=== PATIENT | male | born 1935 | race Caucasian/White ===

== ENCOUNTER 2018-08-24 10:12 | Day surgery (SDC) | payer OTHER, SELFPAY ==
[2018-08-19 12:53] VITALS: BMI 28.0
--- NOTE | 2018-08-24 | DI.RAD.S_ITS ---
PROCEDURE: XR CHEST 1V INDICATIONS: PORT A CATH PLACEMENT TECHNIQUE: One view of the chest was acquired. COMPARISON: [facility], CT, CT CHEST WITHOUT CONTRAST, 07/08/2018, 9:21. [facility], CR, CHEST 2 VIEW, 11/04/2017, 12:33. FINDINGS: Surgical changes and devices: There is a left Port-A-Cath, the tip of which is projected over the upper SVC. Lungs and pleura: Lung volumes are low. A spiculated mass is redemonstrated within the right upper lobe, slightly increased in size when compared with the prior chest film dated 11/04/17. There is likely a second right apical lesion more superiorly that was not visualized on the prior plain film, but is likely present on the comparison CT dated 07/08/18. No pneumothorax. Mediastinum: Mediastinal contours appear normal. Heart size is normal. Bones and chest wall: No suspicious bony lesions. Overlying soft tissues appear unremarkable. IMPRESSION: 1. New left Port-A-Cath. 2. Right apical pulmonary lesions. Dictated by: Devi Wright M.D. on 08/24/2018 at 12:52 Approved by: Devi Wright M.D. on 08/24/2018 at 12:56
[2018-08-24 10:47] VITALS: BP 142/79; PULSE 47; RESP 16; TEMP 36.2; O2SAT 97; BMI 28.0
[2018-08-24] MEDS: LACTATED RINGERS 1,000 ML 100 ML IV (11:03)
--- NOTE | 2018-08-24 11:26 | PM.HP.1 ---
History of Present Illness Date Patient Seen: 08/24/18 Time Patient Seen: 11:27 Chief complaint: port a cath placement [id number] Narrative: Segundo is a pleasant 83-year-old gentleman with recurrent lung cancer. He presents today for port placement to facilitate chemotherapy. He denies shortness of breath or chest pain today. He reports that the process of getting a port as well as the use of it has been discussed with him and he is willing to have the procedure. Patient History Medical History Adenocarcinoma of right lung (Acute ~12/2017) Anemia (Acute) Arthritis (Acute) BPH (benign prostatic hyperplasia) (Acute) Bilateral carotid bruits (Acute ~08/2017) Constipation (Acute) Easy bruisability (Acute) Eustachian tube dysfunction (Acute) GERD (gastroesophageal reflux disease) (Acute) HTN (hypertension) (Acute) Hard of hearing (Acute) Hypothyroidism (Acute) Macular degeneration of left eye (Acute) Silent myocardial infarction (Acute ~2010) Spinal stenosis (Acute) Syncope (Acute) Family & Social History Family History: Reviewed 08/24/18 by Shiela Dougherty MD Social History: household members spouse Tobacco & Substance use: Smoking Status Former smoker alcohol intake current Meds Home Medications Medication Instructions Recorded Confirmed Type finasteride 5 mg PO QDAY #0 02/11/17 History oxybutynin chloride [Ditropan XL] 5 mg PO QPM #0 02/11/17 History aspirin 0.25 tab PO QDAY #0 09/01/17 History tamsulosin [Flomax] 0.4 mg PO BID #0 09/01/17 History fluticasone [Flonase Allergy 50 mcg INTRANASAL PRN PRN #48 ml 09/16/17 Rx Relief] omeprazole 20 mg PO QDAY #90 cap 10/05/17 Rx levothyroxine [Synthroid] 75 mcg PO QDAY #90 tab 10/18/17 Rx lisinopril 5 mg PO QDAY #90 tab 11/09/17 Rx polysaccharide iron complex 150 mg PO BID #60 cap 12/08/17 Rx [Ferrex 150] docusate sodium [DOK] 100 mg PO QDAYP PRN #0 01/05/18 History azelastine 2 inh INH SEE INSTRUCTIONS #1 inh 01/10/18 Rx nabumetone 750 mg tablet 750 mg PO BID #180 tab 05/24/18 Rx atorvastatin 40 mg tablet 40 mg PO QDAY #90 tab 06/27/18 Rx folic acid 1 mg PO DAILY #30 tab 08/15/18 Rx ondansetron HCl [Zofran] 4 mg PO Q6-8H PRN #30 tab 08/22/18 Rx Allergies Allergy/AdvReac Type Severity Reaction Status Date / Time No Known Drug Allergies Allergy Unknown Verified 08/24/18 10:45 [NO KNOWN DRUG ALLERGIES] Review of Systems Review of Systems All systems reviewed & are unremarkable except as noted in HPI and below Exam Vital Signs (past 8 hours): - 08/24/18 10:47 Temperature 97.1 F L Pulse Rate 47 L Respiratory Rate 16 Blood Pressure 142/79 H Pulse Oximetry 97 Oxygen Delivery Method Room Air Narrative Exam Narrative: Pleasant gentleman in no obvious distress HEENT: Normocephalic and atraumatic, pupils equal round reactive to light accommodation with anicteric sclera Lungs: Clear bilaterally Heart: Regular rate and rhythm Abdomen: Soft, nontender, active bowel sounds Extremities: Warm and well perfused Assessment & Plan Plan: Assessment/Plan Narrative: Pleasant right-handed gentleman with recurrent lung cancer. We discussed the risks and benefits of port placement the patient expressed a desire to complete the procedure today.
[2018-08-24] MEDS: CEFAZOLIN 2 GM/100 ML FROZ.PIGGY IV (11:36)
--- NOTE | 2018-08-24 11:54 | SUR.OPER ---
Supine on padded OR bed, head on pillow, arms padded and tucked at side, legs uncrossed, safety belt at thigh, tape over blanket over lower legs .
[2018-08-24] MEDS: BUPIVACAINE 0.5% (PF) VIAL 30 ML INJ (12:03)
[2018-08-24] MEDS: LIDOCAINE 1% W/EPI INJ 20 ML INJ (12:05)
--- NOTE | 2018-08-24 12:10 | PM.OP.1 ---
Operative Date/Time/Diagnoses Date of procedure: 08/24/18 Time of procedure: 12:10 Pre-op diagnosis: Recurrent lung cancer Post-op diagnosis: same Procedure & Clinicians Procedure: Left subclavian PowerPort placement Same procedure as scheduled: Yes Indications: Chemotherapy facilitation Surgeon: Shiela Dougherty Click Yes if Unassisted: Yes Anesthesia Type: General (Dr. Tello) and Local Operative Notes Findings: Power port in good position in the superior vena cava Closure Type: primary Specimen(s): none sent Implants & Drains: Low-profile power port Estimated Blood Loss (mL): 5 Procedure in detail: After obtaining informed consent, the patient was brought to the operating room and placed in the supine position on the operating table. Following successful induction of general endotracheal anesthesia, appropriate padding of all bony prominences, and placement of appropriate monitors, the left chest was prepped and draped in a standard surgical fashion. A timeout was held per SCOAP protocol.A mixture of local anesthetics was infiltrated in the deltopectoral groove on the left side. The right subclavian vein was accessed via the Seldinger technique and a wire was gently placed into the vein. Fluoroscopy was used to verify position of the wire in the subclavian vein. We next created a pocket of approximately 2 cm inferior to the access site of the vein. This was checked for size and found to fit the port nicely. The included tunneling device was used to place the tubing and the pocket connecting it to the access site of the subclavian vein. The tubing was trimmed to an appropriate length and connected to the Port-A-Cath. The Port-A-Cath was sewn into place in the pocket using interrupted Prolene sutures. The pocket was closed in 2 layers. The dilator and introducer were then gently passed over the wire and into the subclavian vein. The wire and dilator were removed leaving only the introducer. The tubing was then placed in the introducer and the introducer removed per diesel mechanic's directions. The port was then flushed with saline solution and found to be functional and in good position. It was then hep-locked with 2000 units of heparin.The incision was closed in 2 layers with Vicryl and Monocryl sutures. Dermabond was applied to the skin. All sponge, needle, and instrument counts were correct at the conclusion of the case. Patient was allowed to awaken from anesthesia and taken to the post-anesthesia care unit in good condition. Complications: none Condition: stable Disposition: PACU Plan for aftercare: 1. Discharge to home 2. The port is ready for use
[2018-08-24 12:17] VITALS: BP 136/74; PULSE 115; RESP 19; TEMP 36.3; O2SAT 97
[2018-08-24 12:22] VITALS: BP 106/61; PULSE 101; RESP 17; O2SAT 97
[2018-08-24 12:27] VITALS: BP 103/62; PULSE 97; RESP 20; O2SAT 97
[2018-08-24 12:32] VITALS: BP 106/59; PULSE 96; RESP 20; O2SAT 97
[2018-08-24 12:58] VITALS: BP 127/78; PULSE 56; RESP 16; TEMP 36.6; O2SAT 98
== END 2018-08-24 13:23 ==
PROVIDERS: PCP Internal Medicine; Visit Provider Surgery
PROC: (CPT 36561; principal; 2018-08-24 12:45)
DX: C34.91 Malignant neoplasm of unspecified part of right bronchus or lung (principal); Z45.2 Encounter for adjustment and management of vascular access device; Z87.891 Personal history of nicotine dependence; I10 Essential (primary) hypertension; E03.9 Hypothyroidism, unspecified
CPT/HCPCS: 36561; 71045; 76000; C1788; J0690; J1644; J2405; J2704; J3010

== ENCOUNTER → 2018-09-21 08:24 | Outpatient (CLI) | payer OTHER, SELFPAY ==
--- NOTE | 2018-09-21 08:26 | DI.ECHO.S_ITS ---
[facility] +---------+ [facility] +---------+ : : [address] : : : : [phone] : : : : Phone: [phone]+ Echocardiogram Report + + :Name: NADYA SCHUSTER Study Date: 09/21/2018 Height: 69 in : :[facility] Weight: 182 lb : : Gender: Male BSA: 2.0 m2 : :: 1935 Age: 83 yrs BP: 110/58 mmHg: :Reason For Study: Pre Chemo (ICD Code V67.2), Dizziness : : Performed By: Meredith Busby : :Referring: NOHEMY HICKS : + + Interpretation Summary Left ventricular systolic function is normal without focal wall motion abnormalities with the ejection fraction visually estimated to be 65-70%. There is mild concentric left ventricular hypertrophy and diastolic parameters suggest a relaxation abnormality of the left ventricle, consistent with probable normal filling pressures. There has been no significant change since the previous study. The right ventricle is normal in size and function and appears unchanged compared to the previous study. The right ventricular systolic pressure is estimated to be at least 24 mmHg based on an estimated right atrial pressure of 3 mm Hg, and is unchanged compared to the previous study. The left atrium is mildly dilated and is grossly unchanged compared to the previous study. There is mild to moderate mitral annular calcification and the mitral valve leaflets are mildly calcified which appears progressive compared to the previous study but there is only is trace mitral regurgitation that is unchanged. There is mild aortic valve sclerosis and mild tricuspid regurgitation that are unchanged compared to the previous study. There is no other significant valvular heart disease. The ascending aorta and aortic arch are mildly enlarged but similar compared to the previous study. Procedure: A two-dimensional transthoracic echocardiogram with color flow and Doppler was performed. The study quality was technically adequate. Comparison is made with the echocardiogram of 07/11/2011. The patient was in normal sinus rhythm during the exam. The patient had occasional PVCs during the exam. Left Ventricle: The left ventricle is normal in size. There is mild concentric left ventricular hypertrophy. This is unchanged compared to the previous study. There is no ventricular septal defect visualized. Left ventricular systolic function is normal without focal wall motion abnormalities. The ejection fraction is estimated to be 65-70%. This is unchanged compared to the previous study. Diastolic parameters suggest a relaxation abnormality of the left ventricle, consistent with probable normal filling pressures. There has been no significant change since the previous study. Right Ventricle: The right ventricle is normal in size and function. This is unchanged compared to the previous study. Atria: The left atrium is mildly dilated. This is grossly unchanged compared to the previous study. Right atrial size is normal. The interatrial septum is intact with no evidence for an atrial septal defect. Mitral Valve: There is mild to moderate mitral annular calcification. The mitral valve leaflets are mildly calcified. This is progressive compared to the previous study. There is trace mitral regurgitation. This is unchanged compared to the previous study. Aortic Valve: The aortic valve is trileaflet. There is mild aortic valve sclerosis. The aortic valve is slightly calcified. Leaflet mobility is minimally reduced. There is no aortic valve stenosis. There is trace aortic regurgitation. This is unchanged compared to the previous study. Tricuspid Valve: The tricuspid valve leaflets are thin and pliable. There is mild tricuspid regurgitation. The right ventricular systolic pressure is estimated to be at least 24 mmHg based on an estimated right atrial pressure of 3 mm Hg. This is unchanged compared to the previous study. Pulmonic Valve: The pulmonic valve leaflets are thin and pliable; valve motion is normal. There is trace pulmonic regurgitation. This is unchanged compared to the previous study. There is no other significant valvular heart disease. Great Vessels: The aortic root is normal size. The ascending aorta is mildly enlarged. The aortic arch is mildly enlarged. This is similar compared to the previous study. The pulmonary artery is normal size. The IVC is of normal diameter and collapses greater than 50% with a sniff. This suggests a low right atrial pressure of 3 mm Hg. Pericardium/ Pleura There is no pericardial effusion. MMode/2D Measurements & Calculations LVIDd: 4.4 cm LVOT diam: 2.2 cm LVIDs: 2.6 cm Ao root diam: 3.4 cm FS: 41.5 % Aortic Jxn: 2.9 cm EPSS: 0.28 cm asc Aorta Diam: 3.6 cm IVSd: 1.2 cm Ao Arch Diam (Prox Trans): 3.2 cm LVPWd: 1.4 cm LV ashraf. diameter/BSA (cm/m^2): 2.2 LV sys. diameter/BSA (cm/m^2): 1.3 LA A2 area: 24.1 cm2 RA long axis: 5.2 cm LA A4 area: 21.9 cm2 RA area: 16.9 cm2 LA length (vol): 5.5 cm RA vol: 46.4 ml LA vol: 81.4 ml RA : 23.4 ml/m2 LA vol index: 41.0 ml/m2 IVC diam: 1.5 cm RVD1 (basal): 3.5 cm RVD2 (mid): 2.8 cm TAPSE: 2.2 cm Doppler Measurements & Calculations Ao V2 max: 179.7 cm/sec LVOT Max Remy: 126.2 cm/sec Ao V2 mean: 116.6 cm/sec LV V1 max P.4 mmHg Ao max P.9 mmHg LV V1 VTI: 27.5 cm Ao mean P.3 mmHg GARRY(I,D): 3.1 cm2 Ao V2 VTI: 34.9 cm GARRY(V,D): 2.8 cm2 sev ratio: 0.79 GARRY indexed to BSA (cm^2/m^2): 1.6 MV E max remy: 89.0 cm/sec TR max remy: 226.9 cm/sec MV A max remy: 106.6 cm/sec TR max P.6 mmHg MV E/A: 0.83 PA V2 max: 95.3 cm/sec Med Peak E' Remy: 5.6 cm/sec PA V2 mean: 64.3 cm/sec E/E' med: 16.0 PA mean P.9 mmHg Lat Peak E' Remy: 4.5 cm/sec PA Accel Time: 0.08 sec E/E' lat: 19.7 E/e' average: 17.8 MV dec time: 0.20 sec MV P1/2t: 58.2 msec MV P1/2t max remy: 89.1 cm/sec MVA(P1/2t): 3.8 cm2 Reading Physician:[place]
== END ==
PROVIDERS: PCP Internal Medicine; Visit Provider Internal Medicine Hematology & Oncology
DX: I08.2 Rheumatic disorders of both aortic and tricuspid valves (principal); C34.91 Malignant neoplasm of unspecified part of right bronchus or lung; R42 Dizziness and giddiness
CPT/HCPCS: 93306

== ENCOUNTER → 2018-11-10 10:26 | Outpatient (CLI) | payer OTHER, SELFPAY ==
--- NOTE | 2018-11-10 10:37 | DI.CT.S_ITS ---
PROCEDURE: CT CHEST ABD PEL W CON INDICATIONS: check responsiveness to treatment TECHNIQUE: After the administration of oral and intravenous contrast, 5 mm thick sections acquired from the lung apices to the symphysis. 5 mm coronal and sagittal reformats were performed, with additional 7 mm coronal MIP reformats through the lungs. For radiation dose reduction, the following was used: automated exposure control, adjustment of mA and/or kV according to patient size. COMPARISON: [facility], [place], PET NECK TO MID THIGH, 08/09/2018, 10:10. [facility], CT, CT CHEST WITHOUT CONTRAST, 07/08/2018, 9:21. [facility], CT, CT CHEST WITHOUT CONTRAST, 03/31/2018, 10:14. FINDINGS: Image quality: Excellent. CHEST: Lungs and pleura: There is an irregular density in the right upper lobe anteriorly, unchanged and compatible with postradiation changes. There is a small right effusion. There are multiple pleural nodules in the lower right hemithorax, demonstrating interval enlargement. For example, a 12 x 9 mm nodule previously measured 10 x 5 mm on 08/09/2018. A 15 x 8 mm nodule was previously measured 9 x 7 cm. An anterior pleural nodule measures 9 x 15 mm, previously 6 x 7 mm. Another anterior pleural nodule in the right cardiophrenic angle measures 1.7 x 3.0 cm, previously 1.3 x 2.1 cm. Right lower lobe infiltrate and consolidation has decreased. No pleural effusions or pneumothorax. Central and peripheral airways appear patent and normal in caliber. Mediastinum: Heart size is normal. No pericardial effusion. No mediastinal or hilar adenopathy by size criteria. Thoracic aorta and central pulmonary arteries are normal in size. Esophagus is normal in caliber. No hiatal hernia. Chest wall: No axillary or supraclavicular adenopathy by size criteria. Thyroid gland is normal. ABDOMEN: Solid organs: There are multiple low density nodules in the liver, most likely cysts. Liver is normal in size and enhancement. Gallbladder is normal. Biliary system is non dilated. Pancreas enhances normally. Spleen is normal in size and enhancement. No adrenal nodules. Kidneys demonstrate normal size and enhancement, without hydronephrosis. Peritoneum and bowel: Bowel loops demonstrate normal wall thickness and caliber. No free fluid or air. Nodes and vessels: No retroperitoneal or mesenteric adenopathy by size criteria. Aorta and inferior vena cava are normal in size. Severe aortic and iliac calcifications. Miscellaneous: No ventral hernias. PELVIS: Genitourinary: Bladder wall is mildly thickened. There is prostatic enlargement Miscellaneous: No inguinal hernias or adenopathy. Bones: No suspicious bony lesions. No vertebral body compression fractures. IMPRESSION: 1. 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 Small right effusion is unchanged. 2. Stable irregular density in the right upper lobe compatible with postradiation changes. 3. Decreased right lower lobe airspace disease. Dictated by: Nicolasa Perdomo M.D. on 11/10/2018 at 12:58 Approved by: Nicolasa Perdomo M.D. on 11/10/2018 at 18:03
== END ==
PROVIDERS: PCP Internal Medicine; Visit Provider Internal Medicine Hematology & Oncology
DX: C34.91 Malignant neoplasm of unspecified part of right bronchus or lung (principal)
CPT/HCPCS: 71260; 74177; Q9967

== ENCOUNTER 2018-11-12 15:52 | Emergency (ER) | payer OTHER, SELFPAY ==
[2018-11-12 16:08] VITALS: BMI 27.3
[2018-11-12 16:19] VITALS: BP 138/59; PULSE 96; RESP 18; TEMP 36.8; O2SAT 98
--- NOTE | 2018-11-12 16:22 | ED_ITS ---
HPI - Eye Problem General Chief complaint: Eye Problems Stated complaint: spray paint in right eye Time Seen by Provider: 11/12/18 16:21 Source: patient Mode of arrival: ambulatory Limitations: no limitations History of Present Illness HPI Narrative: Patient is an 83-year-old male here for evaluation after he was using a spray paint can with the top came off and he sprayed himself in his eyes. Patient has no foreign body sensation but does have irritation to both eyes with his right being greater than the left. He was flushed with irrigation by nursing staff prior to my evaluation. Related Data Home Medications Medication Instructions Recorded Confirmed finasteride 5 mg PO QDAY #0 02/11/17 11/07/18 oxybutynin chloride [Ditropan XL] 5 mg PO QPM #0 02/11/17 11/07/18 aspirin 0.25 tab PO QDAY #0 09/01/17 11/07/18 tamsulosin [Flomax] 0.4 mg PO BID #0 09/01/17 11/07/18 docusate sodium [DOK] 100 mg PO QDAYP PRN #0 01/05/18 11/07/18 magnesium hydroxide [Milk of 400 mg PO DAILY PRN 09/19/18 11/07/18 Magnesia] polyethylene glycol 3350 [Miralax] 17 g PO DAILY PRN 09/19/18 11/07/18 sennosides [senna] 8.6 mg PO BID PRN 09/19/18 11/07/18 levofloxacin [Levaquin] 500 mg PO DAILY 10/25/18 11/07/18 Previous Rx's Medication Instructions Recorded fluticasone [Flonase Allergy 50 mcg INTRANASAL PRN PRN #48 ml 09/16/17 Relief] lisinopril 5 mg PO QDAY #90 tab 11/09/17 polysaccharide iron complex 150 mg PO BID #60 cap 12/08/17 [Ferrex 150] azelastine 2 inh INH SEE INSTRUCTIONS #1 inh 01/10/18 folic acid 1 mg PO DAILY #30 tab 08/15/18 ondansetron HCl [Zofran] 4 mg PO Q6-8H PRN #30 tab 08/22/18 lidocaine-prilocaine 1 applictn TOP PRN PRN #30 gram 08/24/18 oxycodone 5 mg PO Q4-6H PRN #30 tab 08/24/18 triamcinolone acetonide 0.1 % 1 applictn TOP BID #453.6 gram 09/15/18 topical cream atorvastatin 40 mg tablet 40 mg PO QDAY #90 tab 09/21/18 omeprazole 20 mg PO QDAY #90 cap 09/28/18 hydrocortisone acetate 25 mg 25 mg UT QD-BID PRN #30 each 10/19/18 rectal suppository levothyroxine 112 mcg tablet 112 mcg PO DAILY #90 tab 11/04/18 Allergies Allergy/AdvReac Type Severity Reaction Status Date / Time No Known Drug Allergies Allergy Unknown Verified 09/15/18 15:13 [NO KNOWN DRUG ALLERGIES] Review of Systems Constitutional Denies fever(s) Eyes Comments: [place] paint in bilateral eyes Cardiovascular Denies dyspnea Respiratory Denies dyspnea Gastrointestinal Gastrointestinal: Denies nausea and Denies vomiting Integumentary/Breasts Denies rash PFSH Social History household members: spouse Smoking Status: Former smoker alcohol intake: current Social History household members: spouse Smoking Status: Former smoker alcohol intake: current Exam Initial Vital Signs Initial Vital Signs: Vital Signs Temperature 98.2 F 11/12/18 16:19 Pulse Rate 96 H 11/12/18 16:19 Respiratory Rate 18 11/12/18 16:19 Blood Pressure 138/59 L 11/12/18 16:19 Pulse Oximetry 98 11/12/18 16:19 Const General: cooperative, healthy appearing, well developed, well groomed and No acute distress HENMT Head: normal to inspection and normocephalic Eyes Pupils: PERRL EOM: EOM intact bilaterally Other: PH bilateral eyes 30 min after irrigation was 7 Skin Other: Patient with green spray paint on his hands and around bilateral eyes and on his face Neuro General: alert, awake and oriented x3 Extrem General: normal to inspection and capillary refill normal Psych Appearance: grossly normal and well kempt Course Vital Signs - 8 hr 11/12/18 16:19 Temperature 98.2 F Pulse Rate 96 H Respiratory Rate 18 Blood Pressure [Left Arm] 138/59 L Pulse Oximetry 98 MDM - Eye Problem MDM Narrative Medical decision making narrative: Patient without foreign body sensation and irritation of bilateral eyes after irrigation. PH is unremarkable. Will hold on further workup for now. Patient was given return precautions. He expressed understanding and agreement with plan. No indication for antibiotics. Discharge Plan Departure Patient Disposition: Home Clinical Impression: Accidental exposure to paint Discharge Date/Time: 11/12/18 17:30 Interventions: ED Discharge Assessment Last Done: 11/12/18 17:27 Instructions: DI for Foreign Body in the Eye Activity Restrictions/Additional Instructions: You can shower like normal. Use soap and water like normal. Do not use paint thinner to remove the pain that is on your face. Contact your primary doctor for a follow-up. Return to the emergency department for any new or worsening symptoms Prescriptions: No Action oxybutynin chloride [Ditropan XL] 5 MG tablet extended release 24hr 5 mg PO QPM Qty: 0 RF: 0 finasteride 5 MG tablet 5 mg PO QDAY Qty: 0 RF: 0 aspirin 325 MG tablet 0.25 tab PO QDAY Qty: 0 RF: 0 tamsulosin [Flomax] 0.4 MG capsule,extended release 24hr 0.4 mg PO BID Qty: 0 RF: 0 fluticasone [Flonase Allergy Relief] 9.9 ML spray,suspension 50 mcg Intranasal PRN PRNQty: 48 RF: 3 lisinopril 5 MG tablet 5 mg PO QDAY Qty: 90 RF: 3 polysaccharide iron complex [Ferrex 150] 150 MG capsule 150 mg PO BID Qty: 60 RF: 2 docusate sodium [DOK] 100 MG tablet 100 mg PO QDAYP PRN (Reason: Constipation) Qty: 0 RF: 0 azelastine 137 MCG/0.137 ML aerosol,spray 2 inh INH SEE INSTRUCTIONS Qty: 1 RF: PRN folic acid 1 mg Tablet 1 mg PO DAILY Qty: 30 RF: 6 atorvastatin 40 mg tablet 40 mg PO QDAY Qty: 90 RF: 0 omeprazole 20 mg capsule,delayed release(DR/EC) 20 mg PO QDAY Qty: 90 RF: 3 hydrocortisone acetate [Anusol-HC] 25 mg suppository 25 mg UT QD-BID PRN (Reason: hemorrhoids) Qty: 30 RF: 1 levothyroxine 112 mcg tablet 112 mcg PO DAILY Qty: 90 RF: 0 triamcinolone acetonide 0.1 % cream 1 applictn TOP BID Qty: 453.6 RF: 2 ondansetron HCl [Zofran] 4 mg Tablet 4 mg PO Q6-8H PRN (Reason: Nausea) Qty: 30 RF: 2 sennosides [senna] 8.6 mg Tablet 8.6 mg PO BID PRN (Reason: Constipation) RF: 0 polyethylene glycol 3350 [Miralax] 17 gram Powder In Packet 17 g PO DAILY PRN (Reason: Constipation) RF: 0 magnesium hydroxide [Milk of Magnesia] 400 mg/5 mL Suspension 400 mg PO DAILY PRN (Reason: Constipation) RF: 0 levofloxacin [Levaquin] 500 mg Tablet 500 mg PO DAILY RF: 0 lidocaine-prilocaine 2.5-2.5 % cream 1 applictn TOP PRN PRN (Reason: pain) Qty: 30 RF: 0 oxycodone 5 mg tablet 5 mg PO Q4-6H PRN (Reason: pain) Qty: 30 RF: 0
--- NOTE | 2018-11-12 17:07 | PC.NURSE ---
Pt states he is symptom free at this time. Sclera appearance is reddened, unchanged. Provider aware.
== END 2018-11-12 17:30 | disposition home or self-care (01) ==
PROVIDERS: Emergency Provider Emergency Medicine; PCP Internal Medicine
DX: Z77.29 Contact with and (suspected) exposure to other hazardous substances (principal)
CPT/HCPCS: 99283

== ENCOUNTER → 2019-06-09 09:32 | Outpatient (CLI) | payer OTHER, SELFPAY ==
--- NOTE | 2019-06-09 09:34 | DI.CT.S_ITS ---
PROCEDURE: CT CHEST ABD PEL W CON INDICATIONS: Lung cancer TECHNIQUE: After the administration of oral and intravenous contrast, 5 mm thick sections acquired from the lung apices to the symphysis. 5 mm coronal and sagittal reformats were performed, with additional 7 mm coronal MIP reformats through the lungs. For radiation dose reduction, the following was used: automated exposure control, adjustment of mA and/or kV according to patient size. COMPARISON: [facility], [place], PET NECK TO MID THIGH, 08/09/2018, 10:10. [facility], CT, CT CHEST ABD PEL W CON, 11/10/2018, 11:31. FINDINGS: Image quality: Excellent. CHEST: Lungs and pleura: No acute airspace opacities but there is extensive multifocal right-sided atelectasis associated with interval development of a moderately large right pleural effusion which appears free of loculation but does show mild lobulation and associated pleural thickening and slight enhancement. A pleural based mass previously present at the anterior right upper lung has increased in size, with maximal axial dimension previously measuring 2.9 cm and currently measuring up to 3.8 cm. A small ovoid 1.5 x 2.5 cm lesion abutting the dome of the right hemidiaphragm has enlarged, contains punctate internal calcifications, and has increased from approximately 1.5 x 2.5 cm to now 5.4 x 4.6 cm. No pleural effusions or pneumothorax. Central and peripheral airways appear patent and normal in caliber. Mediastinum: Heart size is normal. No pericardial effusion. No mediastinal or hilar adenopathy by size criteria. Thoracic aorta and central pulmonary arteries are normal in size. Esophagus is normal in caliber. No hiatal hernia. Chest wall: No axillary or supraclavicular adenopathy by size criteria. Thyroid gland appears normal where well seen.. ABDOMEN: Solid organs: Liver is normal in size and enhancement. Gallbladder appears normal, partially contracted. Biliary system is non dilated. Pancreas enhances normally. Spleen is normal in size and enhancement. No adrenal nodules. Kidneys demonstrate normal size and enhancement, without hydronephrosis. Peritoneum and bowel: Bowel loops demonstrate normal wall thickness and caliber. No free fluid or air. Nodes and vessels: No retroperitoneal or mesenteric adenopathy by size criteria. Aorta and inferior vena cava are normal in size. Miscellaneous: No ventral hernias. PELVIS: Genitourinary: Bladder wall thickness is normal. Miscellaneous: No inguinal hernias or adenopathy. Bones: No suspicious bony lesions. No vertebral body compression fractures. IMPRESSION: 1. Interval development of a large right pleural effusion, with multifocal secondary atelectasis involving the right lung. 2. Along the pleural surfaces of the right hemithorax 2 previously present soft tissue masses can be seen to have significantly enlarged in size, the first located at the anterior medial right mid chest level and the second located contiguous with the posterior margin of the dome of the right hemidiaphragm. 3. 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 These were not previously present. Dictated by: Anuel Boothe M.D. on 06/09/2019 at 14:10 Approved by: Anuel Boothe M.D. on 06/09/2019 at 14:28
== END ==
PROVIDERS: PCP Internal Medicine; Visit Provider Internal Medicine Hematology & Oncology
DX: C34.91 Malignant neoplasm of unspecified part of right bronchus or lung (principal); J90 Pleural effusion, not elsewhere classified; J98.11 Atelectasis
CPT/HCPCS: 71260; 74177; Q9967

== ENCOUNTER 2019-07-05 13:09 | Emergency (ER) | payer OTHER, SELFPAY ==
[2019-07-05 13:10] VITALS: BP 111/67; PULSE 97; RESP 20; TEMP 36.2; O2SAT 100
--- NOTE | 2019-07-05 13:20 | PC.NURSE ---
Addendum entered by Myrna Yeboah R.N. 07/05/19 13:21: left ankle to thigh. not right. Original Note: per nurse at [facility] pt is c/o right leg swelling from ankle to thigh. was told by oncologist to be seen immediately if he noticed any swelling. unable to reach oncologist at this time for clarification.
--- NOTE | 2019-07-05 13:52 | DI.US.S_ITS ---
PROCEDURE: US PERIPH VENOUS LOW EXTREM LT INDICATIONS: SWELLING,PAIN,HISTORY OF CANCER TECHNIQUE: Real-time imaging, as well as color and pulse Doppler interrogation, were performed of the lower extremity deep veins from the inguinal ligament to the popliteal fossa. COMPARISON: None. FINDINGS: The common femoral, femoral and popliteal veins are normally compressible, and free of intraluminal thrombus. Color and pulse Doppler demonstrate normal phasic intraluminal flow. There is normal augmentation response to distal compression maneuver. IMPRESSION: Negative for deep venous thrombosis of the left lower extremity. Dictated by: Yrn Thompson M.D. on 07/05/2019 at 14:37 Approved by: Yrn Thompson M.D. on 07/05/2019 at 14:38
[2019-07-05 14:08] LABS: Add Manual Diff / Slide Review NO; Basophils Absolute Auto 0 /uL (0-100); Basophils Percent Auto 0.1 % (0-2); Eosinophils Absolute Auto 100 /uL (0-450); Eosinophils Percent Auto 2.8 % (2-4); Hematocrit 24.6 % (41-53); Hemoglobin 8.2 g/dL (13.5-17.5); Lymphocytes Absolute Auto 400 /uL (1100-4500); Lymphocytes Percent Auto 7.3 % (25-40); Mean Corpuscular HGB Conc 33.4 % (30-36); Mean Corpuscular Hemoglobin 34.1 PG (26-34); Mean Corpuscular Volume 102.3 fL (80-100); Monocytes Absolute Auto 1000 /uL (0-900); Monocytes Percent Auto 20.5 % (3-14); Neutrophils Absolute Auto 3500 /uL (1500-7000); Neutrophils Percent Auto 69.3 % (50-75); Platelet Count 220 X10^3/uL (150-400); Red Blood Cell Count 2.41 X10^6/uL (4.5-5.9); Red Cell Distribution Width 16.6 % (11.6-14.8)
[2019-07-05 14:23] LABS: B Type Natriuretic Peptide < 100 (<100)
[2019-07-05 14:25] LABS: Alanine Aminotransferase 50 IU/L (21-72); Albumin 3.2 g/dL (3.5-5.0); Albumin Globulin Ratio 1.1 (1.0-2.8); Alkaline Phosphatase 123 U/L (38-126); Aspartate Aminotransferase 51 IU/L (17-59); BUN Creatinine Ratio 25.6 (6-22); Bilirubin Total 0.5 mg/dL (0.2-1.3); Blood Urea Nitrogen 23 mg/dL (9-20); Calcium 9.1 mg/dL (8.4-10.2); Carbon Dioxide 26 mmol/L (22-32); Chloride 101 mmol/L (98-107); Estimated Glomerular Filt Rate > 60.0 mL/min (>60); Globulin 2.9 g/dL (1.7-4.1); Glucose 108 mg/dL (80-110); HEMOLYSIS < 15 (0-50); Magnesium 1.8 mg/dL (1.6-2.3); Potassium 4.1 mmol/L (3.4-5.1); Sodium 136 mmol/L (137-145); Total Protein 6.1 g/dL (6.3-8.2)
[2019-07-05 14:30] VITALS: BP 128/59; RESP 19; O2SAT 96
[2019-07-05 15:00] VITALS: BP 128/69; PULSE 89; RESP 17; O2SAT 97
--- NOTE | 2019-07-05 16:17 | ED_ITS ---
HPI - Extremity Problem <Jessica SaenzZOILA chu-BC - Last Filed: 07/05/19 19:05> General Chief complaint: Extremity Problem,Nontraumatic Stated complaint: pulsating in left leg cant get it to stop Time Seen by Provider: 07/05/19 13:30 Source: patient Mode of arrival: Ambulatory Limitations: no limitations History of Present Illness HPI Narrative: The patient is an 84-year-old male with history of lung cancer presents with a chief complaint of left lower leg swelling and pain for the past few days. He states that his hospital medical assistant oncologist suggested that he get evaluated immediately if he noticed bulging around his left ankle. He denies any abnormal shortness of breath. Denies any fevers nausea vomiting or diarrhea. He states he feels like there is pressure on the inside of his left calf. He denies any previous history of blood clots. He does state that he had a thoracentesis last week. Related Data Home Medications Medication Instructions Recorded Confirmed finasteride 5 mg PO DAILY #0 02/11/17 07/07/19 tamsulosin [Flomax] 0.4 mg PO BID #0 09/01/17 07/07/19 docusate sodium [DOK] 100 mg PO QDAYP PRN #0 01/05/18 07/07/19 magnesium hydroxide [Milk of 400 mg PO DAILY PRN 09/19/18 07/07/19 Magnesia] polyethylene glycol 3350 [Miralax] 17 g PO DAILY PRN 09/19/18 07/07/19 sennosides [senna] 8.6 mg PO BID PRN 09/19/18 07/07/19 atorvastatin 40 mg PO DAILY 07/05/19 07/07/19 lisinopril 5 mg PO DAILY 07/05/19 07/07/19 omeprazole 20 mg PO DAILY 07/05/19 07/07/19 oxybutynin chloride 10 mg PO DAILY 07/05/19 07/07/19 fluticasone propionate [Flonase 50 mcg INTRANASAL PRN PRN 07/07/19 07/07/19 Allergy Relief] Previous Rx's Medication Instructions Recorded polysaccharide iron complex 150 mg PO BID #60 cap 12/08/17 [Ferrex 150] azelastine 2 inh INH SEE INSTRUCTIONS #1 inh 01/10/18 folic acid 1 mg PO DAILY #30 tab 08/15/18 ondansetron HCl [Zofran] 4 mg PO Q6-8H PRN #30 tab 08/22/18 lidocaine-prilocaine 1 applictn TOP PRN PRN #30 gram 08/24/18 triamcinolone acetonide 0.1 % 1 applictn TOP BID #453.6 gram 09/15/18 topical cream levothyroxine 112 mcg tablet 112 mcg PO DAILY #90 tab 04/11/19 hydrocortisone acetate 25 mg 25 mg OR QD-BID PRN #30 each 05/18/19 rectal suppository furosemide 20 mg tablet 20 mg PO DAILY 3 Days #30 tab 07/07/19 Allergies Allergy/AdvReac Type Severity Reaction Status Date / Time No Known Drug Allergies Allergy Unknown Verified 07/07/19 15:21 [NO KNOWN DRUG ALLERGIES] Review of Systems <JUSTINE Alfaro - Last Filed: 07/05/19 19:05> Review of Systems Narrative: GENERAL: Denies chills, fatigue, malaise, fever, sweats. HEENT: Denies sinus pain, ear pain, sore throat, difficulty swallowing, dizziness. RESPIRATORY: See HPI CARDIOVASCULAR: Denies chest pain, palpitations, orthopnea, edema, GASTROINTESTINAL: Denies nausea, vomiting, abdominal pain, diarrhea, constipation, melena. : Denies dysuria, frequency, incontinence, hematuria, urinary retention. MUSCULOSKELETAL: See HPI SKIN: Denies rash, skin lesions, or other NEUROLOGIC: Denies weakness, headache, numbness, change in speech, confusion, seizures, incoordination. PSYCHIATRIC: No concerning psychosocial issues. 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) Bilateral carotid bruits (Inactive ~08/2017) Constipation (Chronic) Degenerative joint disease (Chronic 07/17/11) Eustachian tube dysfunction (Resolved) Gastroesophageal reflux disease without esophagitis (Chronic 07/17/11) Hard of hearing (Chronic) HTN (hypertension) (Chronic) Macular degeneration of left eye (Inactive) Mixed hyperlipidemia (Chronic 12/02/12) Recurrent adenocarcinoma of right lung (Chronic) Silent myocardial infarction (Inactive ~2010) Spinal stenosis, site unspecified (Chronic 07/17/11) Syncope (Resolved) Social History household members: spouse Smoking Status: Former smoker alcohol intake: current Social History household members: spouse Smoking Status: Former smoker alcohol intake: current Exam <ZOILA Alfaro-BC - Last Filed: 07/05/19 19:05> Narrative Exam Narrative: GENERAL: Chronically ill-appearing elderly male in no acute distress HEAD: Atraumatic. Normocephalic. No temporal or scalp tenderness. EYES: Pupils equal round and reactive. Extraocular motions intact. No scleral icterus. No injection or drainage. ENT: Nose without bleeding, purulent drainage or septal hematoma. Throat without erythema, tonsillar hypertrophy or exudate. Uvula midline. Airway patent. NECK: Trachea midline. No JVD or lymphadenopathy. Supple, nontender, no meningea l signs. CARDIOVASCULAR: Regular rate and rhythm without murmurs, gallops, or rubs. RESPIRATORY: Decreased lung sounds bilaterally to auscultation. Breath sounds equal bilaterally. No wheezes, rales, or rhonchi. No cough. No increased respiratory effort. No accessory muscle use. No stridor. GASTROINTESTINAL: Abdomen soft, non-tender, nondistended. No hepato- splenomegaly, or palpable masses. No guarding. EXTREMITIES: +3 edema noted left lower leg, + 2 edema noted right lower leg. Positive pedal pulses bilaterally. Capillary refill less than 2 seconds all toes. BACK: Nontender without deformity or crepitance. No flank tenderness. NEURO: AOx3. SKIN: No rash or erythema ecchymosis laceration abrasion or rash noted bilateral lower extremities on visible area Initial Vital Signs Initial Vital Signs: Vital Signs Temperature 97.1 F L 07/05/19 13:10 Pulse Rate 97 H 07/05/19 13:10 Respiratory Rate 20 07/05/19 13:10 Blood Pressure 111/67 07/05/19 13:10 Pulse Oximetry 100 07/05/19 13:10 <Haydee Aj DO - Last Filed: 07/08/19 07:11> Initial Vital Signs Initial Vital Signs: Vital Signs Temperature 97.1 F L 07/05/19 13:10 Pulse Rate 97 H 07/05/19 13:10 Respiratory Rate 20 07/05/19 13:10 Blood Pressure 111/67 07/05/19 13:10 Pulse Oximetry 100 07/05/19 13:10 Course <JUSTINE Alfaro - Last Filed: 07/05/19 19:05> Orders Ordered: ED Orders 07/05/19 13:52 periph venous low extrem lt Stat 07/05/19 14:01 B Type Natriuretic Peptide Stat Complete Blood Count AUTO DIFF Stat Comprehensive Metabolic Panel Stat Magnesium Stat Vital Signs Vital signs: Vital Signs - 8 hr 07/05/19 13:10 07/05/19 14:30 07/05/19 15:00 Temperature 97.1 F L Pulse Rate 97 H 89 Respiratory Rate 20 19 17 Blood Pressure 111/67 128/69 Blood Pressure [Right Arm] 128/59 L Pulse Oximetry 100 96 97 <Haydee Aj DO - Last Filed: 07/08/19 07:11> Orders Ordered: ED Orders 07/05/19 13:52 periph venous low extrem lt Stat 07/05/19 14:01 B Type Natriuretic Peptide Stat Complete Blood Count AUTO DIFF Stat Comprehensive Metabolic Panel Stat Magnesium Stat Vital Signs Vital signs: Vital Signs - 8 hr 07/05/19 13:10 07/05/19 14:30 07/05/19 15:00 Temperature 97.1 F L Pulse Rate 97 H 89 Respiratory Rate 20 19 17 Blood Pressure 111/67 128/69 Blood Pressure [Right Arm] 128/59 L Pulse Oximetry 100 96 97 MDM - Extremity (Nontraumatic) <JUSTINE Alfaro - Last Filed: 07/05/19 19:05> Lab Data Result diagrams: 07/05/19 14:01 07/05/19 14:01 Labs: Lab Results 07/05/19 07/05/19 Range/Units 14:01 14:01 WBC 5.0 (4.5-11.0) X10^3/uL RBC 2.41 L (4.5-5.9) X10^6/uL Hgb 8.2 L (13.5-17.5) g/dL Hct 24.6 L (41-53) % MCV 102.3 H (80-100) fL MCH 34.1 H (26-34) PG MCHC 33.4 (30-36) % RDW 16.6 H (11.6-14.8) % Plt Count 220 (150-400) X10^3/uL Neut % (Auto) 69.3 (50-75) % Lymph % (Auto) 7.3 L (25-40) % [place] % (Auto) 20.5 H (3-14) % Eos % (Auto) 2.8 (2-4) % Baso % (Auto) 0.1 (0-2) % Neut # (Auto) 3500 (1678-4163) /uL Lymph # (Auto) 400 L (9545-3015) /uL [place] # (Auto) 1000 H (0-900) /uL Eos # (Auto) 100 (0-450) /uL Baso # (Auto) 0 (0-100) /uL Sodium 136 L (137-145) mmol/L Potassium 4.1 (3.4-5.1) mmol/L Chloride 101 (98-107) mmol/L Carbon Dioxide 26 (22-32) mmol/L BUN 23 H (9-20) mg/dL Creatinine 0.90 (0.66-1.25) mg/dL Estimated GFR > 60.0 (>60) mL/min BUN/Creatinine Ratio 25.6 H (6-22) Glucose 108 (80-110) mg/dL Calcium 9.1 (8.4-10.2) mg/dL Magnesium 1.8 (1.6-2.3) mg/dL Total Bilirubin 0.5 (0.2-1.3) mg/dL AST 51 (17-59) IU/L ALT 50 (21-72) IU/L Alkaline Phosphatase 123 (38-126) U/L B-Natriuretic Peptide < 100 (<100) Total Protein 6.1 L (6.3-8.2) g/dL Albumin 3.2 L (3.5-5.0) g/dL Globulin 2.9 (1.7-4.1) g/dL Albumin/Globulin Ratio 1.1 (1.0-2.8) Imaging Data Venous US: Radiologist's impression: [facility] [address] [place] [address] Ultrasound Report Signed Patient: Segundo Tompkins [facility]#: [id number] : 5Acct:[id number] Age/Sex: 84 / MDate of Service: 07/05/19 Loc: ED Accession Number: [id number] Procedure: US periph venous low extrem lt Ordering Provider: Jessica Tomas PROCEDURE: US PERIPH VENOUS LOW EXTREM LT INDICATIONS: SWELLING,PAIN,HISTORY OF CANCER TECHNIQUE: Real-time imaging, as well as color and pulse Doppler interrogation, were performed of the lower extremity deep veins from the inguinal ligament to the popliteal fossa. COMPARISON: None. FINDINGS: The common femoral, femoral and popliteal veins are normally co mpressible, and free of intraluminal thrombus. Color and pulse Doppler demonstrate normal phasic intraluminal flow. There is normal augmentation response to distal compression maneuver. IMPRESSION: Negative for deep venous thrombosis of the left lower extremity. Dictated by: Yrn Thompson M.D. on 07/05/2019 at 14:37 Approved by: Yrn Thompson M.D. on 07/05/2019 at 14:38 MDM Narrative Medical decision making narrative: The patient is an 84-year-old male with history of lung cancer who presents with a chief complaint of left lower leg pain and swelling. He has edema noted bilaterally lower extremities. He is neurovascularly intact. However given his recent thoracentesis, cancer diagnosis and increased swelling is left-sided obtained a ultrasound to rule out DVT. Likely this came back negative. I did do basic lab work, which illustrated concordance with the patient's previous labs. He has a negative BNP. I encouraged elevation. Also encouraged [id number] pain medications as needed and able. Encouraged heat and/or ice for comfort. Encouraged follow- up with PCP in his PCP as well as cancer doctor. Patient has no questions or concerns upon discharge. I discussed at length to come back to the ER for any acute concerns such as chest pain, shortness of breath etc. <Haydee Aj DO - Last Filed: 07/08/19 07:11> Lab Data Labs: Lab Results 07/05/19 07/05/19 Range/Units 14:01 14:01 WBC 5.0 (4.5-11.0) X10^3/uL RBC 2.41 L (4.5-5.9) X10^6/uL Hgb 8.2 L (13.5-17.5) g/dL Hct 24.6 L (41-53) % MCV 102.3 H (80-100) fL MCH 34.1 H (26-34) PG MCHC 33.4 (30-36) % RDW 16.6 H (11.6-14.8) % Plt Count 220 (150-400) X10^3/uL Neut % (Auto) 69.3 (50-75) % Lymph % (Auto) 7.3 L (25-40) % [place] % (Auto) 20.5 H (3-14) % Eos % (Auto) 2.8 (2-4) % Baso % (Auto) 0.1 (0-2) % Neut # (Auto) 3500 (7443-9800) /uL Lymph # (Auto) 400 L (1077-0373) /uL [place] # (Auto) 1000 H (0-900) /uL Eos # (Auto) 100 (0-450) /uL Baso # (Auto) 0 (0-100) /uL Sodium 136 L (137-145) mmol/L Potassium 4.1 (3.4-5.1) mmol/L Chloride 101 (98-107) mmol/L Carbon Dioxide 26 (22-32) mmol/L BUN 23 H (9-20) mg/dL Creatinine 0.90 (0.66-1.25) mg/dL Estimated GFR > 60.0 (>60) mL/min BUN/Creatinine Ratio 25.6 H (6-22) Glucose 108 (80-110) mg/dL Calcium 9.1 (8.4-10.2) mg/dL Magnesium 1.8 (1.6-2.3) mg/dL Total Bilirubin 0.5 (0.2-1.3) mg/dL AST 51 (17-59) IU/L ALT 50 (21-72) IU/L Alkaline Phosphatase 123 (38-126) U/L B-Natriuretic Peptide < 100 (<100) Total Protein 6.1 L (6.3-8.2) g/dL Albumin 3.2 L (3.5-5.0) g/dL Globulin 2.9 (1.7-4.1) g/dL Albumin/Globulin Ratio 1.1 (1.0-2.8) Discharge Plan Departure Patient Disposition: Home Clinical Impression: Left leg swelling Discharge Date/Time: 07/05/19 15:05 Instructions: How To Perform RICE (Rest, Ice, Compress, Elevate), DI for Leg Pain Activity Restrictions/Additional Instructions: Today you came to the emergency department for concern of swelling in your left leg. Your lab work came back normal for you. Your ultrasound came back indicating no blood clot. Please work on elevating your legs. Please use [id number] medications as needed and able for discomfort. Please follow up with your primary care physician as well as the cancer center. Prescriptions: No Action finasteride 5 MG tablet 5 mg PO DAILY Qty: 0 RF: 0 tamsulosin [Flomax] 0.4 MG capsule,extended release 24hr 0.4 mg PO BID Qty: 0 RF: 0 polysaccharide iron complex [Ferrex 150] 150 MG capsule 150 mg PO BID Qty: 60 RF: 2 docusate sodium [DOK] 100 MG tablet 100 mg PO QDAYP PRN (Reason: Constipation) Qty: 0 RF: 0 azelastine 137 MCG/0.137 ML aerosol,spray 2 inh INH SEE INSTRUCTIONS Qty: 1 RF: PRN folic acid 1 mg Tablet 1 mg PO DAILY Qty: 30 RF: 6 levothyroxine 112 mcg tablet 112 mcg PO DAILY Qty: 90 RF: 1 hydrocortisone acetate [Anusol-HC] 25 mg suppository 25 mg OR QD-BID PRN (Reason: hemorrhoids) Qty: 30 RF: 1 triamcinolone acetonide 0.1 % cream 1 applictn TOP BID Qty: 453.6 RF: 2 furosemide [Lasix] 20 mg tablet 20 mg PO DAILY 3 Days Qty: 30 RF: 0 ondansetron HCl [Zofran] 4 mg Tablet 4 mg PO Q6-8H PRN (Reason: Nausea) Qty: 30 RF: 2 sennosides [senna] 8.6 mg Tablet 8.6 mg PO BID PRN (Reason: Constipation) RF: 0 polyethylene glycol 3350 [Miralax] 17 gram Powder In Packet 17 g PO DAILY PRN (Reason: Constipation) RF: 0 magnesium hydroxide [Milk of Magnesia] 400 mg/5 mL Suspension 400 mg PO DAILY PRN (Reason: Constipation) RF: 0 lisinopril 5 mg tablet 5 mg PO DAILY RF: 0 oxybutynin chloride 10 mg Tablet Extended Release 24hr 10 mg PO DAILY RF: 0 atorvastatin 40 mg tablet 40 mg PO DAILY RF: 0 omeprazole 20 mg capsule,delayed release(DR/EC) 20 mg PO DAILY RF: 0 fluticasone propionate [Flonase Allergy Relief] 9.9 ML spray,suspension 50 mcg Intranasal PRN PRN (Reason: Allergy Symptoms) RF: 0 lidocaine-prilocaine 2.5-2.5 % cream 1 applictn TOP PRN PRN (Reason: pain) Qty: 30 RF: 0 Referrals: Ronald Rogers MD [Primary Care Provider] -
== END 2019-07-05 15:05 | disposition home or self-care (01) ==
PROVIDERS: Emergency Provider Nurse Practitioner Family; PCP Internal Medicine
DX: M79.89 Other specified soft tissue disorders (principal)
CPT/HCPCS: 36415; 80053; 83735; 83880; 85025; 93971; 99282; 99284

== ENCOUNTER 2019-07-07 10:06 | Emergency (ER) | payer OTHER, SELFPAY ==
[2019-07-07 10:27] VITALS: BP 146/63; PULSE 94; RESP 20; TEMP 36.4; O2SAT 99; BMI 23.7
--- NOTE | 2019-07-07 10:32 | DI.RAD.S_ITS ---
PROCEDURE: XR CHEST 2V INDICATIONS: shortness of breath TECHNIQUE: 2 views of the chest were acquired. COMPARISON: [facility], , XR CHEST 1V, 06/27/2019, 15:56. FINDINGS: Surgical changes and devices: Left-sided subclavian Mediport. Tip is in the brachiocephalic vein. No change compared to most recent prior study. Lungs and pleura: Left lower lobe consolidation with effusion layering laterally, similar size compared to prior. Right suprahilar avoid lung mass. No evidence of postprocedural pneumothorax. Left lung is clear. Mediastinum: Mediastinal contours are stable. Heart size is normal. Bones and chest wall: No suspicious bony abnormalities. Soft tissues appear unremarkable. IMPRESSION: 1. No evidence of pneumothorax post thoracentesis. 2. Persistent moderate sized right lower lung opacity and effusion. 3. Probable right upper lobe lung mass is stable. Dictated by: Rocio Moran M.D. on 07/07/2019 at 11:01 Approved by: Rocio Moran M.D. on 07/07/2019 at 11:03
[2019-07-07 11:23] LABS: Add Manual Diff / Slide Review NO; Basophils Absolute Auto 0 /uL (0-100); Basophils Percent Auto 0.3 % (0-2); Eosinophils Absolute Auto 200 /uL (0-450); Eosinophils Percent Auto 3.2 % (2-4); Hematocrit 24.6 % (41-53); Hemoglobin 8.2 g/dL (13.5-17.5); Lymphocytes Absolute Auto 200 /uL (1100-4500); Lymphocytes Percent Auto 4.1 % (25-40); Mean Corpuscular HGB Conc 33.6 % (30-36); Mean Corpuscular Hemoglobin 34.4 PG (26-34); Mean Corpuscular Volume 102.4 fL (80-100); Monocytes Absolute Auto 900 /uL (0-900); Monocytes Percent Auto 15.5 % (3-14); Neutrophils Absolute Auto 4300 /uL (1500-7000); Neutrophils Percent Auto 76.9 % (50-75); Platelet Count 276 X10^3/uL (150-400); Red Cell Distribution Width 16.9 % (11.6-14.8); White Blood Cell Count 5.6 X10^3/uL (4.5-11.0)
--- NOTE | 2019-07-07 11:23 | PC.NURSE ---
Patient had a fluid drained off his lung earlier this week states they didn't feel like it went good enough because they didn't get as much off as they intended. Patient states increase SOB, bilateral lower leg swelling and fatigue.
[2019-07-07 11:28] LABS: INR 1.2 (0.9-1.3); Prothrombin Time 13.9 SECONDS (10.1-12.7)
[2019-07-07 11:32] LABS: Alanine Aminotransferase 40 IU/L (21-72); Albumin 3.1 g/dL (3.5-5.0); Albumin Globulin Ratio 1.1 (1.0-2.8); Alkaline Phosphatase 110 U/L (38-126); Aspartate Aminotransferase 47 IU/L (17-59); BUN Creatinine Ratio 23.3 (6-22); Bilirubin Total 0.3 mg/dL (0.2-1.3); Blood Urea Nitrogen 21 mg/dL (9-20); Calcium 8.8 mg/dL (8.4-10.2); Carbon Dioxide 26 mmol/L (22-32); Chloride 102 mmol/L (98-107); Estimated Glomerular Filt Rate > 60.0 mL/min (>60); Globulin 2.8 g/dL (1.7-4.1); Glucose 98 mg/dL (80-110); HEMOLYSIS < 15 (0-50); Potassium 4.2 mmol/L (3.4-5.1); Sodium 138 mmol/L (137-145); Total Protein 5.9 g/dL (6.3-8.2)
[2019-07-07 11:55] LABS: B Type Natriuretic Peptide < 100 (<100)
[2019-07-07 12:15] VITALS: O2SAT 94
--- NOTE | 2019-07-07 12:16 | PC.NURSE ---
Patient desats from 100% down to 94% with standinga t bedside
[2019-07-07 12:31] VITALS: BP 126/62; PULSE 88; RESP 20; O2SAT 100
--- NOTE | 2019-07-07 12:44 | ED.SOB ---
HPI - SOB/Dyspnea <JAN Kumari - Last Filed: 07/07/19 21:35> General Chief Complaint: Shortness of Breath/Dyspnea Stated Complaint: legs are swollen Time Seen by Provider: 07/07/19 10:41 Source: patient Mode of arrival: Ambulatory Limitations: no limitations History of Present Illness HPI Narrative: This is 84-year-old male, nonsmoker, who presents with spouse with increasing short of breath and bilateral leg swelling since he was seen in the ED 2 days ago. Patient has right-sided lung cancer and had thoracentesis done on right side lung on 07/05/19 at [facility] interventional radiologist and had removed about 800 mL fluid at the time. Patient was seen in ED 2 days ago for left leg swelling and had ultrasound test done which were negative for DVT. Patient reports there is no increasing pain in his bilateral legs. Patient denies fever, chills, nausea or vomiting at this time. Patient reports short of breath worsen with ambulation and activities. Patient feels elevating his bilateral legs are ineffective to reduce swelling on his bilateral legs and came in to ED for evaluation and help. Related Data Home Medications Medication Instructions Recorded Confirmed finasteride 5 mg PO DAILY #0 02/11/17 07/13/19 tamsulosin [Flomax] 0.4 mg PO BID #0 09/01/17 07/13/19 docusate sodium [DOK] 100 mg PO QDAYP PRN #0 01/05/18 07/13/19 magnesium hydroxide [Milk of 400 mg PO DAILY PRN 09/19/18 07/13/19 Magnesia] polyethylene glycol 3350 [Miralax] 17 g PO DAILY PRN 09/19/18 07/13/19 sennosides [senna] 8.6 mg PO BID PRN 09/19/18 07/13/19 atorvastatin 40 mg PO DAILY 07/05/19 07/13/19 lisinopril 5 mg PO DAILY 07/05/19 07/13/19 omeprazole 20 mg PO DAILY 07/05/19 07/13/19 oxybutynin chloride 10 mg PO DAILY 07/05/19 07/13/19 fluticasone propionate [Flonase 50 mcg INTRANASAL PRN PRN 07/07/19 07/13/19 Allergy Relief] Previous Rx's Medication Instructions Recorded polysaccharide iron complex 150 mg PO BID #60 cap 12/08/17 [Ferrex 150] azelastine 2 inh INH SEE INSTRUCTIONS #1 inh 01/10/18 folic acid 1 mg PO DAILY #30 tab 08/15/18 ondansetron HCl [Zofran] 4 mg PO Q6-8H PRN #30 tab 08/22/18 lidocaine-prilocaine 1 applictn TOP PRN PRN #30 gram 08/24/18 triamcinolone acetonide 0.1 % 1 applictn TOP BID #453.6 gram 09/15/18 topical cream levothyroxine 112 mcg tablet 112 mcg PO DAILY #90 tab 04/11/19 hydrocortisone acetate 25 mg 25 mg VA QD-BID PRN #30 each 05/18/19 rectal suppository furosemide 20 mg tablet 20 mg PO DAILY 3 Days #30 tab 07/07/19 Allergies Allergy/AdvReac Type Severity Reaction Status Date / Time No Known Drug Allergies Allergy Unknown Verified 07/07/19 15:21 [NO KNOWN DRUG ALLERGIES] Review of Systems <JAN Kumari - Last Filed: 07/07/19 21:35> Review of Systems Narrative: General: Denies fever, chills, fatigue, malaise, sweats. HEENT: Denies sinus pain, ear pain, sore throat, difficulty swallowing, dizziness. Respiratory: Reports dyspnea, short of breath with activity. Denies cough, wheezing, hemoptysis, sputum. Cardiovascular: Reports edema in bilateral lower extremities. Denies chest pain, palpitations, orthopnea. Gastrointestinal: Denies nausea, vomiting, abdominal pain, diarrhea, constipation, melena. : Denies dysuria, frequency, incontinence, hematuria, urinary retention. Musculoskeletal: Denies weakness, joint pain or bony pain. Skin: Denies rash, skin lesions, or other. Neurologic: Denies weakness, headache, numbness, change in speech, confusion, seizures, incoordination. Psychiatric: No concerning psychosocial issues. 12-point review of systems is negative except for those stated above. 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) Bilateral carotid bruits (Inactive ~08/2017) Constipation (Chronic) Degenerative joint disease (Chronic 07/17/11) Eustachian tube dysfunction (Resolved) Gastroesophageal reflux disease without esophagitis (Chronic 07/17/11) Hard of hearing (Chronic) HTN (hypertension) (Chronic) Macular degeneration of left eye (Inactive) Mixed hyperlipidemia (Chronic 12/02/12) Recurrent adenocarcinoma of right lung (Chronic) Silent myocardial infarction (Inactive ~2010) Spinal stenosis, site unspecified (Chronic 07/17/11) Syncope (Resolved) Social History household members: spouse Smoking Status: Former smoker alcohol intake: current Social History household members: spouse Smoking Status: Former smoker alcohol intake: current Exam <JAN Kumari - Last Filed: 07/07/19 21:35> Narrative Exam Narrative: GEN: Alert, oriented x 3, well appearing and nourished, and in no acute distress. Head: Normal cephalic, atraumatic. No scalp or temporal tenderness, palpable mass or rash. EYES: Pupils are equal, round, and reactive to light and accommodation. Extraocular muscles are intact bilaterally. There is no subconjunctival hemorrhage, exudate and sclera non-icteric. ENT: Bilateral auditory canals and tympanic membranes clear. Hearing grossly intact. Nose without bleeding, purulent discharge or deviation. Facial sinuses nontender to palpate. Mucous membrane moist, no mucosal lesion. Throat without erythema, tonsillar hypertrophy or exudate. Uvula in midline, airway patent. Neck: Trachea in midline. No JVD, non-tender without lymphadenopathy. No masses or thyroid megaly. Supple, non-tender and no meningeal signs. CARDIAC: Normal regular rate and rhythm without murmurs, gallops, or rubs. No chest wall tenderness. No peripheral edema, cyanosis or pallor. Capillary refill is less than 2 seconds. RESPIRATORY: Lung sounds decrease in right upper and lower lobes with mild crackles in left upper lobes. No cough, wheezes, rales, or rhonchi. No stridor, respiratory distress. Increased work of breathing during conversation. ABD: Abdomen soft, nontender and non-distended. No guarding or rebound tenderness to palpate. Bowel sounds are normal in all 4 quadrants. There is no palpable masses or organomegaly. EXT: Bilateral lower extremity edema 2+. Mild read med to left foot and ankle. Full painless ROM of all extremities with no loss of sensation, strength, effusion. SKIN: Warm, dry, normal color for patient. No erythema, lesions or rash over visible areas. BACK: Nontender without deformity or crepitance. No flank tenderness. NEUROLOGICAL: Alert and oriented to place, time and person. Sensation and motor function intact bilaterally. No facial droops, dysphasia. PSYCHIATRIC: Good judgement and reason, without hallucinations, abnormal affect or abnormal behaviors during the examination. Patient is not suicidal. Initial Vital Signs Initial Vital Signs: Vital Signs Temperature 97.5 F L 07/07/19 10:27 Pulse Rate 94 H 07/07/19 10:27 Respiratory Rate 20 07/07/19 10:27 Blood Pressure 146/63 H 07/07/19 10:27 Pulse Oximetry 99 07/07/19 10:27 <Jac Oro DO - Last Filed: 07/14/19 23:58> Initial Vital Signs Initial Vital Signs: Vital Signs Temperature 97.5 F L 07/07/19 10:27 Pulse Rate 94 H 07/07/19 10:27 Respiratory Rate 20 07/07/19 10:27 Blood Pressure 146/63 H 07/07/19 10:27 Pulse Oximetry 99 07/07/19 10:27 Scores <JAN Kumari - Last Filed: 07/07/19 21:35> GCS Loren coma scale eye opening: Spontaneous [place] coma scale verbal response: Orientated [place] coma scale motor response: Obey commands [place] coma scale total score: 15 Course <JAN Kumari - Last Filed: 07/07/19 21:35> Orders Ordered: Discontinued Medications Furosemide (Lasix) 20 mg PO NOW ONE Stop: 07/07/19 14:04 Last Admin: 07/07/19 14:13 Dose: 20 mg Documented by: YARELIS Vital Signs Vital signs: Vital Signs - 8 hr 07/07/19 14:18 Pulse Rate 78 Respiratory Rate 16 Blood Pressure 122/68 Pulse Oximetry 98 <Jac Oro DO - Last Filed: 07/14/19 23:58> Orders Ordered: Discontinued Medications Furosemide (Lasix) 20 mg PO NOW ONE Stop: 07/07/19 14:04 Last Admin: 07/07/19 14:13 Dose: 20 mg Documented by: YARELIS Vital Signs Vital signs: Vital Signs - 8 hr 07/07/19 14:18 Pulse Rate 78 Respiratory Rate 16 Blood Pressure 122/68 Pulse Oximetry 98 MDM - SOB/Dyspnea <JAN Kumari - Last Filed: 07/07/19 21:35> Differential Diagnosis Differential diagnosis: Likely other (Lower extremity edema, lung effusion, history of right lobe cancer, cellulitis) Medical Records Attestation: I reviewed the patient's medical records. Lab Data Attestation: I reviewed the patient's lab results. Result diagrams: 07/07/19 11:12 07/07/19 11:12 Labs: Lab Results 07/07/19 07/07/19 07/07/19 Range/Units 11:12 11:12 11:12 WBC 5.6 (4.5-11.0) X10^3/uL RBC 2.40 L (4.5-5.9) X10^6/uL Hgb 8.2 L (13.5-17.5) g/dL Hct 24.6 L (41-53) % MCV 102.4 H (80-100) fL MCH 34.4 H (26-34) PG MCHC 33.6 (30-36) % RDW 16.9 H (11.6-14.8) % Plt Count 276 (150-400) X10^3/uL Neut % (Auto) 76.9 H (50-75) % Lymph % (Auto) 4.1 L (25-40) % [place] % (Auto) 15.5 H (3-14) % Eos % (Auto) 3.2 (2-4) % Baso % (Auto) 0.3 (0-2) % Neut # (Auto) 4300 (4366-9381) /uL Lymph # (Auto) 200 L (8079-8540) /uL [facility] # (Auto) 900 (0-900) /uL Eos # (Auto) 200 (0-450) /uL Baso # (Auto) 0 (0-100) /uL PT 13.9 H (10.1-12.7) SECONDS INR 1.2 (0.9-1.3) Sodium 138 (137-145) mmol/L Potassium 4.2 (3.4-5.1) mmol/L Chloride 102 (98-107) mmol/L Carbon Dioxide 26 (22-32) mmol/L BUN 21 H (9-20) mg/dL Creatinine 0.90 (0.66-1.25) mg/dL Estimated GFR > 60.0 (>60) mL/min BUN/Creatinine Ratio 23.3 H (6-22) Glucose 98 (80-110) mg/dL Calcium 8.8 (8.4-10.2) mg/dL Total Bilirubin 0.3 (0.2-1.3) mg/dL AST 47 (17-59) IU/L ALT 40 (21-72) IU/L Alkaline Phosphatase 110 (38-126) U/L B-Natriuretic Peptide (<100) Total Protein 5.9 L (6.3-8.2) g/dL Albumin 3.1 L (3.5-5.0) g/dL Globulin 2.8 (1.7-4.1) g/dL Albumin/Globulin Ratio 1.1 (1.0-2.8) 07/07/19 Range/Units 11:12 WBC (4.5-11.0) X10^3/uL RBC (4.5-5.9) X10^6/uL Hgb (13.5-17.5) g/dL Hct (41-53) % MCV (80-100) fL MCH (26-34) PG MCHC (30-36) % RDW (11.6-14.8) % Plt Count (150-400) X10^3/uL Neut % (Auto) (50-75) % Lymph % (Auto) (25-40) % [place] % (Auto) (3-14) % Eos % (Auto) (2-4) % Baso % (Auto) (0-2) % Neut # (Auto) (4504-6031) /uL Lymph # (Auto) (7336-2405) /uL [facility] # (Auto) (0-900) /uL Eos # (Auto) (0-450) /uL Baso # (Auto) (0-100) /uL PT (10.1-12.7) SECONDS INR (0.9-1.3) Sodium (137-145) mmol/L Potassium (3.4-5.1) mmol/L Chloride (98-107) mmol/L Carbon Dioxide (22-32) mmol/L BUN (9-20) mg/dL Creatinine (0.66-1.25) mg/dL Estimated GFR (>60) mL/min BUN/Creatinine Ratio (6-22) Glucose (80-110) mg/dL Calcium (8.4-10.2) mg/dL Total Bilirubin (0.2-1.3) mg/dL AST (17-59) IU/L ALT (21-72) IU/L Alkaline Phosphatase (38-126) U/L B-Natriuretic Peptide < 100 (<100) Total Protein (6.3-8.2) g/dL Albumin (3.5-5.0) g/dL Globulin (1.7-4.1) g/dL Albumin/Globulin Ratio (1.0-2.8) Imaging Data Chest x-ray: Radiologist's impression: [address] [address] XRay Report Signed Patient: Segundo Tompkins BANNER#: [id number] : 5Acct:[id number] Age/Sex: 84 / MDate of Service: 07/07/19 Loc: ED Accession Number: [id number] Procedure: XR chest 2V Ordering Provider: Jac Oro D.O. PROCEDURE: XR CHEST 2V INDICATIONS: shortness of breath TECHNIQUE: 2 views of the chest were acquired. COMPARISON: [facility], MOUSTAPHA, XR CHEST 1V, 06/27/2019, 15:56. FINDINGS: Surgical changes and devices: Left-sided subclavian Mediport. Tip is in the brachiocephalic vein. No change compared to most recent prior study. Lungs and pleura: Left lower lobe consolidation with effusion layering laterally, similar size compared to prior. Right suprahilar avoid lung mass. No evidence of postprocedural pneumothorax. Left lung is clear. Mediastinum: Mediastinal contours are stable. Heart size is normal. Bones and chest wall: No suspicious bony abnormalities. Soft tissues appear unremarkable. IMPRESSION: 1. No evidence of pneumothorax post thoracentesis. 2. Persistent moderate sized right lower lung opacity and effusion. 3. Probable right upper lobe lung mass is stable. Dictated by: Rocio Moran M.D. on 07/07/2019 at 11:01 Approved by: Rocio Moran M.D. on 07/07/2019 at 11:03 ECG Data Attestation: I personally reviewed and interpreted this ECG as follows: Prior ECG tracings: available for review Interpretation: Sinus rhythm rate at 93. Normal [place]. No ST elevation or depression. No significant changes except HR from 70's in the past. MDM Narrative Medical decision making narrative: This is a 84-year-old gentleman who came in to ED for bilateral leg swelling. Patient has a history of non-small cell lung cancer and had thoracentesis done on 06/27/19 at [facility] interventional radiology and had about 800 mL of fluid removed. Patient reports this experience was very traumatic and would not like to go through this experience again. Patient reports has been having some short of breath with exertion and long ambulation. Patient denies fever, chills, nausea or vomiting. Patient was also seen in the ED 2 days ago with left leg swelling and had Doppler ultrasound done to rule out DVT. At the time, there was no DVT was seen per ultrasound test. Patient reports swelling is about the same since last visit to ED. Noticed patient has mild increasing work of breathing during long conversations. At rest O2 sat in room air was 100%. Patient was ambulated around nursing crawley and will to set decreased to 93-94%. There was no leukocytosis. He had normal kidney function test today. BNP was normal. Patient repeatedly requesting to stay in the hospital to elevate his legs up to the ceiling to help decrease swelling possibly with the machine/instruments. X-ray showed recurring of moderate right-sided lower lung opacity and effusion. Dr. Noonan was consulted and outpatient thoracentesis was suggested. I shared this information with the patient, patient declined this therapy at this time. Patient reports he was not happy with 1st thoracentesis and is not looking for to have another 1 at this time. Initially, diuretics was not considered due to normal BMP and very mildly increased BUN. However, patient was discharged to home with 3 tabs of Lasix hoping patient is a lower leg edema will improve. Patient's blood pressure was normotensive while in ED. Patient repeatedly advised to elevate his legs during rest above his chest level using a few pillows bed. Patient also advised to use compression stockings which she has it at home during ambulation. [facility] was contacted to set up an follow-up appointment on Wednesday and was informed that clinic will contact the patient to set this up. Strict return precautions were discussed with the patient and spouse and verbalized understanding. Patient was informed again that thoracentesis will be needed in the near future and patient's short of breath will improve after this. No further questions were expressed at this time and the patient and spouse agree with the treatment plan. <Jac Oro, DO - Last Filed: 07/14/19 23:58> Lab Data Labs: Lab Results 07/07/19 07/07/19 07/07/19 Range/Units 11:12 11:12 11:12 WBC 5.6 (4.5-11.0) X10^3/uL RBC 2.40 L (4.5-5.9) X10^6/uL Hgb 8.2 L (13.5-17.5) g/dL Hct 24.6 L (41-53) % MCV 102.4 H (80-100) fL MCH 34.4 H (26-34) PG MCHC 33.6 (30-36) % RDW 16.9 H (11.6-14.8) % Plt Count 276 (150-400) X10^3/uL Neut % (Auto) 76.9 H (50-75) % Lymph % (Auto) 4.1 L (25-40) % [facility] % (Auto) 15.5 H (3-14) % Eos % (Auto) 3.2 (2-4) % Baso % (Auto) 0.3 (0-2) % Neut # (Auto) 4300 (2462-7403) /uL Lymph # (Auto) 200 L (5087-0250) /uL [facility] [place] # (Auto) 900 (0-900) /uL Eos # (Auto) 200 (0-450) /uL Baso # (Auto) 0 (0-100) /uL PT 13.9 H (10.1-12.7) SECONDS INR 1.2 (0.9-1.3) Sodium 138 (137-145) mmol/L Potassium 4.2 (3.4-5.1) mmol/L Chloride 102 (98-107) mmol/L Carbon Dioxide 26 (22-32) mmol/L BUN 21 H (9-20) mg/dL Creatinine 0.90 (0.66-1.25) mg/dL Estimated GFR > 60.0 (>60) mL/min BUN/Creatinine Ratio 23.3 H (6-22) Glucose 98 (80-110) mg/dL Calcium 8.8 (8.4-10.2) mg/dL Total Bilirubin 0.3 (0.2-1.3) mg/dL AST 47 (17-59) IU/L ALT 40 (21-72) IU/L Alkaline Phosphatase 110 (38-126) U/L B-Natriuretic Peptide (<100) Total Protein 5.9 L (6.3-8.2) g/dL Albumin 3.1 L (3.5-5.0) g/dL Globulin 2.8 (1.7-4.1) g/dL Albumin/Globulin Ratio 1.1 (1.0-2.8) 07/07/19 Range/Units 11:12 WBC (4.5-11.0) X10^3/uL RBC (4.5-5.9) X10^6/uL Hgb (13.5-17.5) g/dL Hct (41-53) % MCV (80-100) fL MCH (26-34) PG MCHC (30-36) % RDW (11.6-14.8) % Plt Count (150-400) X10^3/uL Neut % (Auto) (50-75) % Lymph % (Auto) (25-40) % [facility] % (Auto) (3-14) % Eos % (Auto) (2-4) % Baso % (Auto) (0-2) % Neut # (Auto) (8907-2420) /uL Lymph # (Auto) (1956-0254) /uL [facility] # (Auto) (0-900) /uL Eos # (Auto) (0-450) /uL Baso # (Auto) (0-100) /uL PT (10.1-12.7) SECONDS INR (0.9-1.3) Sodium (137-145) mmol/L Potassium (3.4-5.1) mmol/L Chloride (98-107) mmol/L Carbon Dioxide (22-32) mmol/L BUN (9-20) mg/dL Creatinine (0.66-1.25) mg/dL Estimated GFR (>60) mL/min BUN/Creatinine Ratio (6-22) Glucose (80-110) mg/dL Calcium (8.4-10.2) mg/dL Total Bilirubin (0.2-1.3) mg/dL AST (17-59) IU/L ALT (21-72) IU/L Alkaline Phosphatase (38-126) U/L B-Natriuretic Peptide < 100 (<100) Total Protein (6.3-8.2) g/dL Albumin (3.5-5.0) g/dL Globulin (1.7-4.1) g/dL Albumin/Globulin Ratio (1.0-2.8) Discharge Plan Departure Patient Disposition: Home Clinical Impression: Pleural effusion, Bilateral leg edema Discharge Date/Time: 07/07/19 14:20 Instructions: DI for Peripheral Edema -- Bilateral, DI for Pleural Effusion Activity Restrictions/Additional Instructions: You have been diagnosed with [pleural effusion and bilateral lower extremity edema. To x-ray test today there is persistent moderate size right lower lobe opacity and effusion. You may need another thoracentesis is in the near future if you have difficulty breathing and increasing short of breath with activity. Please elevate you're bilateral legs above your chest level on pillows during rest and use compression socks]. What to do: *Take your medications as directed. Rx for lasix for 3 days are provided for your leg edema. Please follow up with Dr. Rogres for an re-evaluation on your leg swelling and pleural effusion. You have declined thoracentesis today. You may need to schedule this if here breathing gets difficult. *Follow up with your primary care provider in 2-3 days, call for an appointment. The nurse at the clinic will contact you via phone call today to set up an appointment. Please keep your appointment with Dr. Singleton, oncologist as scheduled next week . Let them know you were seen in the ED and that we asked you to be seen in follow up. *Return to ED if you have any new, worsening, or concerning symptoms, such as [chest pain, breathing difficulty, fever, unable to tolerate fluids, dizziness, or any acute concerns]. Prescriptions: No Action finasteride 5 MG tablet 5 mg PO DAILY Qty: 0 RF: 0 tamsulosin [Flomax] 0.4 MG capsule,extended release 24hr 0.4 mg PO BID Qty: 0 RF: 0 polysaccharide iron complex [Ferrex 150] 150 MG capsule 150 mg PO BID Qty: 60 RF: 2 docusate sodium [DOK] 100 MG tablet 100 mg PO QDAYP PRN (Reason: Constipation) Qty: 0 RF: 0 azelastine 137 MCG/0.137 ML aerosol,spray 2 inh INH SEE INSTRUCTIONS Qty: 1 RF: PRN folic acid 1 mg Tablet 1 mg PO DAILY Qty: 30 RF: 6 levothyroxine 112 mcg tablet 112 mcg PO DAILY Qty: 90 RF: 1 hydrocortisone acetate [Anusol-HC] 25 mg suppository 25 mg VA QD-BID PRN (Reason: hemorrhoids) Qty: 30 RF: 1 triamcinolone acetonide 0.1 % cream 1 applictn TOP BID Qty: 453.6 RF: 2 furosemide [Lasix] 20 mg tablet 20 mg PO DAILY 3 Days Qty: 30 RF: 0 ondansetron HCl [Zofran] 4 mg Tablet 4 mg PO Q6-8H PRN (Reason: Nausea) Qty: 30 RF: 2 sennosides [senna] 8.6 mg Tablet 8.6 mg PO BID PRN (Reason: Constipation) RF: 0 polyethylene glycol 3350 [Miralax] 17 gram Powder In Packet 17 g PO DAILY PRN (Reason: Constipation) RF: 0 magnesium hydroxide [Milk of Magnesia] 400 mg/5 mL Suspension 400 mg PO DAILY PRN (Reason: Constipation) RF: 0 lisinopril 5 mg tablet 5 mg PO DAILY RF: 0 oxybutynin chloride 10 mg Tablet Extended Release 24hr 10 mg PO DAILY RF: 0 atorvastatin 40 mg tablet 40 mg PO DAILY RF: 0 omeprazole 20 mg capsule,delayed release(DR/EC) 20 mg PO DAILY RF: 0 fluticasone propionate [Flonase Allergy Relief] 9.9 ML spray,suspension 50 mcg Intranasal PRN PRN (Reason: Allergy Symptoms) RF: 0 lidocaine-prilocaine 2.5-2.5 % cream 1 applictn TOP PRN PRN (Reason: pain) Qty: 30 RF: 0 Referrals: Ronald Rogers MD [Primary Care Provider] - Mari Singleton MD [Physician] - <Jac Oro DO - Last Filed: 07/14/19 23:58> Sign Out Provider Sign Out Attestation: I was available for consultation during this patient's emergency department encounter
[2019-07-07 13:02] VITALS: RESP 20; O2SAT 94
--- NOTE | 2019-07-07 13:02 | PC.NURSE ---
Maintained 94% with ambulation. Denies increase in SOB but appears to have slight increase work of breathing with ambulation/.
[2019-07-07] MEDS: FUROSEMIDE 20 MG TABLET PO (14:13)
[2019-07-07 14:18] VITALS: BP 122/68; PULSE 78; RESP 16; O2SAT 98
== END 2019-07-07 14:20 | disposition home or self-care (01) ==
PROVIDERS: Emergency Medicine; Emergency Provider Nurse Practitioner Family; PCP Internal Medicine
DX: J90 Pleural effusion, not elsewhere classified (principal); R60.0 Localized edema; C34.91 Malignant neoplasm of unspecified part of right bronchus or lung
CPT/HCPCS: 36415; 71046; 80053; 83880; 85025; 85610; 93005; 93010; 99283; 99285

== ENCOUNTER → 2019-07-25 14:10 | Outpatient (CLI) | payer OTHER, SELFPAY ==
--- NOTE | 2019-07-25 14:12 | DI.MRI.S_ITS ---
PROCEDURE: MR HEAD/BRAIN WO/W CON INDICATIONS: lung cancer, mental status changes. TECHNIQUE: Noncontrast axial T1 spin echo, axial T2 fast spin echo, sagittal and axial FLAIR, coronal T2 fast spin echo, axial gradient echo, axial diffusion and ADC through the brain. After the administration of contrast, axial and coronal T1 spin echo with fat saturation through the brain. COMPARISON: [facility], CT, HEAD WITHOUT CONTRAST, 09/01/2017, 12:48. [facility], CT, SINUS SCREEN, 01/23/2011, 7:24. [facility], CT, HEAD WITHOUT CONTRAST, 07/10/2011, 7:29. [facility], MR, BRAIN W&WO CONTRAST, 10/12/2017, 10:43. FINDINGS: Image quality: Diagnostic, with note made of motion artifact. CSF spaces: Basal cisterns are patent. No extra-axial fluid collections. Ventricles are normal in size and shape. Brain: No midline shift. No intracranial bleeds or masses. No abnormal intracranial enhancement. There is cerebral volume loss for age. There is periventricular white matter chronic small vessel ischemic change. A nonenhancing T2 hyperintense focus can be seen within the white matter of the right frontal lobe, as on series 7 image 15, which is attributed to small vessel ischemic change. The brainstem appears normal. Diffusion-weighted images demonstrate no acute ischemic insults. No chronic ischemic insults. Normal intravascular flow voids are present. Skull and face: Calvarial marrow is normal in signal. Orbits appear normal. Note is made of bilateral lens replacements. Sinuses: Mild to moderate mucosal thickening is seen within the anterior ethmoid air cells. IMPRESSION: No masses or abnormal enhancement can be seen. Note is made of age-appropriate brain parenchymal volume loss and chronic small vessel ischemic changes. Dictated by: Sherif Robles M.D. on 07/25/2019 at 14:12 Approved by: Sherif Robles M.D. on 07/25/2019 at 14:17
== END ==
PROVIDERS: PCP Internal Medicine; Visit Provider Internal Medicine Hematology & Oncology
DX: C34.91 Malignant neoplasm of unspecified part of right bronchus or lung (principal); R41.82 Altered mental status, unspecified
CPT/HCPCS: 70553

== ENCOUNTER → 2019-07-27 08:20 | Oncology outpatient (ONC) | payer OTHER, SELFPAY ==
--- NOTE | 2018-08-16 10:37 | ONC.SCHED ---
carbo/pem/pembro not on [facility] prior auth list per website
--- NOTE | 2018-08-16 12:42 | P.PNONC_ITS ---
PN -Subjective Interval history: The patient came in here today for discussion of systemic therapy for the recurrent adenocarcinoma of the lung. He was diagnosed with right upper lobe and right lower lobe non-small cell lung cancer, both stage IB (T2a, N0, M0). He completed a course of stereotactic ablative radiation therapy in December 2017: the right upper lobe tumor was treated to 6000 cGy over 8 fractions of 750 cGy each, while the right lower lobe tumor was treated to 5000 cGy over [address] on 03/31/2018 showed volume reduction in the anterior right upper lobe tumor (1.4 x 2.3 cm down from 2.2 x 2.8 cm) and the right lower lobe tumor (0.6 x 2.2 cm down from 1.3 x 3.5 cm). There was considerable peritumoral atelectasis and consolidation surrounding the spiculated mass in the right upper lobe and right lower lobe most likely consistent with radiation changes. No new suspicious bone or neurologic symptoms worrisome for metastatic disease. Recent CT on 07/08/2018 showed further interval decrease in size of the radiated right upper lobe parenchymal mass and lateral right pleural-based mass lesions , consistent with post treatment response. But there was some associated increased adjacent parenchymal consolidation presumably sequelae from stereotactic lung radiation. Unfortunately, there has been interval increase in size and number of a number of pleural-based nodules and masses in the right hemithorax. These included 2 anterior mass lesions along the right middle lobe, measuring up to 2.4 x 1.0 cm and 2.5 x 0.9 cm. Along the posterior medial right lower lobe there is a pleural-based lesion measuring 1.4 x 0.4 cm. There was a pleural-based nodule in the right hemidiaphragm measuring 1.4 x 0.7 cm. There were multiple small nodules which were new, seen along the right major and minor fissures as well as medially along the right upper lobe. 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 No pleural effusion or suspiciously enlarged hilar or mediastinal lymphadenopathy. He then underwent PET scan on 08/09/2018. and the PET/CT showed post radiation changes in the right upper lobe. The previously seen lung mass in the right upper lobe was obscured mildly and increased FDG uptake in the area is nonspecific. Multiple hypermetabolic nodules in the right hemithorax was seen and compatible with pleural metastasis. Right lower lobe consolidation was noted. There were foci of more intensely increased FDG uptake within consolidated right lower lobe. Cannot rule out metastatic disease superimposed on concomitant pneumonia. Small right pleural effusion was also noted. Due to the evidence of disease recurrence and progression, patient was referred to medical oncology for discussion of systemic therapy. - Additional ROS All systems PM: reviewed and no additional remarkable complaints except as stated Home Medications and Allergies Home Medications Medication Instructions Recorded Confirmed Type finasteride 5 mg PO QDAY #0 02/11/17 History oxybutynin chloride [Ditropan XL] 5 mg PO QPM #0 02/11/17 History aspirin 0.25 tab PO QDAY #0 09/01/17 History tamsulosin [Flomax] 0.4 mg PO BID #0 09/01/17 History fluticasone [Flonase Allergy 50 mcg INTRANASAL PRN PRN #48 ml 09/16/17 Rx Relief] omeprazole 20 mg PO QDAY #90 cap 10/05/17 Rx levothyroxine [Synthroid] 75 mcg PO QDAY #90 tab 10/18/17 Rx lisinopril 5 mg PO QDAY #90 tab 11/09/17 Rx polysaccharide iron complex 150 mg PO BID #60 cap 12/08/17 Rx [Ferrex 150] docusate sodium [DOK] 100 mg PO QDAYP PRN #0 01/05/18 History azelastine 2 inh INH SEE INSTRUCTIONS #1 inh 01/10/18 Rx nabumetone 750 mg tablet 750 mg PO BID #180 tab 05/24/18 Rx atorvastatin 40 mg tablet 40 mg PO QDAY #90 tab 06/27/18 Rx folic acid 1 mg PO DAILY #30 tab 08/15/18 Rx Allergies Allergy/AdvReac Type Severity Reaction Status Date / Time No Known Drug Allergies Allergy Unknown Unverified 01/19/18 11:45 [NO KNOWN DRUG ALLERGIES] Exam Vital signs: Reviewed. - Constitutional negative no acute distress, positive average body habitus, negative cooperative - Routine HEENT Exam Head: Present: normocephalic, atraumatic Eye: Present: EOMI, PERRL, normal accommodation. Absent: conjunctival icterus ENT: Present: mucous membranes moist - Routine Neck Exam Present: supple, full ROM. Absent: JVD, lymphadenopathy, thyromegaly, tenderness, swelling - Routine Respiratory Exam Present: decreased breath sounds. Absent: accessory muscle use, wheezes - Routine Cardiovascular Exam Present: RRR, S1, S2. Absent: murmur, gallop, rubs - Routine Abdominal Exam Present: soft, normoactive bowel sounds. Absent: tenderness, distended, organomegaly, hernia - Routine Extremities Exam Absent: edema - Routine Neurological Exam Present: alert, oriented X3, CN II-XII intact, normal reflexes, moving all extremities, normal tone, vision grossly intact, normal speech. Absent: sensory deficit, motor deficit - Routine Psychiatric Exam Present: normal affect, normal thought process, cooperative, good insight, good judgment Results - Labs Reviewed. - Imaging CT scan - abdomen: report reviewed, image reviewed CT scan - chest: report reviewed, image reviewed CT scan - pelvis: report reviewed, image reviewed Assessment and Plan (1) Recurrent adenocarcinoma of right lung I reviewed the PET scan results with the patient. 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 And patient has already had extensive molecular workup. The workup showed that patient does not have ALK translocation, does not have ROS1 translocation, and does not have EGFR mutation. His lung cancer has low level of PD-L1 expression ( <1%). I talked with the patient that given the above results, he is not a good candidate for small molecular tyrosine kinase inhibitor treatment. Patient is now 83 years of age, but he is highly functional and younger than stated age. In my opinion patient will be able to tolerate concurrent carboplatin pemetrexed and pembrolizumab based on the Keynote 189 trial result. Plan 1. Port placement 2. Carbo/Pem/Pembro tentatively scheduled in 2 weeks 3. Chemoteaching with [facility] in one week 4. Vitamin B12 1000 mcg subQ in one week 5. Folic acid 1 mg daily 6. RTC C1D1, CBC, CMP, TSH.
--- NOTE | 2018-08-22 15:08 | P.CHEMO_ITS ---
Chemotherapy Counseling - History of present illness History of present illness: The patient is an 83-year-old male with recently diagnosed recurrent adenocarcinoma of the lung. This disease is metastatic. He presents today for palliative chemotherapy counseling. Treatment will be in the form of carboplatin,Pembro . - General New Chemotherapy Patient: Yes Treatment Plan Reviewed: yes - Chemotherapy Counseling Chemotherapy Counseling: Chemotherapy Education: Segundo Doyle Turner provided written information on all topics discussed. Written materials printed from www.[facility] and www.[facility].org. Segundo was given an overview of cancer and mechanism of action of cancer cells , that cancer is caused by cells that are dividing rapidly, and out of control. Traditional chemotherapy works by targeting the fast dividing cells and killing them. Chemotherapy affecting healthy cells dividing quickly causes many of the side effects (hair follicles, bone marrow, mucus membranes). Overview of blood cell functions of white cells to fight infection, red cells to carry oxygen, and platelets to stop bleeding was discussed, and that when bone marrow is affected by chemo, there is a decrease in production of these cells. Home care of the patient following chemotherapy was discussed. Body fluids will be contaminated for 48 hours following treatment, and any body fluids handled by caregivers should be handled wearing gloves, surfaces need to be cleaned with soap and water, any soiled linens or clothing need to be washed separately in hot water, toilet lid should be closed when flushing, person cleaning the toilet should wear gloves. How chemotherapy is administered by the RN?s in the clinic, that orders are double checked by pharmacy and checked again by two RN?s prior to administration. Nurses wear protective gear to prevent exposure to them of the chemotherapy agents which can also cause cancer. Cancer center information discussed and written hand out provided listing on- call oncologist available weekends and after hours triage R.N. hours and infusion room guide. New patient binder given to Segundo, which includes clinic names, phone numbers , clinic information, calendar, cancer glossary, and list of resources. Handout on advanced directives Common side effects of chemotherapy were discussed with self care tips for prevention of complications. Information also provided in writing. These included: Low blood counts (anemia, thrombocytopenia, neutropenia) Hair loss (alopecia) Nausea and vomiting Decreased appetite Loss of fertility Diarrhea Mouth sores Constipation Peripheral neuropathy Chemo brain/cognitive changes Fatigue Instructions on when to call your healthcare team or on-call physician immediately: Fever of 100.4 or higher, chills, any signs of infection Shortness of breath, wheezing, difficulty breathing, closing of throat, swelling of face, hives (signs of possible allergic reaction) Chest pain, fast heart beat or feelings of a different heart rhythm Swelling of an extremity with or without pain signs of stroke Instructions on when to call your healthcare team within the next 24 hours Nausea that interferes with ability to eat and unrelieved with prescribed medication Diarrhea (4-6 episodes in 24 hour period). Unusual bleeding or bruising Black or tarry stools, or blood in your stools Blood in the urine pain or burning with urination Extreme fatigue (unable to perform self-care activities) Mouth sores or sore areas in your mouth Bad headache Dizziness or lightheadedness Large weight gain over a short period of time General self-care tips while undergoing treatment discussed were as follows. Written materials were provided covering in detail and additional self care tips. Drink at least 2-3 quarts (8-10 glasses) of no-caffeinated beverages daily unless you are instructed otherwise and empty your bladder frequently Report any concerning symptoms to your healthcare team Avoid crowds and sick people, wash your hands frequently Use a soft bristled toothbrush, rinse three times a day with 1 tsp baking soda or 1 tsp salt mixed with warm water Avoid any mouthwashes or oral and skin products containing alcohol or fragrances Use electric razors to avoid cutting yourself Avoid contact sports or activities that could cause head injury or bleeding Avoid sun exposure, wear SPF 15 or higher, wear protective clothing Get plenty of rest, meter your activities Maintain good nutrition Avoid alcoholic beverages Attend your scheduled appointments and lab draws Treatment regimen reviewed and medications were discussed with attention to specific side effects and self care for the pt?s treatment regimen which includes [carboplatin, keytruda]. Segundo was provided with literature regarding [carboplatin and keytruda] and common side effects. Additionally, Segundo was provided with literature regarding the diagnosis of metastatic lung cancer]. Segundo instructed to read literature at home. Keep a list of questions which we are happy to go over at future visits. For any urgent questions please feel free to call any time. - Response to Teaching Response to Teaching: Verbalizes Understanding
[2018-08-22] MEDS: CYANOCOBALAMIN 1,000 MCG/ML VIAL 1000 MCG SUBCUT (16:20)
--- NOTE | 2018-08-29 08:24 | P.PNONC_ITS ---
PN -Subjective Interval history: Constipation has been the major problem. He is thinking about reducing the cough drop. He is also taking docusate. No abdominal pain, but lots of gas in the stomach. No SOB. No CP. Sometimes mucus cough. The appetite is still fine. Energy level a little tired last month. Oncology History: The patient came in here today for discussion of systemic therapy for the recurrent adenocarcinoma of the lung. He was diagnosed with right upper lobe and right lower lobe non-small cell lung cancer, both stage IB (T2a, N0, M0). He completed a course of stereotactic ablative radiation therapy in December 2017: the right upper lobe tumor was treated to 6000 cGy over 8 fractions of 750 cGy each, while the right lower lobe tumor was treated to 5000 cGy over [address]. [address] on 03/31/2018 showed volume reduction in the anterior right upper lobe tumor (1.4 x 2.3 cm down from 2.2 x 2.8 cm) and the right lower lobe tumor (0.6 x 2.2 cm down from 1.3 x 3.5 cm). There was considerable peritumoral atelectasis and consolidation surrounding the spiculated mass in the right upper lobe and right lower lobe most likely consistent with radiation changes. No new suspicious bone or neurologic symptoms worrisome for metastatic disease. Recent CT on 07/08/2018 showed further interval decrease in size of the radiated right upper lobe parenchymal mass and lateral right pleural-based mass lesions , consistent with post treatment response. But there was some associated increased adjacent parenchymal consolidation presumably sequelae from stereotactic lung radiation. Unfortunately, there has been interval increase in size and number of a number of pleural-based nodules and masses in the right hemithorax. These included 2 anterior mass lesions along the right middle lobe, measuring up to 2.4 x 1.0 cm and 2.5 x 0.9 cm. Along the posterior medial right lower lobe there is a pleural-based lesion measuring 1.4 x 0.4 cm. There was a pleural-based nodule in the right hemidiaphragm measuring 1.4 x 0.7 cm. There were multiple small nodules which were new, seen along the right major and minor fissures as well as medially along the right upper lobe. 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 No pleural effusion or suspiciously enlarged hilar or mediastinal lymphadenopathy. He then underwent PET scan on 08/09/2018. and the PET/CT showed post radiation changes in the right upper lobe. The previously seen lung mass in the right upper lobe was obscured mildly and increased FDG uptake in the area is nonspecific. Multiple hypermetabolic nodules in the right hemithorax was seen and compatible with pleural metastasis. Right lower lobe consolidation was noted. There were foci of more intensely increased FDG uptake within consolidated right lower lobe. Cannot rule out metastatic disease superimposed on concomitant pneumonia. Small right pleural effusion was also noted. Due to the evidence of disease recurrence and progression, patient was referred to medical oncology for discussion of systemic therapy. - Additional ROS All systems PM: reviewed and no additional remarkable complaints except as stated Home Medications and Allergies Home Medications Medication Instructions Recorded Confirmed Type finasteride 5 mg PO QDAY #0 02/11/17 History oxybutynin chloride [Ditropan XL] 5 mg PO QPM #0 02/11/17 History aspirin 0.25 tab PO QDAY #0 09/01/17 History tamsulosin [Flomax] 0.4 mg PO BID #0 09/01/17 History fluticasone [Flonase Allergy 50 mcg INTRANASAL PRN PRN #48 ml 09/16/17 Rx Relief] omeprazole 20 mg PO QDAY #90 cap 10/05/17 Rx levothyroxine [Synthroid] 75 mcg PO QDAY #90 tab 10/18/17 Rx lisinopril 5 mg PO QDAY #90 tab 11/09/17 Rx polysaccharide iron complex 150 mg PO BID #60 cap 12/08/17 Rx [Ferrex 150] docusate sodium [DOK] 100 mg PO QDAYP PRN #0 01/05/18 History azelastine 2 inh INH SEE INSTRUCTIONS #1 inh 01/10/18 Rx nabumetone 750 mg tablet 750 mg PO BID #180 tab 05/24/18 Rx atorvastatin 40 mg tablet 40 mg PO QDAY #90 tab 06/27/18 Rx folic acid 1 mg PO DAILY #30 tab 08/15/18 Rx ondansetron HCl [Zofran] 4 mg PO Q6-8H PRN #30 tab 08/22/18 Rx lidocaine-prilocaine 1 applictn TOP PRN PRN #30 gram 08/24/18 Rx oxycodone 5 mg PO Q4-6H PRN #30 tab 08/24/18 Rx Allergies Allergy/AdvReac Type Severity Reaction Status Date / Time No Known Drug Allergies Allergy Unknown Verified 08/24/18 10:45 [NO KNOWN DRUG ALLERGIES] Exam Vital signs: Last Vital Signs Temp 98.6 F 08/29/18 08:42 Pulse 82 08/29/18 08:42 Resp 18 08/29/18 08:42 BP 109/60 08/29/18 08:42 Pulse Ox 99 08/29/18 08:42 ECOG 1 Narrative: Constitutional: WDWN, NAD, average body habitus, well groomed, pleasant and cooperative, accompanied by his . HEENT: NCAT, EOMI, PERRLA, anicteric sclera, no hearing difficulty; Oral mucus membrane moist and without ulcers. Neck: Supple, symmetrical, and tracheal midline; No palpable thyromegaly and no palpable lymph nodes. 2/6 carotid artery bruits. Respiratory: No use of accessory muscles. Clear to auscultation, and no wheezes or rales or rubs. Cardiovascular: Regular rate and rhythm, S1 and S2 normal, no murmurs gallops or rubs. No JVD. No pitting edema of lower extremities. Abdomen: Soft, nontender, non-distended, bowel sounds normal, no palpable organomegaly, no hernia, no palpable masses. Lower extremities: No palpable pedal edema. Lymphatic: no palpable lymph nodes in the neck, axillae, or groins. Musculoskeletal: normal gait and station, no clubbing, no cyanosis, no pitting edema. Skin: no rashes, no ulcers, no petechiae Neurological: Awake and alert and oriented x3. CN II-XII grossly intact. No focal motor or sensory deficit. Psychiatric: Good judgment, good insight, normal affect, normal thought process , cooperative, no depression, no anxiety. Results - Labs Laboratory Last Values WBC 4.2 X10^3/uL (4.5-11.0) L 08/29/18 08:25 RBC 3.60 X10^6/uL (4.5-5.9) L 08/29/18 08:25 Hgb 11.6 g/dL (13.5-17.5) L 08/29/18 08:25 Hct 34.4 % (41-53) L 08/29/18 08:25 MCV 95.6 fL (80-100) 08/29/18 08:25 MCH 32.2 PG (26-34) 08/29/18 08:25 MCHC 33.7 % (30-36) 08/29/18 08:25 RDW 14.4 % (11.6-14.8) 08/29/18 08:25 Plt Count 172 X10^3/uL (150-400) 08/29/18 08:25 Neut % (Auto) 61.4 % (50-75) 08/29/18 08:25 Lymph % (Auto) 14.0 % (25-40) L 08/29/18 08:25 [place] % (Auto) 11.6 % (3-14) 08/29/18 08:25 Eos % (Auto) 12.1 % (2-4) H 08/29/18 08:25 Baso % (Auto) 0.9 % (0-2) 08/29/18 08:25 Neut # (Auto) 2600 /uL (8191-8073) L 08/29/18 08:25 Sodium 135 mmol/L (137-145) L 08/29/18 08:25 Potassium 4.3 mmol/L (3.4-5.1) 08/29/18 08:25 Chloride 99 mmol/L (98-107) 08/29/18 08:25 Carbon Dioxide 26 mmol/L (22-32) 08/29/18 08:25 Creatinine 0.90 mg/dL (0.66-1.25) 08/29/18 08:25 Estimated GFR > 60.0 mL/min (>60) 08/29/18 08:25 Glucose 94 mg/dL (80-110) 08/29/18 08:25 Calcium 8.7 mg/dL (8.4-10.2) 08/29/18 08:25 Total Bilirubin 0.5 mg/dL (0.2-1.3) 08/29/18 08:25 AST 28 IU/L (17-59) 08/29/18 08:25 ALT 25 IU/L (21-72) 08/29/18 08:25 Alkaline Phosphatase 84 U/L (38-126) 08/29/18 08:25 Total Protein 5.9 g/dL (6.3-8.2) L 08/29/18 08:25 Albumin 3.6 g/dL (3.5-5.0) 08/29/18 08:25 Globulin 2.3 g/dL (1.7-4.1) 08/29/18 08:25 Albumin/Globulin Ratio 1.6 (1.0-2.8) 08/29/18 08:25 Assessment and Plan (1) Recurrent adenocarcinoma of right lung Problem details: Right upper lobe and right lower lobe non-small cell lung cancer, both stage IB (T2a, N0, M0) s/p stereotactic ablative radiation therapy in December 2017: right upper lobe tumor was treated to 6000 cGy over 8 fractions of 750 cGy each, while the right lower lobe tumor was treated to 5000 cGy over 5 fractions. Metastatic recurrence on follow up CT (07/08/2018) and PET (08/09/2018): Multiple hypermetabolic nodules in the right hemithorax. Molecular workup: negative for ALK translocation, negative for ROS1 translocation, and negative for EGFR mutation. Low level of PD-L1 expression (<1%). Assessment: I reviewed the laboratory results with the patient. Once again I explained to the patient about the potential side effects and complications associated with the use of chemotherapy with carboplatin, pemetrexed, and pembrolizumab. I especially talked about fatigue, nausea and vomiting, bone marrow suppression. I emphasized that whenever he feels uncomfortable or there are any new events or fever chills, he needs to call us without any hesitation is. Patient and patient's both voiced understanding. Plan 1. Ok to proceed to C1# Carbo/Pem/Pembro 2. CBC, CMP weekly 3. Continue Vitamin B12 1000 mcg subQ, next due on C4D1. 4. Continue Folic acid 1 mg daily 5. RTC C2D1, CBC, CMP, TSH,and Rx. (2) Anemia Problem details: The patient has mild anemia. Which most likely related to chronic disease. No evidence of iron or vitamin B12 or folic acid deficiency. Assessment and Plan: Mild anemia. During the chemotherapy in May get worse. Will need monitoring closely. Blood transfusion threshold H/H 05/30.
[2018-08-29 08:37] LABS: Add Manual Diff / Slide Review NO; Basophils Percent Auto 0.9 % (0-2); Eosinophils Percent Auto 12.1 % (2-4); Hematocrit 34.4 % (41-53); Hemoglobin 11.6 g/dL (13.5-17.5); Mean Corpuscular HGB Conc 33.7 % (30-36); Mean Corpuscular Hemoglobin 32.2 PG (26-34); Mean Corpuscular Volume 95.6 fL (80-100); Monocytes Percent Auto 11.6 % (3-14); Neutrophils Absolute Auto 2600 /uL (3000-5900); Neutrophils Percent Auto 61.4 % (50-75); Platelet Count 172 X10^3/uL (150-400); Red Cell Distribution Width 14.4 % (11.6-14.8); White Blood Cell Count 4.2 X10^3/uL (4.5-11.0)
[2018-08-29 08:42] VITALS: BP 109/60; PULSE 82; RESP 18; TEMP 37; O2SAT 99
[2018-08-29 08:52] LABS: Alanine Aminotransferase 25 IU/L (21-72); Albumin 3.6 g/dL (3.5-5.0); Albumin Globulin Ratio 1.6 (1.0-2.8); Alkaline Phosphatase 84 U/L (38-126); Aspartate Aminotransferase 28 IU/L (17-59); Bilirubin Total 0.5 mg/dL (0.2-1.3); Calcium 8.7 mg/dL (8.4-10.2); Carbon Dioxide 26 mmol/L (22-32); Chloride 99 mmol/L (98-107); Estimated Glomerular Filt Rate > 60.0 mL/min (>60); Globulin 2.3 g/dL (1.7-4.1); Glucose 94 mg/dL (80-110); HEMOLYSIS < 15 (0-50); Potassium 4.3 mmol/L (3.4-5.1); Sodium 135 mmol/L (137-145); Total Protein 5.9 g/dL (6.3-8.2)
[2018-08-29 09:10] LABS: BUN Creatinine Ratio 21.1 (6-22); Blood Urea Nitrogen 19 mg/dL (9-20)
[2018-08-29] MEDS: DEXAMETHASONE 12 MG in SODIUM CHLORIDE 0.9% 50 ML 212 ML IV (09:47)
[2018-08-29] MEDS: LORazepam 0.5 MG TABLET PO (09:52)
[2018-08-29] MEDS: SODIUM CHLORIDE 0.9% 100 ML 21 ML IV (09:53)
[2018-08-29] MEDS: ONDANSETRON 16 MG in SODIUM CHLORIDE 0.9% 50 ML 232 ML IV (10:12)
[2018-08-29] MEDS: FOSAPREPITANT 150 MG in SODIUM CHLORIDE 0.9% 150 ML 300 ML IV (10:49)
[2018-08-29] MEDS: PEMBROLIZUMAB 200 MG in SODIUM CHLORIDE 0.9% (CHEMO) 100 ML 216 ML IV (12:05)
[2018-08-29] MEDS: SODIUM CHLORIDE 0.9% IV ×2 (12:57→13:18)
[2018-08-29] MEDS: PEMETREXED IV (12:57)
[2018-08-29] MEDS: CARBOPLATIN IV (13:18)
[2018-09-05 14:39] LABS: Add Manual Diff / Slide Review NO; Basophils Percent Auto 1.2 % (0-2); Eosinophils Percent Auto 5.9 % (2-4); Hematocrit 35.7 % (41-53); Hemoglobin 12.2 g/dL (13.5-17.5); Lymphocytes Percent Auto 14.3 % (25-40); Mean Corpuscular HGB Conc 34.3 % (30-36); Mean Corpuscular Hemoglobin 32.8 PG (26-34); Mean Corpuscular Volume 95.7 fL (80-100); Monocytes Percent Auto 7.4 % (3-14); Neutrophils Absolute Auto 2300 /uL (3000-5900); Neutrophils Percent Auto 71.2 % (50-75); Platelet Count 141 X10^3/uL (150-400); Red Blood Cell Count 3.74 X10^6/uL (4.5-5.9); Red Cell Distribution Width 14.4 % (11.6-14.8); White Blood Cell Count 3.3 X10^3/uL (4.5-11.0)
[2018-09-05 14:52] LABS: Alanine Aminotransferase 50 IU/L (21-72); Albumin 4.1 g/dL (3.5-5.0); Albumin Globulin Ratio 1.6 (1.0-2.8); Alkaline Phosphatase 94 U/L (38-126); Aspartate Aminotransferase 45 IU/L (17-59); BUN Creatinine Ratio 37.8 (6-22); Bilirubin Total 0.4 mg/dL (0.2-1.3); Blood Urea Nitrogen 34 mg/dL (9-20); Calcium 8.8 mg/dL (8.4-10.2); Carbon Dioxide 24 mmol/L (22-32); Chloride 100 mmol/L (98-107); Estimated Glomerular Filt Rate > 60.0 mL/min (>60); Globulin 2.5 g/dL (1.7-4.1); Glucose 98 mg/dL (80-110); HEMOLYSIS < 15 (0-50); Potassium 4.7 mmol/L (3.4-5.1); Sodium 136 mmol/L (137-145); Total Protein 6.6 g/dL (6.3-8.2)
--- NOTE | 2018-09-05 15:58 | PC.NURSE ---
Patient reported having four large liquid stools last night and one this am. He reports no dizziness. He reports drinking liquids and was encouraged to continue this, avoid milk products except yogurt as tolerated and BRAT diet was recommended. He was encouraged to call in and speak with triage nurse if continued frequent diarrhea and with any questions. Patient voiced understanding by repeating these instructions. He also requested to know if Sudafed could be taken for his allergies considering his other medications and chemotherapy. An interaction report was run and found to be compatible. Patient informed that he could go ahead and use his sudafed and should just have blood pressure monitored as it can decrease effects of lisinopril per report. Patient voiced understanding.
[2018-09-08 09:22] VITALS: BP 111/62; PULSE 93; RESP 18; TEMP 36.5; O2SAT 100
--- NOTE | 2018-09-08 10:07 | P.PNONC_ITS ---
PN -Subjective Interval history: Diagnosis: Recurrent non small cell lung cancer, stage IB (T2a, N0, M0) recently completed cycle 1 of Carbo/Pem/Pembro on 08/29/2018. The patient presents today for acute same day visit reporting nosebleed, rash, and diarrhea. The patient reports he was having some diarrhea a few days after receiving his 1st infusion. However, he has been struggling with constipation and took 2 doses of MiraLax. It was shortly thereafter he had 4 episodes of loose stool. Has since resolved and now he has not had a bowel movement in 2 or 3 days. He states he is taking a Dulcolax in the morning and in the evening. Yesterday he had a nose bleed. He states it was ?mild?. It resolved when he inserted some tissue into his nostril. He does a daily nasal rinse which he has been doing for 30 years. He has intermittent nose bleeds over the years, these are usually mild an self resolving. The patient reports he awoke yesterday with a ?rash? on his left lower extremity. He described it as itching. No other associated rash, none on his chest, back, arms, trunk. None on his other leg. He put 2 different topical lotions/ointment and this rash seems to be improving. It is not itching him today. Otherwise seems to be doing well. He has had a few days where he ?felt a little tired? also states on Thanksgiving he did not feel like eating. However , since then he has been eating quite well. He and his went out to dinner over the weekend where he ate a large Thanksgiving meal. Weight is stable. No nausea. No vomiting. No cough, fever, chills. Still getting out and walking most days as per his usual. Oncology History: The patient came in here today for discussion of systemic therapy for the recurrent adenocarcinoma of the lung. He was diagnosed with right upper lobe and right lower lobe non-small cell lung cancer, both stage IB (T2a, N0, M0). He completed a course of stereotactic ablative radiation therapy in December 2017: the right upper lobe tumor was treated to 6000 cGy over 8 fractions of 750 cGy each, while the right lower lobe tumor was treated to 5000 cGy over [address]. [address] on 03/31/2018 showed volume reduction in the anterior right upper lobe tumor (1.4 x 2.3 cm down from 2.2 x 2.8 cm) and the right lower lobe tumor (0.6 x 2.2 cm down from 1.3 x 3.5 cm). There was considerable peritumoral atelectasis and consolidation surrounding the spiculated mass in the right upper lobe and right lower lobe most likely consistent with radiation changes. No new suspicious bone or neurologic symptoms worrisome for metastatic disease. Recent CT on 07/08/2018 showed further interval decrease in size of the radiated right upper lobe parenchymal mass and lateral right pleural-based mass lesions , consistent with post treatment response. But there was some associated increased adjacent parenchymal consolidation presumably sequelae from stereotactic lung radiation. Unfortunately, there has been interval increase in size and number of a number of pleural-based nodules and masses in the right hemithorax. These included 2 anterior mass lesions along the right middle lobe, measuring up to 2.4 x 1.0 cm and 2.5 x 0.9 cm. Along the posterior medial right lower lobe there is a pleural-based lesion measuring 1.4 x 0.4 cm. There was a pleural-based nodule in the right hemidiaphragm measuring 1.4 x 0.7 cm. There were multiple small nodules which were new, seen along the right major and minor fissures as well as medially along the right upper lobe. 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 No pleural effusion or suspiciously enlarged hilar or mediastinal lymphadenopathy. He then underwent PET scan on 08/09/2018. and the PET/CT showed post radiation changes in the right upper lobe. The previously seen lung mass in the right upper lobe was obscured mildly and increased FDG uptake in the area is nonspecific. Multiple hypermetabolic nodules in the right hemithorax was seen and compatible with pleural metastasis. Right lower lobe consolidation was noted. There were foci of more intensely increased FDG uptake within consolidated right lower lobe. Cannot rule out metastatic disease superimposed on concomitant pneumonia. Small right pleural effusion was also noted. Due to the evidence of disease recurrence and progression, patient was referred to medical oncology for discussion of systemic therapy. - Patient Self-Reported Symptoms SR ears, nose, mouth, throat issues: Nose bleeds SR respiratory issues: Mucous SR Skin issues: Skin rash or itching, Skin color changes SR Gastrointestinal issues: Diarrhea, Constipation SR Genitourinary issues: Change in stream Home Medications and Allergies Home Medications Medication Instructions Recorded Confirmed Type finasteride 5 mg PO QDAY #0 02/11/17 History oxybutynin chloride [Ditropan XL] 5 mg PO QPM #0 02/11/17 History aspirin 0.25 tab PO QDAY #0 09/01/17 History tamsulosin [Flomax] 0.4 mg PO BID #0 09/01/17 History fluticasone [Flonase Allergy 50 mcg INTRANASAL PRN PRN #48 ml 09/16/17 Rx Relief] omeprazole 20 mg PO QDAY #90 cap 10/05/17 Rx lisinopril 5 mg PO QDAY #90 tab 11/09/17 Rx polysaccharide iron complex 150 mg PO BID #60 cap 12/08/17 Rx [Ferrex 150] docusate sodium [DOK] 100 mg PO QDAYP PRN #0 01/05/18 History azelastine 2 inh INH SEE INSTRUCTIONS #1 inh 01/10/18 Rx atorvastatin 40 mg tablet 40 mg PO QDAY #90 tab 06/27/18 Rx folic acid 1 mg PO DAILY #30 tab 08/15/18 Rx ondansetron HCl [Zofran] 4 mg PO Q6-8H PRN #30 tab 08/22/18 Rx lidocaine-prilocaine 1 applictn TOP PRN PRN #30 gram 08/24/18 Rx oxycodone 5 mg PO Q4-6H PRN #30 tab 08/24/18 Rx levothyroxine 75 mcg tablet 75 mcg PO QDAY #90 tab 09/07/18 Rx Allergies Allergy/AdvReac Type Severity Reaction Status Date / Time No Known Drug Allergies Allergy Unknown Verified 08/24/18 10:45 [NO KNOWN DRUG ALLERGIES] Exam - Constitutional positive no acute distress - Routine HEENT Exam Eye: Present: conjunctivae pink. Absent: conjunctival icterus, scleral injection ENT: Present: mucous membranes moist, oropharynx clear - Routine Neck Exam Present: supple. Absent: lymphadenopathy - Routine Respiratory Exam Present: Clear to auscultation bilaterally, decreased breath sounds. Absent: accessory muscle use, prolonged expiratory phase, rales, rhonchi, wheezes - Routine Cardiovascular Exam Present: RRR, S1, S2. Absent: murmur, gallop, rubs, JVD - Routine Abdominal Exam Present: soft, normoactive bowel sounds. Absent: tenderness, distended, guarding, organomegaly, mass - Routine Extremities Exam Absent: edema, calf tenderness - Routine Skin Exam Present: intact, normal turgor, rash. Absent: erythema, petechiae, lesions Comments: mild red flat area of excoriation lateral aspect of left lower extremity. - Routine Neurological Exam Present: alert, oriented X3 - Routine Psychiatric Exam Present: normal affect Results - Labs Laboratory Last Values WBC 3.3 X10^3/uL (4.5-11.0) L 09/05/18 14:32 RBC 3.74 X10^6/uL (4.5-5.9) L 09/05/18 14:32 Hgb 12.2 g/dL (13.5-17.5) L 09/05/18 14:32 Hct 35.7 % (41-53) L 09/05/18 14:32 MCV 95.7 fL (80-100) 09/05/18 14:32 MCH 32.8 PG (26-34) 09/05/18 14:32 MCHC 34.3 % (30-36) 09/05/18 14:32 RDW 14.4 % (11.6-14.8) 09/05/18 14:32 Plt Count 141 X10^3/uL (150-400) L 09/05/18 14:32 Neut % (Auto) 71.2 % (50-75) 09/05/18 14:32 Lymph % (Auto) 14.3 % (25-40) L 09/05/18 14:32 [place] % (Auto) 7.4 % (3-14) 09/05/18 14:32 Eos % (Auto) 5.9 % (2-4) H 09/05/18 14:32 Baso % (Auto) 1.2 % (0-2) 09/05/18 14:32 Neut # (Auto) 2300 /uL (8918-1736) L 09/05/18 14:32 Sodium 136 mmol/L (137-145) L 09/05/18 14:32 Potassium 4.7 mmol/L (3.4-5.1) 09/05/18 14:32 Chloride 100 mmol/L (98-107) 09/05/18 14:32 Carbon Dioxide 24 mmol/L (22-32) 09/05/18 14:32 BUN 34 mg/dL (9-20) H 09/05/18 14:32 Creatinine 0.90 mg/dL (0.66-1.25) 09/05/18 14:32 Estimated GFR > 60.0 mL/min (>60) 09/05/18 14:32 BUN/Creatinine Ratio 37.8 (6-22) H 09/05/18 14:32 Glucose 98 mg/dL (80-110) 09/05/18 14:32 Calcium 8.8 mg/dL (8.4-10.2) 09/05/18 14:32 Total Bilirubin 0.4 mg/dL (0.2-1.3) 09/05/18 14:32 AST 45 IU/L (17-59) 09/05/18 14:32 ALT 50 IU/L (21-72) 09/05/18 14:32 Alkaline Phosphatase 94 U/L (38-126) 09/05/18 14:32 Total Protein 6.6 g/dL (6.3-8.2) 09/05/18 14:32 Albumin 4.1 g/dL (3.5-5.0) 09/05/18 14:32 Globulin 2.5 g/dL (1.7-4.1) 09/05/18 14:32 Albumin/Globulin Ratio 1.6 (1.0-2.8) 09/05/18 14:32 TSH 20.20 uIU/mL (0.47-4.68) H 08/29/18 08:42 Assessment and Plan (1) Recurrent adenocarcinoma of right lung Problem details: Right upper lobe and right lower lobe non-small cell lung cancer, both stage IB (T2a, N0, M0) s/p stereotactic ablative radiation therapy in December 2017: right upper lobe tumor was treated to 6000 cGy over 8 fractions of 750 cGy each, while the right lower lobe tumor was treated to 5000 cGy over 5 fractions. Metastatic recurrence on follow up CT (07/08/2018) and PET (08/09/2018): Multiple hypermetabolic nodules in the right hemithorax. Molecular workup: negative for ALK translocation, negative for ROS1 translocation, and negative for EGFR mutation. Low level of PD-L1 expression (<1%). Assessment: Recently completed cycle 1 of carbo/Pem/Pembro seems to be tolerating thus far without severe adverse effects. His complaints today including diarrhea, nose bleed, rash I cannot say are directly related to his chemotherapy. He has been struggling with constipation, he took 2 doses of MiraLax subsequently had diarrhea. This has now resolved and it has now been 2 or 3 days since his last bowel movement. He reports he is taking a daily do collect in the morning and in the evening. I have instructed the patient to add a senna S tab AM and PM. Hold for loose stools, goal is a normal BM everyday or every other day. Plan 1. Keep appt next week for cycle 3 Carbp/Pem/Pembro CBC, CMP, TSH 2. CBC, CMP weekly 3. Continue Vitamin B12 1000 mcg subQ, next due on C4D1. 4. Continue Folic acid 1 mg daily (2) Anemia Problem details: The patient has mild anemia. Which most likely related to chronic disease. No evidence of iron or vitamin B12 or folic acid deficiency. Assessment and Plan: Mild anemia. During the chemotherapy in May get worse. Will need monitoring closely. Blood transfusion threshold H/H 05/30. CBC stable 09/05/2018 (3) Epistaxis not due to trauma Current visit: Yes Status: Acute Mild and self-limiting. Very mild thrombocytopenia at 141,000. We will continue to monitor. 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 He struggles with constipation generally has a BM every 4-6 days. States he is taking do collect a.m. and p.m.. I have instructed him to add senna S a.m. and p.m., hold for loose stools. Goal is to have a normal bowel movement every day or every other day. (5) Atopic dermatitis, mild Current visit: Yes Status: Acute Lateral aspect LLE, likely not drug related. Mild. resolving. Cont topical Cetaphil we will monitor for recurrence after next chemo however I doubt it is related.
[2018-09-12 16:21] LABS: Add Manual Diff / Slide Review NO; Basophils Percent Auto 0.2 % (0-2); Eosinophils Percent Auto 3.5 % (2-4); Hemoglobin 10.7 g/dL (13.5-17.5); Lymphocytes Percent Auto 15.4 % (25-40); Mean Corpuscular HGB Conc 34.5 % (30-36); Mean Corpuscular Hemoglobin 32.9 PG (26-34); Mean Corpuscular Volume 95.1 fL (80-100); Monocytes Percent Auto 15.1 % (3-14); Neutrophils Absolute Auto 2200 /uL (3000-5900); Neutrophils Percent Auto 65.8 % (50-75); Platelet Count 83 X10^3/uL (150-400); Red Blood Cell Count 3.25 X10^6/uL (4.5-5.9); White Blood Cell Count 3.3 X10^3/uL (4.5-11.0)
[2018-09-12 16:35] LABS: Alanine Aminotransferase 51 IU/L (21-72); Albumin Globulin Ratio 1.8 (1.0-2.8); Alkaline Phosphatase 84 U/L (38-126); Aspartate Aminotransferase 41 IU/L (17-59); BUN Creatinine Ratio 28.9 (6-22); Bilirubin Total 0.4 mg/dL (0.2-1.3); Blood Urea Nitrogen 26 mg/dL (9-20); Calcium 8.8 mg/dL (8.4-10.2); Carbon Dioxide 26 mmol/L (22-32); Chloride 94 mmol/L (98-107); Estimated Glomerular Filt Rate > 60.0 mL/min (>60); Globulin 2.2 g/dL (1.7-4.1); Glucose 99 mg/dL (80-110); HEMOLYSIS < 15 (0-50); Sodium 131 mmol/L (137-145); Total Protein 6.2 g/dL (6.3-8.2)
--- NOTE | 2018-09-19 09:03 | P.PNONC_ITS ---
PN -Subjective Interval history: 83 year old with recurrent right lung NSCLC here for cycle 2 carbo/pem/pembro. He received his first cycle of the treatment on 08/29/2018. Patient reported that he is having some mild shortness of breath which he attributed to his nose problems. Patient has stuffy nose and had to use the normal saline spray. Once the nose was cleared, he seemed to have a better breathing. Patient is not using oxygen. Patient denies any fever or chills. Patient does report some sore throat and problems with swallowing. Patient reported watery diarrhea for 2 occasions but there after he has been constipated. No other new events. Oncology History: Segundo Lei is a 83 year old male. He was diagnosed with right upper lobe and right lower lobe non-small cell lung cancer, both stage IB (T2a, N0, M0 ). He completed a course of stereotactic ablative radiation therapy in December 2017: the right upper lobe tumor was treated to 6000 cGy over 8 fractions of 750 cGy each, while the right lower lobe tumor was treated to 5000 cGy over [address]. [address] on 03/31/2018 showed volume reduction in the anterior right upper lobe tumor (1.4 x 2.3 cm down from 2.2 x 2.8 cm) and the right lower lobe tumor (0.6 x 2.2 cm down from 1.3 x 3.5 cm). There was considerable peritumoral atelectasis and consolidation surrounding the spiculated mass in the right upper lobe and right lower lobe most likely consistent with radiation changes. No new suspicious bone or neurologic symptoms worrisome for metastatic disease. CT on 07/08/2018 showed further interval decrease in size of the radiated right upper lobe parenchymal mass and lateral right pleural-based mass lesions, consistent with post treatment response. But there was some associated increased adjacent parenchymal consolidation presumably sequelae from stereotactic lung radiation. Unfortunately, there has been interval increase in size and number of a number of pleural-based nodules and masses in the right hemithorax. These included 2 anterior mass lesions along the right middle lobe, measuring up to 2.4 x 1.0 cm and 2.5 x 0.9 cm. Along the posterior medial right lower lobe there is a pleural-based lesion measuring 1.4 x 0.4 cm. There was a pleural-based nodule in the right hemidiaphragm measuring 1.4 x 0.7 cm. There were multiple small nodules which were new, seen along the right major and minor fissures as well as medially along the right upper lobe. 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 No pleural effusion or suspiciously enlarged hilar or mediastinal lymphadenopathy. He then underwent PET scan on 08/09/2018. and the PET/CT showed post radiation changes in the right upper lobe. The previously seen lung mass in the right upper lobe was obscured mildly and increased FDG uptake in the area is nonspecific. Multiple hypermetabolic nodules in the right hemithorax was seen and compatible with pleural metastasis. Right lower lobe consolidation was noted. There were foci of more intensely increased FDG uptake within consolidated right lower lobe. Cannot rule out metastatic disease superimposed on concomitant pneumonia. Small right pleural effusion was also noted. Due to the evidence of disease recurrence and progression, patient was referred to medical oncology for discussion of systemic therapy. He was started on Carbo/Pem/Pembro on 08/29/2018. - Patient Self-Reported Symptoms SR ears, nose, mouth, throat issues: Nose bleeds SR respiratory issues: Mucous SR Skin issues: Skin rash or itching, Skin color changes SR Gastrointestinal issues: Diarrhea, Constipation SR Genitourinary issues: Change in stream - Additional ROS All systems PM: reviewed and no additional remarkable complaints except as stated Home Medications and Allergies Home Medications Medication Instructions Recorded Confirmed Type finasteride 5 mg PO QDAY #0 02/11/17 09/15/18 History oxybutynin chloride [Ditropan XL] 5 mg PO QPM #0 02/11/17 09/15/18 History aspirin 0.25 tab PO QDAY #0 09/01/17 09/15/18 History tamsulosin [Flomax] 0.4 mg PO BID #0 09/01/17 09/15/18 History fluticasone [Flonase Allergy 50 mcg INTRANASAL PRN PRN #48 ml 09/16/17 09/15/18 Rx Relief] omeprazole 20 mg PO QDAY #90 cap 10/05/17 09/15/18 Rx lisinopril 5 mg PO QDAY #90 tab 11/09/17 09/15/18 Rx polysaccharide iron complex 150 mg PO BID #60 cap 12/08/17 09/15/18 Rx [Ferrex 150] docusate sodium [DOK] 100 mg PO QDAYP PRN #0 01/05/18 09/15/18 History azelastine 2 inh INH SEE INSTRUCTIONS #1 inh 01/10/18 09/15/18 Rx atorvastatin 40 mg tablet 40 mg PO QDAY #90 tab 06/27/18 09/15/18 Rx folic acid 1 mg PO DAILY #30 tab 08/15/18 09/15/18 Rx ondansetron HCl [Zofran] 4 mg PO Q6-8H PRN #30 tab 08/22/18 09/15/18 Rx lidocaine-prilocaine 1 applictn TOP PRN PRN #30 gram 08/24/18 09/15/18 Rx oxycodone 5 mg PO Q4-6H PRN #30 tab 08/24/18 09/15/18 Rx levothyroxine 75 mcg tablet 75 mcg PO QDAY #90 tab 09/07/18 09/15/18 Rx hydrocortisone acetate [address] QD-BID PRN #12 each 09/15/18 Rx rectal suppository triamcinolone acetonide 0.1 % 1 applictn TOP BID #453.6 gram 09/15/18 Rx topical cream magnesium hydroxide [Milk of 400 mg PO DAILY PRN 09/19/18 09/19/18 History Magnesia] polyethylene glycol 3350 [Miralax] 17 g PO DAILY PRN 09/19/18 09/19/18 History sennosides [senna] 8.6 mg PO BID PRN 09/19/18 09/19/18 History Allergies Allergy/AdvReac Type Severity Reaction Status Date / Time No Known Drug Allergies Allergy Unknown Verified 09/15/18 15:13 [NO KNOWN DRUG ALLERGIES] Exam Vital signs: Last Vital Signs Temp 98.0 F 09/19/18 09:37 Pulse 92 H 09/19/18 09:37 Resp 18 09/19/18 09:37 BP 128/66 09/19/18 09:37 Pulse Ox 100 09/19/18 09:37 ECOG 1 Narrative: Constitutional: WDWN, NAD, average body habitus, well groomed, pleasant and cooperative, accompanied by his . Pt is very anxious. HEENT: NCAT, EOMI, PERRLA, anicteric sclera, no hearing difficulty; Oral mucus membrane moist and without ulcers. Neck: Supple, symmetrical, and tracheal midline; No palpable thyromegaly and no palpable lymph nodes. 2/6 carotid artery bruits. Respiratory: No use of accessory muscles. Clear to auscultation, and no wheezes or rales or rubs. Cardiovascular: Regular rate and rhythm, S1 and S2 normal, no murmurs gallops or rubs. No JVD. No pitting edema of lower extremities. Abdomen: Soft, nontender, non-distended, bowel sounds normal, no palpable organomegaly, no hernia, no palpable masses. Lower extremities: No palpable pedal edema. Lymphatic: no palpable lymph nodes in the neck, axillae, or groins. Musculoskeletal: normal gait and station, no clubbing, no cyanosis, no pitting edema. Skin: no rashes, no ulcers, no petechiae Neurological: Awake and alert and oriented x3. CN II-XII grossly intact. No focal motor or sensory deficit. Psychiatric: Good judgment, good insight, normal affect, normal thought process , cooperative, no depression, no anxiety. Results - Labs Laboratory Last Values WBC 2.3 X10^3/uL (4.5-11.0) L 09/19/18 08:56 RBC 3.25 X10^6/uL (4.5-5.9) L 09/19/18 08:56 Hgb 10.6 g/dL (13.5-17.5) L 09/19/18 08:56 Hct 31.2 % (41-53) L 09/19/18 08:56 MCV 96.0 fL (80-100) 09/19/18 08:56 MCH 32.6 PG (26-34) 09/19/18 08:56 MCHC 34.0 % (30-36) 09/19/18 08:56 RDW 14.1 % (11.6-14.8) 09/19/18 08:56 Plt Count 142 X10^3/uL (150-400) L 09/19/18 08:56 Neut % (Auto) 58.7 % (50-75) 09/19/18 08:56 Lymph % (Auto) 15.3 % (25-40) L 09/19/18 08:56 [place] % (Auto) 18.9 % (3-14) H 09/19/18 08:56 Eos % (Auto) 6.4 % (2-4) H 09/19/18 08:56 Baso % (Auto) 0.7 % (0-2) 09/19/18 08:56 Neut # (Auto) 1300 /uL (8330-4700) L 09/19/18 08:56 Sodium 133 mmol/L (137-145) L 09/19/18 08:56 Potassium 4.4 mmol/L (3.4-5.1) 09/19/18 08:56 Chloride 96 mmol/L (98-107) L 09/19/18 08:56 Carbon Dioxide 26 mmol/L (22-32) 09/19/18 08:56 BUN 15 mg/dL (9-20) 09/19/18 08:56 Creatinine 0.80 mg/dL (0.66-1.25) 09/19/18 08:56 Estimated GFR > 60.0 mL/min (>60) 09/19/18 08:56 BUN/Creatinine Ratio 18.8 (6-22) 09/19/18 08:56 Glucose 99 mg/dL (80-110) 09/19/18 08:56 Calcium 9.1 mg/dL (8.4-10.2) 09/19/18 08:56 Total Bilirubin 0.2 mg/dL (0.2-1.3) 09/19/18 08:56 AST 28 IU/L (17-59) 09/19/18 08:56 ALT 28 IU/L (21-72) 09/19/18 08:56 Alkaline Phosphatase 89 U/L (38-126) 09/19/18 08:56 Total Protein 6.0 g/dL (6.3-8.2) L 09/19/18 08:56 Albumin 3.8 g/dL (3.5-5.0) 09/19/18 08:56 Globulin 2.2 g/dL (1.7-4.1) 09/19/18 08:56 Albumin/Globulin Ratio 1.7 (1.0-2.8) 09/19/18 08:56 TSH 20.20 uIU/mL (0.47-4.68) H 08/29/18 08:42 Assessment and Plan (1) Recurrent adenocarcinoma of right lung Problem details: Right upper lobe and right lower lobe non-small cell lung cancer, both stage IB (T2a, N0, M0) s/p stereotactic ablative radiation therapy in December 2017: right upper lobe tumor was treated to 6000 cGy over 8 fractions of 750 cGy each, while the right lower lobe tumor was treated to 5000 cGy over 5 fractions. Metastatic recurrence on follow up CT (07/08/2018) and PET (2017): Multiple hypermetabolic nodules in the right hemithorax. Molecular workup : negative for ALK translocation, negative for ROS1 translocation, and negative for EGFR mutation. Low level of PD-L1 expression (<1%). Assessment: He recently completed cycle 1 of carbo/Pem/Pembro. Overall he seems to have tolerated fairly well. Patient does report mild shortness of breath and with 2 episodes of watery diarrhea. The laboratory tests from today showed normal kidney function, normal liver function but it showed mild leukopenia with ANC 1.3. 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 I talked with the patient that I prefer that we proceed with studies including EKG and echocardiogram. And will delay the chemotherapy to next week. We will repeat the CBC before we restart. Plan 1. Delay cycle 3 Carbp/Pem/Pembro by one week 2. EKG 3. Echocardiogram 4. Cntinue Vitamin B12 1000 mcg subQ, next due on C4D1. 5. Continue Folic acid 1 mg daily (2) Anemia Problem details: The patient has mild anemia. Which most likely related to chronic disease. No evidence of iron or vitamin B12 or folic acid deficiency. Assessment and Plan: Mild anemia. Stable. Will need monitoring closely. Blood transfusion threshold H/H 24. (3) Epistaxis not due to trauma Assessment and plan: Mild and self-limiting. Very mild thrombocytopenia at 141, 000. We will continue to monitor.
[2018-09-19 09:17] LABS: Add Manual Diff / Slide Review NO; Basophils Percent Auto 0.7 % (0-2); Eosinophils Percent Auto 6.4 % (2-4); Hematocrit 31.2 % (41-53); Hemoglobin 10.6 g/dL (13.5-17.5); Lymphocytes Percent Auto 15.3 % (25-40); Mean Corpuscular Hemoglobin 32.6 PG (26-34); Monocytes Percent Auto 18.9 % (3-14); Neutrophils Absolute Auto 1300 /uL (3000-5900); Neutrophils Percent Auto 58.7 % (50-75); Platelet Count 142 X10^3/uL (150-400); Red Blood Cell Count 3.25 X10^6/uL (4.5-5.9); Red Cell Distribution Width 14.1 % (11.6-14.8); White Blood Cell Count 2.3 X10^3/uL (4.5-11.0)
[2018-09-19 09:28] LABS: Alanine Aminotransferase 28 IU/L (21-72); Albumin 3.8 g/dL (3.5-5.0); Albumin Globulin Ratio 1.7 (1.0-2.8); Alkaline Phosphatase 89 U/L (38-126); Aspartate Aminotransferase 28 IU/L (17-59); BUN Creatinine Ratio 18.8 (6-22); Bilirubin Total 0.2 mg/dL (0.2-1.3); Blood Urea Nitrogen 15 mg/dL (9-20); Calcium 9.1 mg/dL (8.4-10.2); Carbon Dioxide 26 mmol/L (22-32); Chloride 96 mmol/L (98-107); Estimated Glomerular Filt Rate > 60.0 mL/min (>60); Globulin 2.2 g/dL (1.7-4.1); Glucose 99 mg/dL (80-110); HEMOLYSIS < 15 (0-50); Potassium 4.4 mmol/L (3.4-5.1); Sodium 133 mmol/L (137-145)
[2018-09-19 09:37] VITALS: BP 128/66; PULSE 92; RESP 18; TEMP 36.7; O2SAT 100
[2018-09-26 09:35] LABS: Add Manual Diff / Slide Review NO; Basophils Percent Auto 1.1 % (0-2); Eosinophils Percent Auto 5.1 % (2-4); Hemoglobin 10.9 g/dL (13.5-17.5); Lymphocytes Percent Auto 12.2 % (25-40); Mean Corpuscular HGB Conc 34.1 % (30-36); Mean Corpuscular Hemoglobin 33.3 PG (26-34); Mean Corpuscular Volume 97.6 fL (80-100); Monocytes Percent Auto 16.7 % (3-14); Neutrophils Absolute Auto 2100 /uL (1500-7000); Neutrophils Percent Auto 64.9 % (50-75); Platelet Count 202 X10^3/uL (150-400); Red Blood Cell Count 3.28 X10^6/uL (4.5-5.9); Red Cell Distribution Width 16.8 % (11.6-14.8); White Blood Cell Count 3.2 X10^3/uL (4.5-11.0)
--- NOTE | 2018-09-26 09:45 | ONC.PN ---
PN -Subjective Interval history: 83 year old with recurrent right lung NSCLC here to resume cycle 2 carbo/pem/pembro. He received his first cycle of the treatment on 08/29/2018. Patient reported that he is having some mild shortness of breath which he attributed to his nose problems. Therefore we held the cycle 2 during his previous visit. I ordered echo study which showed normal ejection fraction. He presents here today to discuss to resume the treatment. Since his previous visit, patient reported no new complaints. Patient especially denies any shortness of breath, denies abdominal pain, denies diarrhea. Oncology History: Segundo Lei is a 83 year old male. He was diagnosed with right upper lobe and right lower lobe non-small cell lung cancer, both stage IB (T2a, N0, M0). He completed a course of stereotactic ablative radiation therapy in December 2017: the right upper lobe tumor was treated to 6000 cGy over 8 fractions of 750 cGy each, while the right lower lobe tumor was treated to 5000 cGy over [address]. [address] on 03/31/2018 showed volume reduction in the anterior right upper lobe tumor (1.4 x 2.3 cm down from 2.2 x 2.8 cm) and the right lower lobe tumor (0.6 x 2.2 cm down from 1.3 x 3.5 cm). There was considerable peritumoral atelectasis and consolidation surrounding the spiculated mass in the right upper lobe and right lower lobe most likely consistent with radiation changes. No new suspicious bone or neurologic symptoms worrisome for metastatic disease. CT on 07/08/2018 showed further interval decrease in size of the radiated right upper lobe parenchymal mass and lateral right pleural-based mass lesions, consistent with post treatment response. But there was some associated increased adjacent parenchymal consolidation presumably sequelae from stereotactic lung radiation. Unfortunately, there has been interval increase in size and number of a number of pleural-based nodules and masses in the right hemithorax. These included 2 anterior mass lesions along the right middle lobe, measuring up to 2.4 x 1.0 cm and 2.5 x 0.9 cm. Along the posterior medial right lower lobe there is a pleural-based lesion measuring 1.4 x 0.4 cm. There was a pleural-based nodule in the right hemidiaphragm measuring 1.4 x 0.7 cm. There were multiple small nodules which were new, seen along the right major and minor fissures as well as medially along the right upper lobe. 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 No pleural effusion or suspiciously enlarged hilar or mediastinal lymphadenopathy. He then underwent PET scan on 08/09/2018. and the PET/CT showed post radiation changes in the right upper lobe. The previously seen lung mass in the right upper lobe was obscured mildly and increased FDG uptake in the area is nonspecific. Multiple hypermetabolic nodules in the right hemithorax was seen and compatible with pleural metastasis. Right lower lobe consolidation was noted. There were foci of more intensely increased FDG uptake within consolidated right lower lobe. Cannot rule out metastatic disease superimposed on concomitant pneumonia. Small right pleural effusion was also noted. Due to the evidence of disease recurrence and progression, patient was referred to medical oncology for discussion of systemic therapy. He was started on Carbo/Pem/Pembro on 08/29/2018. - Additional ROS All systems PM: reviewed and no additional remarkable complaints except as stated Home Medications and Allergies Home Medications Medication Instructions Recorded Confirmed Type finasteride 5 mg PO QDAY #0 02/11/17 09/15/18 History oxybutynin chloride [Ditropan XL] 5 mg PO QPM #0 02/11/17 09/15/18 History aspirin 0.25 tab PO QDAY #0 09/01/17 09/15/18 History tamsulosin [Flomax] 0.4 mg PO BID #0 09/01/17 09/15/18 History fluticasone [Flonase Allergy 50 mcg INTRANASAL PRN PRN #48 ml 09/16/17 09/15/18 Rx Relief] omeprazole 20 mg PO QDAY #90 cap 10/05/17 09/15/18 Rx lisinopril 5 mg PO QDAY #90 tab 11/09/17 09/15/18 Rx polysaccharide iron complex 150 mg PO BID #60 cap 12/08/17 09/15/18 Rx [Ferrex 150] docusate sodium [DOK] 100 mg PO QDAYP PRN #0 01/05/18 09/15/18 History azelastine 2 inh INH SEE INSTRUCTIONS #1 inh 01/10/18 09/15/18 Rx folic acid 1 mg PO DAILY #30 tab 08/15/18 09/15/18 Rx ondansetron HCl [Zofran] 4 mg PO Q6-8H PRN #30 tab 08/22/18 09/15/18 Rx lidocaine-prilocaine 1 applictn TOP PRN PRN #30 gram 08/24/18 09/15/18 Rx oxycodone 5 mg PO Q4-6H PRN #30 tab 08/24/18 09/15/18 Rx levothyroxine 75 mcg tablet 75 mcg PO QDAY #90 tab 09/07/18 09/15/18 Rx triamcinolone acetonide 0.1 % 1 applictn TOP BID #453.6 gram 09/15/18 Rx topical cream hydrocortisone acetate 25 mg 25 mg IL QD-BID PRN #12 each 09/19/18 Rx rectal suppository magnesium hydroxide [Milk of 400 mg PO DAILY PRN 09/19/18 09/19/18 History Magnesia] polyethylene glycol 3350 [Miralax] 17 g PO DAILY PRN 09/19/18 09/19/18 History sennosides [senna] 8.6 mg PO BID PRN 09/19/18 09/19/18 History atorvastatin 40 mg tablet 40 mg PO QDAY #90 tab 09/21/18 Rx Allergies Allergy/AdvReac Type Severity Reaction Status Date / Time No Known Drug Allergies Allergy Unknown Verified 09/15/18 15:13 [NO KNOWN DRUG ALLERGIES] Exam Vital signs: Last Vital Signs Temp 98.0 F 09/19/18 09:37 Pulse 92 H 09/19/18 09:37 Resp 18 09/19/18 09:37 BP 128/66 09/19/18 09:37 Pulse Ox 100 09/19/18 09:37 ECOG 1 Narrative: Constitutional: WDWN, NAD, average body habitus, well groomed, pleasant and cooperative, accompanied by his . Very anxious. HEENT: NCAT, EOMI, PERRLA, anicteric sclera, no hearing difficulty; Oral mucus membrane moist and without ulcers. Neck: Supple, symmetrical, and tracheal midline; No palpable thyromegaly and no palpable lymph nodes. 2/6 carotid artery bruits. Respiratory: No use of accessory muscles. Clear to auscultation, and no wheezes or rales or rubs. Cardiovascular: Regular rate and rhythm, S1 and S2 normal, no murmurs gallops or rubs. No JVD. No pitting edema of lower extremities. Abdomen: Soft, nontender, non-distended, bowel sounds normal, no palpable organomegaly, no hernia, no palpable masses. Lower extremities: No palpable pedal edema. Lymphatic: no palpable lymph nodes in the neck, axillae, or groins. Musculoskeletal: normal gait and station, no clubbing, no cyanosis, no pitting edema. Skin: no rashes, no ulcers, no petechiae Neurological: Awake and alert and oriented x3. CN II-XII grossly intact. No focal motor or sensory deficit. Psychiatric: Good judgment, good insight, normal affect, normal thought process, cooperative, no depression, no anxiety. Results - Labs Laboratory Last Values WBC 3.2 X10^3/uL (4.5-11.0) L 09/26/18 09:22 RBC 3.28 X10^6/uL (4.5-5.9) L 09/26/18 09:22 Hgb 10.9 g/dL (13.5-17.5) L 09/26/18 09:22 Hct 32.0 % (41-53) L 09/26/18 09:22 MCV 97.6 fL (80-100) 09/26/18 09:22 MCH 33.3 PG (26-34) 09/26/18 09:22 MCHC 34.1 % (30-36) 09/26/18 09:22 RDW 16.8 % (11.6-14.8) H 09/26/18 09:22 Plt Count 202 X10^3/uL (150-400) 09/26/18 09:22 Neut % (Auto) 64.9 % (50-75) 09/26/18 09:22 Lymph % (Auto) 12.2 % (25-40) L 09/26/18 09:22 [place] % (Auto) 16.7 % (3-14) H 09/26/18 09:22 Eos % (Auto) 5.1 % (2-4) H 09/26/18 09:22 Baso % (Auto) 1.1 % (0-2) 09/26/18 09:22 Neut # (Auto) 2100 /uL (6996-0652) 12/17/18 09:22 Sodium 140 mmol/L (137-145) 09/26/18 09:22 Potassium 4.6 mmol/L (3.4-5.1) 09/26/18 09:22 Chloride 102 mmol/L (98-107) 09/26/18 09:22 Carbon Dioxide 26 mmol/L (22-32) 09/26/18 09:22 BUN 21 mg/dL (9-20) H 09/26/18 09:22 Creatinine 0.90 mg/dL (0.66-1.25) 09/26/18 09:22 Estimated GFR > 60.0 mL/min (>60) 09/26/18 09:22 BUN/Creatinine Ratio 23.3 (6-22) H 09/26/18 09:22 Glucose 83 mg/dL (80-110) 09/26/18 09:22 Calcium 9.1 mg/dL (8.4-10.2) 09/26/18 09:22 Total Bilirubin 0.3 mg/dL (0.2-1.3) 09/26/18 09:22 AST 24 IU/L (17-59) 09/26/18 09:22 ALT 29 IU/L (21-72) 09/26/18 09:22 Alkaline Phosphatase 85 U/L (38-126) 09/26/18 09:22 Total Protein 6.2 g/dL (6.3-8.2) L 09/26/18 09:22 Albumin 3.9 g/dL (3.5-5.0) 09/26/18 09:22 Globulin 2.3 g/dL (1.7-4.1) 09/26/18 09:22 Albumin/Globulin Ratio 1.7 (1.0-2.8) 09/26/18 09:22 TSH 14.40 uIU/mL (0.47-4.68) H 09/19/18 08:56 Assessment and Plan (1) Recurrent adenocarcinoma of right lung Problem details: Right upper lobe and right lower lobe non-small cell lung cancer, both stage IB (T2a, N0, M0) s/p stereotactic ablative radiation therapy in December 2017: right upper lobe tumor was treated to 6000 cGy over 8 fractions of 750 cGy each, while the right lower lobe tumor was treated to 5000 cGy over 5 fractions. Metastatic recurrence on follow up CT (07/08/2018) and PET (08/09/2018): Multiple hypermetabolic nodules in the right hemithorax. Molecular workup: negative for ALK translocation, negative for ROS1 translocation, and negative for EGFR mutation. Low level of PD-L1 expression (<1%). Assessment: I reviewed the laboratory tests from today as well as the echo study. The echo showed normal cardiac function. Clinically patient has been doing well and no new complaints. I talked with the patient that I will continue and resume the second cycle of the carbo/pem/temporal treatment. I will continue weekly monitoring. Plan 1. Ok to proceed to cycle 2 Carbp/Pem/Pembro by one week 2. Continue Vitamin B12 1000 mcg subQ, next due on C4D1. 3. Continue Folic acid 1 mg daily 4. Weekly CBC, CMP 5. RTC in 3 weeks, CBC, CMP, C3# (2) Anemia Problem details: The patient has mild anemia. Which most likely related to chronic disease. No evidence of iron or vitamin B12 or folic acid deficiency. Assessment and Plan: Mild anemia. Stable. Will need monitoring closely. Blood transfusion threshold H/H 06/03. (3) Epistaxis not due to trauma Assessment and plan: Mild and self-limiting. Very mild. Normal platelets. We will continue to monitor. (4) Hypothyroidism Assessment and plan: His TSH level is improving. Will continue levothyroxine 75 mcg once a day.
[2018-09-26 09:47] LABS: Alanine Aminotransferase 29 IU/L (21-72); Albumin 3.9 g/dL (3.5-5.0); Albumin Globulin Ratio 1.7 (1.0-2.8); Alkaline Phosphatase 85 U/L (38-126); Aspartate Aminotransferase 24 IU/L (17-59); BUN Creatinine Ratio 23.3 (6-22); Bilirubin Total 0.3 mg/dL (0.2-1.3); Blood Urea Nitrogen 21 mg/dL (9-20); Calcium 9.1 mg/dL (8.4-10.2); Carbon Dioxide 26 mmol/L (22-32); Chloride 102 mmol/L (98-107); Estimated Glomerular Filt Rate > 60.0 mL/min (>60); Globulin 2.3 g/dL (1.7-4.1); Glucose 83 mg/dL (80-110); HEMOLYSIS < 15 (0-50); Potassium 4.6 mmol/L (3.4-5.1); Sodium 140 mmol/L (137-145); Total Protein 6.2 g/dL (6.3-8.2)
--- NOTE | 2018-09-26 09:52 | P.PNONC_ITS ---
PN -Subjective Interval history: 83 year old with recurrent right lung NSCLC here to resume cycle 2 carbo/pem/ pembro. He received his first cycle of the treatment on 08/29/2018. Patient reported that he is having some mild shortness of breath which he attributed to his nose problems. Therefore we held the cycle 2 during his previous visit. I ordered echo study which showed normal ejection fraction. He presents here today to discuss to resume the treatment. Since his previous visit, patient reported no new complaints. Patient especially denies any shortness of breath, denies abdominal pain, denies diarrhea. Oncology History: Segundo Lei is a 83 year old male. He was diagnosed with right upper lobe and right lower lobe non-small cell lung cancer, both stage IB (T2a, N0, M0 ). He completed a course of stereotactic ablative radiation therapy in December 2017: the right upper lobe tumor was treated to 6000 cGy over 8 fractions of 750 cGy each, while the right lower lobe tumor was treated to 5000 cGy over [address]. [address] on 03/31/2018 showed volume reduction in the anterior right upper lobe tumor (1.4 x 2.3 cm down from 2.2 x 2.8 cm) and the right lower lobe tumor (0.6 x 2.2 cm down from 1.3 x 3.5 cm). There was considerable peritumoral atelectasis and consolidation surrounding the spiculated mass in the right upper lobe and right lower lobe most likely consistent with radiation changes. No new suspicious bone or neurologic symptoms worrisome for metastatic disease. CT on 07/08/2018 showed further interval decrease in size of the radiated right upper lobe parenchymal mass and lateral right pleural-based mass lesions, consistent with post treatment response. But there was some associated increased adjacent parenchymal consolidation presumably sequelae from stereotactic lung radiation. Unfortunately, there has been interval increase in size and number of a number of pleural-based nodules and masses in the right hemithorax. These included 2 anterior mass lesions along the right middle lobe, measuring up to 2.4 x 1.0 cm and 2.5 x 0.9 cm. Along the posterior medial right lower lobe there is a pleural-based lesion measuring 1.4 x 0.4 cm. There was a pleural-based nodule in the right hemidiaphragm measuring 1.4 x 0.7 cm. There were multiple small nodules which were new, seen along the right major and minor fissures as well as medially along the right upper lobe. 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 No pleural effusion or suspiciously enlarged hilar or mediastinal lymphadenopathy. He then underwent PET scan on 08/09/2018. and the PET/CT showed post radiation changes in the right upper lobe. The previously seen lung mass in the right upper lobe was obscured mildly and increased FDG uptake in the area is nonspecific. Multiple hypermetabolic nodules in the right hemithorax was seen and compatible with pleural metastasis. Right lower lobe consolidation was noted. There were foci of more intensely increased FDG uptake within consolidated right lower lobe. Cannot rule out metastatic disease superimposed on concomitant pneumonia. Small right pleural effusion was also noted. Due to the evidence of disease recurrence and progression, patient was referred to medical oncology for discussion of systemic therapy. He was started on Carbo/Pem/Pembro on 08/29/2018. - Additional ROS All systems PM: reviewed and no additional remarkable complaints except as stated Home Medications and Allergies Home Medications Medication Instructions Recorded Confirmed Type finasteride 5 mg PO QDAY #0 02/11/17 09/15/18 History oxybutynin chloride [Ditropan XL] 5 mg PO QPM #0 02/11/17 09/15/18 History aspirin 0.25 tab PO QDAY #0 09/01/17 09/15/18 History tamsulosin [Flomax] 0.4 mg PO BID #0 09/01/17 09/15/18 History fluticasone [Flonase Allergy 50 mcg INTRANASAL PRN PRN #48 ml 09/16/17 09/15/18 Rx Relief] omeprazole 20 mg PO QDAY #90 cap 10/05/17 09/15/18 Rx lisinopril 5 mg PO QDAY #90 tab 11/09/17 09/15/18 Rx polysaccharide iron complex 150 mg PO BID #60 cap 12/08/17 09/15/18 Rx [Ferrex 150] docusate sodium [DOK] 100 mg PO QDAYP PRN #0 01/05/18 09/15/18 History azelastine 2 inh INH SEE INSTRUCTIONS #1 inh 01/10/18 09/15/18 Rx folic acid 1 mg PO DAILY #30 tab 08/15/18 09/15/18 Rx ondansetron HCl [Zofran] 4 mg PO Q6-8H PRN #30 tab 08/22/18 09/15/18 Rx lidocaine-prilocaine 1 applictn TOP PRN PRN #30 gram 08/24/18 09/15/18 Rx oxycodone 5 mg PO Q4-6H PRN #30 tab 08/24/18 09/15/18 Rx levothyroxine 75 mcg tablet 75 mcg PO QDAY #90 tab 09/07/18 09/15/18 Rx triamcinolone acetonide 0.1 % 1 applictn TOP BID #453.6 gram 09/15/18 Rx topical cream hydrocortisone acetate 25 mg 25 mg AL QD-BID PRN #12 each 09/19/18 Rx rectal suppository magnesium hydroxide [Milk of 400 mg PO DAILY PRN 09/19/18 09/19/18 History Magnesia] polyethylene glycol 3350 [Miralax] 17 g PO DAILY PRN 09/19/18 09/19/18 History sennosides [senna] 8.6 mg PO BID PRN 09/19/18 09/19/18 History atorvastatin 40 mg tablet 40 mg PO QDAY #90 tab 09/21/18 Rx Allergies Allergy/AdvReac Type Severity Reaction Status Date / Time No Known Drug Allergies Allergy Unknown Verified 09/15/18 15:13 [NO KNOWN DRUG ALLERGIES] Exam Vital signs: Last Vital Signs Temp 98.0 F 09/19/18 09:37 Pulse 92 H 09/19/18 09:37 Resp 18 09/19/18 09:37 BP 128/66 09/19/18 09:37 Pulse Ox 100 09/19/18 09:37 ECOG 1 Narrative: Constitutional: WDWN, NAD, average body habitus, well groomed, pleasant and cooperative, accompanied by his . Very anxious. HEENT: NCAT, EOMI, PERRLA, anicteric sclera, no hearing difficulty; Oral mucus membrane moist and without ulcers. Neck: Supple, symmetrical, and tracheal midline; No palpable thyromegaly and no palpable lymph nodes. 2/6 carotid artery bruits. Respiratory: No use of accessory muscles. Clear to auscultation, and no wheezes or rales or rubs. Cardiovascular: Regular rate and rhythm, S1 and S2 normal, no murmurs gallops or rubs. No JVD. No pitting edema of lower extremities. Abdomen: Soft, nontender, non-distended, bowel sounds normal, no palpable organomegaly, no hernia, no palpable masses. Lower extremities: No palpable pedal edema. Lymphatic: no palpable lymph nodes in the neck, axillae, or groins. Musculoskeletal: normal gait and station, no clubbing, no cyanosis, no pitting edema. Skin: no rashes, no ulcers, no petechiae Neurological: Awake and alert and oriented x3. CN II-XII grossly intact. No focal motor or sensory deficit. Psychiatric: Good judgment, good insight, normal affect, normal thought process , cooperative, no depression, no anxiety. Results - Labs Laboratory Last Values WBC 3.2 X10^3/uL (4.5-11.0) L 09/26/18 09:22 RBC 3.28 X10^6/uL (4.5-5.9) L 09/26/18 09:22 Hgb 10.9 g/dL (13.5-17.5) L 09/26/18 09:22 Hct 32.0 % (41-53) L 09/26/18 09:22 MCV 97.6 fL (80-100) 09/26/18 09:22 MCH 33.3 PG (26-34) 09/26/18 09:22 MCHC 34.1 % (30-36) 09/26/18 09:22 RDW 16.8 % (11.6-14.8) H 09/26/18 09:22 Plt Count 202 X10^3/uL (150-400) 09/26/18 09:22 Neut % (Auto) 64.9 % (50-75) 09/26/18 09:22 Lymph % (Auto) 12.2 % (25-40) L 09/26/18 09:22 [place] % (Auto) 16.7 % (3-14) H 09/26/18 09:22 Eos % (Auto) 5.1 % (2-4) H 09/26/18 09:22 Baso % (Auto) 1.1 % (0-2) 09/26/18 09:22 Neut # (Auto) 2100 /uL (6216-1491) 12/17/18 09:22 Sodium 140 mmol/L (137-145) 09/26/18 09:22 Potassium 4.6 mmol/L (3.4-5.1) 09/26/18 09:22 Chloride 102 mmol/L (98-107) 09/26/18 09:22 Carbon Dioxide 26 mmol/L (22-32) 09/26/18 09:22 BUN 21 mg/dL (9-20) H 09/26/18 09:22 Creatinine 0.90 mg/dL (0.66-1.25) 09/26/18 09:22 Estimated GFR > 60.0 mL/min (>60) 09/26/18 09:22 BUN/Creatinine Ratio 23.3 (6-22) H 09/26/18 09:22 Glucose 83 mg/dL (80-110) 09/26/18 09:22 Calcium 9.1 mg/dL (8.4-10.2) 09/26/18 09:22 Total Bilirubin 0.3 mg/dL (0.2-1.3) 09/26/18 09:22 AST 24 IU/L (17-59) 09/26/18 09:22 ALT 29 IU/L (21-72) 09/26/18 09:22 Alkaline Phosphatase 85 U/L (38-126) 09/26/18 09:22 Total Protein 6.2 g/dL (6.3-8.2) L 09/26/18 09:22 Albumin 3.9 g/dL (3.5-5.0) 09/26/18 09:22 Globulin 2.3 g/dL (1.7-4.1) 09/26/18 09:22 Albumin/Globulin Ratio 1.7 (1.0-2.8) 09/26/18 09:22 TSH 14.40 uIU/mL (0.47-4.68) H 09/19/18 08:56 Assessment and Plan (1) Recurrent adenocarcinoma of right lung Problem details: Right upper lobe and right lower lobe non-small cell lung cancer, both stage IB (T2a, N0, M0) s/p stereotactic ablative radiation therapy in December 2017: right upper lobe tumor was treated to 6000 cGy over 8 fractions of 750 cGy each, while the right lower lobe tumor was treated to 5000 cGy over 5 fractions. Metastatic recurrence on follow up CT (07/08/2018) and PET (2017): Multiple hypermetabolic nodules in the right hemithorax. Molecular workup : negative for ALK translocation, negative for ROS1 translocation, and negative for EGFR mutation. Low level of PD-L1 expression (<1%). Assessment: I reviewed the laboratory tests from today as well as the echo study. The echo showed normal cardiac function. Clinically patient has been doing well and no new complaints. I talked with the patient that I will continue and resume the second cycle of the carbo/pem/temporal treatment. I will continue weekly monitoring. Plan 1. Ok to proceed to cycle 2 Carbp/Pem/Pembro by one week 2. Continue Vitamin B12 1000 mcg subQ, next due on C4D1. 3. Continue Folic acid 1 mg daily 4. Weekly CBC, CMP 5. RTC in 3 weeks, CBC, CMP, C3# (2) Anemia Problem details: The patient has mild anemia. Which most likely related to chronic disease. No evidence of iron or vitamin B12 or folic acid deficiency. Assessment and Plan: Mild anemia. Stable. Will need monitoring closely. Blood transfusion threshold H/H 06/03. (3) Epistaxis not due to trauma Assessment and plan: Mild and self-limiting. Very mild. Normal platelets. We will continue to monitor. (4) Hypothyroidism Assessment and plan: His TSH level is improving. Will continue levothyroxine 75 mcg once a day.
[2018-09-26 10:09] VITALS: BP 125/70; PULSE 95; RESP 18; TEMP 37; O2SAT 99
[2018-09-26] MEDS: SODIUM CHLORIDE 0.9% 100 ML 21 ML IV (10:19)
[2018-09-26] MEDS: DEXAMETHASONE 12 MG in SODIUM CHLORIDE 0.9% 50 ML 212 ML IV (10:23)
[2018-09-26] MEDS: LORazepam 0.5 MG TABLET PO (10:29)
[2018-09-26] MEDS: FOSAPREPITANT 150 MG in SODIUM CHLORIDE 0.9% 150 ML 300 ML IV (10:43)
[2018-09-26] MEDS: ONDANSETRON 16 MG in SODIUM CHLORIDE 0.9% 50 ML 232 ML IV (11:23)
[2018-09-26] MEDS: PEMBROLIZUMAB 200 MG in SODIUM CHLORIDE 0.9% (CHEMO) 100 ML 216 ML IV (11:49)
[2018-09-26] MEDS: PEMETREXED IV (12:50)
[2018-09-26] MEDS: SODIUM CHLORIDE 0.9% IV ×2 (12:50→13:08)
[2018-09-26] MEDS: CARBOPLATIN IV (13:08)
--- NOTE | 2018-09-26 14:17 | PC.NURSE ---
Segundo tolerated Cycle2 of Stacey Wheeler, and Og. present. Discharged without any incident. Has return MD bernabe.
[2018-10-03 11:32] LABS: Add Manual Diff / Slide Review NO; Basophils Percent Auto 1.1 % (0-2); Eosinophils Percent Auto 5.5 % (2-4); Hematocrit 29.8 % (41-53); Hemoglobin 10.6 g/dL (13.5-17.5); Lymphocytes Percent Auto 15.7 % (25-40); Mean Corpuscular HGB Conc 35.5 % (30-36); Mean Corpuscular Hemoglobin 34.3 PG (26-34); Mean Corpuscular Volume 96.5 fL (80-100); Monocytes Percent Auto 8.3 % (3-14); Neutrophils Absolute Auto 1500 /uL (1500-7000); Neutrophils Percent Auto 69.4 % (50-75); Platelet Count 145 X10^3/uL (150-400); Red Blood Cell Count 3.09 X10^6/uL (4.5-5.9); White Blood Cell Count 2.1 X10^3/uL (4.5-11.0)
[2018-10-03 11:43] LABS: Alanine Aminotransferase 27 IU/L (21-72); Albumin 4.1 g/dL (3.5-5.0); Albumin Globulin Ratio 1.8 (1.0-2.8); Alkaline Phosphatase 93 U/L (38-126); Aspartate Aminotransferase 35 IU/L (17-59); BUN Creatinine Ratio 27.8 (6-22); Bilirubin Total 0.4 mg/dL (0.2-1.3); Blood Urea Nitrogen 25 mg/dL (9-20); Calcium 9.3 mg/dL (8.4-10.2); Carbon Dioxide 26 mmol/L (22-32); Chloride 100 mmol/L (98-107); Estimated Glomerular Filt Rate > 60.0 mL/min (>60); Globulin 2.3 g/dL (1.7-4.1); Glucose 85 mg/dL (80-110); HEMOLYSIS < 15 (0-50); Potassium 4.8 mmol/L (3.4-5.1); Sodium 139 mmol/L (137-145); Total Protein 6.4 g/dL (6.3-8.2)
--- NOTE | 2018-10-03 12:47 | PC.NURSE ---
PATIENT REPORTED DIAHRREA OF 2-3 TIMES PER DAY ON 09/28 AND 10/01 WITH FRESH BLOOD FROM HEMORROIDS. NO MUCOUS OR CRAMPING. HE HAD NOT HAD ANY MORE BM AFTER THE DIAHRREA ON 09/28 HE TOOK MIRALAX AGAIN ON 09/30. SINCE 10/01 NO MORE BOWEL MOVEMENT. PATIENT STATES HE IS EATING A BRAT DIET AND DRINKING PLENTY OF FLUIDS. HE WAS ENCOURAGED TO GRADUALLY INCREASE FROM THE BRAT DIET BUT LEAVE OUT FRESH MILK AND FATTY FOOD, DRINK PLENTY OF FLUIDS. HE HAS IMMODIUM AND WILL REPORT REPEAT INCIDENTS. PATIENT WAS GIVEN THE [facility] EATING TIPS.
[2018-10-10 11:04] LABS: Add Manual Diff / Slide Review NO; Basophils Percent Auto 0.2 % (0-2); Eosinophils Percent Auto 3.3 % (2-4); Hematocrit 26.5 % (41-53); Hemoglobin 9.1 g/dL (13.5-17.5); Lymphocytes Percent Auto 16.7 % (25-40); Mean Corpuscular HGB Conc 34.2 % (30-36); Mean Corpuscular Hemoglobin 33.4 PG (26-34); Mean Corpuscular Volume 97.7 fL (80-100); Monocytes Percent Auto 19.4 % (3-14); Neutrophils Absolute Auto 1400 /uL (1500-7000); Neutrophils Percent Auto 60.4 % (50-75); Platelet Count 64 X10^3/uL (150-400); Red Blood Cell Count 2.71 X10^6/uL (4.5-5.9); White Blood Cell Count 2.3 X10^3/uL (4.5-11.0)
[2018-10-10 11:15] LABS: Alanine Aminotransferase 27 IU/L (21-72); Albumin 3.8 g/dL (3.5-5.0); Albumin Globulin Ratio 1.7 (1.0-2.8); Alkaline Phosphatase 86 U/L (38-126); Aspartate Aminotransferase 27 IU/L (17-59); BUN Creatinine Ratio 25.6 (6-22); Bilirubin Total 0.4 mg/dL (0.2-1.3); Blood Urea Nitrogen 23 mg/dL (9-20); Calcium 9.2 mg/dL (8.4-10.2); Carbon Dioxide 24 mmol/L (22-32); Chloride 102 mmol/L (98-107); Estimated Glomerular Filt Rate > 60.0 mL/min (>60); Globulin 2.3 g/dL (1.7-4.1); Glucose 88 mg/dL (80-110); HEMOLYSIS < 15 (0-50); Potassium 4.7 mmol/L (3.4-5.1); Sodium 136 mmol/L (137-145); Total Protein 6.1 g/dL (6.3-8.2)
[2018-10-17 10:21] VITALS: BP 101/57; PULSE 97; RESP 19; TEMP 36.6; O2SAT 100
[2018-10-17 10:22] LABS: Add Manual Diff / Slide Review NO; Basophils Percent Auto 0.3 % (0-2); Eosinophils Percent Auto 3.5 % (2-4); Hematocrit 26.7 % (41-53); Hemoglobin 9.1 g/dL (13.5-17.5); Lymphocytes Percent Auto 19.5 % (25-40); Mean Corpuscular HGB Conc 34.2 % (30-36); Mean Corpuscular Hemoglobin 33.8 PG (26-34); Mean Corpuscular Volume 98.8 fL (80-100); Monocytes Percent Auto 17.5 % (3-14); Neutrophils Absolute Auto 1500 /uL (1500-7000); Neutrophils Percent Auto 59.2 % (50-75); Platelet Count 97 X10^3/uL (150-400); Red Cell Distribution Width 16.5 % (11.6-14.8); White Blood Cell Count 2.6 X10^3/uL (4.5-11.0)
[2018-10-17 10:28] LABS: Alanine Aminotransferase 28 IU/L (21-72); Albumin 3.9 g/dL (3.5-5.0); Albumin Globulin Ratio 1.7 (1.0-2.8); Alkaline Phosphatase 88 U/L (38-126); Aspartate Aminotransferase 25 IU/L (17-59); BUN Creatinine Ratio 34.4 (6-22); Bilirubin Total 0.4 mg/dL (0.2-1.3); Blood Urea Nitrogen 31 mg/dL (9-20); Calcium 9.4 mg/dL (8.4-10.2); Carbon Dioxide 25 mmol/L (22-32); Chloride 102 mmol/L (98-107); Estimated Glomerular Filt Rate > 60.0 mL/min (>60); Globulin 2.3 g/dL (1.7-4.1); Glucose 91 mg/dL (80-110); HEMOLYSIS < 15 (0-50); Potassium 4.3 mmol/L (3.4-5.1); Sodium 137 mmol/L (137-145); Total Protein 6.2 g/dL (6.3-8.2)
--- NOTE | 2018-10-17 10:52 | ONC.APRN.PN ---
PN -Subjective Interval history: 83 year old with recurrent right lung NSCLC here for cycle 3 carbo/pem/pembro. He received his first cycle of the treatment on 08/29/2018. Patient reported that he was having some mild shortness of breath which he attributed to his nose problems. Therefore we held the cycle 2 Dr Singleton ordered an ordered echo study which demonstrated normal ejection fraction with no valvular issues. He resumed treatment without further issues. Patient presents today for consideration of cycle 3. During the interval he reported significant diarrhea with associated weight loss. Patient was quite constipated his previous visits he would go 4 or 5 days without a bowel movement. Patient was counseled to take a daily [id number] stool softener and or laxative with a goal of a bowel movement every day. He was also counseled if he developed loose stools at any point in time he is to whole stool medications. Unfortunately patient developed diarrhea he continued taking his bowel meds. It was only a few days ago he realized these medications were likely contributing thus he stopped taking them. For the last 2 days patient reports normal bowel movements. He had a 5 lb weight loss. He denies any nausea, abdominal pain. No blood in stool although he does state ?I have hemorrhoids?. No worsening shortness of breath. No cough. No fever or chills. No new pain. No headache. No new lumps or bumps. Overall despite the diarrhea he feels he is doing quite well. His agrees. Oncology History: Segundo Lei is a 83 year old male. He was diagnosed with right upper lobe and right lower lobe non-small cell lung cancer, both stage IB (T2a, N0, M0). He completed a course of stereotactic ablative radiation therapy in December 2017: the right upper lobe tumor was treated to 6000 cGy over 8 fractions of 750 cGy each, while the right lower lobe tumor was treated to 5000 cGy over [address]. [address] on 03/31/2018 showed volume reduction in the anterior right upper lobe tumor (1.4 x 2.3 cm down from 2.2 x 2.8 cm) and the right lower lobe tumor (0.6 x 2.2 cm down from 1.3 x 3.5 cm). There was considerable peritumoral atelectasis and consolidation surrounding the spiculated mass in the right upper lobe and right lower lobe most likely consistent with radiation changes. No new suspicious bone or neurologic symptoms worrisome for metastatic disease. CT on 07/08/2018 showed further interval decrease in size of the radiated right upper lobe parenchymal mass and lateral right pleural-based mass lesions, consistent with post treatment response. But there was some associated increased adjacent parenchymal consolidation presumably sequelae from stereotactic lung radiation. Unfortunately, there has been interval increase in size and number of a number of pleural-based nodules and masses in the right hemithorax. These included 2 anterior mass lesions along the right middle lobe, measuring up to 2.4 x 1.0 cm and 2.5 x 0.9 cm. Along the posterior medial right lower lobe there is a pleural-based lesion measuring 1.4 x 0.4 cm. There was a pleural-based nodule in the right hemidiaphragm measuring 1.4 x 0.7 cm. There were multiple small nodules which were new, seen along the right major and minor fissures as well as medially along the right upper lobe. 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 No pleural effusion or suspiciously enlarged hilar or mediastinal lymphadenopathy. He then underwent PET scan on 08/09/2018. and the PET/CT showed post radiation changes in the right upper lobe. The previously seen lung mass in the right upper lobe was obscured mildly and increased FDG uptake in the area is nonspecific. Multiple hypermetabolic nodules in the right hemithorax was seen and compatible with pleural metastasis. Right lower lobe consolidation was noted. There were foci of more intensely increased FDG uptake within consolidated right lower lobe. Cannot rule out metastatic disease superimposed on concomitant pneumonia. Small right pleural effusion was also noted. Due to the evidence of disease recurrence and progression, patient was referred to medical oncology for discussion of systemic therapy. He was started on Carbo/Pem/Pembro on 08/29/2018. - Patient Self-Reported Symptoms SR ears, nose, mouth, throat issues: Congestion, Difficulty swallowing, Changes in taste SR respiratory issues: Mucous SR Cardiovascular issues: Shortness of breath with activity or lying flat SR Skin issues: Skin rash or itching, Skin color changes SR Gastrointestinal issues: Diarrhea, Blood in stool SR Genitourinary issues: Frequent urination SR Hematologic issues: Bleeding/bruising Home Medications and Allergies Home Medications Medication Instructions Recorded Confirmed Type finasteride 5 mg PO QDAY #0 02/11/17 10/17/18 History oxybutynin chloride [Ditropan XL] 5 mg PO QPM #0 02/11/17 10/17/18 History aspirin 0.25 tab PO QDAY #0 09/01/17 10/17/18 History tamsulosin [Flomax] 0.4 mg PO BID #0 09/01/17 10/17/18 History fluticasone [Flonase Allergy 50 mcg INTRANASAL PRN PRN #48 ml 09/16/17 10/17/18 Rx Relief] lisinopril 5 mg PO QDAY #90 tab 11/09/17 10/17/18 Rx polysaccharide iron complex 150 mg PO BID #60 cap 12/08/17 10/17/18 Rx [Ferrex 150] docusate sodium [DOK] 100 mg PO QDAYP PRN #0 01/05/18 10/17/18 History azelastine 2 inh INH SEE INSTRUCTIONS #1 inh 01/10/18 10/17/18 Rx folic acid 1 mg PO DAILY #30 tab 08/15/18 10/17/18 Rx ondansetron HCl [Zofran] 4 mg PO Q6-8H PRN #30 tab 08/22/18 10/17/18 Rx lidocaine-prilocaine 1 applictn TOP PRN PRN #30 gram 08/24/18 10/17/18 Rx oxycodone 5 mg PO Q4-6H PRN #30 tab 08/24/18 10/17/18 Rx levothyroxine 75 mcg tablet 75 mcg PO QDAY #90 tab 09/07/18 10/17/18 Rx triamcinolone acetonide 0.1 % 1 applictn TOP BID #453.6 gram 09/15/18 10/17/18 Rx topical cream magnesium hydroxide [Milk of 400 mg PO DAILY PRN 09/19/18 10/17/18 History Magnesia] polyethylene glycol 3350 [Miralax] 17 g PO DAILY PRN 09/19/18 10/17/18 History sennosides [senna] 8.6 mg PO BID PRN 09/19/18 10/17/18 History atorvastatin 40 mg tablet 40 mg PO QDAY #90 tab 09/21/18 10/17/18 Rx hydrocortisone acetate 25 mg 25 mg MO QD-BID PRN #30 each 09/28/18 10/17/18 Rx rectal suppository omeprazole 20 mg PO QDAY #90 cap 09/28/18 10/17/18 Rx Allergies Allergy/AdvReac Type Severity Reaction Status Date / Time No Known Drug Allergies Allergy Unknown Verified 09/15/18 15:13 [NO KNOWN DRUG ALLERGIES] Exam - Constitutional positive no acute distress - Routine HEENT Exam Eye: Present: conjunctivae pink. Absent: conjunctival icterus, scleral injection ENT: Present: mucous membranes moist, oropharynx clear - Routine Neck Exam Present: supple. Absent: lymphadenopathy - Routine Respiratory Exam Present: Clear to auscultation bilaterally, decreased breath sounds. Absent: rales, respiratory distress, rhonchi, wheezes - Routine Cardiovascular Exam Present: RRR, S1, S2. Absent: murmur, gallop, rubs, JVD - Routine Abdominal Exam Present: soft, normoactive bowel sounds. Absent: tenderness, distended, organomegaly - Routine Extremities Exam Absent: edema, calf tenderness - Routine Skin Exam Present: intact, normal turgor. Absent: petechiae, rash - Routine Neurological Exam Present: alert, oriented X3 - Routine Psychiatric Exam Present: normal affect Results - Labs Laboratory Last Values WBC 2.6 X10^3/uL (4.5-11.0) L 10/17/18 09:59 RBC 2.70 X10^6/uL (4.5-5.9) L 10/17/18 09:59 Hgb 9.1 g/dL (13.5-17.5) L 10/17/18 09:59 Hct 26.7 % (41-53) L 10/17/18 09:59 MCV 98.8 fL (80-100) 10/17/18 09:59 MCH 33.8 PG (26-34) 10/17/18 09:59 MCHC 34.2 % (30-36) 10/17/18 09:59 RDW 16.5 % (11.6-14.8) H 10/17/18 09:59 Plt Count 97 X10^3/uL (150-400) L 10/17/18 09:59 Neut % (Auto) 59.2 % (50-75) 10/17/18 09:59 Lymph % (Auto) 19.5 % (25-40) L 10/17/18 09:59 [place] % (Auto) 17.5 % (3-14) H 10/17/18 09:59 Eos % (Auto) 3.5 % (2-4) 10/17/18 09:59 Baso % (Auto) 0.3 % (0-2) 10/17/18 09:59 Neut # (Auto) 1500 /uL (6193-5084) 10/17/18 09:59 Sodium 137 mmol/L (137-145) 10/17/18 09:59 Potassium 4.3 mmol/L (3.4-5.1) 10/17/18 09:59 Chloride 102 mmol/L (98-107) 10/17/18 09:59 Carbon Dioxide 25 mmol/L (22-32) 10/17/18 09:59 BUN 31 mg/dL (9-20) H 10/17/18 09:59 Creatinine 0.90 mg/dL (0.66-1.25) 10/17/18 09:59 Estimated GFR > 60.0 mL/min (>60) 10/17/18 09:59 BUN/Creatinine Ratio 34.4 (6-22) H 10/17/18 09:59 Glucose 91 mg/dL (80-110) 10/17/18 09:59 Calcium 9.4 mg/dL (8.4-10.2) 10/17/18 09:59 Total Bilirubin 0.4 mg/dL (0.2-1.3) 10/17/18 09:59 AST 25 IU/L (17-59) 10/17/18 09:59 ALT 28 IU/L (21-72) 10/17/18 09:59 Alkaline Phosphatase 88 U/L (38-126) 10/17/18 09:59 Total Protein 6.2 g/dL (6.3-8.2) L 10/17/18 09:59 Albumin 3.9 g/dL (3.5-5.0) 10/17/18 09:59 Globulin 2.3 g/dL (1.7-4.1) 10/17/18 09:59 Albumin/Globulin Ratio 1.7 (1.0-2.8) 10/17/18 09:59 TSH 14.40 uIU/mL (0.47-4.68) H 09/19/18 08:56 Assessment and Plan (1) Recurrent adenocarcinoma of right lung Problem details: Right upper lobe and right lower lobe non-small cell lung cancer, both stage IB (T2a, N0, M0) s/p stereotactic ablative radiation therapy in December 2017: right upper lobe tumor was treated to 6000 cGy over 8 fractions of 750 cGy each, while the right lower lobe tumor was treated to 5000 cGy over 5 fractions. Metastatic recurrence on follow up CT (07/08/2018) and PET (08/09/2018): Multiple hypermetabolic nodules in the right hemithorax. Molecular workup: negative for ALK translocation, negative for ROS1 translocation, and negative for EGFR mutation. Low level of PD-L1 expression (<1%). Assessment: I reviewed the laboratory tests from today as well as the echo study dated 09/21/2018. The echo showed normal cardiac function. Pt reported diarrhea with associated weight loss however I agree with the pt this was due to softnes and laxative which he continued to take even with diarrhea. Pt has since stopped bowel meds and the past 2 days reporting normal BMs. I once again counseled the patient the goal is for him to have a normal bowel movement every day or every other day. If he goes more than 48 hr without a bowel movement he is to take a stool softener/laxative. If at any point in time he develops diarrhea and or loose stools he should discontinue bowel meds right away. The patient and his verbalized understanding. Green light today for chemotherapy. He does have mild neutropenia with a white count of 2.6 ANC 1500. Hemoglobin stable at 9.1 hematocrit 26.7. Platelets have improved up to 97,000. CMP is largely unremarkable. TSH is pending at time of dictation, September 19, 2018 TSH was elevated at 14.4. Current dose of levothyroxine is 75 mcg. Plan 1. Ok to proceed to cycle 3 Carbo/Pem/Pembro 2. Cont weekly cbc cmp 3. RTC 3 weeks for C4 carbo/pem/pembro 4. Continue Vitamin B12 1000 mcg subQ, next due on C4D1. 5. Continue Folic acid 1 mg daily # (2) Epistaxis not due to trauma Assessment and plan: Mild and self-limiting. None in the past 2 weeks (3) Hypothyroidism Assessment and plan: His TSH level is pending at time of dictation today, I will follow results in the meantime continue levothyroxine 75 mcg once a day. (4) Pancytopenia due to chemotherapy Current visit: Yes Status: Acute Asymptomatic. White count is 2.6 ANC is 1500 hemoglobin 9.1 hematocrit 26.7 platelets [id number]. We will continue to monitor with weekly CBC.
[2018-10-17] MEDS: DEXAMETHASONE 12 MG in SODIUM CHLORIDE 0.9% 50 ML 212 ML IV (11:28)
[2018-10-17] MEDS: LORazepam 0.5 MG TABLET PO (11:34)
[2018-10-17] MEDS: SODIUM CHLORIDE 0.9% 100 ML 21 ML IV (11:35)
[2018-10-17] MEDS: FOSAPREPITANT 150 MG in SODIUM CHLORIDE 0.9% 150 ML 300 ML IV (11:46)
[2018-10-17] MEDS: ONDANSETRON 16 MG in SODIUM CHLORIDE 0.9% 50 ML 232 ML IV (12:17)
[2018-10-17] MEDS: PEMBROLIZUMAB 200 MG in SODIUM CHLORIDE 0.9% (CHEMO) 100 ML 216 ML IV (13:12)
[2018-10-17] MEDS: SODIUM CHLORIDE 0.9% IV ×2 (14:01→14:27)
[2018-10-17] MEDS: PEMETREXED IV (14:01)
[2018-10-17] MEDS: CARBOPLATIN IV (14:27)
[2018-10-24 14:37] LABS: Hematocrit 24.8 % (41-53); Hemoglobin 8.5 g/dL (13.5-17.5); Mean Corpuscular HGB Conc 34.2 % (30-36); Mean Corpuscular Hemoglobin 33.8 PG (26-34); Platelet Count 122 X10^3/uL (150-400); Red Cell Distribution Width 18.1 % (11.6-14.8); White Blood Cell Count 1.8 X10^3/uL (4.5-11.0)
[2018-10-24 14:46] LABS: Add Manual Diff / Slide Review YES
[2018-10-24 14:53] LABS: Alanine Aminotransferase 33 IU/L (21-72); Albumin 3.9 g/dL (3.5-5.0); Albumin Globulin Ratio 1.7 (1.0-2.8); Alkaline Phosphatase 89 U/L (38-126); Aspartate Aminotransferase 32 IU/L (17-59); BUN Creatinine Ratio 36.7 (6-22); Bilirubin Total 0.3 mg/dL (0.2-1.3); Blood Urea Nitrogen 33 mg/dL (9-20); Calcium 8.9 mg/dL (8.4-10.2); Carbon Dioxide 25 mmol/L (22-32); Chloride 101 mmol/L (98-107); Estimated Glomerular Filt Rate > 60.0 mL/min (>60); Globulin 2.3 g/dL (1.7-4.1); Glucose 110 mg/dL (80-110); HEMOLYSIS < 15 (0-50); Potassium 4.6 mmol/L (3.4-5.1); Sodium 138 mmol/L (137-145); Total Protein 6.2 g/dL (6.3-8.2)
[2018-10-24 15:37] LABS: Anisocytosis 2+; Macrocytosis 2+; Poikilocytosis 2+; Tear Drop Cells 1+
[2018-10-31 16:05] LABS: Alanine Aminotransferase 35 IU/L (21-72); Albumin 3.9 g/dL (3.5-5.0); Albumin Globulin Ratio 1.8 (1.0-2.8); Alkaline Phosphatase 76 U/L (38-126); Aspartate Aminotransferase 30 IU/L (17-59); BUN Creatinine Ratio 38.9 (6-22); Bilirubin Total 0.2 mg/dL (0.2-1.3); Blood Urea Nitrogen 35 mg/dL (9-20); Calcium 8.8 mg/dL (8.4-10.2); Carbon Dioxide 24 mmol/L (22-32); Chloride 103 mmol/L (98-107); Estimated Glomerular Filt Rate > 60.0 mL/min (>60); Globulin 2.2 g/dL (1.7-4.1); Glucose 113 mg/dL (80-110); HEMOLYSIS < 15 (0-50); Potassium 4.8 mmol/L (3.4-5.1); Sodium 136 mmol/L (137-145); Total Protein 6.1 g/dL (6.3-8.2)
[2018-10-31 16:06] LABS: Basophils Absolute Auto 0 /uL (0-100); Basophils Percent Auto 0.2 % (0-2); Eosinophils Absolute Auto 0 /uL (0-450); Eosinophils Percent Auto 1.4 % (2-4); Hematocrit 22.3 % (41-53); Hemoglobin 7.6 g/dL (13.5-17.5); Lymphocytes Absolute Auto 500 /uL (1100-4500); Lymphocytes Percent Auto 20.4 % (25-40); Mean Corpuscular HGB Conc 34.2 % (30-36); Mean Corpuscular Hemoglobin 34.2 PG (26-34); Mean Corpuscular Volume 99.9 fL (80-100); Monocytes Absolute Auto 400 /uL (0-900); Neutrophils Absolute Auto 1700 /uL (1500-7000); Platelet Count 47 X10^3/uL (150-400); Red Blood Cell Count 2.24 X10^6/uL (4.5-5.9); Red Cell Distribution Width 19.2 % (11.6-14.8); White Blood Cell Count 2.7 X10^3/uL (4.5-11.0)
[2018-10-31 16:07] LABS: Add Manual Diff / Slide Review SLIDE REVIEW
--- NOTE | 2018-10-31 16:20 | PC.NURSE ---
CBC trending up from 10/24, CMP stable, provider visit on 11/07
[2018-10-31 16:51] LABS: Poikilocytosis 2+
[2018-10-31 16:52] LABS: Anisocytosis 2+; Macrocytosis 1+; Schistocytes 1+
--- NOTE | 2018-11-03 13:20 | PC.NURSE ---
Pt is requesting an Rx to help control his mucus. States it especially bad at night and restricts his breathing.
[2018-11-04 11:57] LABS: Add Manual Diff / Slide Review NO; Basophils Absolute Auto 0 /uL (0-100); Basophils Percent Auto 0.1 % (0-2); Eosinophils Absolute Auto 0 /uL (0-450); Eosinophils Percent Auto 0.7 % (2-4); Hematocrit 21.6 % (41-53); Hemoglobin 7.6 g/dL (13.5-17.5); Lymphocytes Absolute Auto 400 /uL (1100-4500); Lymphocytes Percent Auto 8.3 % (25-40); Mean Corpuscular HGB Conc 35.1 % (30-36); Mean Corpuscular Hemoglobin 35.1 PG (26-34); Mean Corpuscular Volume 100.1 fL (80-100); Monocytes Absolute Auto 400 /uL (0-900); Monocytes Percent Auto 9.7 % (3-14); Neutrophils Absolute Auto 3700 /uL (1500-7000); Neutrophils Percent Auto 81.2 % (50-75); Platelet Count 49 X10^3/uL (150-400); Red Blood Cell Count 2.16 X10^6/uL (4.5-5.9); Red Cell Distribution Width 19.9 % (11.6-14.8); White Blood Cell Count 4.5 X10^3/uL (4.5-11.0)
[2018-11-04] MEDS: SODIUM CHLORIDE 0.9% 1,000 ML 1000 ML IV (12:07)
[2018-11-04 12:09] LABS: Alanine Aminotransferase 34 IU/L (21-72); Albumin Globulin Ratio 1.6 (1.0-2.8); Alkaline Phosphatase 93 U/L (38-126); Aspartate Aminotransferase 31 IU/L (17-59); Bilirubin Total 0.6 mg/dL (0.2-1.3); Blood Urea Nitrogen 43 mg/dL (9-20); Calcium 9.2 mg/dL (8.4-10.2); Carbon Dioxide 24 mmol/L (22-32); Chloride 101 mmol/L (98-107); Estimated Glomerular Filt Rate > 60.0 mL/min (>60); Globulin 2.5 g/dL (1.7-4.1); Glucose 100 mg/dL (80-110); HEMOLYSIS < 15 (0-50); Potassium 4.8 mmol/L (3.4-5.1); Sodium 136 mmol/L (137-145); Total Protein 6.5 g/dL (6.3-8.2)
[2018-11-07] VITALS (10 sets, daily range): BP systolic 119–148; BP diastolic 51–84; PULSE 62–81; RESP 16–20; TEMP 36.4–36.6; O2SAT 98
[2018-11-07 10:13] LABS: Hemoglobin 7.1 g/dL (13.5-17.5); Mean Corpuscular HGB Conc 34.5 % (30-36); Mean Corpuscular Volume 101.4 fL (80-100); Platelet Count 77 X10^3/uL (150-400); Red Blood Cell Count 2.04 X10^6/uL (4.5-5.9); Red Cell Distribution Width 19.9 % (11.6-14.8)
--- NOTE | 2018-11-07 10:14 | P.PNONC_ITS ---
PN -Subjective Interval history: 83 year old with recurrent right lung NSCLC here for cycle 4 carbo/pem/pembro. He presents here today with his . For the past 2 weeks, patient reported significant dizziness especially when he gets up too quick. Patient insisted that these happened after he started on the chemo immunotherapy. Patient denies any headache. He said that he is not able to tell if the vision has changed or not because he has cataracts. Patient said that his breathing seems to be okay and he denies any coughing. Last Wednesday (11/04/2018) patient was found to have an significantly elevated TSH level of 34.9. Dr. Rogers increased the levothyroxine dosage to 112 mcg daily. Patient denies any significant diarrhea and no abdominal pain and no blood in the stool. Patient is complaining lots of gas in the stomach and is using Gas-X which seems to be helping. Patient denies any fever or chills. Patient denies any sore throat. Oncology History: Segundo Lei is a 83 year old male. He was diagnosed with right upper lobe and right lower lobe non-small cell lung cancer, both stage IB (T2a, N0, M0 ). He completed a course of stereotactic ablative radiation therapy in December 2017: the right upper lobe tumor was treated to 6000 cGy over 8 fractions of 750 cGy each, while the right lower lobe tumor was treated to 5000 cGy over [address]. [address] on 03/31/2018 showed volume reduction in the anterior right upper lobe tumor (1.4 x 2.3 cm down from 2.2 x 2.8 cm) and the right lower lobe tumor (0.6 x 2.2 cm down from 1.3 x 3.5 cm). There was considerable peritumoral atelectasis and consolidation surrounding the spiculated mass in the right upper lobe and right lower lobe most likely consistent with radiation changes. No new suspicious bone or neurologic symptoms worrisome for metastatic disease. CT on 07/08/2018 showed further interval decrease in size of the radiated right upper lobe parenchymal mass and lateral right pleural-based mass lesions, consistent with post treatment response. But there was some associated increased adjacent parenchymal consolidation presumably sequelae from stereotactic lung radiation. Unfortunately, there has been interval increase in size and number of a number of pleural-based nodules and masses in the right hemithorax. These included 2 anterior mass lesions along the right middle lobe, measuring up to 2.4 x 1.0 cm and 2.5 x 0.9 cm. Along the posterior medial right lower lobe there is a pleural-based lesion measuring 1.4 x 0.4 cm. There was a pleural-based nodule in the right hemidiaphragm measuring 1.4 x 0.7 cm. There were multiple small nodules which were new, seen along the right major and minor fissures as well as medially along the right upper lobe. 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 No pleural effusion or suspiciously enlarged hilar or mediastinal lymphadenopathy. He then underwent PET scan on 08/09/2018. and the PET/CT showed post radiation changes in the right upper lobe. The previously seen lung mass in the right upper lobe was obscured mildly and increased FDG uptake in the area is nonspecific. Multiple hypermetabolic nodules in the right hemithorax was seen and compatible with pleural metastasis. Right lower lobe consolidation was noted. There were foci of more intensely increased FDG uptake within consolidated right lower lobe. Cannot rule out metastatic disease superimposed on concomitant pneumonia. Small right pleural effusion was also noted. Due to the evidence of disease recurrence and progression, patient was referred to medical oncology for discussion of systemic therapy. He was started on Carbo/Pem/Pembro on 08/29/2018. - Patient Self-Reported Symptoms SR ears, nose, mouth, throat issues: Congestion, Difficulty swallowing, Changes in taste SR respiratory issues: Mucous SR Cardiovascular issues: Shortness of breath with activity or lying flat SR Skin issues: Skin rash or itching, Skin color changes SR Gastrointestinal issues: Diarrhea, Blood in stool SR Genitourinary issues: Frequent urination SR Hematologic issues: Bleeding/bruising - Additional ROS All systems PM: reviewed and no additional remarkable complaints except as stated Home Medications and Allergies Home Medications Medication Instructions Recorded Confirmed Type finasteride 5 mg PO QDAY #0 02/11/17 11/07/18 History oxybutynin chloride [Ditropan XL] 5 mg PO QPM #0 02/11/17 11/07/18 History aspirin 0.25 tab PO QDAY #0 09/01/17 11/07/18 History tamsulosin [Flomax] 0.4 mg PO BID #0 09/01/17 11/07/18 History fluticasone [Flonase Allergy 50 mcg INTRANASAL PRN PRN #48 ml 09/16/17 11/07/18 Rx Relief] lisinopril 5 mg PO QDAY #90 tab 11/09/17 10/17/18 Rx polysaccharide iron complex 150 mg PO BID #60 cap 12/08/17 11/07/18 Rx [Ferrex 150] docusate sodium [DOK] 100 mg PO QDAYP PRN #0 01/05/18 11/07/18 History azelastine 2 inh INH SEE INSTRUCTIONS #1 inh 01/10/18 11/07/18 Rx folic acid 1 mg PO DAILY #30 tab 08/15/18 11/07/18 Rx ondansetron HCl [Zofran] 4 mg PO Q6-8H PRN #30 tab 08/22/18 11/07/18 Rx lidocaine-prilocaine 1 applictn TOP PRN PRN #30 gram 08/24/18 11/07/18 Rx oxycodone 5 mg PO Q4-6H PRN #30 tab 08/24/18 11/07/18 Rx triamcinolone acetonide 0.1 % 1 applictn TOP BID #453.6 gram 09/15/18 11/07/18 Rx topical cream magnesium hydroxide [Milk of 400 mg PO DAILY PRN 09/19/18 11/07/18 History Magnesia] polyethylene glycol 3350 [Miralax] 17 g PO DAILY PRN 09/19/18 11/07/18 History sennosides [senna] 8.6 mg PO BID PRN 09/19/18 11/07/18 History atorvastatin 40 mg tablet 40 mg PO QDAY #90 tab 09/21/18 11/07/18 Rx omeprazole 20 mg PO QDAY #90 cap 09/28/18 11/07/18 Rx hydrocortisone acetate 25 mg 25 mg FL QD-BID PRN #30 each 10/19/18 11/07/18 Rx rectal suppository levofloxacin [Levaquin] 500 mg PO DAILY 10/25/18 11/07/18 History levothyroxine 112 mcg tablet 112 mcg PO DAILY #90 tab 11/04/18 11/07/18 Rx Allergies Allergy/AdvReac Type Severity Reaction Status Date / Time No Known Drug Allergies Allergy Unknown Verified 09/15/18 15:13 [NO KNOWN DRUG ALLERGIES] Exam Vital signs: Last Vital Signs Temp 97.6 F 11/07/18 10:11 Pulse 81 11/07/18 10:11 Resp 20 11/07/18 10:11 BP 119/58 L 11/07/18 10:11 Pulse Ox 98 11/07/18 10:11 ECOG 1 Narrative: Constitutional: WDWN, NAD, average body habitus, well groomed, pleasant and cooperative, accompanied by his . Very anxious. HEENT: NCAT, EOMI, PERRLA, anicteric sclera, no hearing difficulty; I noticed maculopapular rashes on the forehead. Neck: Supple, symmetrical, and tracheal midline; No palpable thyromegaly and no palpable lymph nodes. 2/6 carotid artery bruits. Respiratory: No use of accessory muscles. Clear to auscultation, and no wheezes or rales or rubs. Cardiovascular: Regular rate and rhythm, S1 and S2 normal, no murmurs gallops or rubs. No JVD. Abdomen: Soft, nontender, non-distended, bowel sounds normal, no palpable organomegaly, no hernia, no palpable masses. Lower extremities: No pitting edema of lower extremities. Lymphatic: no palpable lymph nodes in the neck, axillae, or groins. Musculoskeletal: normal gait and station, no clubbing, no cyanosis, no pitting edema. Skin: no rashes, no ulcers, no petechiae Neurological: Awake and alert and oriented x3. CN II-XII grossly intact. No focal motor or sensory deficit. Psychiatric: Good judgment, good insight, normal affect, normal thought process , cooperative, no depression, no anxiety. Results - Labs Laboratory Last Values WBC 4.5 X10^3/uL (4.5-11.0) 11/04/18 11:50 RBC 2.16 X10^6/uL (4.5-5.9) L 11/04/18 11:50 Hgb 7.6 g/dL (13.5-17.5) L 11/04/18 11:50 Hct 21.6 % (41-53) L 11/04/18 11:50 MCV 100.1 fL (80-100) H 11/04/18 11:50 MCH 35.1 PG (26-34) H 11/04/18 11:50 MCHC 35.1 % (30-36) 11/04/18 11:50 RDW 19.9 % (11.6-14.8) H 11/04/18 11:50 Plt Count 49 X10^3/uL (150-400) L 11/04/18 11:50 Neut % (Auto) 81.2 % (50-75) H 11/04/18 11:50 Lymph % (Auto) 8.3 % (25-40) L 11/04/18 11:50 [place] % (Auto) 9.7 % (3-14) 11/04/18 11:50 Eos % (Auto) 0.7 % (2-4) L 11/04/18 11:50 Baso % (Auto) 0.1 % (0-2) 11/04/18 11:50 Neut # (Auto) 3700 /uL (1935-1221) 11/04/18 11:50 Lymph # (Auto) 400 /uL (7409-7313) L 11/04/18 11:50 [place] # (Auto) 400 /uL (0-900) 11/04/18 11:50 Eos # (Auto) 0 /uL (0-450) 11/04/18 11:50 Baso # (Auto) 0 /uL (0-100) 11/04/18 11:50 Seg Neutrophils % 48.0 % (38-70) 10/24/18 14:24 Band Neutrophils % 4.0 % (3-7) 10/24/18 14:24 Lymphocytes % (Manual) 20.0 % (25-45) L 10/24/18 14:24 Monocytes % (Manual) 6.0 % (2-11) 10/24/18 14:24 Eosinophils % (Manual) 2.0 % (2-4) 10/24/18 14:24 RBC Morphology Not Reportable 10/31/18 Unknown Poikilocytosis 2+ H 10/31/18 Unknown Anisocytosis 2+ H 10/31/18 Unknown Macrocytosis 1+ H 10/31/18 Unknown Tear Drop Cells 1+ H 10/24/18 14:24 Schistocytes 1+ H 10/31/18 Unknown Sodium 136 mmol/L (137-145) L 11/04/18 11:50 Potassium 4.8 mmol/L (3.4-5.1) 11/04/18 11:50 Chloride 101 mmol/L (98-107) 11/04/18 11:50 Carbon Dioxide 24 mmol/L (22-32) 11/04/18 11:50 BUN 43 mg/dL (9-20) H 11/04/18 11:50 Creatinine 1.00 mg/dL (0.66-1.25) 11/04/18 11:50 Estimated GFR > 60.0 mL/min (>60) 11/04/18 11:50 BUN/Creatinine Ratio 43.0 (6-22) H 11/04/18 11:50 Glucose 100 mg/dL (80-110) 11/04/18 11:50 Calcium 9.2 mg/dL (8.4-10.2) 11/04/18 11:50 Total Bilirubin 0.6 mg/dL (0.2-1.3) 11/04/18 11:50 AST 31 IU/L (17-59) 11/04/18 11:50 ALT 34 IU/L (21-72) 11/04/18 11:50 Alkaline Phosphatase 93 U/L (38-126) 11/04/18 11:50 Total Protein 6.5 g/dL (6.3-8.2) 11/04/18 11:50 Albumin 4.0 g/dL (3.5-5.0) 11/04/18 11:50 Globulin 2.5 g/dL (1.7-4.1) 11/04/18 11:50 Albumin/Globulin Ratio 1.6 (1.0-2.8) 11/04/18 11:50 TSH 34.90 uIU/mL (0.47-4.68) H D 11/04/18 11:50 Assessment and Plan (1) Recurrent adenocarcinoma of right lung Problem details: Right upper lobe and right lower lobe non-small cell lung cancer, both stage IB (T2a, N0, M0) s/p stereotactic ablative radiation therapy in December 2017: right upper lobe tumor was treated to 6000 cGy over 8 fractions of 750 cGy each, while the right lower lobe tumor was treated to 5000 cGy over 5 fractions. Metastatic recurrence on follow up CT (07/08/2018) and PET (2017): Multiple hypermetabolic nodules in the right hemithorax. Molecular workup : negative for ALK translocation, negative for ROS1 translocation, and negative for EGFR mutation. Low level of PD-L1 expression (<1%). Assessment: I reviewed the lab tests with the patient. Patient's total white cell count is 1.9. And the hemoglobin level 7.1 platelets 77. We will hold the fourth cycle of the carbo/pem/Pembro. And will have the patient come back in 2 weeks and repeat the lab tests to decide about the chemotherapy. Plan 1. Hold Cycle 4 Carbo/Pem/Pembro 2. Ok to proceed to Vitamin B12 1000 mcg subQ today. 3. Continue Folic acid [address] CAP w/contrast 5. RTC 2 weeks, CBC, CMP, TSH and ? C4# carbo/pem/pembro (2) Hypothyroidism Assessment and plan: Worsening hypothyroidism. We will continue current levothyroxine 112 mcg daily. The worsening hypothyroidism is related to the immunotherapy. I will monitor the thyroid function monthly. (3) Pancytopenia due to chemotherapy Assessment and Plan: I reviewed today's lab results. Patient has pancytopenia. Hemoglobin level today 7.1. WBC 1.9, PLT 77K. I will proceed with pRBC transfusion 2 units. (4) Epistaxis not due to trauma Assessment and plan: Mild and self-limiting. None in the past 2 weeks
[2018-11-07 10:15] LABS: Alanine Aminotransferase 28 IU/L (21-72); Albumin 3.8 g/dL (3.5-5.0); Albumin Globulin Ratio 1.7 (1.0-2.8); Alkaline Phosphatase 74 U/L (38-126); Aspartate Aminotransferase 26 IU/L (17-59); BUN Creatinine Ratio 43.3 (6-22); Bilirubin Total 0.3 mg/dL (0.2-1.3); Blood Urea Nitrogen 39 mg/dL (9-20); Calcium 9.2 mg/dL (8.4-10.2); Carbon Dioxide 23 mmol/L (22-32); Chloride 104 mmol/L (98-107); Estimated Glomerular Filt Rate > 60.0 mL/min (>60); Globulin 2.3 g/dL (1.7-4.1); Glucose 104 mg/dL (80-110); HEMOLYSIS < 15 (0-50); Potassium 4.2 mmol/L (3.4-5.1); Sodium 137 mmol/L (137-145); Total Protein 6.1 g/dL (6.3-8.2)
[2018-11-07 10:16] LABS: Add Manual Diff / Slide Review YES
[2018-11-07 10:18] LABS: Hematocrit 20.7 % (41-53); White Blood Cell Count 1.9 X10^3/uL (4.5-11.0)
[2018-11-07 11:06] LABS: Neutrophils Absolute Manual 1102 /uL (3000-5900); Total Cells Counted 50
[2018-11-07 11:07] LABS: Anisocytosis 2+
[2018-11-07 11:09] LABS: Ovalocytes 1+; Tear Drop Cells 1+
[2018-11-07 11:10] LABS: Burr Cells 1+
[2018-11-07] MEDS: CYANOCOBALAMIN 1,000 MCG/ML VIAL 1000 MCG IM (12:06)
--- NOTE | 2018-11-07 16:47 | TAR.TRANSNT ---
transfusion started late. While I was in the process of trying to release the clamp on the blood port, it was noted that the tubing was not completely engaged into the bag resulting in spilling approx 30cc of blood. I was able to quickly push the tubing further back into the bag without further incident. Bag was checked for any further damage as well as any clotting to the product. None was noted and transfusion started w/o any further issue
--- NOTE | 2018-11-07 17:10 | PC.NURSE ---
pt transferred to in stable condition for remainder of transfusion.
--- NOTE | 2018-11-07 18:07 | PC.NURSE ---
Addendum entered by Mignon Clarke R.N. 11/07/18 18:31: Patient states has a F/U appointment with . Discussed importance of F/U. Educated regarding s/sx of delayed transfusion reaction. Original Note: Addendum entered by Mignon Clarke R.N. 11/07/18 18:28: Blood transfusion ended. VSS. Please see TAR. Patient awake, alert, pleasant. No s/sx of transfusion reaction. Voided. Ambulating in room, steady gait. No dizziness, SOB or weakness. Power port access discontinued per policy. Discharged home with via private vehicle. Original Note: Linsey shift note: Patient admitted to for transfusion of PRBC in progress. Ambulated with RN from infusion center. Patient awake, alert, and ambulatory. Very calm and pleasant. at bedside providing supportive care. VS upon arrival 138/64, 97.5, 100% RA, HR 71.
[2018-11-21 11:51] LABS: Add Manual Diff / Slide Review NO; Basophils Absolute Auto 100 /uL (0-100); Basophils Percent Auto 1.3 % (0-2); Eosinophils Absolute Auto 100 /uL (0-450); Eosinophils Percent Auto 2.3 % (2-4); Hemoglobin 9.9 g/dL (13.5-17.5); Lymphocytes Absolute Auto 400 /uL (1100-4500); Lymphocytes Percent Auto 7.3 % (25-40); Mean Corpuscular HGB Conc 35.5 % (30-36); Mean Corpuscular Volume 98.5 fL (80-100); Monocytes Absolute Auto 700 /uL (0-900); Monocytes Percent Auto 13.6 % (3-14); Neutrophils Absolute Auto 4100 /uL (1500-7000); Neutrophils Percent Auto 75.5 % (50-75); Platelet Count 218 X10^3/uL (150-400); Red Blood Cell Count 2.84 X10^6/uL (4.5-5.9); Red Cell Distribution Width 22.9 % (11.6-14.8); White Blood Cell Count 5.4 X10^3/uL (4.5-11.0)
[2018-11-21 12:03] LABS: Alanine Aminotransferase 34 IU/L (21-72); Albumin 3.9 g/dL (3.5-5.0); Albumin Globulin Ratio 1.6 (1.0-2.8); Alkaline Phosphatase 90 U/L (38-126); Aspartate Aminotransferase 27 IU/L (17-59); Bilirubin Total 0.3 mg/dL (0.2-1.3); Blood Urea Nitrogen 32 mg/dL (9-20); Calcium 9.1 mg/dL (8.4-10.2); Carbon Dioxide 27 mmol/L (22-32); Chloride 102 mmol/L (98-107); Estimated Glomerular Filt Rate > 60.0 mL/min (>60); Globulin 2.4 g/dL (1.7-4.1); Glucose 93 mg/dL (80-110); HEMOLYSIS < 15 (0-50); Potassium 4.6 mmol/L (3.4-5.1); Sodium 138 mmol/L (137-145); Total Protein 6.3 g/dL (6.3-8.2)
--- NOTE | 2018-11-21 12:14 | ONC.PN ---
PN -Subjective Interval history: 83 year old with recurrent right lung NSCLC here for cycle 4 carbo/pem/pembro. He presents here today with his . During his previous visit, his HGB was 7.1. Therefore, cycle 4 was delayed to today. Meanwhile, he underwent blood transfusion. Today, he reports much better energy level. He denies any worsening shortness of breath or cough or chest pain. He denies any diarrhea or constipation. On 11/10/2018, he underwent CT CAP with contrast. The scan showed mild worsening of pleural metastases with enlargement of multiple pleural nodules and with small unchanged right effusion, stable irregular density in the right upper lobe compatible with postradiation changes and decreased right lower lobe airspace disease. Oncology History: Segundo Lei was diagnosed with right upper lobe and right lower lobe non-small cell lung cancer, both stage IB (T2a, N0, M0). He completed a course of stereotactic ablative radiation therapy in December 2017: the right upper lobe tumor was treated to 6000 cGy over 8 fractions of 750 cGy each, while the right lower lobe tumor was treated to 5000 cGy over [address]. [address] on 03/31/2018 showed volume reduction in the anterior right upper lobe tumor (1.4 x 2.3 cm down from 2.2 x 2.8 cm) and the right lower lobe tumor (0.6 x 2.2 cm down from 1.3 x 3.5 cm). There was considerable peritumoral atelectasis and consolidation surrounding the spiculated mass in the right upper lobe and right lower lobe most likely consistent with radiation changes. No new suspicious bone or neurologic symptoms worrisome for metastatic disease. CT on 07/08/2018 showed further interval decrease in size of the radiated right upper lobe parenchymal mass and lateral right pleural-based mass lesions, consistent with post treatment response. But there was some associated increased adjacent parenchymal consolidation presumably sequelae from stereotactic lung radiation. Unfortunately, there has been interval increase in size and number of a number of pleural-based nodules and masses in the right hemithorax. These included 2 anterior mass lesions along the right middle lobe, measuring up to 2.4 x 1.0 cm and 2.5 x 0.9 cm. Along the posterior medial right lower lobe there is a pleural-based lesion measuring 1.4 x 0.4 cm. There was a pleural-based nodule in the right hemidiaphragm measuring 1.4 x 0.7 cm. There were multiple small nodules which were new, seen along the right major and minor fissures as well as medially along the right upper lobe. 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 No pleural effusion or suspiciously enlarged hilar or mediastinal lymphadenopathy. He then underwent PET scan on 08/09/2018. and the PET/CT showed post radiation changes in the right upper lobe. The previously seen lung mass in the right upper lobe was obscured mildly and increased FDG uptake in the area is nonspecific. Multiple hypermetabolic nodules in the right hemithorax was seen and compatible with pleural metastasis. Right lower lobe consolidation was noted. There were foci of more intensely increased FDG uptake within consolidated right lower lobe. Cannot rule out metastatic disease superimposed on concomitant pneumonia. Small right pleural effusion was also noted. Due to the evidence of disease recurrence and progression, patient was referred to medical oncology for discussion of systemic therapy. He was started on Carbo/Pem/Pembro on 08/29/2018. - Patient Self-Reported Symptoms SR ears, nose, mouth, throat issues: Congestion, Difficulty swallowing, Changes in taste SR respiratory issues: Mucous SR Cardiovascular issues: Shortness of breath with activity or lying flat SR Skin issues: Skin rash or itching, Skin color changes SR Gastrointestinal issues: Diarrhea, Blood in stool SR Genitourinary issues: Frequent urination SR Hematologic issues: Bleeding/bruising - Additional ROS All systems PM: reviewed and no additional remarkable complaints except as stated Home Medications and Allergies Home Medications Medication Instructions Recorded Confirmed Type finasteride 5 mg PO QDAY #0 02/11/17 11/07/18 History oxybutynin chloride [Ditropan XL] 5 mg PO QPM #0 02/11/17 11/07/18 History aspirin 0.25 tab PO QDAY #0 09/01/17 11/07/18 History tamsulosin [Flomax] 0.4 mg PO BID #0 09/01/17 11/07/18 History fluticasone [Flonase Allergy 50 mcg INTRANASAL PRN PRN #48 ml 09/16/17 11/07/18 Rx Relief] polysaccharide iron complex 150 mg PO BID #60 cap 12/08/17 11/07/18 Rx [Ferrex 150] docusate sodium [DOK] 100 mg PO QDAYP PRN #0 01/05/18 11/07/18 History azelastine 2 inh INH SEE INSTRUCTIONS #1 inh 01/10/18 11/07/18 Rx folic acid 1 mg PO DAILY #30 tab 08/15/18 11/07/18 Rx ondansetron HCl [Zofran] 4 mg PO Q6-8H PRN #30 tab 08/22/18 11/07/18 Rx lidocaine-prilocaine 1 applictn TOP PRN PRN #30 gram 08/24/18 11/07/18 Rx oxycodone 5 mg PO Q4-6H PRN #30 tab 08/24/18 11/07/18 Rx triamcinolone acetonide 0.1 % 1 applictn TOP BID #453.6 gram 09/15/18 11/07/18 Rx topical cream magnesium hydroxide [Milk of 400 mg PO DAILY PRN 09/19/18 11/07/18 History Magnesia] polyethylene glycol 3350 [Miralax] 17 g PO DAILY PRN 09/19/18 11/07/18 History sennosides [senna] 8.6 mg PO BID PRN 09/19/18 11/07/18 History atorvastatin 40 mg tablet 40 mg PO QDAY #90 tab 09/21/18 11/07/18 Rx omeprazole 20 mg PO QDAY #90 cap 09/28/18 11/07/18 Rx hydrocortisone acetate 25 mg 25 mg OR QD-BID PRN #30 each 10/19/18 11/07/18 Rx rectal suppository levofloxacin [Levaquin] 500 mg PO DAILY 10/25/18 11/07/18 History levothyroxine 112 mcg tablet 112 mcg PO DAILY #90 tab 11/04/18 11/07/18 Rx lisinopril 5 mg tablet 5 mg PO QDAY #90 tab 11/17/18 Rx Allergies Allergy/AdvReac Type Severity Reaction Status Date / Time No Known Drug Allergies Allergy Unknown Verified 09/15/18 15:13 [NO KNOWN DRUG ALLERGIES] Exam Vital signs: Last Vital Signs Temp 98.5 F 11/21/18 12:31 Pulse 73 11/21/18 12:31 Resp 18 11/21/18 12:31 BP 143/70 H 11/21/18 12:31 Pulse Ox 99 11/21/18 12:31 ECOG 1 Narrative: Constitutional: WDWN, NAD, average body habitus, well groomed, pleasant and cooperative, accompanied by his . Very anxious. HEENT: NCAT, EOMI, PERRLA, anicteric sclera, no hearing difficulty; I noticed maculopapular rashes on the forehead. Neck: Supple, symmetrical, and tracheal midline; No palpable thyromegaly and no palpable lymph nodes. 2/6 carotid artery bruits. Respiratory: No use of accessory muscles. Clear to auscultation, and no wheezes or rales or rubs. Cardiovascular: Regular rate and rhythm, S1 and S2 normal, no murmurs gallops or rubs. No JVD. Abdomen: Soft, nontender, non-distended, bowel sounds normal, no palpable organomegaly, no hernia, no palpable masses. Lower extremities: No pitting edema of lower extremities. Lymphatic: no palpable lymph nodes in the neck, axillae, or groins. Musculoskeletal: normal gait and station, no clubbing, no cyanosis, no pitting edema. Skin: no rashes, no ulcers, no petechiae Neurological: Awake and alert and oriented x3. CN II-XII grossly intact. No focal motor or sensory deficit. Psychiatric: Good judgment, good insight, normal affect, normal thought process, cooperative, no depression, no anxiety. Results - Labs Laboratory Last Values WBC 5.4 X10^3/uL (4.5-11.0) 11/21/18 11:45 RBC 2.84 X10^6/uL (4.5-5.9) L 11/21/18 11:45 Hgb 9.9 g/dL (13.5-17.5) L 11/21/18 11:45 Hct 28.0 % (41-53) L 11/21/18 11:45 MCV 98.5 fL (80-100) 11/21/18 11:45 MCH 35.0 PG (26-34) H 11/21/18 11:45 MCHC 35.5 % (30-36) 11/21/18 11:45 RDW 22.9 % (11.6-14.8) H 11/21/18 11:45 Plt Count 218 X10^3/uL (150-400) 11/21/18 11:45 Neut % (Auto) 75.5 % (50-75) H 11/21/18 11:45 Lymph % (Auto) 7.3 % (25-40) L 11/21/18 11:45 [place] % (Auto) 13.6 % (3-14) 11/21/18 11:45 Eos % (Auto) 2.3 % (2-4) 11/21/18 11:45 Baso % (Auto) 1.3 % (0-2) 11/21/18 11:45 Neut # (Auto) 4100 /uL (5973-1761) 11/21/18 11:45 Lymph # (Auto) 400 /uL (9954-6042) L 11/21/18 11:45 [place] # (Auto) 700 /uL (0-900) 11/21/18 11:45 Eos # (Auto) 100 /uL (0-450) 11/21/18 11:45 Baso # (Auto) 100 /uL (0-100) 11/21/18 11:45 Total Counted 50 11/07/18 09:51 Seg Neutrophils % 52.0 % (38-70) 11/07/18 09:51 Band Neutrophils % 6.0 % (3-7) 11/07/18 09:51 Lymphocytes % (Manual) 12.0 % (25-45) L 11/07/18 09:51 Monocytes % (Manual) 22.0 % (2-11) H 11/07/18 09:51 Eosinophils % (Manual) 4.0 % (2-4) 11/07/18 09:51 Metamyelocytes % 2.0 % (-0) H 11/07/18 09:51 Myelocytes % 2.0 % (-0) H 11/07/18 09:51 Neutrophils # (Manual) 1102 /uL (4913-5117) L 11/07/18 09:51 RBC Morphology See below 11/21/18 11:45 Poikilocytosis 2+ H 11/21/18 11:45 Anisocytosis 2+ H 11/21/18 11:45 Microcytosis 1+ H 11/21/18 11:45 Macrocytosis 1+ H 11/21/18 11:45 Tear Drop Cells 1+ H 11/07/18 09:51 Ovalocytes 1+ H 11/07/18 09:51 [place] Cells 1+ H 11/07/18 09:51 Schistocytes 1+ H 10/31/18 Unknown Sodium 138 mmol/L (137-145) 11/21/18 11:45 Potassium 4.6 mmol/L (3.4-5.1) 11/21/18 11:45 Chloride 102 mmol/L (98-107) 11/21/18 11:45 Carbon Dioxide 27 mmol/L (22-32) 11/21/18 11:45 BUN 32 mg/dL (9-20) H 11/21/18 11:45 Creatinine 0.80 mg/dL (0.66-1.25) 11/21/18 11:45 Estimated GFR > 60.0 mL/min (>60) 11/21/18 11:45 BUN/Creatinine Ratio 40.0 (6-22) H 11/21/18 11:45 Glucose 93 mg/dL (80-110) 11/21/18 11:45 Calcium 9.1 mg/dL (8.4-10.2) 11/21/18 11:45 Total Bilirubin 0.3 mg/dL (0.2-1.3) 11/21/18 11:45 AST 27 IU/L (17-59) 11/21/18 11:45 ALT 34 IU/L (21-72) 11/21/18 11:45 Alkaline Phosphatase 90 U/L (38-126) 11/21/18 11:45 Total Protein 6.3 g/dL (6.3-8.2) 11/21/18 11:45 Albumin 3.9 g/dL (3.5-5.0) 11/21/18 11:45 Globulin 2.4 g/dL (1.7-4.1) 11/21/18 11:45 Albumin/Globulin Ratio 1.6 (1.0-2.8) 11/21/18 11:45 TSH 1.90 uIU/mL (0.47-4.68) D 11/21/18 11:45 Blood Type O Positive 11/07/18 09:55 Antibody Screen Negative 11/07/18 09:55 Crossmatch See Detail 11/07/18 09:55 Assessment and Plan (1) Recurrent adenocarcinoma of right lung Problem details: Right upper lobe and right lower lobe non-small cell lung cancer, both stage IB (T2a, N0, M0) s/p stereotactic ablative radiation therapy in December 2017: right upper lobe tumor was treated to 6000 cGy over 8 fractions of 750 cGy each, while the right lower lobe tumor was treated to 5000 cGy over 5 fractions. Metastatic recurrence on follow up CT (07/08/2018) and PET (08/09/2018): Multiple hypermetabolic nodules in the right hemithorax. Molecular workup: negative for ALK translocation, negative for ROS1 translocation, and negative for EGFR mutation. Low level of PD-L1 expression (<1%). Assessment: I reviewed the lab tests as well as the CT scan results with the patient. I also showed him and his the CT images on the computer screen. The scan from 11/10/2018 showed mild increases of the pleural masses, but overall, it is relatively stable in my opinion. I emphasized with them that the goal of the immunochemotherapy is to delay the progression and prolong his survival. It would be very unlikely to see resolution of the lung cancer. Clinically, he has been doing well. I will continue the current plan. Plan 1. OK to proceed to Cycle 4 Carbo/Pem/Pembro 2. Continue Folic acid 1 mg daily 3. CBC, BMP weekly 4. RTC 3 weeks, CBC, CMP and C1# pem/pembro (2) Hypothyroidism Assessment and plan: His TSH has decreased to 1.9 from 19.9. We will continue current levothyroxine 112 mcg daily without changes. I will monitor the thyroid function monthly. (3) Pancytopenia due to chemotherapy Assessment and Plan: I reviewed today's lab results. The neutropenia has resolves. His WBC today was 5.4. His HGB today was 9.9 after recently blood transfusion. Hi sPLT was 218. The changes of his CBC are related to the chemotherapy. Will continue monitoring weekly. (4) Epistaxis not due to trauma Assessment and plan: Mild and self-limiting. Now it seems to have resolved.
[2018-11-21 12:31] VITALS: BP 143/70; PULSE 73; RESP 18; TEMP 36.9; O2SAT 99
[2018-11-21 12:41] LABS: Anisocytosis 2+; Macrocytosis 1+; Microcytosis 1+; Poikilocytosis 2+
[2018-11-21] MEDS: DEXAMETHASONE 12 MG in SODIUM CHLORIDE 0.9% 50 ML 212 ML IV (14:11)
[2018-11-21] MEDS: SODIUM CHLORIDE 0.9% 100 ML 21 ML IV (14:12)
[2018-11-21] MEDS: LORazepam 0.5 MG TABLET PO (14:14)
[2018-11-21] MEDS: ONDANSETRON 16 MG in SODIUM CHLORIDE 0.9% 50 ML 232 ML IV (14:22)
[2018-11-21] MEDS: FOSAPREPITANT 150 MG in SODIUM CHLORIDE 0.9% 150 ML 300 ML IV (14:49)
[2018-11-21] MEDS: PEMBROLIZUMAB 200 MG in SODIUM CHLORIDE 0.9% (CHEMO) 100 ML 216 ML IV (15:32)
[2018-11-21] MEDS: SODIUM CHLORIDE 0.9% IV ×2 (16:10→16:29)
[2018-11-21] MEDS: PEMETREXED IV (16:10)
[2018-11-21] MEDS: CARBOPLATIN IV (16:29)
[2018-11-28 13:34] LABS: Add Manual Diff / Slide Review NO; Basophils Absolute Auto 0 /uL (0-100); Basophils Percent Auto 0.8 % (0-2); Eosinophils Absolute Auto 100 /uL (0-450); Eosinophils Percent Auto 2.9 % (2-4); Hematocrit 29.8 % (41-53); Hemoglobin 10.2 g/dL (13.5-17.5); Lymphocytes Absolute Auto 200 /uL (1100-4500); Lymphocytes Percent Auto 5.4 % (25-40); Mean Corpuscular Hemoglobin 34.9 PG (26-34); Mean Corpuscular Volume 102.6 fL (80-100); Monocytes Absolute Auto 300 /uL (0-900); Monocytes Percent Auto 6.9 % (3-14); Neutrophils Absolute Auto 3600 /uL (1500-7000); Platelet Count 155 X10^3/uL (150-400); Red Blood Cell Count 2.91 X10^6/uL (4.5-5.9); Red Cell Distribution Width 22.5 % (11.6-14.8); White Blood Cell Count 4.3 X10^3/uL (4.5-11.0)
[2018-11-28 13:40] LABS: Alanine Aminotransferase 35 IU/L (21-72); Albumin Globulin Ratio 1.7 (1.0-2.8); Alkaline Phosphatase 90 U/L (38-126); Aspartate Aminotransferase 32 IU/L (17-59); BUN Creatinine Ratio 55.7 (6-22); Bilirubin Total 0.5 mg/dL (0.2-1.3); Blood Urea Nitrogen 39 mg/dL (9-20); Calcium 9.1 mg/dL (8.4-10.2); Carbon Dioxide 26 mmol/L (22-32); Chloride 99 mmol/L (98-107); Estimated Glomerular Filt Rate > 60.0 mL/min (>60); Globulin 2.4 g/dL (1.7-4.1); Glucose 117 mg/dL (80-110); HEMOLYSIS < 15 (0-50); Potassium 4.6 mmol/L (3.4-5.1); Sodium 135 mmol/L (137-145); Total Protein 6.4 g/dL (6.3-8.2)
[2018-11-28 14:25] LABS: Anisocytosis 2+; Poikilocytosis 1+
[2018-12-05 17:16] LABS: Add Manual Diff / Slide Review NO; Basophils Absolute Auto 0 /uL (0-100); Basophils Percent Auto 0.2 % (0-2); Eosinophils Absolute Auto 200 /uL (0-450); Eosinophils Percent Auto 4.7 % (2-4); Hemoglobin 9.2 g/dL (13.5-17.5); Lymphocytes Absolute Auto 400 /uL (1100-4500); Lymphocytes Percent Auto 10.2 % (25-40); Mean Corpuscular HGB Conc 34.2 % (30-36); Mean Corpuscular Hemoglobin 35.1 PG (26-34); Mean Corpuscular Volume 102.8 fL (80-100); Monocytes Absolute Auto 700 /uL (0-900); Monocytes Percent Auto 15.3 % (3-14); Neutrophils Absolute Auto 3000 /uL (1500-7000); Neutrophils Percent Auto 69.6 % (50-75); Platelet Count 106 X10^3/uL (150-400); Red Blood Cell Count 2.63 X10^6/uL (4.5-5.9); Red Cell Distribution Width 22.3 % (11.6-14.8); White Blood Cell Count 4.3 X10^3/uL (4.5-11.0)
[2018-12-05 17:40] LABS: Alanine Aminotransferase 27 IU/L (21-72); Albumin 3.9 g/dL (3.5-5.0); Albumin Globulin Ratio 1.6 (1.0-2.8); Alkaline Phosphatase 84 U/L (38-126); Aspartate Aminotransferase 26 IU/L (17-59); Bilirubin Total 0.3 mg/dL (0.2-1.3); Blood Urea Nitrogen 32 mg/dL (9-20); Calcium 9.1 mg/dL (8.4-10.2); Carbon Dioxide 26 mmol/L (22-32); Chloride 102 mmol/L (98-107); Estimated Glomerular Filt Rate > 60.0 mL/min (>60); Globulin 2.5 g/dL (1.7-4.1); Glucose 112 mg/dL (80-110); HEMOLYSIS < 15 (0-50); Potassium 4.4 mmol/L (3.4-5.1); Sodium 137 mmol/L (137-145); Total Protein 6.4 g/dL (6.3-8.2)
[2018-12-05 17:59] LABS: Anisocytosis 2+; Poikilocytosis 1+
--- NOTE | 2018-12-12 08:04 | P.PNONC_ITS ---
PN -Subjective Interval history: 83 year old with recurrent right lung NSCLC here for initiating maintenance pem/pembro. He presents here today with his . Facial papular rashes and itching and is using moisturizing cream that works well. It is not getting worse. One time, it affected left lower leg, and one time on the back. After use of cream, it has improved quite a benito. No shortness of breath and no cough. No diarrhea and no constipation. Oncology History: Segundo Lei was diagnosed with right upper lobe and right lower lobe non-small cell lung cancer, both stage IB (T2a, N0, M0). He completed a course of stereotactic ablative radiation therapy in December 2017: the right upper lobe tumor was treated to 6000 cGy over 8 fractions of 750 cGy each, while the right lower lobe tumor was treated to 5000 cGy over [address]. [address] on 03/31/2018 showed volume reduction in the anterior right upper lobe tumor (1.4 x 2.3 cm down from 2.2 x 2.8 cm) and the right lower lobe tumor (0.6 x 2.2 cm down from 1.3 x 3.5 cm). There was considerable peritumoral atelectasis and consolidation surrounding the spiculated mass in the right upper lobe and right lower lobe most likely consistent with radiation changes. No new suspicious bone or neurologic symptoms worrisome for metastatic disease. CT on 07/08/2018 showed further interval decrease in size of the radiated right upper lobe parenchymal mass and lateral right pleural-based mass lesions, consistent with post treatment response. But there was some associated increased adjacent parenchymal consolidation presumably sequelae from stereotactic lung radiation. Unfortunately, there has been interval increase in size and number of a number of pleural-based nodules and masses in the right hemithorax. These included 2 anterior mass lesions along the right middle lobe, measuring up to 2.4 x 1.0 cm and 2.5 x 0.9 cm. Along the posterior medial right lower lobe there is a pleural-based lesion measuring 1.4 x 0.4 cm. There was a pleural-based nodule in the right hemidiaphragm measuring 1.4 x 0.7 cm. There were multiple small nodules which were new, seen along the right major and minor fissures as well as medially along the right upper lobe. 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 No pleural effusion or suspiciously enlarged hilar or mediastinal lymphadenopathy. He then underwent PET scan on 08/09/2018. and the PET/CT showed post radiation changes in the right upper lobe. The previously seen lung mass in the right upper lobe was obscured mildly and increased FDG uptake in the area is nonspecific. Multiple hypermetabolic nodules in the right hemithorax was seen and compatible with pleural metastasis. Right lower lobe consolidation was noted. There were foci of more intensely increased FDG uptake within consolidated right lower lobe. Cannot rule out metastatic disease superimposed on concomitant pneumonia. Small right pleural effusion was also noted. Due to the evidence of disease recurrence and progression, patient was referred to medical oncology for discussion of systemic therapy. He was started on Carbo/Pem/Pembro on 08/29/2018. After three cycles on 11/10/2018, he underwent CT CAP with contrast. The scan showed mild worsening of pleural metastases with enlargement of multiple pleural nodules and with small unchanged right effusion, stable irregular density in the right upper lobe compatible with postradiation changes and decreased right lower lobe airspace disease. - Patient Self-Reported Symptoms SR ears, nose, mouth, throat issues: Congestion, Difficulty swallowing, Changes in taste SR respiratory issues: Mucous SR Cardiovascular issues: Shortness of breath with activity or lying flat SR Skin issues: Skin rash or itching, Skin color changes SR Gastrointestinal issues: Diarrhea, Blood in stool SR Genitourinary issues: Frequent urination SR Hematologic issues: Bleeding/bruising - Additional ROS All systems PM: reviewed and no additional remarkable complaints except as stated Home Medications and Allergies Home Medications Medication Instructions Recorded Confirmed Type finasteride 5 mg PO QDAY #0 02/11/17 11/07/18 History oxybutynin chloride [Ditropan XL] 5 mg PO QPM #0 02/11/17 11/07/18 History tamsulosin [Flomax] 0.4 mg PO BID #0 09/01/17 11/07/18 History fluticasone [Flonase Allergy 50 mcg INTRANASAL PRN PRN #48 ml 09/16/17 11/07/18 Rx Relief] polysaccharide iron complex 150 mg PO BID #60 cap 12/08/17 11/07/18 Rx [Ferrex 150] docusate sodium [DOK] 100 mg PO QDAYP PRN #0 01/05/18 11/07/18 History azelastine 2 inh INH SEE INSTRUCTIONS #1 inh 01/10/18 11/07/18 Rx folic acid 1 mg PO DAILY #30 tab 08/15/18 11/07/18 Rx ondansetron HCl [Zofran] 4 mg PO Q6-8H PRN #30 tab 08/22/18 11/07/18 Rx lidocaine-prilocaine 1 applictn TOP PRN PRN #30 gram 08/24/18 11/07/18 Rx oxycodone 5 mg PO Q4-6H PRN #30 tab 08/24/18 11/07/18 Rx triamcinolone acetonide 0.1 % 1 applictn TOP BID #453.6 gram 09/15/18 11/07/18 Rx topical cream magnesium hydroxide [Milk of 400 mg PO DAILY PRN 09/19/18 11/07/18 History Magnesia] polyethylene glycol 3350 [Miralax] 17 g PO DAILY PRN 09/19/18 11/07/18 History sennosides [senna] 8.6 mg PO BID PRN 09/19/18 11/07/18 History atorvastatin 40 mg tablet 40 mg PO QDAY #90 tab 09/21/18 11/07/18 Rx omeprazole 20 mg PO QDAY #90 cap 09/28/18 11/07/18 Rx hydrocortisone acetate 25 mg 25 mg [place] QD-BID PRN #30 each 10/19/18 11/07/18 Rx rectal suppository levofloxacin [Levaquin] 500 mg PO DAILY 10/25/18 11/07/18 History levothyroxine 112 mcg tablet 112 mcg PO DAILY #90 tab 11/04/18 11/07/18 Rx lisinopril 5 mg tablet 5 mg PO QDAY #90 tab 11/17/18 Rx Allergies Allergy/AdvReac Type Severity Reaction Status Date / Time No Known Drug Allergies Allergy Unknown Verified 09/15/18 15:13 [NO KNOWN DRUG ALLERGIES] Exam Vital signs: Last Vital Signs Temp 97.0 F L 12/12/18 09:20 Pulse 72 12/12/18 09:20 Resp 18 12/12/18 09:20 BP 105/58 L 12/12/18 09:20 Pulse Ox 100 12/12/18 09:20 ECOG 1 Narrative: Constitutional: WDWN, NAD, average body habitus, well groomed, pleasant and cooperative, accompanied by his . Very anxious. HEENT: NCAT, EOMI, PERRLA, anicteric sclera; Maculopapular rashes on the forehead, cheeks and nose noted. Neck: Supple, symmetrical, and tracheal midline; No palpable thyromegaly and no palpable lymph nodes. 2/6 carotid artery bruits. Respiratory: No use of accessory muscles. Clear to auscultation, and no wheezes or rales or rubs. Cardiovascular: Regular rate and rhythm, S1 and S2 normal, no murmurs gallops or rubs. No JVD. Abdomen: Soft, nontender, non-distended, bowel sounds normal, no palpable organomegaly, no hernia, no palpable masses. Lower extremities: No pitting edema of lower extremities. Lymphatic: no palpable lymph nodes in the neck, axillae Skin: no rashes, no ulcers, no petechiae Neurological: Awake and alert and oriented x3. CN II-XII grossly intact. No focal motor or sensory deficit. Psychiatric: Good judgment, good insight, normal affect, normal thought process, cooperative, no depression, no anxiety. Results - Labs Laboratory Last Values WBC 3.3 X10^3/uL (4.5-11.0) L 12/12/18 08:23 RBC 2.64 X10^6/uL (4.5-5.9) L 12/12/18 08:23 Hgb 9.4 g/dL (13.5-17.5) L 12/12/18 08:23 Hct 27.7 % (41-53) L 12/12/18 08:23 MCV 105.0 fL (80-100) H 12/12/18 08:23 MCH 35.5 PG (26-34) H 12/12/18 08:23 MCHC 33.8 % (30-36) 12/12/18 08:23 RDW 23.3 % (11.6-14.8) H 12/12/18 08:23 Plt Count 116 X10^3/uL (150-400) L 12/12/18 08:23 Neut % (Auto) 66.1 % (50-75) 12/12/18 08:23 Lymph % (Auto) 9.2 % (25-40) L 12/12/18 08:23 [place] % (Auto) 17.4 % (3-14) H 12/12/18 08:23 Eos % (Auto) 6.7 % (2-4) H 12/12/18 08:23 Baso % (Auto) 0.6 % (0-2) 12/12/18 08:23 Neut # (Auto) 2200 /uL (5920-9870) 12/12/18 08:23 Lymph # (Auto) 300 /uL (3766-4472) L 12/12/18 08:23 [place] # (Auto) 600 /uL (0-900) 12/12/18 08:23 Eos # (Auto) 200 /uL (0-450) 12/12/18 08:23 Baso # (Auto) 0 /uL (0-100) 12/12/18 08:23 Total Counted 50 11/07/18 09:51 Seg Neutrophils % 52.0 % (38-70) 11/07/18 09:51 Band Neutrophils % 6.0 % (3-7) 11/07/18 09:51 Lymphocytes % (Manual) 12.0 % (25-45) L 11/07/18 09:51 Monocytes % (Manual) 22.0 % (2-11) H 11/07/18 09:51 Eosinophils % (Manual) 4.0 % (2-4) 11/07/18 09:51 Metamyelocytes % 2.0 % (-0) H 11/07/18 09:51 Myelocytes % 2.0 % (-0) H 11/07/18 09:51 Neutrophils # (Manual) 1102 /uL (9670-7741) L 11/07/18 09:51 RBC Morphology See below 12/05/18 16:20 Poikilocytosis 1+ H 12/05/18 16:20 Anisocytosis 2+ H 12/05/18 16:20 Microcytosis 1+ H 11/21/18 11:45 Macrocytosis 1+ H 11/21/18 11:45 Tear Drop Cells 1+ H 11/07/18 09:51 Ovalocytes 1+ H 11/07/18 09:51 [place] Cells 1+ H 11/07/18 09:51 Schistocytes 1+ H 10/31/18 Unknown Sodium 137 mmol/L (137-145) 12/05/18 16:20 Potassium 4.4 mmol/L (3.4-5.1) 12/05/18 16:20 Chloride 102 mmol/L (98-107) 12/05/18 16:20 Carbon Dioxide 26 mmol/L (22-32) 12/05/18 16:20 BUN 32 mg/dL (9-20) H 12/05/18 16:20 Creatinine 0.80 mg/dL (0.66-1.25) 12/05/18 16:20 Estimated GFR > 60.0 mL/min (>60) 12/05/18 16:20 BUN/Creatinine Ratio 40.0 (6-22) H 12/05/18 16:20 Glucose 112 mg/dL (80-110) H 12/05/18 16:20 Calcium 9.1 mg/dL (8.4-10.2) 12/05/18 16:20 Total Bilirubin 0.3 mg/dL (0.2-1.3) 12/05/18 16:20 AST 26 IU/L (17-59) 12/05/18 16:20 ALT 27 IU/L (21-72) 12/05/18 16:20 Alkaline Phosphatase 84 U/L (38-126) 12/05/18 16:20 Total Protein 6.4 g/dL (6.3-8.2) 12/05/18 16:20 Albumin 3.9 g/dL (3.5-5.0) 12/05/18 16:20 Globulin 2.5 g/dL (1.7-4.1) 12/05/18 16:20 Albumin/Globulin Ratio 1.6 (1.0-2.8) 12/05/18 16:20 TSH 1.90 uIU/mL (0.47-4.68) D 11/21/18 11:45 Blood Type O Positive 11/07/18 09:55 Antibody Screen Negative 11/07/18 09:55 Crossmatch See Detail 11/07/18 09:55 Assessment and Plan (1) Recurrent adenocarcinoma of right lung Problem details: Right upper lobe and right lower lobe non-small cell lung cancer, both stage IB (T2a, N0, M0) s/p stereotactic ablative radiation therapy in December 2017: right upper lobe tumor was treated to 6000 cGy over 8 fractions of 750 cGy each, while the right lower lobe tumor was treated to 5000 cGy over 5 fractions. Metastatic recurrence on follow up CT (07/08/2018) and PET (08/09/2018): Multiple hypermetabolic nodules in the right hemithorax. Molecular workup: negative for ALK translocation, negative for ROS1 translocation, and negative for EGFR mutation. Low level of PD-L1 expression (<1%). Assessment: Overall patient has tolerated the chemo immunotherapy well. I will continue the current treatment with maintenance pemetrexed and pembrolizumab. Explained to the patient that the goal of treatment is to delay the progression of the underlying lung cancer. I will continue as long as he is able to tolerate and as long as his cancer is responding to the treatment. Plan 1. OK to proceed to Cycle 1 maintenance Pem/Pembro 2. Continue Folic acid 1 mg daily 3. Weekly CBC, CMP 4. RTC 3 weeks, CBC, CMP, TSH and C2# pem/pembro (2) Hypothyroidism Assessment and plan: We will continue current levothyroxine 112 mcg daily without changes. I will monitor the thyroid function monthly. (3) Pancytopenia due to chemotherapy Assessment and Plan: I reviewed today's lab results. The neutropenia has resolves. His WBC today was 3.3. His HGB today was 9.4. His PLT was 116. The changes of his CBC are related to the chemotherapy. Will continue monitoring. (4) Epistaxis not due to trauma Assessment and plan: Mild and self-limiting. Now it seems to have resolved.
[2018-12-12 09:20] VITALS: BP 105/58; PULSE 72; RESP 18; TEMP 36.1; O2SAT 100
[2018-12-12 09:25] LABS: Add Manual Diff / Slide Review NO; Basophils Absolute Auto 0 /uL (0-100); Basophils Percent Auto 0.6 % (0-2); Eosinophils Absolute Auto 200 /uL (0-450); Eosinophils Percent Auto 6.7 % (2-4); Hematocrit 27.7 % (41-53); Hemoglobin 9.4 g/dL (13.5-17.5); Lymphocytes Absolute Auto 300 /uL (1100-4500); Lymphocytes Percent Auto 9.2 % (25-40); Mean Corpuscular HGB Conc 33.8 % (30-36); Mean Corpuscular Hemoglobin 35.5 PG (26-34); Monocytes Absolute Auto 600 /uL (0-900); Monocytes Percent Auto 17.4 % (3-14); Neutrophils Absolute Auto 2200 /uL (1500-7000); Neutrophils Percent Auto 66.1 % (50-75); Platelet Count 116 X10^3/uL (150-400); Red Blood Cell Count 2.64 X10^6/uL (4.5-5.9); Red Cell Distribution Width 23.3 % (11.6-14.8); White Blood Cell Count 3.3 X10^3/uL (4.5-11.0)
[2018-12-12 09:37] LABS: Alanine Aminotransferase 30 IU/L (21-72); Albumin Globulin Ratio 1.7 (1.0-2.8); Alkaline Phosphatase 79 U/L (38-126); Aspartate Aminotransferase 27 IU/L (17-59); BUN Creatinine Ratio 37.5 (6-22); Bilirubin Total 0.3 mg/dL (0.2-1.3); Blood Urea Nitrogen 30 mg/dL (9-20); Carbon Dioxide 25 mmol/L (22-32); Chloride 101 mmol/L (98-107); Estimated Glomerular Filt Rate > 60.0 mL/min (>60); Globulin 2.3 g/dL (1.7-4.1); Glucose 83 mg/dL (80-110); HEMOLYSIS < 15 (0-50); Potassium 4.6 mmol/L (3.4-5.1); Sodium 135 mmol/L (137-145); Total Protein 6.3 g/dL (6.3-8.2)
[2018-12-12 10:18] LABS: Anisocytosis 2+; Poikilocytosis 1+; Polychromasia 1+
[2018-12-12] MEDS: DEXAMETHASONE 10 MG/ML VIAL 8 MG IV (10:26)
[2018-12-12] MEDS: ONDANSETRON 8 MG in SODIUM CHLORIDE 0.9% 50 ML 216 ML IV (10:45)
[2018-12-12] MEDS: SODIUM CHLORIDE 0.9% 100 ML 21 ML IV (10:45)
[2018-12-12] MEDS: PEMBROLIZUMAB 200 MG in SODIUM CHLORIDE 0.9% (CHEMO) 100 ML 216 ML IV (11:23)
[2018-12-12] MEDS: SODIUM CHLORIDE 0.9% IV (12:24)
[2018-12-12] MEDS: PEMETREXED IV (12:24)
[2018-12-19 15:50] LABS: Add Manual Diff / Slide Review NO; Basophils Absolute Auto 0 /uL (0-100); Basophils Percent Auto 0.7 % (0-2); Eosinophils Absolute Auto 200 /uL (0-450); Eosinophils Percent Auto 5.8 % (2-4); Hematocrit 27.4 % (41-53); Hemoglobin 9.5 g/dL (13.5-17.5); Lymphocytes Absolute Auto 400 /uL (1100-4500); Mean Corpuscular HGB Conc 34.6 % (30-36); Mean Corpuscular Hemoglobin 36.3 PG (26-34); Mean Corpuscular Volume 104.9 fL (80-100); Monocytes Absolute Auto 300 /uL (0-900); Monocytes Percent Auto 10.5 % (3-14); Neutrophils Absolute Auto 1900 /uL (1500-7000); Platelet Count 111 X10^3/uL (150-400); Red Blood Cell Count 2.62 X10^6/uL (4.5-5.9); Red Cell Distribution Width 22.5 % (11.6-14.8); White Blood Cell Count 2.8 X10^3/uL (4.5-11.0)
[2018-12-19 16:00] LABS: Alanine Aminotransferase 33 IU/L (21-72); Albumin 4.1 g/dL (3.5-5.0); Albumin Globulin Ratio 1.6 (1.0-2.8); Alkaline Phosphatase 88 U/L (38-126); Aspartate Aminotransferase 32 IU/L (17-59); Bilirubin Total 0.4 mg/dL (0.2-1.3); Blood Urea Nitrogen 40 mg/dL (9-20); Calcium 9.1 mg/dL (8.4-10.2); Carbon Dioxide 26 mmol/L (22-32); Chloride 101 mmol/L (98-107); Estimated Glomerular Filt Rate > 60.0 mL/min (>60); Globulin 2.5 g/dL (1.7-4.1); Glucose 96 mg/dL (80-110); HEMOLYSIS < 15 (0-50); Potassium 4.6 mmol/L (3.4-5.1); Sodium 137 mmol/L (137-145); Total Protein 6.6 g/dL (6.3-8.2)
[2018-12-19 16:25] LABS: Anisocytosis 3+; Macrocytosis 2+; Microcytosis 1+
[2018-12-19 16:26] LABS: Hypochromasia 1+; Poikilocytosis 1+; Polychromasia 1+; Schistocytes 2+
[2018-12-19 16:27] LABS: Platelet Estimate Decreased on smear
[2018-12-26 15:31] LABS: Add Manual Diff / Slide Review NO; Basophils Absolute Auto 0 /uL (0-100); Basophils Percent Auto 0.6 % (0-2); Eosinophils Absolute Auto 300 /uL (0-450); Eosinophils Percent Auto 9.9 % (2-4); Hematocrit 25.2 % (41-53); Hemoglobin 8.5 g/dL (13.5-17.5); Lymphocytes Absolute Auto 300 /uL (1100-4500); Lymphocytes Percent Auto 13.4 % (25-40); Mean Corpuscular HGB Conc 33.9 % (30-36); Mean Corpuscular Hemoglobin 35.9 PG (26-34); Mean Corpuscular Volume 105.8 fL (80-100); Monocytes Absolute Auto 500 /uL (0-900); Monocytes Percent Auto 19.9 % (3-14); Neutrophils Absolute Auto 1400 /uL (1500-7000); Neutrophils Percent Auto 56.2 % (50-75); Platelet Count 97 X10^3/uL (150-400); Red Blood Cell Count 2.38 X10^6/uL (4.5-5.9); Red Cell Distribution Width 21.7 % (11.6-14.8); White Blood Cell Count 2.6 X10^3/uL (4.5-11.0)
[2018-12-26 15:34] LABS: Alanine Aminotransferase 42 IU/L (21-72); Albumin 3.6 g/dL (3.5-5.0); Albumin Globulin Ratio 1.5 (1.0-2.8); Alkaline Phosphatase 93 U/L (38-126); Aspartate Aminotransferase 43 IU/L (17-59); BUN Creatinine Ratio 26.3 (6-22); Bilirubin Total 0.2 mg/dL (0.2-1.3); Blood Urea Nitrogen 21 mg/dL (9-20); Calcium 8.2 mg/dL (8.4-10.2); Carbon Dioxide 25 mmol/L (22-32); Chloride 101 mmol/L (98-107); Estimated Glomerular Filt Rate > 60.0 mL/min (>60); Globulin 2.4 g/dL (1.7-4.1); Glucose 118 mg/dL (80-110); HEMOLYSIS < 15 (0-50); Potassium 4.6 mmol/L (3.4-5.1); Sodium 135 mmol/L (137-145)
[2018-12-26 15:47] LABS: Anisocytosis 1+; Macrocytosis 1+; Platelet Estimate Decreased on smear; Polychromasia 1+
--- NOTE | 2019-01-02 09:08 | ONC.PN ---
PN -Subjective Interval history: 83 year old with recurrent right lung NSCLC here for C2# maintenance pem/pembro. He is also taking thyroid pill 112 mcg daily. He feels that his hands and feet are always cold. No problems breathing. No coughing. Sometimes, he had to spit phlegm in the throat. No chest pain. Good appetite. No bone pain. No headache. He is able to walk around. But he is complaining of weakness of feet with questionable tingling and numbing. It takes a real effort to go upstairs. No skin rashes. He said that he has not had problem with diarrhea or constipation. Oncology History: Segundo Lei was diagnosed with right upper lobe and right lower lobe non-small cell lung cancer, both stage IB (T2a, N0, M0). He completed a course of stereotactic ablative radiation therapy in December 2017: the right upper lobe tumor was treated to 6000 cGy over 8 fractions of 750 cGy each, while the right lower lobe tumor was treated to 5000 cGy over [address] on 03/31/2018 showed volume reduction in the anterior right upper lobe tumor (1.4 x 2.3 cm down from 2.2 x 2.8 cm) and the right lower lobe tumor (0.6 x 2.2 cm down from 1.3 x 3.5 cm). There was considerable peritumoral atelectasis and consolidation surrounding the spiculated mass in the right upper lobe and right lower lobe most likely consistent with radiation changes. No new suspicious bone or neurologic symptoms worrisome for metastatic disease. CT on 07/08/2018 showed further interval decrease in size of the radiated right upper lobe parenchymal mass and lateral right pleural-based mass lesions, consistent with post treatment response. But there was some associated increased adjacent parenchymal consolidation presumably sequelae from stereotactic lung radiation. Unfortunately, there has been interval increase in size and number of a number of pleural-based nodules and masses in the right hemithorax. These included 2 anterior mass lesions along the right middle lobe, measuring up to 2.4 x 1.0 cm and 2.5 x 0.9 cm. Along the posterior medial right lower lobe there is a pleural-based lesion measuring 1.4 x 0.4 cm. There was a pleural-based nodule in the right hemidiaphragm measuring 1.4 x 0.7 cm. There were multiple small nodules which were new, seen along the right major and minor fissures as well as medially along the right upper lobe. 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 No pleural effusion or suspiciously enlarged hilar or mediastinal lymphadenopathy. He then underwent PET scan on 08/09/2018. and the PET/CT showed post radiation changes in the right upper lobe. The previously seen lung mass in the right upper lobe was obscured mildly and increased FDG uptake in the area is nonspecific. Multiple hypermetabolic nodules in the right hemithorax was seen and compatible with pleural metastasis. Right lower lobe consolidation was noted. There were foci of more intensely increased FDG uptake within consolidated right lower lobe. Cannot rule out metastatic disease superimposed on concomitant pneumonia. Small right pleural effusion was also noted. Due to the evidence of disease recurrence and progression, patient was referred to medical oncology for discussion of systemic therapy. He was started on Carbo/Pem/Pembro on 08/29/2018. After three cycles on 11/10/2018, he underwent CT CAP with contrast. The scan showed mild worsening of pleural metastases with enlargement of multiple pleural nodules and with small unchanged right effusion, stable irregular density in the right upper lobe compatible with postradiation changes and decreased right lower lobe airspace disease. - Patient Self-Reported Symptoms SR ears, nose, mouth, throat issues: Congestion, Difficulty swallowing, Changes in taste SR respiratory issues: Mucous SR Cardiovascular issues: Shortness of breath with activity or lying flat SR Skin issues: Skin rash or itching, Skin color changes SR Gastrointestinal issues: Diarrhea, Blood in stool SR Genitourinary issues: Frequent urination SR Hematologic issues: Bleeding/bruising - Additional ROS All systems PM: reviewed and no additional remarkable complaints except as stated Home Medications and Allergies Home Medications Medication Instructions Recorded Confirmed Type finasteride 5 mg PO QDAY #0 02/11/17 11/07/18 History oxybutynin chloride [Ditropan XL] 5 mg PO QPM #0 02/11/17 11/07/18 History tamsulosin [Flomax] 0.4 mg PO BID #0 09/01/17 11/07/18 History fluticasone propionate [Flonase 50 mcg INTRANASAL PRN PRN #48 ml 09/16/17 11/07/18 Rx Allergy Relief] polysaccharide iron complex 150 mg PO BID #60 cap 12/08/17 11/07/18 Rx [Ferrex 150] docusate sodium [DOK] 100 mg PO QDAYP PRN #0 01/05/18 11/07/18 History azelastine 2 inh INH SEE INSTRUCTIONS #1 inh 01/10/18 11/07/18 Rx folic acid 1 mg PO DAILY #30 tab 08/15/18 11/07/18 Rx ondansetron HCl [Zofran] 4 mg PO Q6-8H PRN #30 tab 08/22/18 11/07/18 Rx lidocaine-prilocaine 1 applictn TOP PRN PRN #30 gram 08/24/18 11/07/18 Rx oxycodone 5 mg PO Q4-6H PRN #30 tab 08/24/18 11/07/18 Rx triamcinolone acetonide 0.1 % 1 applictn TOP BID #453.6 gram 09/15/18 11/07/18 Rx topical cream magnesium hydroxide [Milk of 400 mg PO DAILY PRN 09/19/18 11/07/18 History Magnesia] polyethylene glycol 3350 [Miralax] 17 g PO DAILY PRN 09/19/18 11/07/18 History sennosides [senna] 8.6 mg PO BID PRN 09/19/18 11/07/18 History omeprazole 20 mg PO QDAY #90 cap 09/28/18 11/07/18 Rx hydrocortisone acetate 25 mg 25 mg [place] QD-BID PRN #30 each 10/19/18 11/07/18 Rx rectal suppository levothyroxine 112 mcg tablet 112 mcg PO DAILY #90 tab 11/04/18 11/07/18 Rx lisinopril 5 mg tablet 5 mg PO QDAY #90 tab 11/17/18 Rx atorvastatin 40 mg tablet 40 mg PO QDAY #90 tab 12/26/18 Rx Allergies Allergy/AdvReac Type Severity Reaction Status Date / Time No Known Drug Allergies Allergy Unknown Verified 09/15/18 15:13 [NO KNOWN DRUG ALLERGIES] Exam Vital signs: Last Vital Signs Temp 97.1 F L 01/02/19 09:13 Pulse 69 01/02/19 09:13 Resp 18 01/02/19 09:13 BP 130/63 01/02/19 09:13 Pulse Ox 100 01/02/19 09:13 ECOG 1 Narrative: Constitutional: WDWN, NAD, average body habitus, well groomed, pleasant and cooperative, accompanied by his . Very anxious. HEENT: NCAT, EOMI, PERRLA, anicteric sclera; Maculopapular rashes on the forehead, cheeks and nose have resolved. Neck: Supple, symmetrical, and tracheal midline; No palpable thyromegaly and no palpable lymph nodes. 2/6 carotid artery bruits. Respiratory: No use of accessory muscles. Clear to auscultation, and no wheezes or rales or rubs. Cardiovascular: Regular rate and rhythm, S1 and S2 normal, no murmurs gallops or rubs. No JVD. Abdomen: Soft, nontender, non-distended, bowel sounds normal, no palpable organomegaly, no hernia, no palpable masses. Lower extremities: No pitting edema of lower extremities. Lymphatic: no palpable lymph nodes in the neck, axillae Skin: no rashes, no ulcers, no petechiae Neurological: Awake and alert and oriented x3. CN II-XII grossly intact. No focal motor or sensory deficit. Psychiatric: Good judgment, good insight, normal affect, normal thought process, cooperative, no depression Results - Labs Laboratory Last Values WBC 4.3 X10^3/uL (4.5-11.0) L 01/02/19 09:00 RBC 2.52 X10^6/uL (4.5-5.9) L 01/02/19 09:00 Hgb 9.0 g/dL (13.5-17.5) L 01/02/19 09:00 Hct 26.8 % (41-53) L 01/02/19 09:00 MCV 106.1 fL (80-100) H 01/02/19 09:00 MCH 35.6 PG (26-34) H 01/02/19 09:00 MCHC 33.6 % (30-36) 01/02/19 09:00 RDW 20.8 % (11.6-14.8) H 01/02/19 09:00 Plt Count 217 X10^3/uL (150-400) 01/02/19 09:00 Neut % (Auto) 68.9 % (50-75) 01/02/19 09:00 Lymph % (Auto) 8.8 % (25-40) L 01/02/19 09:00 [place] % (Auto) 13.8 % (3-14) 01/02/19 09:00 Eos % (Auto) 7.9 % (2-4) H 01/02/19 09:00 Baso % (Auto) 0.6 % (0-2) 01/02/19 09:00 Neut # (Auto) 2900 /uL (8535-5230) 01/02/19 09:00 Lymph # (Auto) 400 /uL (5220-0192) L 01/02/19 09:00 [place] # (Auto) 600 /uL (0-900) 01/02/19 09:00 Eos # (Auto) 300 /uL (0-450) 01/02/19 09:00 Baso # (Auto) 0 /uL (0-100) 01/02/19 09:00 Total Counted 50 11/07/18 09:51 Seg Neutrophils % 52.0 % (38-70) 11/07/18 09:51 Band Neutrophils % 6.0 % (3-7) 11/07/18 09:51 Lymphocytes % (Manual) 12.0 % (25-45) L 11/07/18 09:51 Monocytes % (Manual) 22.0 % (2-11) H 11/07/18 09:51 Eosinophils % (Manual) 4.0 % (2-4) 11/07/18 09:51 Metamyelocytes % 2.0 % (-0) H 11/07/18 09:51 Myelocytes % 2.0 % (-0) H 11/07/18 09:51 Neutrophils # (Manual) 1102 /uL (6971-6744) L 11/07/18 09:51 Platelet Estimate Decreased on smear 12/26/18 15:00 RBC Morphology See below 01/02/19 09:00 Polychromasia 1+ H 12/26/18 15:00 Hypochromasia 1+ H 12/19/18 08:39 Poikilocytosis 1+ H 12/19/18 08:39 Anisocytosis 1+ H 01/02/19 09:00 Microcytosis 1+ H 12/19/18 08:39 Macrocytosis 1+ H 01/02/19 09:00 Tear Drop Cells 1+ H 11/07/18 09:51 Ovalocytes 1+ H 11/07/18 09:51 [place] Cells 1+ H 11/07/18 09:51 Schistocytes 2+ H 12/19/18 08:39 Sodium 136 mmol/L (137-145) L 01/02/19 09:00 Potassium 4.7 mmol/L (3.4-5.1) 01/02/19 09:00 Chloride 103 mmol/L (98-107) 01/02/19 09:00 Carbon Dioxide 25 mmol/L (22-32) 01/02/19 09:00 BUN 26 mg/dL (9-20) H 01/02/19 09:00 Creatinine 0.80 mg/dL (0.66-1.25) 01/02/19 09:00 Estimated GFR > 60.0 mL/min (>60) 01/02/19 09:00 BUN/Creatinine Ratio 32.5 (6-22) H 01/02/19 09:00 Glucose 102 mg/dL (80-110) 01/02/19 09:00 Calcium 8.8 mg/dL (8.4-10.2) 01/02/19 09:00 Total Bilirubin 0.3 mg/dL (0.2-1.3) 01/02/19 09:00 AST 30 IU/L (17-59) 01/02/19 09:00 ALT 30 IU/L (21-72) 01/02/19 09:00 Alkaline Phosphatase 100 U/L (38-126) 01/02/19 09:00 Total Protein 5.7 g/dL (6.3-8.2) L 01/02/19 09:00 Albumin 3.5 g/dL (3.5-5.0) 01/02/19 09:00 Globulin 2.2 g/dL (1.7-4.1) 01/02/19 09:00 Albumin/Globulin Ratio 1.6 (1.0-2.8) 01/02/19 09:00 TSH 1.09 uIU/mL (0.47-4.68) 01/02/19 09:00 Blood Type O Positive 11/07/18 09:55 Antibody Screen Negative 11/07/18 09:55 Crossmatch See Detail 11/07/18 09:55 Assessment and Plan (1) Recurrent adenocarcinoma of right lung Problem details: Right upper lobe and right lower lobe non-small cell lung cancer, both stage IB (T2a, N0, M0) s/p stereotactic ablative radiation therapy in December 2017: right upper lobe tumor was treated to 6000 cGy over 8 fractions of 750 cGy each, while the right lower lobe tumor was treated to 5000 cGy over 5 fractions. Metastatic recurrence on follow up CT (07/08/2018) and PET (08/09/2018): Multiple hypermetabolic nodules in the right hemithorax. Molecular workup: negative for ALK translocation, negative for ROS1 translocation, and negative for EGFR mutation. Low level of PD-L1 expression (<1%). Assessment: Overall patient has tolerated the chemo immunotherapy well. I will continue the current treatment with maintenance pemetrexed and pembrolizumab. Explained to the patient that the goal of treatment is to delay the progression of the underlying lung cancer. I will continue as long as he is able to tolerate and as long as his cancer is responding to the treatment. Plan 1. OK to proceed to Cycle 2 maintenance Pem/Pembro 2. Continue Folic acid 1 mg daily 3. Continue Vitamin B12 every 3 cycles. 3. RTC 3 weeks, CBC, CMP, TSH and C3# pem/pembro and Vitamin B12. (2) Hypothyroidism Assessment and plan: We will continue current levothyroxine 112 mcg daily without changes. I will monitor the thyroid function monthly. (3) Pancytopenia due to chemotherapy Assessment and Plan: I reviewed today's lab results. The neutropenia has resolves. His WBC today was 4.3. His HGB today was 9.0. His PLT was 217. The changes of his CBC are related to the chemotherapy. Will continue monitoring.
[2019-01-02 09:11] LABS: Add Manual Diff / Slide Review NO; Basophils Absolute Auto 0 /uL (0-100); Basophils Percent Auto 0.6 % (0-2); Eosinophils Absolute Auto 300 /uL (0-450); Eosinophils Percent Auto 7.9 % (2-4); Hematocrit 26.8 % (41-53); Lymphocytes Absolute Auto 400 /uL (1100-4500); Lymphocytes Percent Auto 8.8 % (25-40); Mean Corpuscular HGB Conc 33.6 % (30-36); Mean Corpuscular Hemoglobin 35.6 PG (26-34); Mean Corpuscular Volume 106.1 fL (80-100); Monocytes Absolute Auto 600 /uL (0-900); Monocytes Percent Auto 13.8 % (3-14); Neutrophils Absolute Auto 2900 /uL (1500-7000); Neutrophils Percent Auto 68.9 % (50-75); Platelet Count 217 X10^3/uL (150-400); Red Blood Cell Count 2.52 X10^6/uL (4.5-5.9); Red Cell Distribution Width 20.8 % (11.6-14.8); White Blood Cell Count 4.3 X10^3/uL (4.5-11.0)
[2019-01-02 09:13] VITALS: BP 130/63; PULSE 69; RESP 18; TEMP 36.2; O2SAT 100
[2019-01-02 09:26] LABS: Alanine Aminotransferase 30 IU/L (21-72); Albumin 3.5 g/dL (3.5-5.0); Albumin Globulin Ratio 1.6 (1.0-2.8); Alkaline Phosphatase 100 U/L (38-126); Aspartate Aminotransferase 30 IU/L (17-59); BUN Creatinine Ratio 32.5 (6-22); Bilirubin Total 0.3 mg/dL (0.2-1.3); Blood Urea Nitrogen 26 mg/dL (9-20); Calcium 8.8 mg/dL (8.4-10.2); Carbon Dioxide 25 mmol/L (22-32); Chloride 103 mmol/L (98-107); Estimated Glomerular Filt Rate > 60.0 mL/min (>60); Globulin 2.2 g/dL (1.7-4.1); Glucose 102 mg/dL (80-110); HEMOLYSIS < 15 (0-50); Potassium 4.7 mmol/L (3.4-5.1); Sodium 136 mmol/L (137-145); Total Protein 5.7 g/dL (6.3-8.2)
[2019-01-02 09:35] LABS: Anisocytosis 1+; Macrocytosis 1+
[2019-01-02] MEDS: DEXAMETHASONE 10 MG/ML VIAL 8 MG IV (10:02)
[2019-01-02] MEDS: SODIUM CHLORIDE 0.9% 100 ML 21 ML IV (10:03)
[2019-01-02 10:08] LABS: Thyroid Stimulating Hormone 1.09 uIU/mL (0.47-4.68)
[2019-01-02] MEDS: ONDANSETRON 8 MG in SODIUM CHLORIDE 0.9% 50 ML 216 ML IV (10:19)
[2019-01-02] MEDS: PEMBROLIZUMAB 200 MG in SODIUM CHLORIDE 0.9% (CHEMO) 100 ML 216 ML IV (10:59)
[2019-01-02] MEDS: PEMETREXED IV (12:08)
[2019-01-02] MEDS: SODIUM CHLORIDE 0.9% IV (12:08)
--- NOTE | 2019-01-04 11:52 | PC.NURSE ---
Pt called to ask if he was able to take Ibuprofen or Nabumetone for arthritic pain. Will ask provider. Pt does have 5mg Oxycodone available at home.
[2019-01-23 09:13] LABS: Add Manual Diff / Slide Review NO; Basophils Absolute Auto 0 /uL (0-100); Basophils Percent Auto 0.3 % (0-2); Eosinophils Absolute Auto 400 /uL (0-450); Eosinophils Percent Auto 3.7 % (2-4); Hematocrit 29.3 % (41-53); Hemoglobin 9.9 g/dL (13.5-17.5); Lymphocytes Absolute Auto 200 /uL (1100-4500); Lymphocytes Percent Auto 2.1 % (25-40); Mean Corpuscular HGB Conc 33.7 % (30-36); Mean Corpuscular Hemoglobin 36.3 PG (26-34); Mean Corpuscular Volume 107.8 fL (80-100); Monocytes Absolute Auto 1100 /uL (0-900); Monocytes Percent Auto 9.2 % (3-14); Neutrophils Absolute Auto 10100 /uL (1500-7000); Neutrophils Percent Auto 84.7 % (50-75); Platelet Count 243 X10^3/uL (150-400); Red Blood Cell Count 2.72 X10^6/uL (4.5-5.9); Red Cell Distribution Width 18.3 % (11.6-14.8); White Blood Cell Count 11.9 X10^3/uL (4.5-11.0)
[2019-01-23 09:19] VITALS: BP 134/63; PULSE 107; RESP 18; TEMP 36.7; O2SAT 100
[2019-01-23 09:23] LABS: Alanine Aminotransferase 29 IU/L (21-72); Albumin Globulin Ratio 1.7 (1.0-2.8); Alkaline Phosphatase 113 U/L (38-126); Aspartate Aminotransferase 33 IU/L (17-59); BUN Creatinine Ratio 28.8 (6-22); Bilirubin Total 0.4 mg/dL (0.2-1.3); Blood Urea Nitrogen 23 mg/dL (9-20); Calcium 9.5 mg/dL (8.4-10.2); Carbon Dioxide 27 mmol/L (22-32); Chloride 103 mmol/L (98-107); Estimated Glomerular Filt Rate > 60.0 mL/min (>60); Globulin 2.4 g/dL (1.7-4.1); Glucose 143 mg/dL (80-110); HEMOLYSIS < 15 (0-50); Potassium 4.3 mmol/L (3.4-5.1); Sodium 139 mmol/L (137-145); Total Protein 6.4 g/dL (6.3-8.2)
--- NOTE | 2019-01-23 09:37 | P.PNONC_ITS ---
PN -Subjective Interval history: 83 year old with recurrent right lung NSCLC here for C3# maintenance pem/pembro. He is also taking thyroid pill 112 mcg daily. Rashes on the forehead, and they are itching. He is using alcohol. Breathing seems to be fine. When he stands a while, he feel a little dizzy. No fall accidents. No chest pain. No cough. No constipation. No diarrhea. His hands and feet are still feeling cold. Oncology History: Segundo Lei was diagnosed with right upper lobe and right lower lobe non-small cell lung cancer, both stage IB (T2a, N0, M0). He completed a course of stereotactic ablative radiation therapy in December 2017: the right upper lobe tumor was treated to 6000 cGy over 8 fractions of 750 cGy each, while the right lower lobe tumor was treated to 5000 cGy over [address]. [address] on 03/31/2018 showed volume reduction in the anterior right upper lobe tumor (1.4 x 2.3 cm down from 2.2 x 2.8 cm) and the right lower lobe tumor (0.6 x 2.2 cm down from 1.3 x 3.5 cm). There was considerable peritumoral atelectasis and consolidation surrounding the spiculated mass in the right upper lobe and right lower lobe most likely consistent with radiation changes. No new suspicious bone or neurologic symptoms worrisome for metastatic disease. CT on 07/08/2018 showed further interval decrease in size of the radiated right upper lobe parenchymal mass and lateral right pleural-based mass lesions, consistent with post treatment response. But there was some associated increased adjacent parenchymal consolidation presumably sequelae from stereotactic lung radiation. Unfortunately, there has been interval increase in size and number of a number of pleural-based nodules and masses in the right hemithorax. These included 2 anterior mass lesions along the right middle lobe, measuring up to 2.4 x 1.0 cm and 2.5 x 0.9 cm. Along the posterior medial right lower lobe there is a pleural-based lesion measuring 1.4 x 0.4 cm. There was a pleural-based nodule in the right hemidiaphragm measuring 1.4 x 0.7 cm. There were multiple small nodules which were new, seen along the right major and minor fissures as well as medially along the right upper lobe. 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 No pleural effusion or suspiciously enlarged hilar or mediastinal lymphadenopathy. He then underwent PET scan on 08/09/2018. and the PET/CT showed post radiation changes in the right upper lobe. The previously seen lung mass in the right upp er lobe was obscured mildly and increased FDG uptake in the area is nonspecific. Multiple hypermetabolic nodules in the right hemithorax was seen and compatible with pleural metastasis. Right lower lobe consolidation was noted. There were foci of more intensely increased FDG uptake within consolidated right lower lobe. Cannot rule out metastatic disease superimposed on concomitant pneumonia. Small right pleural effusion was also noted. Due to the evidence of disease recurrence and progression, patient was referred to medical oncology for discussion of systemic therapy. He was started on Carbo/Pem/Pembro on 08/29/2018. After three cycles on 11/10/2018, he underwent CT CAP with contrast. The scan showed mild worsening of pleural metastases with enlargement of multiple pleural nodules and with small unchanged right effusion, stable irregular density in the right upper lobe compatible with postradiation changes and decreased right lower lobe airspace disease. - Patient Self-Reported Symptoms SR ears, nose, mouth, throat issues: Congestion, Difficulty swallowing, Changes in taste SR respiratory issues: Mucous SR Cardiovascular issues: Extreme swelling SR Skin issues: Skin lesions or moles SR Gastrointestinal issues: Diarrhea, Blood in stool SR Genitourinary issues: Frequent urination SR Musculoskeletal issues: Joint pain or swelling, Muscle weakness SR Neuro issues: Difficulty balancing SR Hematologic issues: Bleeding/bruising - Additional ROS All systems PM: reviewed and no additional remarkable complaints except as stated Home Medications and Allergies Home Medications Medication Instructions Recorded Confirmed Type finasteride 5 mg PO QDAY #0 02/11/17 01/23/19 History oxybutynin chloride [Ditropan XL] 5 mg PO QPM #0 02/11/17 01/23/19 History tamsulosin [Flomax] 0.4 mg PO BID #0 09/01/17 01/23/19 History fluticasone propionate [Flonase 50 mcg INTRANASAL PRN PRN #48 ml 09/16/17 01/23/19 Rx Allergy Relief] polysaccharide iron complex 150 mg PO BID #60 cap 12/08/17 01/23/19 Rx [Ferrex 150] docusate sodium [DOK] 100 mg PO QDAYP PRN #0 01/05/18 01/23/19 History azelastine 2 inh INH SEE INSTRUCTIONS #1 inh 01/10/18 01/23/19 Rx folic acid 1 mg PO DAILY #30 tab 08/15/18 01/23/19 Rx ondansetron HCl [Zofran] 4 mg PO Q6-8H PRN #30 tab 08/22/18 01/23/19 Rx lidocaine-prilocaine 1 applictn TOP PRN PRN #30 gram 08/24/18 01/23/19 Rx oxycodone 5 mg PO Q4-6H PRN #30 tab 08/24/18 01/23/19 Rx triamcinolone acetonide 0.1 % 1 applictn TOP BID #453.6 gram 09/15/18 01/23/19 Rx topical cream magnesium hydroxide [Milk of 400 mg PO DAILY PRN 09/19/18 01/23/19 History Magnesia] polyethylene glycol 3350 [Miralax] 17 g PO DAILY PRN 09/19/18 01/23/19 History sennosides [senna] 8.6 mg PO BID PRN 09/19/18 01/23/19 History omeprazole 20 mg PO QDAY #90 cap 09/28/18 01/23/19 Rx lisinopril 5 mg tablet 5 mg PO QDAY #90 tab 11/17/18 01/23/19 Rx atorvastatin 40 mg tablet 40 mg PO QDAY #90 tab 12/26/18 01/23/19 Rx hydrocortisone acetate [address] QD-BID PRN #30 each 01/03/19 01/23/19 Rx rectal suppository levothyroxine 112 mcg tablet 112 mcg PO DAILY #90 tab 01/11/19 01/23/19 Rx Allergies Allergy/AdvReac Type Severity Reaction Status Date / Time No Known Drug Allergies Allergy Unknown Verified 09/15/18 15:13 [NO KNOWN DRUG ALLERGIES] Exam Vital signs: Vital Signs Temp Pulse Resp BP Pulse Ox 01/23/19 09:19 98.0 F 107 H 18 134/63 100 Intake and Output 01/22/19 01/23/19 01/23/19 23:59 07:59 15:59 Other: Weight 77.6 kg Patient Weight 01/23/19 23:59 Weight 77.6 kg ECOG 1 Narrative: Constitutional: WDWN, NAD, average body habitus, well groomed, pleasant and cooperative, accompanied by his . Very anxious. HEENT: NCAT, EOMI, PERRLA, anicteric sclera; Maculopapular rashes on the forehead, cheeks and nose have resolved. Neck: Supple, symmetrical, and tracheal midline; No palpable thyromegaly and no palpable lymph nodes. 2/6 carotid artery bruits. Respiratory: No use of accessory muscles. Clear to auscultation, and no wheeze Cardiovascular: Regular rate and rhythm, S1 and S2 normal, no murmurs gallops or rubs. No JVD. Abdomen: Soft, nontender, non-distended, bowel sounds normal, no palpable organomegaly, no hernia, no palpable masses. Lower extremities: No pitting edema of lower extremities. Lymphatic: no palpable lymph nodes in the neck, axillae Skin: no rashes, no ulcers, no petechiae Neurological: Awake and alert and oriented x3. CN II-XII grossly intact. No focal motor or sensory deficit. Psychiatric: Good judgment, good insight, normal affect, normal thought process, cooperative, no depression. Results - Labs Laboratory Last Values WBC 11.9 X10^3/uL (4.5-11.0) H 01/23/19 09:00 RBC 2.72 X10^6/uL (4.5-5.9) L 01/23/19 09:00 Hgb 9.9 g/dL (13.5-17.5) L 01/23/19 09:00 Hct 29.3 % (41-53) L 01/23/19 09:00 MCV 107.8 fL (80-100) H 01/23/19 09:00 MCH 36.3 PG (26-34) H 01/23/19 09:00 MCHC 33.7 % (30-36) 01/23/19 09:00 RDW 18.3 % (11.6-14.8) H 01/23/19 09:00 Plt Count 243 X10^3/uL (150-400) 01/23/19 09:00 Neut % (Auto) 84.7 % (50-75) H 01/23/19 09:00 Lymph % (Auto) 2.1 % (25-40) L 01/23/19 09:00 [place] % (Auto) 9.2 % (3-14) 01/23/19 09:00 Eos % (Auto) 3.7 % (2-4) 01/23/19 09:00 Baso % (Auto) 0.3 % (0-2) 01/23/19 09:00 Neut # (Auto) 86163 /uL (0002-5926) H 01/23/19 09:00 Lymph # (Auto) 200 /uL (5471-7502) L 01/23/19 09:00 [place] # (Auto) 1100 /uL (0-900) H 01/23/19 09:00 Eos # (Auto) 400 /uL (0-450) 01/23/19 09:00 Baso # (Auto) 0 /uL (0-100) 01/23/19 09:00 Total Counted 50 11/07/18 09:51 Seg Neutrophils % 52.0 % (38-70) 11/07/18 09:51 Band Neutrophils % 6.0 % (3-7) 11/07/18 09:51 Lymphocytes % (Manual) 12.0 % (25-45) L 11/07/18 09:51 Monocytes % (Manual) 22.0 % (2-11) H 11/07/18 09:51 Eosinophils % (Manual) 4.0 % (2-4) 11/07/18 09:51 Metamyelocytes % 2.0 % (-0) H 11/07/18 09:51 Myelocytes % 2.0 % (-0) H 11/07/18 09:51 Neutrophils # (Manual) 1102 /uL (2292-2926) L 11/07/18 09:51 Platelet Estimate Decreased on smear 12/26/18 15:00 RBC Morphology See below 01/02/19 09:00 Polychromasia 1+ H 12/26/18 15:00 Hypochromasia 1+ H 12/19/18 08:39 Poikilocytosis 1+ H 12/19/18 08:39 Anisocytosis 1+ H 01/02/19 09:00 Microcytosis 1+ H 12/19/18 08:39 Macrocytosis 1+ H 01/02/19 09:00 Tear Drop Cells 1+ H 11/07/18 09:51 Ovalocytes 1+ H 11/07/18 09:51 [place] Cells 1+ H 11/07/18 09:51 Schistocytes 2+ H 12/19/18 08:39 Sodium 139 mmol/L (137-145) 01/23/19 08:17 Potassium 4.3 mmol/L (3.4-5.1) 01/23/19 08:17 Chloride 103 mmol/L (98-107) 01/23/19 08:17 Carbon Dioxide 27 mmol/L (22-32) 01/23/19 08:17 BUN 23 mg/dL (9-20) H 01/23/19 08:17 Creatinine 0.80 mg/dL (0.66-1.25) 01/23/19 08:17 Estimated GFR > 60.0 mL/min (>60) 01/23/19 08:17 BUN/Creatinine Ratio 28.8 (6-22) H 01/23/19 08:17 Glucose 143 mg/dL (80-110) H 01/23/19 08:17 Calcium 9.5 mg/dL (8.4-10.2) 01/23/19 08:17 Total Bilirubin 0.4 mg/dL (0.2-1.3) 01/23/19 08:17 AST 33 IU/L (17-59) 01/23/19 08:17 ALT 29 IU/L (21-72) 01/23/19 08:17 Alkaline Phosphatase 113 U/L (38-126) 01/23/19 08:17 Total Protein 6.4 g/dL (6.3-8.2) 01/23/19 08:17 Albumin 4.0 g/dL (3.5-5.0) 01/23/19 08:17 Globulin 2.4 g/dL (1.7-4.1) 01/23/19 08:17 Albumin/Globulin Ratio 1.7 (1.0-2.8) 01/23/19 08:17 TSH 1.09 uIU/mL (0.47-4.68) 01/02/19 09:00 Blood Type O Positive 11/07/18 09:55 Antibody Screen Negative 11/07/18 09:55 Crossmatch See Detail 11/07/18 09:55 Assessment and Plan (1) Recurrent adenocarcinoma of right lung Problem details: Right upper lobe and right lower lobe non-small cell lung cancer, both stage IB (T2a, N0, M0) s/p stereotactic ablative radiation therapy in December 2017: right upper lobe tumor was treated to 6000 cGy over 8 fractions of 750 cGy each, while the right lower lobe tumor was treated to 5000 cGy over 5 fractions. Metastatic recurrence on follow up CT (07/08/2018) and PET (08/09/2018): Multiple hypermetabolic nodules in the right hemithorax. Molecular workup: negative for ALK translocation, negative for ROS1 translocation, and negative for EGFR mutation. Low level of PD-L1 expression (<1%). Assessment: Overall patient has tolerated the chemo immunotherapy well. I will continue the current treatment with maintenance pemetrexed and pembrolizumab. Patient's previous CT scan of the chest abdomen pelvis was performed in October of 2018 which showed relatively stable disease. I will repeat a PET scan for further evaluation. Plan 1. OK to proceed to Cycle 3 maintenance Pem/Pembro 2. Continue Folic acid 1 mg daily 3. Continue Vitamin B12 every 3 cycles. Patient wtill need one injection today 4. PET/CT (pt requested to be done at [place]) 5. RTC 3 weeks, CBC, CMP, TSH and C4# pem/pembro (2) Hypothyroidism Assessment and plan: We will continue current levothyroxine 112 mcg daily without changes. I will monitor the thyroid function monthly. (3) Pancytopenia due to chemotherapy Assessment and Plan: I reviewed today's lab results. The neutropenia has resolves. His WBC today was 11.9. His HGB today was 9.9. His PLT was 243. The changes of his CBC are related to the chemotherapy. Will continue monitoring.
[2019-01-23 10:04] LABS: Thyroid Stimulating Hormone 0.81 uIU/mL (0.47-4.68)
[2019-01-23] MEDS: DEXAMETHASONE 10 MG/ML VIAL 8 MG IV (10:34)
[2019-01-23] MEDS: ONDANSETRON 8 MG in SODIUM CHLORIDE 0.9% 50 ML 216 ML IV (10:34)
[2019-01-23] MEDS: CYANOCOBALAMIN 1,000 MCG/ML VIAL 1000 MCG IM (10:34)
[2019-01-23] MEDS: PEMBROLIZUMAB 200 MG in SODIUM CHLORIDE 0.9% (CHEMO) 100 ML 216 ML IV (11:15)
[2019-01-23] MEDS: SODIUM CHLORIDE 0.9% 100 ML 21 ML IV (11:16)
[2019-01-23] MEDS: SODIUM CHLORIDE 0.9% IV (12:29)
[2019-01-23] MEDS: PEMETREXED IV (12:29)
--- NOTE | 2019-02-13 08:53 | ONC.PN ---
PN -Subjective Interval history: 83 year old with recurrent right lung NSCLC here for C3# maintenance pem/pembro. He is also taking thyroid pill 112 mcg daily. Patient underwent PET scan on January the 03/30/2019. The scan showed mild decrease in size of multiple pleural based nodules and mass lesions in the right hemithorax as well as slight decrease in FDG uptake consistent with partial response to therapy. New confluent airspace opacities within the left upper lobe suggestive of pneumonia. The direction no includes inflammatory processes suggest drug reaction or radiation pneumonitis although this is located in the left lung. The appearance is atypical for metastatic disease. Confluent consolidation and scarring re-demonstrated in the right upper lobe and laterally in the right lower lobe consistent with radiation pneumonitis and slight increase in a small right pleural effusion. He came in here today accompanied by his for cycle 4 maintenance pemetrexed and pembrolizumab. Clinically patient has been actually doing a lot better. He is planning on a trip to [place] and [place]. The main concern is that he has some leg weakness and pain. Patient admitted that he has a long history of sciatica. Patient described like that he had to sit down after standing too long. He was afraid of fall. As far as the shortness of breath is concerned, patient said that recently his breathing has been okay even when walking. He denies any coughing. He denies any fever or chills. He denies any chest pain. Oncology History: Segundo Lei was diagnosed with right upper lobe and right lower lobe non-small cell lung cancer, both stage IB (T2a, N0, M0). He completed a course of stereotactic ablative radiation therapy in December 2017: the right upper lobe tumor was treated to 6000 cGy over 8 fractions of 750 cGy each, while the right lower lobe tumor was treated to 5000 cGy over [address]. [address] on 03/31/2018 showed volume reduction in the anterior right upper lobe tumor (1.4 x 2.3 cm down from 2.2 x 2.8 cm) and the right lower lobe tumor (0.6 x 2.2 cm down from 1.3 x 3.5 cm). There was considerable peritumoral atelectasis and consolidation surrounding the spiculated mass in the right upper lobe and right lower lobe most likely consistent with radiation changes. No new suspicious bone or neurologic symptoms worrisome for metastatic disease. CT on 07/08/2018 showed further interval decrease in size of the radiated right upper lobe parenchymal mass and lateral right pleural-based mass lesions, consistent with post treatment response. But there was some associated increased adjacent parenchymal consolidation presumably sequelae from stereotactic lung radiation. Unfortunately, there has been interval increase in size and number of a number of pleural-based nodules and masses in the right hemithorax. These included 2 anterior mass lesions along the right middle lobe, measuring up to 2.4 x 1.0 cm and 2.5 x 0.9 cm. Along the posterior medial right lower lobe there is a pleural-based lesion measuring 1.4 x 0.4 cm. There was a pleural-based nodule in the right hemidiaphragm measuring 1.4 x 0.7 cm. There were multiple small nodules which were new, seen along the right major and minor fissures as well as medially along the right upper lobe. 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 No pleural effusion or suspiciously enlarged hilar or mediastinal lymphadenopathy. He then underwent PET scan on 08/09/2018. and the PET/CT showed post radiation changes in the right upper lobe. The previously seen lung mass in the right upper lobe was obscured mildly and increased FDG uptake in the area is nonspecific. Multiple hypermetabolic nodules in the right hemithorax was seen and compatible with pleural metastasis. Right lower lobe consolidation was noted. There were foci of more intensely increased FDG uptake within consolidated right lower lobe. Cannot rule out metastatic disease superimposed on concomitant pneumonia. Small right pleural effusion was also noted. Due to the evidence of disease recurrence and progression, patient was referred to medical oncology for discussion of systemic therapy. He was started on Carbo/Pem/Pembro on 08/29/2018. After three cycles on 11/10/2018, he underwent CT CAP with contrast. The scan showed mild worsening of pleural metastases with enlargement of multiple pleural nodules and with small unchanged right effusion, stable irregular density in the right upper lobe compatible with postradiation changes and decreased right lower lobe airspace disease. - Patient Self-Reported Symptoms SR ears, nose, mouth, throat issues: Congestion, Difficulty swallowing, Changes in taste SR respiratory issues: Mucous SR Cardiovascular issues: Extreme swelling SR Skin issues: Skin lesions or moles SR Gastrointestinal issues: Diarrhea, Blood in stool SR Genitourinary issues: Frequent urination SR Musculoskeletal issues: Joint pain or swelling, Muscle weakness SR Neuro issues: Difficulty balancing SR Hematologic issues: Bleeding/bruising - Additional ROS All systems PM: reviewed and no additional remarkable complaints except as stated Home Medications and Allergies Home Medications Medication Instructions Recorded Confirmed Type finasteride 5 mg PO QDAY #0 02/11/17 01/23/19 History oxybutynin chloride [Ditropan XL] 5 mg PO QPM #0 02/11/17 01/23/19 History tamsulosin [Flomax] 0.4 mg PO BID #0 09/01/17 01/23/19 History fluticasone propionate [Flonase 50 mcg INTRANASAL PRN PRN #48 ml 09/16/17 01/23/19 Rx Allergy Relief] polysaccharide iron complex 150 mg PO BID #60 cap 12/08/17 01/23/19 Rx [Ferrex 150] docusate sodium [DOK] 100 mg PO QDAYP PRN #0 01/05/18 01/23/19 History azelastine 2 inh INH SEE INSTRUCTIONS #1 inh 01/10/18 01/23/19 Rx folic acid 1 mg PO DAILY #30 tab 08/15/18 01/23/19 Rx ondansetron HCl [Zofran] 4 mg PO Q6-8H PRN #30 tab 08/22/18 01/23/19 Rx lidocaine-prilocaine 1 applictn TOP PRN PRN #30 gram 08/24/18 01/23/19 Rx oxycodone 5 mg PO Q4-6H PRN #30 tab 08/24/18 01/23/19 Rx triamcinolone acetonide 0.1 % 1 applictn TOP BID #453.6 gram 09/15/18 01/23/19 Rx topical cream magnesium hydroxide [Milk of 400 mg PO DAILY PRN 09/19/18 01/23/19 History Magnesia] polyethylene glycol 3350 [Miralax] 17 g PO DAILY PRN 09/19/18 01/23/19 History sennosides [senna] 8.6 mg PO BID PRN 09/19/18 01/23/19 History omeprazole 20 mg PO QDAY #90 cap 09/28/18 01/23/19 Rx lisinopril 5 mg tablet 5 mg PO QDAY #90 tab 11/17/18 01/23/19 Rx atorvastatin 40 mg tablet 40 mg PO QDAY #90 tab 12/26/18 01/23/19 Rx hydrocortisone acetate 25 mg 25 mg MI QD-BID PRN #30 each 01/03/19 01/23/19 Rx rectal suppository levothyroxine 112 mcg tablet 112 mcg PO DAILY #90 tab 01/11/19 01/23/19 Rx Allergies Allergy/AdvReac Type Severity Reaction Status Date / Time No Known Drug Allergies Allergy Unknown Verified 09/15/18 15:13 [NO KNOWN DRUG ALLERGIES] Exam Vital signs: Last Vital Signs Temp 98.0 F 01/23/19 09:19 Pulse 107 H 01/23/19 09:19 Resp 18 01/23/19 09:19 BP 134/63 01/23/19 09:19 Pulse Ox 100 01/23/19 09:19 ECOG 1 Narrative: Constitutional: WDWN, NAD, average body habitus, well groomed, pleasant and cooperative, accompanied by his . Very anxious. HEENT: NCAT, EOMI, PERRLA, anicteric sclera; Neck: Supple, symmetrical, and tracheal midline; No palpable thyromegaly and no palpable lymph nodes. 2/6 carotid artery bruits. Respiratory: No use of accessory muscles. Clear to auscultation, and no wheeze Cardiovascular: Regular rate and rhythm, S1 and S2 normal, no murmurs gallops or rubs. No JVD. Abdomen: Soft, nontender, non-distended, bowel sounds normal, no palpable organomegaly, no hernia, no palpable masses. Lower extremities: No pitting edema of lower extremities. Lymphatic: no palpable lymph nodes in the neck, axillae Skin: no rashes, no ulcers, no petechiae Neurological: Awake and alert and oriented x3. CN II-XII grossly intact. No focal motor or sensory deficit. Psychiatric: Good judgment, good insight, normal affect, normal thought process, cooperative, no depression. Results - Labs Laboratory Last Values WBC 4.3 X10^3/uL (4.5-11.0) L 02/13/19 09:20 RBC 2.56 X10^6/uL (4.5-5.9) L 02/13/19 09:20 Hgb 9.2 g/dL (13.5-17.5) L 02/13/19 09:20 Hct 27.6 % (41-53) L 02/13/19 09:20 MCV 107.8 fL (80-100) H 02/13/19 09:20 MCH 36.0 PG (26-34) H 02/13/19 09:20 MCHC 33.4 % (30-36) 02/13/19 09:20 RDW 16.1 % (11.6-14.8) H 02/13/19 09:20 Plt Count 215 X10^3/uL (150-400) 02/13/19 09:20 Neut % (Auto) 63.1 % (50-75) 02/13/19 09:20 Lymph % (Auto) 7.9 % (25-40) L 02/13/19 09:20 [facility] % (Auto) 14.5 % (3-14) H 02/13/19 09:20 Eos % (Auto) 13.1 % (2-4) H 02/13/19 09:20 Baso % (Auto) 1.4 % (0-2) 02/13/19 09:20 Neut # (Auto) 2700 /uL (0357-2381) 02/13/19 09:20 Lymph # (Auto) 300 /uL (5233-0586) L 02/13/19 09:20 [facility] # (Auto) 600 /uL (0-900) 02/13/19 09:20 Eos # (Auto) 600 /uL (0-450) H 02/13/19 09:20 Baso # (Auto) 100 /uL (0-100) 02/13/19 09:20 Total Counted 50 11/07/18 09:51 Seg Neutrophils % 52.0 % (38-70) 11/07/18 09:51 Band Neutrophils % 6.0 % (3-7) 11/07/18 09:51 Lymphocytes % (Manual) 12.0 % (25-45) L 11/07/18 09:51 Monocytes % (Manual) 22.0 % (2-11) H 11/07/18 09:51 Eosinophils % (Manual) 4.0 % (2-4) 11/07/18 09:51 Metamyelocytes % 2.0 % (-0) H 11/07/18 09:51 Myelocytes % 2.0 % (-0) H 11/07/18 09:51 Neutrophils # (Manual) 1102 /uL (1214-8791) L 11/07/18 09:51 Platelet Estimate Decreased on smear 12/26/18 15:00 RBC Morphology See below 01/02/19 09:00 Polychromasia 1+ H 12/26/18 15:00 Hypochromasia 1+ H 12/19/18 08:39 Poikilocytosis 1+ H 12/19/18 08:39 Anisocytosis 1+ H 01/02/19 09:00 Microcytosis 1+ H 12/19/18 08:39 Macrocytosis 1+ H 01/02/19 09:00 Tear Drop Cells 1+ H 11/07/18 09:51 Ovalocytes 1+ H 11/07/18 09:51 [place] Cells 1+ H 11/07/18 09:51 Schistocytes 2+ H 12/19/18 08:39 Sodium 137 mmol/L (137-145) 02/13/19 09:20 Potassium 4.7 mmol/L (3.4-5.1) 02/13/19 09:20 Chloride 103 mmol/L (98-107) 02/13/19 09:20 Carbon Dioxide 26 mmol/L (22-32) 02/13/19 09:20 BUN 21 mg/dL (9-20) H 02/13/19 09:20 Creatinine 0.80 mg/dL (0.66-1.25) 02/13/19 09:20 Estimated GFR > 60.0 mL/min (>60) 02/13/19 09:20 BUN/Creatinine Ratio 26.3 (6-22) H 02/13/19 09:20 Glucose 91 mg/dL (80-110) 02/13/19 09:20 Calcium 8.8 mg/dL (8.4-10.2) 02/13/19 09:20 Total Bilirubin 0.2 mg/dL (0.2-1.3) 02/13/19 09:20 AST 29 IU/L (17-59) 02/13/19 09:20 ALT 19 IU/L (21-72) L 02/13/19 09:20 Alkaline Phosphatase 93 U/L (38-126) 02/13/19 09:20 Total Protein 5.9 g/dL (6.3-8.2) L 02/13/19 09:20 Albumin 3.5 g/dL (3.5-5.0) 02/13/19 09:20 Globulin 2.4 g/dL (1.7-4.1) 02/13/19 09:20 Albumin/Globulin Ratio 1.5 (1.0-2.8) 02/13/19 09:20 TSH 0.81 uIU/mL (0.47-4.68) 01/23/19 09:00 Blood Type O Positive 11/07/18 09:55 Antibody Screen Negative 11/07/18 09:55 Crossmatch See Detail 11/07/18 09:55 Assessment and Plan (1) Recurrent adenocarcinoma of right lung Overview: Right upper lobe and right lower lobe non-small cell lung cancer, both stage IB (T2a, N0, M0) s/p stereotactic ablative radiation therapy in December 2017: right upper lobe tumor was treated to 6000 cGy over 8 fractions of 750 cGy each, while the right lower lobe tumor was treated to 5000 cGy over 5 fractions. Metastatic recurrence on follow up CT (07/08/2018) and PET (08/09/2018): Multiple hypermetabolic nodules in the right hemithorax. Molecular workup: negative for ALK translocation, negative for ROS1 translocation, and negative for EGFR mutation. Low level of PD-L1 expression (<1%). Assessment: Today, I first reviewed the PET scan results with the patient. The PET scan clearly showed that the previous right lung lesions have decreased in size slightly indicating treatment effect. However it reviewed questionable left upper lung possible pneumonia. Clinically patient does not have any symptoms to suggest pneumonia especially he denies any shortness of breath, denies any cough, and denies any fever or chills. I talked with them that with immunotherapy 1 of the significant concerns is pneumonitis. Usually patient would have significant shortness of breath and cough symptoms. But from clinical point of view, I do not think this is a typical pneumonia. It may be related to previous radiation therapy. Obviously we will monitor very closely. Plan 1. OK to proceed to Cycle 4 maintenance Pem/Pembro 2. Continue Folic acid 1 mg daily 3. Continue Vitamin B12 every 3 cycles. 4. RTC 3 weeks, CBC, CMP, TSH and C5# pem/pembro (2) Hypothyroidism Assessment and plan: We will continue current levothyroxine 112 mcg daily without changes. I will monitor the thyroid function monthly. (3) Pancytopenia due to chemotherapy Assessment and Plan: I reviewed today's lab results. The neutropenia has resolves. His WBC today was 4.3. His HGB today was 9.2. His PLT was 215. Will continue monitoring. (4) Leg weakness Patient today is complaining lower extremity weakness associated with distal leg pain bilaterally. Patient admitted that he has history of sciatica. I encouraged the patient to seek medical care with his primary care provider for further evaluation.
[2019-02-13 09:38] LABS: Add Manual Diff / Slide Review NO; Basophils Absolute Auto 100 /uL (0-100); Basophils Percent Auto 1.4 % (0-2); Eosinophils Absolute Auto 600 /uL (0-450); Eosinophils Percent Auto 13.1 % (2-4); Hematocrit 27.6 % (41-53); Hemoglobin 9.2 g/dL (13.5-17.5); Lymphocytes Absolute Auto 300 /uL (1100-4500); Lymphocytes Percent Auto 7.9 % (25-40); Mean Corpuscular HGB Conc 33.4 % (30-36); Mean Corpuscular Volume 107.8 fL (80-100); Monocytes Absolute Auto 600 /uL (0-900); Monocytes Percent Auto 14.5 % (3-14); Neutrophils Absolute Auto 2700 /uL (1500-7000); Neutrophils Percent Auto 63.1 % (50-75); Platelet Count 215 X10^3/uL (150-400); Red Blood Cell Count 2.56 X10^6/uL (4.5-5.9); Red Cell Distribution Width 16.1 % (11.6-14.8); White Blood Cell Count 4.3 X10^3/uL (4.5-11.0)
[2019-02-13 09:41] LABS: Alanine Aminotransferase 19 IU/L (21-72); Albumin 3.5 g/dL (3.5-5.0); Albumin Globulin Ratio 1.5 (1.0-2.8); Alkaline Phosphatase 93 U/L (38-126); Aspartate Aminotransferase 29 IU/L (17-59); BUN Creatinine Ratio 26.3 (6-22); Bilirubin Total 0.2 mg/dL (0.2-1.3); Blood Urea Nitrogen 21 mg/dL (9-20); Calcium 8.8 mg/dL (8.4-10.2); Carbon Dioxide 26 mmol/L (22-32); Chloride 103 mmol/L (98-107); Estimated Glomerular Filt Rate > 60.0 mL/min (>60); Globulin 2.4 g/dL (1.7-4.1); Glucose 91 mg/dL (80-110); HEMOLYSIS < 15 (0-50); Potassium 4.7 mmol/L (3.4-5.1); Sodium 137 mmol/L (137-145); Total Protein 5.9 g/dL (6.3-8.2)
[2019-02-13 10:12] LABS: Thyroid Stimulating Hormone 1.75 uIU/mL (0.47-4.68)
[2019-02-13] MEDS: DEXAMETHASONE 10 MG/ML VIAL 8 MG IV (10:44)
[2019-02-13] MEDS: SODIUM CHLORIDE 0.9% 100 ML 21 ML IV (10:44)
[2019-02-13] MEDS: ONDANSETRON 8 MG in SODIUM CHLORIDE 0.9% 50 ML 216 ML IV (10:59)
[2019-02-13] MEDS: PEMBROLIZUMAB 200 MG in SODIUM CHLORIDE 0.9% (CHEMO) 100 ML 216 ML IV (11:52)
[2019-02-13] MEDS: SODIUM CHLORIDE 0.9% IV (13:14)
[2019-02-13] MEDS: PEMETREXED IV (13:14)
[2019-03-09 09:59] LABS: Add Manual Diff / Slide Review NO; Basophils Absolute Auto 100 /uL (0-100); Basophils Percent Auto 2.1 % (0-2); Eosinophils Absolute Auto 700 /uL (0-450); Eosinophils Percent Auto 13.2 % (2-4); Hematocrit 29.2 % (41-53); Lymphocytes Absolute Auto 300 /uL (1100-4500); Lymphocytes Percent Auto 6.8 % (25-40); Mean Corpuscular HGB Conc 34.1 % (30-36); Mean Corpuscular Volume 105.7 fL (80-100); Monocytes Absolute Auto 700 /uL (0-900); Monocytes Percent Auto 13.3 % (3-14); Neutrophils Absolute Auto 3300 /uL (1500-7000); Neutrophils Percent Auto 64.6 % (50-75); Platelet Count 237 X10^3/uL (150-400); Red Blood Cell Count 2.76 X10^6/uL (4.5-5.9); Red Cell Distribution Width 15.2 % (11.6-14.8); White Blood Cell Count 5.1 X10^3/uL (4.5-11.0)
--- NOTE | 2019-03-09 10:06 | P.PNONC_ITS ---
PN -Subjective Interval history: 83 year old with recurrent right lung NSCLC here for C5# maintenance pem/pembro. He is also taking thyroid pill 112 mcg daily. He came in here today accompanied by his . He is reporting that he has to constantly clear throat. He is worried about that his lung cancer has metastasized outside the lung to his throat. His taste has changed due to chemotherapy. He has been eating [place] yogurt three times a day with meal. His shortness of breath has been stable. Sometimes, he felt pinched on the right side of the chest when he rolled over to that side. No new pain in the bone. He always has excess gas in the stomach because he swallows air. No diarrhea. Oncology History: Segundo Lei was diagnosed with right upper lobe and right lower lobe non-small cell lung cancer, both stage IB (T2a, N0, M0). He completed a course of stereotactic ablative radiation therapy in December 2017: the right upper lobe tumor was treated to 6000 cGy over 8 fractions of 750 cGy each, while the right lower lobe tumor was treated to 5000 cGy over [address]. [address] on 03/31/2018 showed volume reduction in the anterior right upper lobe tumor (1.4 x 2.3 cm down from 2.2 x 2.8 cm) and the right lower lobe tumor (0.6 x 2.2 cm down from 1.3 x 3.5 cm). There was considerable peritumoral atelectasis and consolidation surrounding the spiculated mass in the right upper lobe and right lower lobe most likely consistent with radiation changes. No new suspicious bone or neurologic symptoms worrisome for metastatic disease. CT on 07/08/2018 showed further interval decrease in size of the radiated right upper lobe parenchymal mass and lateral right pleural-based mass lesions, consi stent with post treatment response. But there was some associated increased adjacent parenchymal consolidation presumably sequelae from stereotactic lung radiation. Unfortunately, there has been interval increase in size and number of a number of pleural-based nodules and masses in the right hemithorax. These included 2 anterior mass lesions along the right middle lobe, measuring up to 2.4 x 1.0 cm and 2.5 x 0.9 cm. Along the posterior medial right lower lobe there is a pleural-based lesion measuring 1.4 x 0.4 cm. There was a pleural-based nodule in the right hemidiaphragm measuring 1.4 x 0.7 cm. There were multiple small nodules which were new, seen along the right major and minor fissures as well as medially along the right upper lobe. 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 No pleural effusion or suspiciously enlarged hilar or mediastinal lymphadenopathy. He then underwent PET scan on 08/09/2018. and the PET/CT showed post radiation changes in the right upper lobe. The previously seen lung mass in the right upper lobe was obscured mildly and increased FDG uptake in the area is nonspecific. Multiple hypermetabolic nodules in the right hemithorax was seen and compatible with pleural metastasis. Right lower lobe consolidation was noted. There were foci of more intensely increased FDG uptake within consolidated right lower lobe. Cannot rule out metastatic disease superimposed on concomitant pneumonia. Small right pleural effusion was also noted. Due to the evidence of disease recurrence and progression, patient was referred to [facility] oncology for discussion of systemic therapy. He was started on Carbo/Pem/Pembro on 08/29/2018. After three cycles on 11/10/2018, he underwent CT CAP with contrast. The scan showed mild worsening of pleural metastases with enlargement of multiple pleural nodules and with small unchanged right effusion, stable irregular density in the right upper lobe compatible with postradiation changes and decreased right lower lobe airspace disease. - Patient Self-Reported Symptoms SR ears, nose, mouth, throat issues: Congestion, Difficulty swallowing, Changes in taste SR respiratory issues: Mucous SR Cardiovascular issues: Extreme swelling SR Skin issues: Skin lesions or moles SR Gastrointestinal issues: Diarrhea, Blood in stool SR Genitourinary issues: Frequent urination SR Musculoskeletal issues: Joint pain or swelling, Muscle weakness SR Neuro issues: Difficulty balancing SR Hematologic issues: Bleeding/bruising - Additional ROS All systems PM: reviewed and no additional remarkable complaints except as stated Home Medications and Allergies Home Medications Medication Instructions Recorded Confirmed Type finasteride 5 mg PO QDAY #0 02/11/17 01/23/19 History oxybutynin chloride [Ditropan XL] 5 mg PO QPM #0 02/11/17 01/23/19 History tamsulosin [Flomax] 0.4 mg PO BID #0 09/01/17 01/23/19 History fluticasone propionate [Flonase 50 mcg INTRANASAL PRN PRN #48 ml 09/16/17 01/23/19 Rx Allergy Relief] polysaccharide iron complex 150 mg PO BID #60 cap 12/08/17 01/23/19 Rx [Ferrex 150] docusate sodium [DOK] 100 mg PO QDAYP PRN #0 01/05/18 01/23/19 History azelastine 2 inh INH SEE INSTRUCTIONS #1 inh 01/10/18 01/23/19 Rx folic acid 1 mg PO DAILY #30 tab 08/15/18 01/23/19 Rx ondansetron HCl [Zofran] 4 mg PO Q6-8H PRN #30 tab 08/22/18 01/23/19 Rx lidocaine-prilocaine 1 applictn TOP PRN PRN #30 gram 08/24/18 01/23/19 Rx oxycodone 5 mg PO Q4-6H PRN #30 tab 08/24/18 01/23/19 Rx triamcinolone acetonide 0.1 % 1 applictn TOP BID #453.6 gram 09/15/18 01/23/19 Rx topical cream magnesium hydroxide [Milk of 400 mg PO DAILY PRN 09/19/18 01/23/19 History Magnesia] polyethylene glycol 3350 [Miralax] 17 g PO DAILY PRN 09/19/18 01/23/19 History sennosides [senna] 8.6 mg PO BID PRN 09/19/18 01/23/19 History omeprazole 20 mg PO QDAY #90 cap 09/28/18 01/23/19 Rx lisinopril 5 mg tablet 5 mg PO QDAY #90 tab 11/17/18 01/23/19 Rx atorvastatin 40 mg tablet 40 mg PO QDAY #90 tab 12/26/18 01/23/19 Rx hydrocortisone acetate 25 mg 25 mg [place] QD-BID PRN #30 each 01/03/19 01/23/19 Rx rectal suppository levothyroxine 112 mcg tablet 112 mcg PO DAILY #90 tab 01/11/19 01/23/19 Rx Allergies Allergy/AdvReac Type Severity Reaction Status Date / Time No Known Drug Allergies Allergy Unknown Verified 09/15/18 15:13 [NO KNOWN DRUG ALLERGIES] Exam Vital signs: Last Vital Signs Temp 97.7 F 03/09/19 10:10 Pulse 58 L 03/09/19 10:10 Resp 18 03/09/19 10:10 BP 126/61 03/09/19 10:10 Pulse Ox 100 03/09/19 10:10 ECOG 1 Narrative: Constitutional: WDWN, NAD, average body habitus, well groomed, pleasant and cooperative, accompanied by his . Very anxious. HEENT: NCAT, EOMI, PERRLA, anicteric sclera; Neck: Supple, symmetrical, and tracheal midline; No palpable thyromegaly and no palpable lymph nodes. 2/6 carotid artery bruits. Respiratory: No use of accessory muscles. Clear to auscultation, and no wheeze Cardiovascular: Regular rate and rhythm, S1 and S2 normal, no murmurs gallops or rubs. No JVD. Abdomen: Soft, nontender, non-distended, bowel sounds normal, no palpable organomegaly, no hernia, no palpable masses. Lower extremities: No pitting edema of lower extremities. Lymphatic: no palpable lymph nodes in the neck, axillae Skin: no rashes, no ulcers, no petechiae Neurological: Awake and alert and oriented x3. CN II-XII grossly intact. No focal motor or sensory deficit. Psychiatric: Good judgment, good insight, normal affect, normal thought process, cooperative, no depression. Results - Labs Laboratory Last Values WBC 5.1 X10^3/uL (4.5-11.0) 03/09/19 09:50 RBC 2.76 X10^6/uL (4.5-5.9) L 03/09/19 09:50 Hgb 10.0 g/dL (13.5-17.5) L 03/09/19 09:50 Hct 29.2 % (41-53) L 03/09/19 09:50 MCV 105.7 fL (80-100) H 03/09/19 09:50 MCH 36.0 PG (26-34) H 03/09/19 09:50 MCHC 34.1 % (30-36) 03/09/19 09:50 RDW 15.2 % (11.6-14.8) H 03/09/19 09:50 Plt Count 237 X10^3/uL (150-400) 03/09/19 09:50 Neut % (Auto) 64.6 % (50-75) 03/09/19 09:50 Lymph % (Auto) 6.8 % (25-40) L 03/09/19 09:50 [place] % (Auto) 13.3 % (3-14) 03/09/19 09:50 Eos % (Auto) 13.2 % (2-4) H 03/09/19 09:50 Baso % (Auto) 2.1 % (0-2) H 03/09/19 09:50 Neut # (Auto) 3300 /uL (9570-0920) 03/09/19 09:50 Lymph # (Auto) 300 /uL (3358-2914) L 03/09/19 09:50 [place] # (Auto) 700 /uL (0-900) 03/09/19 09:50 Eos # (Auto) 700 /uL (0-450) H 03/09/19 09:50 Baso # (Auto) 100 /uL (0-100) 03/09/19 09:50 Total Counted 50 11/07/18 09:51 Seg Neutrophils % 52.0 % (38-70) 11/07/18 09:51 Band Neutrophils % 6.0 % (3-7) 11/07/18 09:51 Lymphocytes % (Manual) 12.0 % (25-45) L 11/07/18 09:51 Monocytes % (Manual) 22.0 % (2-11) H 11/07/18 09:51 Eosinophils % (Manual) 4.0 % (2-4) 11/07/18 09:51 Metamyelocytes % 2.0 % (-0) H 11/07/18 09:51 Myelocytes % 2.0 % (-0) H 11/07/18 09:51 Neutrophils # (Manual) 1102 /uL (0561-3791) L 11/07/18 09:51 Platelet Estimate Decreased on smear 12/26/18 15:00 RBC Morphology See below 01/02/19 09:00 Polychromasia 1+ H 12/26/18 15:00 Hypochromasia 1+ H 12/19/18 08:39 Poikilocytosis 1+ H 12/19/18 08:39 Anisocytosis 1+ H 01/02/19 09:00 Microcytosis 1+ H 12/19/18 08:39 Macrocytosis 1+ H 01/02/19 09:00 Tear Drop Cells 1+ H 11/07/18 09:51 Ovalocytes 1+ H 11/07/18 09:51 [place] Cells 1+ H 11/07/18 09:51 Schistocytes 2+ H 12/19/18 08:39 Sodium 137 mmol/L (137-145) 03/09/19 09:50 Potassium 4.7 mmol/L (3.4-5.1) 03/09/19 09:50 Chloride 105 mmol/L (98-107) 03/09/19 09:50 Carbon Dioxide 25 mmol/L (22-32) 03/09/19 09:50 BUN 36 mg/dL (9-20) H 03/09/19 09:50 Creatinine 0.90 mg/dL (0.66-1.25) 03/09/19 09:50 Estimated GFR > 60.0 mL/min (>60) 03/09/19 09:50 BUN/Creatinine Ratio 40.0 (6-22) H 03/09/19 09:50 Glucose 86 mg/dL (80-110) 03/09/19 09:50 Calcium 9.0 mg/dL (8.4-10.2) 03/09/19 09:50 Total Bilirubin 0.3 mg/dL (0.2-1.3) 03/09/19 09:50 AST 26 IU/L (17-59) 03/09/19 09:50 ALT 21 IU/L (21-72) 03/09/19 09:50 Alkaline Phosphatase 95 U/L (38-126) 03/09/19 09:50 Total Protein 6.0 g/dL (6.3-8.2) L 03/09/19 09:50 Albumin 3.6 g/dL (3.5-5.0) 03/09/19 09:50 Globulin 2.4 g/dL (1.7-4.1) 03/09/19 09:50 Albumin/Globulin Ratio 1.5 (1.0-2.8) 03/09/19 09:50 TSH 1.75 uIU/mL (0.47-4.68) 02/13/19 09:20 Blood Type O Positive 11/07/18 09:55 Antibody Screen Negative 11/07/18 09:55 Crossmatch See Detail 11/07/18 09:55 Assessment and Plan (1) Recurrent adenocarcinoma of right lung Overview: Right upper lobe and right lower lobe non-small cell lung cancer, both stage IB (T2a, N0, M0) s/p stereotactic ablative radiation therapy in December 2017: right upper lobe tumor was treated to 6000 cGy over 8 fractions of 750 cGy each, while the right lower lobe tumor was treated to 5000 cGy over 5 fractions. Metastatic recurrence on follow up CT (07/08/2018) and PET (08/09/2018): Multiple hypermetabolic nodules in the right hemithorax. Molecular workup: negative for ALK translocation, negative for ROS1 translocation, and negative for EGFR mutation. Low level of PD-L1 expression (<1%). Assessment: I talked with the patient that clinically, he has been doing well stable and no new signs or symptoms. He denies any diarrhea or worsening shortness of breath. Once again emphasized the potential immune related side effects with treatment with Keytruda. I emphasized the possibility of colitis, hepatitis, cardiomyopathy ascites, pneumonitis, and thyroid problems. Patient voiced understanding. Plan 1. OK to proceed to Cycle 5 maintenance Pem/Pembro 2. Continue Folic acid 1 mg daily 3. Continue Vitamin B12 every 3 cycles. Next dose on 03/30/2019 4. RTC on 03/30/2019 for C6# pem/pembro, CBC, CMP, TSH 5. RTC on 04/20/2019 for C7# pem/pembro, CBC, CMP, TSH, and MD visit. (2) Hypothyroidism Assessment and plan: We will continue current levothyroxine 112 mcg daily without changes. I will monitor the thyroid function monthly. (3) Pancytopenia due to chemotherapy Assessment and Plan: I reviewed today's lab results. The neutropenia has resolves. His WBC today was 5.1. His HGB today was 10.0, His PLT was 237. Will continue monitoring.
[2019-03-09 10:10] VITALS: BP 126/61; PULSE 58; RESP 18; TEMP 36.5; O2SAT 100
[2019-03-09 10:20] LABS: Alanine Aminotransferase 21 IU/L (21-72); Albumin 3.6 g/dL (3.5-5.0); Albumin Globulin Ratio 1.5 (1.0-2.8); Alkaline Phosphatase 95 U/L (38-126); Aspartate Aminotransferase 26 IU/L (17-59); Bilirubin Total 0.3 mg/dL (0.2-1.3); Blood Urea Nitrogen 36 mg/dL (9-20); Carbon Dioxide 25 mmol/L (22-32); Chloride 105 mmol/L (98-107); Estimated Glomerular Filt Rate > 60.0 mL/min (>60); Globulin 2.4 g/dL (1.7-4.1); Glucose 86 mg/dL (80-110); HEMOLYSIS < 15 (0-50); Potassium 4.7 mmol/L (3.4-5.1); Sodium 137 mmol/L (137-145)
[2019-03-09] MEDS: DEXAMETHASONE 10 MG/ML VIAL 8 MG IV (11:07)
[2019-03-09] MEDS: SODIUM CHLORIDE 0.9% 100 ML 21 ML IV (11:07)
[2019-03-09] MEDS: ONDANSETRON 8 MG in SODIUM CHLORIDE 0.9% 50 ML 216 ML IV (11:21)
[2019-03-09 11:33] LABS: Thyroid Stimulating Hormone 2.93 uIU/mL (0.47-4.68)
[2019-03-09] MEDS: PEMBROLIZUMAB 200 MG in SODIUM CHLORIDE 0.9% (CHEMO) 100 ML 216 ML IV (12:03)
[2019-03-09] MEDS: SODIUM CHLORIDE 0.9% IV (13:43)
[2019-03-09] MEDS: PEMETREXED IV (13:43)
[2019-03-30 11:01] LABS: Add Manual Diff / Slide Review NO; Basophils Absolute Auto 0 /uL (0-100); Basophils Percent Auto 0.8 % (0-2); Eosinophils Absolute Auto 400 /uL (0-450); Eosinophils Percent Auto 7.1 % (2-4); Hematocrit 29.8 % (41-53); Hemoglobin 9.9 g/dL (13.5-17.5); Lymphocytes Absolute Auto 300 /uL (1100-4500); Mean Corpuscular HGB Conc 33.2 % (30-36); Mean Corpuscular Hemoglobin 35.1 PG (26-34); Mean Corpuscular Volume 105.7 fL (80-100); Monocytes Absolute Auto 500 /uL (0-900); Monocytes Percent Auto 9.4 % (3-14); Neutrophils Absolute Auto 4000 /uL (1500-7000); Neutrophils Percent Auto 76.7 % (50-75); Platelet Count 272 X10^3/uL (150-400); Red Blood Cell Count 2.82 X10^6/uL (4.5-5.9); Red Cell Distribution Width 15.1 % (11.6-14.8); White Blood Cell Count 5.2 X10^3/uL (4.5-11.0)
[2019-03-30 11:08] LABS: Alanine Aminotransferase 18 IU/L (21-72); Albumin 3.5 g/dL (3.5-5.0); Albumin Globulin Ratio 1.3 (1.0-2.8); Alkaline Phosphatase 102 U/L (38-126); Aspartate Aminotransferase 34 IU/L (17-59); BUN Creatinine Ratio 38.8 (6-22); Bilirubin Total 0.2 mg/dL (0.2-1.3); Blood Urea Nitrogen 31 mg/dL (9-20); Carbon Dioxide 26 mmol/L (22-32); Chloride 107 mmol/L (98-107); Estimated Glomerular Filt Rate > 60.0 mL/min (>60); Globulin 2.7 g/dL (1.7-4.1); Glucose 104 mg/dL (80-110); HEMOLYSIS < 15 (0-50); Potassium 4.6 mmol/L (3.4-5.1); Sodium 140 mmol/L (137-145); Total Protein 6.2 g/dL (6.3-8.2)
[2019-03-30 11:20] VITALS: BP 123/51; PULSE 57; RESP 15; TEMP 36.7; O2SAT 100
[2019-03-30] MEDS: SODIUM CHLORIDE 0.9% 100 ML 21 ML IV (11:28)
[2019-03-30] MEDS: DEXAMETHASONE 10 MG/ML VIAL 8 MG IV (11:50)
[2019-03-30] MEDS: ONDANSETRON 8 MG in SODIUM CHLORIDE 0.9% 50 ML 216 ML IV (12:07)
[2019-03-30] MEDS: CYANOCOBALAMIN 1,000 MCG/ML VIAL 1000 MCG SUBCUT (12:08)
[2019-03-30 12:15] LABS: Thyroid Stimulating Hormone 1.22 uIU/mL (0.47-4.68)
[2019-03-30] MEDS: PEMBROLIZUMAB 200 MG in SODIUM CHLORIDE 0.9% (CHEMO) 100 ML 216 ML IV (12:34)
[2019-03-30] MEDS: PEMETREXED IV (13:37)
[2019-03-30] MEDS: SODIUM CHLORIDE 0.9% IV (13:37)
[2019-04-20 10:07] LABS: Add Manual Diff / Slide Review NO; Basophils Absolute Auto 0 /uL (0-100); Basophils Percent Auto 0.7 % (0-2); Eosinophils Absolute Auto 500 /uL (0-450); Eosinophils Percent Auto 8.9 % (2-4); Hematocrit 29.2 % (41-53); Hemoglobin 9.8 g/dL (13.5-17.5); Lymphocytes Absolute Auto 400 /uL (1100-4500); Lymphocytes Percent Auto 7.6 % (25-40); Mean Corpuscular HGB Conc 33.6 % (30-36); Mean Corpuscular Hemoglobin 34.6 PG (26-34); Mean Corpuscular Volume 102.9 fL (80-100); Monocytes Absolute Auto 700 /uL (0-900); Monocytes Percent Auto 13.8 % (3-14); Neutrophils Absolute Auto 3500 /uL (1500-7000); Platelet Count 295 X10^3/uL (150-400); Red Blood Cell Count 2.84 X10^6/uL (4.5-5.9); Red Cell Distribution Width 15.6 % (11.6-14.8); White Blood Cell Count 5.1 X10^3/uL (4.5-11.0)
[2019-04-20 10:27] LABS: Alanine Aminotransferase 14 IU/L (21-72); Albumin 3.6 g/dL (3.5-5.0); Albumin Globulin Ratio 1.3 (1.0-2.8); Alkaline Phosphatase 102 U/L (38-126); Aspartate Aminotransferase 29 IU/L (17-59); BUN Creatinine Ratio 45.6 (6-22); Bilirubin Total 0.3 mg/dL (0.2-1.3); Blood Urea Nitrogen 41 mg/dL (9-20); Carbon Dioxide 26 mmol/L (22-32); Chloride 102 mmol/L (98-107); Estimated Glomerular Filt Rate > 60.0 mL/min (>60); Globulin 2.7 g/dL (1.7-4.1); Glucose 87 mg/dL (80-110); HEMOLYSIS < 15 (0-50); Potassium 4.7 mmol/L (3.4-5.1); Sodium 136 mmol/L (137-145); Total Protein 6.3 g/dL (6.3-8.2)
[2019-04-20 10:38] VITALS: BP 128/60; PULSE 58; RESP 18; TEMP 36.2; O2SAT 99
[2019-04-20 11:09] LABS: Thyroid Stimulating Hormone 3.66 uIU/mL (0.47-4.68)
--- NOTE | 2019-04-20 11:23 | P.PNONC_ITS ---
PN -Subjective Interval history: 83 year old with recurrent right lung NSCLC here for C6# maintenance pem/pembro. He is also taking thyroid pill 112 mcg daily. Patient has been doing very well. He denies any new signs or symptoms. Patient denies worsening shortness of breath. Patient denies diarrhea or constipation. He denies any swelling. Oncology History: Segundo Lei was diagnosed with right upper lobe and right lower lobe non-small cell lung cancer, both stage IB (T2a, N0, M0). He completed a course of stereotactic ablative radiation therapy in December 2017: the right upper lobe tumor was treated to 6000 cGy over 8 fractions of 750 cGy each, while the right lower lobe tumor was treated to 5000 cGy over [address]. [address] on 03/31/2018 showed volume reduction in the anterior right upper lobe tumor (1.4 x 2.3 cm down from 2.2 x 2.8 cm) and the right lower lobe tumor (0.6 x 2.2 cm down from 1.3 x 3.5 cm). There was considerable peritumoral atelectasis and consolidation surrounding the spiculated mass in the right upper lobe and right lower lobe most likely consistent with radiation changes. No new suspicious bone or neurologic symptoms worrisome for metastatic disease. CT on 07/08/2018 showed further interval decrease in size of the radiated right upper lobe parenchymal mass and lateral right pleural-based mass lesions, consistent with post treatment response. But there was some associated increased adjacent parenchymal consolidation presumably sequelae from stereotactic lung radiation. Unfortunately, there has been interval increase in size and number of a number of pleural-based nodules and masses in the right hemithorax. These included 2 anterior mass lesions along the right middle lobe, measuring up to 2.4 x 1.0 cm and 2.5 x 0.9 cm. Along the posterior medial right lower lobe there is a pleural-based lesion measuring 1.4 x 0.4 cm. There was a pleural-based no dule in the right hemidiaphragm measuring 1.4 x 0.7 cm. There were multiple small nodules which were new, seen along the right major and minor fissures as well as medially along the right upper lobe. 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 No pleural effusion or suspiciously enlarged hilar or mediastinal lymphadenopathy. He then underwent PET scan on 08/09/2018. and the PET/CT showed post radiation changes in the right upper lobe. The previously seen lung mass in the right upper lobe was obscured mildly and increased FDG uptake in the area is nonspeci fic. Multiple hypermetabolic nodules in the right hemithorax was seen and compatible with pleural metastasis. Right lower lobe consolidation was noted. There were foci of more intensely increased FDG uptake within consolidated right lower lobe. Cannot rule out metastatic disease superimposed on concomitant pneumonia. Small right pleural effusion was also noted. Due to the evidence of disease recurrence and progression, patient was referred to medical oncology for discussion of systemic therapy. He was started on Carbo/Pem/Pembro on 08/29/2018. After three cycles on 11/10/2018, he underwent CT CAP with contrast. The scan showed mild worsening of pleural metastases with enlargement of multiple pleural nodules and with small unchanged right effusion, stable irregular density in the right upper lobe compatible with postradiation changes and decreased right lower lobe airspace disease. - Patient Self-Reported Symptoms SR ears, nose, mouth, throat issues: Congestion, Difficulty swallowing, Changes in taste SR respiratory issues: Mucous SR Cardiovascular issues: Extreme swelling SR Skin issues: Skin lesions or moles SR Gastrointestinal issues: Diarrhea, Blood in stool SR Genitourinary issues: Frequent urination SR Musculoskeletal issues: Joint pain or swelling, Muscle weakness SR Neuro issues: Difficulty balancing SR Hematologic issues: Bleeding/bruising - Additional ROS All systems PM: reviewed and no additional remarkable complaints except as stated Home Medications and Allergies Home Medications Medication Instructions Recorded Confirmed Type finasteride 5 mg PO QDAY #0 02/11/17 01/23/19 History oxybutynin chloride [Ditropan XL] 5 mg PO QPM #0 02/11/17 01/23/19 History tamsulosin [Flomax] 0.4 mg PO BID #0 09/01/17 01/23/19 History fluticasone propionate [Flonase 50 mcg INTRANASAL PRN PRN #48 ml 09/16/17 01/23/19 Rx Allergy Relief] polysaccharide iron complex 150 mg PO BID #60 cap 12/08/17 01/23/19 Rx [Ferrex 150] docusate sodium [DOK] 100 mg PO QDAYP PRN #0 01/05/18 01/23/19 History azelastine 2 inh INH SEE INSTRUCTIONS #1 inh 01/10/18 01/23/19 Rx folic acid 1 mg PO DAILY #30 tab 08/15/18 01/23/19 Rx ondansetron HCl [Zofran] 4 mg PO Q6-8H PRN #30 tab 08/22/18 01/23/19 Rx lidocaine-prilocaine 1 applictn TOP PRN PRN #30 gram 08/24/18 01/23/19 Rx oxycodone 5 mg PO Q4-6H PRN #30 tab 08/24/18 01/23/19 Rx triamcinolone acetonide 0.1 % 1 applictn TOP BID #453.6 gram 09/15/18 01/23/19 Rx topical cream magnesium hydroxide [Milk of 400 mg PO DAILY PRN 09/19/18 01/23/19 History Magnesia] polyethylene glycol 3350 [Miralax] 17 g PO DAILY PRN 09/19/18 01/23/19 History sennosides [senna] 8.6 mg PO BID PRN 09/19/18 01/23/19 History omeprazole 20 mg PO QDAY #90 cap 09/28/18 01/23/19 Rx lisinopril 5 mg tablet 5 mg PO QDAY #90 tab 11/17/18 01/23/19 Rx atorvastatin 40 mg tablet 40 mg PO QDAY #90 tab 12/26/18 01/23/19 Rx hydrocortisone acetate 25 mg 25 mg [place] QD-BID PRN #30 each 01/03/19 01/23/19 Rx rectal suppository levothyroxine 112 mcg tablet 112 mcg PO DAILY #90 tab 04/11/19 Rx Allergies Allergy/AdvReac Type Severity Reaction Status Date / Time No Known Drug Allergies Allergy Unknown Verified 09/15/18 15:13 [NO KNOWN DRUG ALLERGIES] Exam Vital signs: Last Vital Signs Temp 97.2 F L 04/20/19 10:38 Pulse 58 L 04/20/19 10:38 Resp 18 04/20/19 10:38 BP 128/60 04/20/19 10:38 Pulse Ox 99 04/20/19 10:38 ECOG 1 Narrative: Constitutional: WDWN, NAD, average body habitus, well groomed, pleasant and cooperative, accompanied by his . Very anxious. HEENT: NCAT, EOMI, PERRLA, anicteric sclera; Neck: Supple, symmetrical, and tracheal midline; No palpable thyromegaly and no palpable lymph nodes. 2/6 carotid artery bruits. Respiratory: No use of accessory muscles. Clear to auscultation, and no wheeze Cardiovascular: Regular rate and rhythm, S1 and S2 normal, no murmurs gallops or rubs. No JVD. Abdomen: Soft, nontender, non-distended, bowel sounds normal, no palpable organomegaly, no hernia, no palpable masses. Lower extremities: No pitting edema of lower extremities. Lymphatic: no palpable lymph nodes in the neck, axillae Skin: no rashes, no ulcers, no petechiae Neurological: Awake and alert and oriented x3. CN II-XII grossly intact. No focal motor or sensory deficit. Psychiatric: Good judgment, good insight, normal affect, normal thought process, cooperative, no depression. Results - Labs Laboratory Last Values WBC 5.1 X10^3/uL (4.5-11.0) 04/20/19 10:00 RBC 2.84 X10^6/uL (4.5-5.9) L 04/20/19 10:00 Hgb 9.8 g/dL (13.5-17.5) L 04/20/19 10:00 Hct 29.2 % (41-53) L 04/20/19 10:00 MCV 102.9 fL (80-100) H 04/20/19 10:00 MCH 34.6 PG (26-34) H 04/20/19 10:00 MCHC 33.6 % (30-36) 04/20/19 10:00 RDW 15.6 % (11.6-14.8) H 04/20/19 10:00 Plt Count 295 X10^3/uL (150-400) 04/20/19 10:00 Neut % (Auto) 69.0 % (50-75) 04/20/19 10:00 Lymph % (Auto) 7.6 % (25-40) L 04/20/19 10:00 [place] % (Auto) 13.8 % (3-14) 04/20/19 10:00 Eos % (Auto) 8.9 % (2-4) H 04/20/19 10:00 Baso % (Auto) 0.7 % (0-2) 04/20/19 10:00 Neut # (Auto) 3500 /uL (5536-5631) 04/20/19 10:00 Lymph # (Auto) 400 /uL (4411-7839) L 04/20/19 10:00 [place] # (Auto) 700 /uL (0-900) 04/20/19 10:00 Eos # (Auto) 500 /uL (0-450) H 04/20/19 10:00 Baso # (Auto) 0 /uL (0-100) 04/20/19 10:00 Total Counted 50 11/07/18 09:51 Seg Neutrophils % 52.0 % (38-70) 11/07/18 09:51 Band Neutrophils % 6.0 % (3-7) 11/07/18 09:51 Lymphocytes % (Manual) 12.0 % (25-45) L 11/07/18 09:51 Monocytes % (Manual) 22.0 % (2-11) H 11/07/18 09:51 Eosinophils % (Manual) 4.0 % (2-4) 11/07/18 09:51 Metamyelocytes % 2.0 % (-0) H 11/07/18 09:51 Myelocytes % 2.0 % (-0) H 11/07/18 09:51 Neutrophils # (Manual) 1102 /uL (4994-0500) L 11/07/18 09:51 Platelet Estimate Decreased on smear 12/26/18 15:00 RBC Morphology See below 01/02/19 09:00 Polychromasia 1+ H 12/26/18 15:00 Hypochromasia 1+ H 12/19/18 08:39 Poikilocytosis 1+ H 12/19/18 08:39 Anisocytosis 1+ H 01/02/19 09:00 Microcytosis 1+ H 12/19/18 08:39 Macrocytosis 1+ H 01/02/19 09:00 Tear Drop Cells 1+ H 11/07/18 09:51 Ovalocytes 1+ H 11/07/18 09:51 [place] Cells 1+ H 11/07/18 09:51 Schistocytes 2+ H 12/19/18 08:39 Sodium 136 mmol/L (137-145) L 04/20/19 10:00 Potassium 4.7 mmol/L (3.4-5.1) 07/11/19 10:00 Chloride 102 mmol/L (98-107) 04/20/19 10:00 Carbon Dioxide 26 mmol/L (22-32) 04/20/19 10:00 BUN 41 mg/dL (9-20) H 04/20/19 10:00 Creatinine 0.90 mg/dL (0.66-1.25) 04/20/19 10:00 Estimated GFR > 60.0 mL/min (>60) 04/20/19 10:00 BUN/Creatinine Ratio 45.6 (6-22) H 04/20/19 10:00 Glucose 87 mg/dL (80-110) 04/20/19 10:00 Calcium 9.0 mg/dL (8.4-10.2) 04/20/19 10:00 Total Bilirubin 0.3 mg/dL (0.2-1.3) 04/20/19 10:00 AST 29 IU/L (17-59) 04/20/19 10:00 ALT 14 IU/L (21-72) L 04/20/19 10:00 Alkaline Phosphatase 102 U/L (38-126) 04/20/19 10:00 Total Protein 6.3 g/dL (6.3-8.2) 04/20/19 10:00 Albumin 3.6 g/dL (3.5-5.0) 04/20/19 10:00 Globulin 2.7 g/dL (1.7-4.1) 04/20/19 10:00 Albumin/Globulin Ratio 1.3 (1.0-2.8) 04/20/19 10:00 TSH 3.66 uIU/mL (0.47-4.68) 04/20/19 10:00 Blood Type O Positive 11/07/18 09:55 Antibody Screen Negative 11/07/18 09:55 Crossmatch See Detail 11/07/18 09:55 Assessment and Plan (1) Recurrent adenocarcinoma of right lung 84 year old male with right upper lobe and right lower lobe non-small cell lung cancer, both stage IB (T2a, N0, M0) s/p stereotactic ablative radiation therapy in December 2017: right upper lobe tumor was treated to 6000 cGy over 8 fractions of 750 cGy each, while the right lower lobe tumor was treated to 5000 cGy over 5 fractions. Metastatic recurrence on follow up CT (07/08/2018) and PET (08/09/2018): Multiple hypermetabolic nodules in the right hemithorax. Molecular workup: negative for ALK translocation, negative for ROS1 translocation, and negative for EGFR mutation. Low level of PD-L1 expression (<1%). Assessment: Today, I talked with him and his again about potential immune related side effects with treatment with Keytruda. I emphasized the possibility of colitis, hepatitis, cardiomyopathy ascites, pneumonitis, and thyroid problems. Patient voiced understanding. Plan 1. OK to proceed to Cycle 6 maintenance Pem/Pembro 2. Continue Folic acid 1 mg daily 3. Continue Vitamin B12 every 3 cycles. 4. RTC on 03/30/2019 for C7# pem/pembro, CBC, CMP, TSH 5. RTC on 04/20/2019 for C8# pem/pembro, CBC, CMP, TSH, and MD visit. (2) Hypothyroidism Assessment and plan: We will continue current levothyroxine 112 mcg daily without changes. I will monitor the thyroid function monthly. (3) Pancytopenia due to chemotherapy Assessment and Plan: I reviewed today's lab results. The neutropenia has resolves. His WBC today was 5.1. His HGB today was 9.8/29.2. His PLT was 295. Will continue monitoring.
[2019-04-20] MEDS: DEXAMETHASONE 10 MG/ML VIAL 8 MG IV (12:35)
[2019-04-20] MEDS: CYANOCOBALAMIN 1,000 MCG/ML VIAL 1000 MCG IM (12:39)
[2019-04-20] MEDS: ONDANSETRON 8 MG in SODIUM CHLORIDE 0.9% 50 ML 216 ML IV (12:40)
[2019-04-20] MEDS: SODIUM CHLORIDE 0.9% 100 ML 21 ML IV (12:43)
[2019-04-20] MEDS: PEMBROLIZUMAB 200 MG in SODIUM CHLORIDE 0.9% (CHEMO) 100 ML 216 ML IV (13:31)
[2019-04-20] MEDS: PEMETREXED IV (14:13)
[2019-04-20] MEDS: SODIUM CHLORIDE 0.9% IV (14:13)
--- NOTE | 2019-05-08 16:12 | PC.NURSE ---
Patient called this am complaining of his nose often being completely stuffed, that this causes him SOB with which he sometimes feels dizzy which is then helped by resting. He has been using saline nasal spray, Flonase and Azelastine with minimal help. He is not having fever or chills, no swelling in extremities, no pain except when lying on right side which then relieves by sitting up to burp. He thinks the gas is caused by having to breath through his mouth so much. He also states that he has been spitting up increasing amount of dark brown phlegm but that this phlegm has been like this for several months. This nurse reported these symptoms to Dr. Singleton who advised that patient should see primary care provider and/or try some OTC allergy medications. Patient was not able to be seen there so came into our clinic at 3 pm. THis nurse found vitals to be stable( BP 127/60, P 86, R 26 post walking, O2 sats 98% and temp 98.3), lungs clear bilaterally when patient breathing through nose. He had mild dizziness on standing which disappeared quickly. He and his report him to be drinking plenty of fluids. This nurse advised him to be seen by primary care provider or walk in clinic or try a small amount of OTC benadryl. After patient departure this nurse called office of Dr. Rogers and made appt for patient and left request for PCP nurse to call patient and to move appt earlier if possible. THis nurse also called patient's and informed her that patient is scheduled to see his PCP Wednesday am and that the nurse will be calling them.
[2019-05-11 09:46] LABS: Add Manual Diff / Slide Review NO; Basophils Absolute Auto 100 /uL (0-100); Basophils Percent Auto 1.3 % (0-2); Eosinophils Absolute Auto 300 /uL (0-450); Eosinophils Percent Auto 6.8 % (2-4); Hematocrit 32.3 % (41-53); Hemoglobin 10.6 g/dL (13.5-17.5); Lymphocytes Absolute Auto 300 /uL (1100-4500); Lymphocytes Percent Auto 7.1 % (25-40); Mean Corpuscular Hemoglobin 33.7 PG (26-34); Mean Corpuscular Volume 102.3 fL (80-100); Monocytes Absolute Auto 400 /uL (0-900); Neutrophils Absolute Auto 3500 /uL (1500-7000); Neutrophils Percent Auto 75.8 % (50-75); Platelet Count 359 X10^3/uL (150-400); Red Blood Cell Count 3.15 X10^6/uL (4.5-5.9); Red Cell Distribution Width 15.3 % (11.6-14.8); White Blood Cell Count 4.7 X10^3/uL (4.5-11.0)
[2019-05-11 09:52] VITALS: BP 118/53; PULSE 79; RESP 16; TEMP 36.3; O2SAT 98
[2019-05-11 09:52] LABS: Alanine Aminotransferase 19 IU/L (21-72); Albumin 3.7 g/dL (3.5-5.0); Albumin Globulin Ratio 1.3 (1.0-2.8); Alkaline Phosphatase 102 U/L (38-126); Aspartate Aminotransferase 30 IU/L (17-59); BUN Creatinine Ratio 47.8 (6-22); Bilirubin Total 0.3 mg/dL (0.2-1.3); Blood Urea Nitrogen 43 mg/dL (9-20); Calcium 9.4 mg/dL (8.4-10.2); Carbon Dioxide 25 mmol/L (22-32); Chloride 104 mmol/L (98-107); Estimated Glomerular Filt Rate > 60.0 mL/min (>60); Globulin 2.9 g/dL (1.7-4.1); Glucose 110 mg/dL (80-110); HEMOLYSIS < 15 (0-50); Potassium 4.4 mmol/L (3.4-5.1); Sodium 138 mmol/L (137-145); Total Protein 6.6 g/dL (6.3-8.2)
[2019-05-11] MEDS: SODIUM CHLORIDE 0.9% 100 ML 21 ML IV (10:02)
[2019-05-11] MEDS: DEXAMETHASONE 10 MG/ML VIAL 8 MG IV (10:02)
[2019-05-11] MEDS: ONDANSETRON 8 MG in SODIUM CHLORIDE 0.9% 50 ML 216 ML IV (10:25)
[2019-05-11] MEDS: PEMBROLIZUMAB 200 MG in SODIUM CHLORIDE 0.9% (CHEMO) 100 ML 216 ML IV (10:53)
[2019-05-11] MEDS: SODIUM CHLORIDE 0.9% IV (11:50)
[2019-05-11] MEDS: PEMETREXED IV (11:50)
[2019-06-01 10:22] VITALS: BP 123/71; PULSE 83; RESP 16; TEMP 36.5; O2SAT 100
[2019-06-01 10:29] LABS: Add Manual Diff / Slide Review NO; Basophils Absolute Auto 100 /uL (0-100); Basophils Percent Auto 1.2 % (0-2); Eosinophils Absolute Auto 400 /uL (0-450); Eosinophils Percent Auto 7.5 % (2-4); Hematocrit 29.7 % (41-53); Lymphocytes Absolute Auto 400 /uL (1100-4500); Lymphocytes Percent Auto 8.5 % (25-40); Mean Corpuscular HGB Conc 33.7 % (30-36); Mean Corpuscular Volume 100.8 fL (80-100); Monocytes Absolute Auto 700 /uL (0-900); Monocytes Percent Auto 13.4 % (3-14); Neutrophils Absolute Auto 3500 /uL (1500-7000); Neutrophils Percent Auto 69.4 % (50-75); Platelet Count 354 X10^3/uL (150-400); Red Blood Cell Count 2.95 X10^6/uL (4.5-5.9); Red Cell Distribution Width 16.1 % (11.6-14.8); White Blood Cell Count 5.1 X10^3/uL (4.5-11.0)
--- NOTE | 2019-06-01 10:33 | P.PNONC_ITS ---
PN -Subjective Interval history: 84 year old with recurrent right lung NSCLC here for C9# maintenance pem/pembro. He is also taking thyroid pill 112 mcg daily. Oncology History: Segundo Lei was diagnosed with right upper lobe and right lower lobe non-small cell lung cancer, both stage IB (T2a, N0, M0). He completed a course of stereotactic ablative radiation therapy in December 2017: the right upper lobe tumor was treated to 6000 cGy over 8 fractions of 750 cGy each, while the right lower lobe tumor was treated to 5000 cGy over [address] on 03/31/2018 showed volume reduction in the anterior right upper lobe tumor (1.4 x 2.3 cm down from 2.2 x 2.8 cm) and the right lower lobe tumor (0.6 x 2.2 cm down from 1.3 x 3.5 cm). There was considerable peritumoral atelectasis and consolidation surrounding the spiculated mass in the right upper lobe and right lower lobe most likely consistent with radiation changes. No new suspicious bone or neurologic symptoms worrisome for metastatic disease. CT on 07/08/2018 showed further interval decrease in size of the radiated right upper lobe parenchymal mass and lateral right pleural-based mass lesions, consistent with post treatment response. But there was some associated increased adjacent parenchymal consolidation presumably sequelae from stereotactic lung radiation. Unfortunately, there has been interval increase in size and number of a number of pleural-based nodules and masses in the right hemithorax. These included 2 anterior mass lesions along the right middle lobe, measuring up to 2.4 x 1.0 cm and 2.5 x 0.9 cm. Along the posterior medial right lower lobe there is a pleural-based lesion measuring 1.4 x 0.4 cm. There was a pleural-based nodule in the right hemidiaphragm measuring 1.4 x 0.7 cm. There were multiple small nodules which were new, seen along the right major and minor fissures as well as medially along the right upper lobe. 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 No pleural effusion or suspiciously enlarged hilar or mediastinal lymphadenopathy. He then underwent PET scan on 08/09/2018. and the PET/CT showed post radiation changes in the right upper lobe. The previously seen lung mass in the right upper lobe was obscured mildly and increased FDG uptake in the area is nonspecific. Multiple hypermetabolic nodules in the right hemithorax was seen and compatible with pleural metastasis. Right lower lobe consolidation was noted. There were foci of more intensely increased FDG uptake within consolidated right lower lobe. Cannot rule out metastatic disease superimposed on concomitant pneumonia. Small right pleural effusion was also noted. Due to the evidence of disease recurrence and progression, patient was referred to medical oncology for discussion of systemic therapy. He was started on Carbo/Pem/Pembro on 08/29/2018. After three cycles on 11/10/2018, he underwent CT CAP with contrast. The scan showed mild worsening of pleural metastases with enlargement of multiple pleural nodules and with small unchanged right effusion, stable irregular density in the right upper lobe com patible with postradiation changes and decreased right lower lobe airspace disease. Interim Events He said that overall he is feeling weaker, and wanting to rest more. No PANDA. No new bone pain. No CP. No abd pain. Wt down by 3 lbs. - Patient Self-Reported Symptoms SR ears, nose, mouth, throat issues: Congestion, Difficulty swallowing, Changes in taste SR respiratory issues: Mucous SR Cardiovascular issues: Extreme swelling SR Skin issues: Skin lesions or moles SR Gastrointestinal issues: Diarrhea, Blood in stool SR Genitourinary issues: Frequent urination SR Musculoskeletal issues: Joint pain or swelling, Muscle weakness SR Neuro issues: Difficulty balancing SR Hematologic issues: Bleeding/bruising - Additional ROS All systems PM: reviewed and no additional remarkable complaints except as stated Home Medications and Allergies Home Medications Medication Instructions Recorded Confirmed Type finasteride 5 mg PO QDAY #0 02/11/17 06/01/19 History oxybutynin chloride [Ditropan XL] 5 mg PO QPM #0 02/11/17 06/01/19 History tamsulosin [Flomax] 0.4 mg PO BID #0 09/01/17 06/01/19 History fluticasone propionate [Flonase 50 mcg INTRANASAL PRN PRN #48 ml 09/16/17 06/01/19 Rx Allergy Relief] polysaccharide iron complex 150 mg PO BID #60 cap 12/08/17 06/01/19 Rx [Ferrex 150] docusate sodium [DOK] 100 mg PO QDAYP PRN #0 01/05/18 06/01/19 History azelastine 2 inh INH SEE INSTRUCTIONS #1 inh 01/10/18 06/01/19 Rx folic acid 1 mg PO DAILY #30 tab 08/15/18 06/01/19 Rx ondansetron HCl [Zofran] 4 mg PO Q6-8H PRN #30 tab 08/22/18 06/01/19 Rx lidocaine-prilocaine 1 applictn TOP PRN PRN #30 gram 08/24/18 06/01/19 Rx triamcinolone acetonide 0.1 % 1 applictn TOP BID #453.6 gram 09/15/18 06/01/19 Rx topical cream magnesium hydroxide [Milk of 400 mg PO DAILY PRN 09/19/18 06/01/19 History Magnesia] polyethylene glycol 3350 [Miralax] 17 g PO DAILY PRN 09/19/18 06/01/19 History sennosides [senna] 8.6 mg PO BID PRN 09/19/18 06/01/19 History omeprazole 20 mg PO QDAY #90 cap 09/28/18 06/01/19 Rx lisinopril 5 mg tablet 5 mg PO QDAY #90 tab 11/17/18 06/01/19 Rx atorvastatin 40 mg tablet 40 mg PO QDAY #90 tab 12/26/18 06/01/19 Rx levothyroxine 112 mcg tablet 112 mcg PO DAILY #90 tab 04/11/19 06/01/19 Rx hydrocortisone acetate 25 mg 25 mg TX QD-BID PRN #30 each 05/18/19 06/01/19 Rx rectal suppository Allergies Allergy/AdvReac Type Severity Reaction Status Date / Time No Known Drug Allergies Allergy Unknown Verified 05/12/19 14:11 [NO KNOWN DRUG ALLERGIES] Exam Vital signs: Vital Signs Temp Pulse Resp BP Pulse Ox 06/01/19 10:22 97.7 F 83 16 123/71 100 Intake and Output 05/31/19 06/01/19 06/01/19 23:59 07:59 15:59 Other: Weight 75.7 kg Patient Weight 06/01/19 23:59 Weight 75.7 kg Narrative: Constitutional: WDWN, NAD, average body habitus, cooperative, accompanied by his . Very anxious. HEENT: NCAT, EOMI, PERRLA, anicteric sclera; Neck: Supple, symmetrical, and tracheal midline; No palpable thyromegaly and no palpable lymph nodes. 2/6 carotid artery bruits. Respiratory: No use of accessory muscles. Clear to auscultation, and no wheeze Cardiovascular: Regular rate and rhythm, S1 and S2 normal, no murmurs gallops or rubs. No JVD. Abdomen: Soft, nontender, non-distended, bowel sounds normal, no palpable organomegaly, no hernia, no palpable masses. Lower extremities: No pitting edema of lower extremities. Lymphatic: no palpable lymph nodes in the neck, axillae Skin: no rashes, no ulcers, no petechiae Neurological: Awake and alert and oriented x3. CN II-XII grossly intact. No focal motor or sensory deficit. Psychiatric: Normal affect, cooperative, no depression. Results - Labs Laboratory Last Values WBC 4.7 X10^3/uL (4.5-11.0) 05/11/19 09:30 RBC 3.15 X10^6/uL (4.5-5.9) L 05/11/19 09:30 Hgb 10.6 g/dL (13.5-17.5) L 05/11/19 09:30 Hct 32.3 % (41-53) L 05/11/19 09:30 MCV 102.3 fL (80-100) H 05/11/19 09:30 MCH 33.7 PG (26-34) 05/11/19 09:30 MCHC 33.0 % (30-36) 05/11/19 09:30 RDW 15.3 % (11.6-14.8) H 05/11/19 09:30 Plt Count 359 X10^3/uL (150-400) 05/11/19 09:30 Neut % (Auto) 75.8 % (50-75) H 05/11/19 09:30 Lymph % (Auto) 7.1 % (25-40) L 05/11/19 09:30 [place] % (Auto) 9.0 % (3-14) 05/11/19 09:30 Eos % (Auto) 6.8 % (2-4) H 05/11/19 09:30 Baso % (Auto) 1.3 % (0-2) 05/11/19 09:30 Neut # (Auto) 3500 /uL (1668-6801) 05/11/19 09:30 Lymph # (Auto) 300 /uL (9990-3889) L 05/11/19 09:30 [place] # (Auto) 400 /uL (0-900) 05/11/19 09:30 Eos # (Auto) 300 /uL (0-450) 05/11/19 09:30 Baso # (Auto) 100 /uL (0-100) 05/11/19 09:30 Total Counted 50 11/07/18 09:51 Seg Neutrophils % 52.0 % (38-70) 11/07/18 09:51 Band Neutrophils % 6.0 % (3-7) 11/07/18 09:51 Lymphocytes % (Manual) 12.0 % (25-45) L 11/07/18 09:51 Monocytes % (Manual) 22.0 % (2-11) H 11/07/18 09:51 Eosinophils % (Manual) 4.0 % (2-4) 11/07/18 09:51 Metamyelocytes % 2.0 % (-0) H 11/07/18 09:51 Myelocytes % 2.0 % (-0) H 11/07/18 09:51 Neutrophils # (Manual) 1102 /uL (9894-3070) L 11/07/18 09:51 Platelet Estimate Decreased on smear 12/26/18 15:00 RBC Morphology See below 01/02/19 09:00 Polychromasia 1+ H 12/26/18 15:00 Hypochromasia 1+ H 12/19/18 08:39 Poikilocytosis 1+ H 12/19/18 08:39 Anisocytosis 1+ H 01/02/19 09:00 Microcytosis 1+ H 12/19/18 08:39 Macrocytosis 1+ H 01/02/19 09:00 Tear Drop Cells 1+ H 11/07/18 09:51 Ovalocytes 1+ H 11/07/18 09:51 [place] Cells 1+ H 11/07/18 09:51 Schistocytes 2+ H 12/19/18 08:39 Sodium 138 mmol/L (137-145) 05/11/19 09:30 Potassium 4.4 mmol/L (3.4-5.1) 05/11/19 09:30 Chloride 104 mmol/L (98-107) 05/11/19 09:30 Carbon Dioxide 25 mmol/L (22-32) 05/11/19 09:30 BUN 43 mg/dL (9-20) H 05/11/19 09:30 Creatinine 0.90 mg/dL (0.66-1.25) 05/11/19 09:30 Estimated GFR > 60.0 mL/min (>60) 05/11/19 09:30 BUN/Creatinine Ratio 47.8 (6-22) H 05/11/19 09:30 Glucose 110 mg/dL (80-110) 05/11/19 09:30 Calcium 9.4 mg/dL (8.4-10.2) 05/11/19 09:30 Total Bilirubin 0.3 mg/dL (0.2-1.3) 05/11/19 09:30 AST 30 IU/L (17-59) 05/11/19 09:30 ALT 19 IU/L (21-72) L 05/11/19 09:30 Alkaline Phosphatase 102 U/L (38-126) 05/11/19 09:30 Total Protein 6.6 g/dL (6.3-8.2) 05/11/19 09:30 Albumin 3.7 g/dL (3.5-5.0) 05/11/19 09:30 Globulin 2.9 g/dL (1.7-4.1) 05/11/19 09:30 Albumin/Globulin Ratio 1.3 (1.0-2.8) 05/11/19 09:30 TSH 4.70 uIU/mL (0.47-4.68) H 05/11/19 09:30 Blood Type O Positive 11/07/18 09:55 Antibody Screen Negative 11/07/18 09:55 Crossmatch See Detail 11/07/18 09:55 Assessment and Plan (1) Recurrent adenocarcinoma of right lung Overview: 84 year old male with right upper lobe and right lower lobe non-small cell lung cancer, both stage IB (T2a, N0, M0) s/p stereotactic ablative radiation therapy in December 2017: right upper lobe tumor was treated to 6000 cGy over 8 fractions of 750 cGy each, while the right lower lobe tumor was treated to 5000 cGy over 5 fractions. Metastatic recurrence on follow up CT (07/08/2018) and PET (08/09/2018): Multiple hypermetabolic nodules in the right hemithorax. Molecular workup: negative for ALK translocation, negative for ROS1 translocation, and negative for EGFR mutation. Low level of PD-L1 expression (<1%). Assessment: Patient clinically has been doing well. I will continue current treatment. Patient's previous scan is almost 6 months ago. I will repeat a scan to re-evaluate. Plan 1. OK to proceed to Cycle 9 maintenance Pem/Pembro 2. Continue Folic acid 1 mg daily 3. Continue Vitamin B12 every [address] CAP w/contrast 5. RTC in 3 weeks for C10# pem/pembro, CBC, CMP, TSH, and MD visit, and review of scan results. (2) Hypothyroidism Assessment and plan: We will continue current levothyroxine 112 mcg daily without changes. I will monitor the thyroid function monthly. (3) Pancytopenia due to chemotherapy Assessment and Plan: I reviewed today's lab results. The neutropenia has resolves. His WBC today was 5.1. His HGB today was 10.0/29.7. His PLT was 354. Will continue monitoring.
[2019-06-01 10:41] LABS: Alanine Aminotransferase 23 IU/L (21-72); Albumin 3.5 g/dL (3.5-5.0); Albumin Globulin Ratio 1.3 (1.0-2.8); Alkaline Phosphatase 110 U/L (38-126); Aspartate Aminotransferase 27 IU/L (17-59); BUN Creatinine Ratio 43.3 (6-22); Bilirubin Total 0.4 mg/dL (0.2-1.3); Blood Urea Nitrogen 39 mg/dL (9-20); Calcium 9.4 mg/dL (8.4-10.2); Carbon Dioxide 25 mmol/L (22-32); Chloride 103 mmol/L (98-107); Estimated Glomerular Filt Rate > 60.0 mL/min (>60); Globulin 2.8 g/dL (1.7-4.1); Glucose 100 mg/dL (80-110); HEMOLYSIS < 15 (0-50); Potassium 4.5 mmol/L (3.4-5.1); Sodium 138 mmol/L (137-145); Total Protein 6.3 g/dL (6.3-8.2)
[2019-06-01] MEDS: ONDANSETRON 8 MG in SODIUM CHLORIDE 0.9% 50 ML 216 ML IV (11:20)
[2019-06-01] MEDS: SODIUM CHLORIDE 0.9% 100 ML 21 ML IV (11:21)
[2019-06-01] MEDS: DEXAMETHASONE 10 MG/ML VIAL 8 MG IV (11:21)
[2019-06-01 11:38] LABS: Thyroid Stimulating Hormone 7.99 uIU/mL (0.47-4.68)
[2019-06-01] MEDS: PEMBROLIZUMAB 200 MG in SODIUM CHLORIDE 0.9% (CHEMO) 100 ML 216 ML IV (12:33)
[2019-06-01] MEDS: SODIUM CHLORIDE 0.9% IV (13:26)
[2019-06-01] MEDS: PEMETREXED IV (13:26)
[2019-06-08 11:17] LABS: Add Manual Diff / Slide Review NO; Basophils Absolute Auto 0 /uL (0-100); Eosinophils Absolute Auto 200 /uL (0-450); Eosinophils Percent Auto 4.1 % (2-4); Hematocrit 28.9 % (41-53); Hemoglobin 9.9 g/dL (13.5-17.5); Lymphocytes Absolute Auto 300 /uL (1100-4500); Lymphocytes Percent Auto 7.5 % (25-40); Mean Corpuscular HGB Conc 34.1 % (30-36); Mean Corpuscular Hemoglobin 34.5 PG (26-34); Monocytes Absolute Auto 100 /uL (0-900); Monocytes Percent Auto 3.4 % (3-14); Neutrophils Absolute Auto 3400 /uL (1500-7000); Platelet Count 249 X10^3/uL (150-400); Red Blood Cell Count 2.86 X10^6/uL (4.5-5.9); Red Cell Distribution Width 15.9 % (11.6-14.8); White Blood Cell Count 4.1 X10^3/uL (4.5-11.0)
[2019-06-08 11:29] LABS: Alanine Aminotransferase 18 IU/L (21-72); Albumin 3.5 g/dL (3.5-5.0); Albumin Globulin Ratio 1.3 (1.0-2.8); Alkaline Phosphatase 106 U/L (38-126); Aspartate Aminotransferase 28 IU/L (17-59); BUN Creatinine Ratio 47.8 (6-22); Bilirubin Total 0.6 mg/dL (0.2-1.3); Blood Urea Nitrogen 43 mg/dL (9-20); Calcium 8.9 mg/dL (8.4-10.2); Carbon Dioxide 23 mmol/L (22-32); Chloride 95 mmol/L (98-107); Estimated Glomerular Filt Rate > 60.0 mL/min (>60); Globulin 2.8 g/dL (1.7-4.1); Glucose 103 mg/dL (80-110); HEMOLYSIS < 15 (0-50); Potassium 4.4 mmol/L (3.4-5.1); Sodium 130 mmol/L (137-145); Total Protein 6.3 g/dL (6.3-8.2)
[2019-06-15 11:05] VITALS: BP 126/73; PULSE 75; RESP 22; O2SAT 98
[2019-06-15 11:11] LABS: Add Manual Diff / Slide Review NO; Basophils Absolute Auto 0 /uL (0-100); Basophils Percent Auto 0.2 % (0-2); Eosinophils Absolute Auto 300 /uL (0-450); Eosinophils Percent Auto 4.6 % (2-4); Hematocrit 26.6 % (41-53); Hemoglobin 9.2 g/dL (13.5-17.5); Lymphocytes Absolute Auto 300 /uL (1100-4500); Lymphocytes Percent Auto 6.2 % (25-40); Mean Corpuscular HGB Conc 34.5 % (30-36); Mean Corpuscular Hemoglobin 34.8 PG (26-34); Mean Corpuscular Volume 100.8 fL (80-100); Monocytes Absolute Auto 900 /uL (0-900); Monocytes Percent Auto 15.5 % (3-14); Neutrophils Absolute Auto 4100 /uL (1500-7000); Neutrophils Percent Auto 73.5 % (50-75); Platelet Count 215 X10^3/uL (150-400); Red Blood Cell Count 2.63 X10^6/uL (4.5-5.9); White Blood Cell Count 5.6 X10^3/uL (4.5-11.0)
[2019-06-15 11:23] LABS: Alanine Aminotransferase 43 IU/L (21-72); Albumin 3.3 g/dL (3.5-5.0); Albumin Globulin Ratio 1.2 (1.0-2.8); Alkaline Phosphatase 112 U/L (38-126); Aspartate Aminotransferase 44 IU/L (17-59); BUN Creatinine Ratio 27.8 (6-22); Bilirubin Total 0.4 mg/dL (0.2-1.3); Blood Urea Nitrogen 25 mg/dL (9-20); Carbon Dioxide 24 mmol/L (22-32); Chloride 99 mmol/L (98-107); Estimated Glomerular Filt Rate > 60.0 mL/min (>60); Globulin 2.8 g/dL (1.7-4.1); Glucose 111 mg/dL (80-110); HEMOLYSIS 18 (0-50); Potassium 4.6 mmol/L (3.4-5.1); Sodium 134 mmol/L (137-145); Total Protein 6.1 g/dL (6.3-8.2)
--- NOTE | 2019-06-22 09:33 | ONC.PN ---
PN -Subjective Interval history: 84 year old with recurrent right lung NSCLC here for C10# maintenance pem/pembro. He is also taking thyroid pill 112 mcg daily. Oncology History: Segundo Lei was diagnosed with right upper lobe and right lower lobe non-small cell lung cancer, both stage IB (T2a, N0, M0). He completed a course of stereotactic ablative radiation therapy in December 2017: the right upper lobe tumor was treated to 6000 cGy over 8 fractions of 750 cGy each, while the right lower lobe tumor was treated to 5000 cGy over [address]. [address] on 03/31/2018 showed volume reduction in the anterior right upper lobe tumor (1.4 x 2.3 cm down from 2.2 x 2.8 cm) and the right lower lobe tumor (0.6 x 2.2 cm down from 1.3 x 3.5 cm). There was considerable peritumoral atelectasis and consolidation surrounding the spiculated mass in the right upper lobe and right lower lobe most likely consistent with radiation changes. No new suspicious bone or neurologic symptoms worrisome for metastatic disease. CT on 07/08/2018 showed further interval decrease in size of the radiated right upper lobe parenchymal mass and lateral right pleural-based mass lesions, consistent with post treatment response. But there was some associated increased adjacent parenchymal consolidation presumably sequelae from stereotactic lung radiation. Unfortunately, there has been interval increase in size and number of a number of pleural-based nodules and masses in the right hemithorax. These included 2 anterior mass lesions along the right middle lobe, measuring up to 2.4 x 1.0 cm and 2.5 x 0.9 cm. Along the posterior medial right lower lobe there is a pleural-based lesion measuring 1.4 x 0.4 cm. There was a pleural-based nodule in the right hemidiaphragm measuring 1.4 x 0.7 cm. There were multiple small nodules which were new, seen along the right major and minor fissures as well as medially along the right upper lobe. 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 No pleural effusion or suspiciously enlarged hilar or mediastinal lymphadenopathy. He then underwent PET scan on 08/09/2018. and the PET/CT showed post radiation changes in the right upper lobe. The previously seen lung mass in the right upper lobe was obscured mildly and increased FDG uptake in the area is nonspecific. Multiple hypermetabolic nodules in the right hemithorax was seen and compatible with pleural metastasis. Right lower lobe consolidation was noted. There were foci of more intensely increased FDG uptake within consolidated right lower lobe. Cannot rule out metastatic disease superimposed on concomitant pneumonia. Small right pleural effusion was also noted. Due to the evidence of disease recurrence and progression, patient was referred to medical oncology for discussion of systemic therapy. He was started on Carbo/Pem/Pembro on 08/29/2018. After three cycles on 11/10/2018, he underwent CT CAP with contrast. The scan showed mild worsening of pleural metastases with enlargement of multiple pleural nodules and with small unchanged right effusion, stable irregular density in the right upper lobe compatible with postradiation changes and decreased right lower lobe airspace disease. Interim Events He reports that he is feeling more tired than before, but no chest pain. Sometime, he coughs and with small phlegm. No headache. He is taking flomax and oxybutin for his prostate problems. He underwent CT scan of the chest abdomen pelvis on 06/10/2018. The scan showed disease progression in the right pleural space as well as development of large volume fluids. - Patient Self-Reported Symptoms SR ears, nose, mouth, throat issues: Congestion, Difficulty swallowing, Changes in taste SR respiratory issues: Mucous SR Cardiovascular issues: Extreme swelling SR Skin issues: Skin lesions or moles SR Gastrointestinal issues: Diarrhea, Blood in stool SR Genitourinary issues: Frequent urination SR Musculoskeletal issues: Joint pain or swelling, Muscle weakness SR Neuro issues: Difficulty balancing SR Hematologic issues: Bleeding/bruising - Additional ROS All systems PM: reviewed and no additional remarkable complaints except as stated Home Medications and Allergies Home Medications Medication Instructions Recorded Confirmed Type finasteride 5 mg PO QDAY #0 02/11/17 06/01/19 History oxybutynin chloride [Ditropan XL] 5 mg PO QPM #0 02/11/17 06/01/19 History tamsulosin [Flomax] 0.4 mg PO BID #0 09/01/17 06/01/19 History fluticasone propionate [Flonase 50 mcg INTRANASAL PRN PRN #48 ml 09/16/17 06/01/19 Rx Allergy Relief] polysaccharide iron complex 150 mg PO BID #60 cap 12/08/17 06/01/19 Rx [Ferrex 150] docusate sodium [DOK] 100 mg PO QDAYP PRN #0 01/05/18 06/01/19 History azelastine 2 inh INH SEE INSTRUCTIONS #1 inh 01/10/18 06/01/19 Rx folic acid 1 mg PO DAILY #30 tab 08/15/18 06/01/19 Rx ondansetron HCl [Zofran] 4 mg PO Q6-8H PRN #30 tab 08/22/18 06/01/19 Rx lidocaine-prilocaine 1 applictn TOP PRN PRN #30 gram 08/24/18 06/01/19 Rx triamcinolone acetonide 0.1 % 1 applictn TOP BID #453.6 gram 09/15/18 06/01/19 Rx topical cream magnesium hydroxide [Milk of 400 mg PO DAILY PRN 09/19/18 06/01/19 History Magnesia] polyethylene glycol 3350 [Miralax] 17 g PO DAILY PRN 09/19/18 06/01/19 History sennosides [senna] 8.6 mg PO BID PRN 09/19/18 06/01/19 History omeprazole 20 mg PO QDAY #90 cap 09/28/18 06/01/19 Rx lisinopril 5 mg tablet 5 mg PO QDAY #90 tab 11/17/18 06/01/19 Rx levothyroxine 112 mcg tablet 112 mcg PO DAILY #90 tab 04/11/19 06/01/19 Rx hydrocortisone acetate 25 mg 25 mg CO QD-BID PRN #30 each 05/18/19 06/01/19 Rx rectal suppository atorvastatin 40 mg tablet See Rx Instructions .ROUTE 06/19/19 Rx .COMPLEX #90 tablet Allergies Allergy/AdvReac Type Severity Reaction Status Date / Time No Known Drug Allergies Allergy Unknown Verified 05/12/19 14:11 [NO KNOWN DRUG ALLERGIES] Exam Vital signs: Last Vital Signs Temp 98.4 F 06/22/19 09:44 Pulse 87 06/22/19 09:44 Resp 20 06/22/19 09:44 BP 136/65 06/22/19 09:44 Pulse Ox 100 06/22/19 09:44 Narrative: Constitutional: WDWN, NAD, average body habitus, cooperative, accompanied by his . Very anxious. HEENT: NCAT, EOMI, PERRLA, anicteric sclera; Neck: Supple, symmetrical, and tracheal midline; No palpable thyromegaly and no palpable lymph nodes. 2/6 carotid artery bruits. Respiratory: No use of accessory muscles. decreased BS right lung, no wheeze Cardiovascular: Regular rate and rhythm, S1 and S2 normal, no murmurs gallops or rubs. No JVD. Abdomen: Soft, nontender, non-distended, bowel sounds normal, no palpable organomegaly, no hernia, no palpable masses. Lower extremities: No pitting edema of lower extremities. Lymphatic: no palpable lymph nodes in the neck, axillae Skin: no rashes, no ulcers, no petechiae Neurological: Awake and alert and oriented x3. CN II-XII grossly intact. No focal motor or sensory deficit. Psychiatric: Normal affect, cooperative, no depression. Results - Labs Laboratory Last Values WBC 5.6 X10^3/uL (4.5-11.0) 06/15/19 10:59 RBC 2.63 X10^6/uL (4.5-5.9) L 06/15/19 10:59 Hgb 9.2 g/dL (13.5-17.5) L 06/15/19 10:59 Hct 26.6 % (41-53) L 06/15/19 10:59 MCV 100.8 fL (80-100) H 06/15/19 10:59 MCH 34.8 PG (26-34) H 06/15/19 10:59 MCHC 34.5 % (30-36) 06/15/19 10:59 RDW 16.0 % (11.6-14.8) H 06/15/19 10:59 Plt Count 215 X10^3/uL (150-400) 06/15/19 10:59 Neut % (Auto) 73.5 % (50-75) 06/15/19 10:59 Lymph % (Auto) 6.2 % (25-40) L 06/15/19 10:59 [place] % (Auto) 15.5 % (3-14) H 06/15/19 10:59 Eos % (Auto) 4.6 % (2-4) H 06/15/19 10:59 Baso % (Auto) 0.2 % (0-2) 06/15/19 10:59 Neut # (Auto) 4100 /uL (9725-7520) 06/15/19 10:59 Lymph # (Auto) 300 /uL (0861-7856) L 06/15/19 10:59 [place] # (Auto) 900 /uL (0-900) 06/15/19 10:59 Eos # (Auto) 300 /uL (0-450) 06/15/19 10:59 Baso # (Auto) 0 /uL (0-100) 06/15/19 10:59 Total Counted 50 11/07/18 09:51 Seg Neutrophils % 52.0 % (38-70) 11/07/18 09:51 Band Neutrophils % 6.0 % (3-7) 11/07/18 09:51 Lymphocytes % (Manual) 12.0 % (25-45) L 11/07/18 09:51 Monocytes % (Manual) 22.0 % (2-11) H 11/07/18 09:51 Eosinophils % (Manual) 4.0 % (2-4) 11/07/18 09:51 Metamyelocytes % 2.0 % (-0) H 11/07/18 09:51 Myelocytes % 2.0 % (-0) H 11/07/18 09:51 Neutrophils # (Manual) 1102 /uL (5964-5343) L 11/07/18 09:51 Platelet Estimate Decreased on smear 12/26/18 15:00 RBC Morphology See below 01/02/19 09:00 Polychromasia 1+ H 12/26/18 15:00 Hypochromasia 1+ H 12/19/18 08:39 Poikilocytosis 1+ H 12/19/18 08:39 Anisocytosis 1+ H 01/02/19 09:00 Microcytosis 1+ H 12/19/18 08:39 Macrocytosis 1+ H 01/02/19 09:00 Tear Drop Cells 1+ H 11/07/18 09:51 Ovalocytes 1+ H 11/07/18 09:51 [place] Cells 1+ H 11/07/18 09:51 Schistocytes 2+ H 12/19/18 08:39 Sodium 134 mmol/L (137-145) L 06/15/19 10:59 Potassium 4.6 mmol/L (3.4-5.1) 06/15/19 10:59 Chloride 99 mmol/L (98-107) 06/15/19 10:59 Carbon Dioxide 24 mmol/L (22-32) 06/15/19 10:59 BUN 25 mg/dL (9-20) H 06/15/19 10:59 Creatinine 0.90 mg/dL (0.66-1.25) 06/15/19 10:59 Estimated GFR > 60.0 mL/min (>60) 06/15/19 10:59 BUN/Creatinine Ratio 27.8 (6-22) H 06/15/19 10:59 Glucose 111 mg/dL (80-110) H 06/15/19 10:59 Calcium 9.0 mg/dL (8.4-10.2) 06/15/19 10:59 Total Bilirubin 0.4 mg/dL (0.2-1.3) 06/15/19 10:59 AST 44 IU/L (17-59) 06/15/19 10:59 ALT 43 IU/L (21-72) 06/15/19 10:59 Alkaline Phosphatase 112 U/L (38-126) 06/15/19 10:59 Total Protein 6.1 g/dL (6.3-8.2) L 06/15/19 10:59 Albumin 3.3 g/dL (3.5-5.0) L 06/15/19 10:59 Globulin 2.8 g/dL (1.7-4.1) 06/15/19 10:59 Albumin/Globulin Ratio 1.2 (1.0-2.8) 06/15/19 10:59 TSH 7.99 uIU/mL (0.47-4.68) H 06/01/19 09:26 Blood Type O Positive 11/07/18 09:55 Antibody Screen Negative 11/07/18 09:55 Crossmatch See Detail 11/07/18 09:55 Assessment and Plan (1) Recurrent adenocarcinoma of right lung Overview: 84 year old male with right upper lobe and right lower lobe non-small cell lung cancer, both stage IB (T2a, N0, M0) s/p stereotactic ablative radiation therapy in December 2017: right upper lobe tumor was treated to 6000 cGy over 8 fractions of 750 cGy each, while the right lower lobe tumor was treated to 5000 cGy over 5 fractions. Metastatic recurrence on follow up CT (07/08/2018) and PET (08/09/2018): Multiple hypermetabolic nodules in the right hemithorax. Molecular workup: negative for ALK translocation, negative for ROS1 translocation, and negative for EGFR mutation. Low level of PD-L1 expression (<1%). Assessment: He was started on Carbo/Pem/Pembro on 08/29/2018 per [facility] 189. Now he is on maintenance Pem/Pemro. Patient clinically has been doing well except a little bit more tired. I reviewed the CT scan results with the patient. Patient has a new development of right large volume pleural effusion. There is evidence of disease progression within the right intrathoracic space. I talked with him that since he has ready had radiation therapy, I do not think he is a candidate for more radiation therapy. I am thinking about switching the therapy from next cycle to paclitaxel and ramicirumab. Patient voiced understanding. During the interim, I will send the patient for thoracentesis. Plan 1. OK to proceed to Cycle 10 maintenance Pem/Pembro 2. Continue Folic acid 1 mg daily 3. Continue Vitamin B12 every 3 cycles. 4. US guided thoracentesis, OmniSeq 5. RTC in 3 weeks for C1# paclitaxel/ramicirumab (2) Hypothyroidism Assessment and plan: We will continue current levothyroxine 112 mcg daily without changes. I will monitor the thyroid function monthly. (3) Pancytopenia due to chemotherapy Assessment and Plan: I reviewed today's lab results. The neutropenia has resolves. His WBC today was 5.6. His HGB today was 8.9. His PLT was 353. Will continue monitoring. (4) Pleural effusion on right Malignant. Will proceed to thoracentesis. Will need to send sample for OmniSeq.
[2019-06-22 09:44] VITALS: BP 136/65; PULSE 87; RESP 20; TEMP 36.9; O2SAT 100
[2019-06-22 09:47] LABS: Add Manual Diff / Slide Review NO; Basophils Absolute Auto 0 /uL (0-100); Basophils Percent Auto 0.8 % (0-2); Eosinophils Absolute Auto 300 /uL (0-450); Eosinophils Percent Auto 5.7 % (2-4); Hematocrit 26.2 % (41-53); Hemoglobin 8.9 g/dL (13.5-17.5); Lymphocytes Absolute Auto 300 /uL (1100-4500); Lymphocytes Percent Auto 5.1 % (25-40); Mean Corpuscular HGB Conc 33.9 % (30-36); Mean Corpuscular Hemoglobin 34.4 PG (26-34); Mean Corpuscular Volume 101.5 fL (80-100); Monocytes Absolute Auto 700 /uL (0-900); Monocytes Percent Auto 12.8 % (3-14); Neutrophils Absolute Auto 4200 /uL (1500-7000); Neutrophils Percent Auto 75.6 % (50-75); Platelet Count 353 X10^3/uL (150-400); Red Blood Cell Count 2.58 X10^6/uL (4.5-5.9); Red Cell Distribution Width 16.7 % (11.6-14.8); White Blood Cell Count 5.6 X10^3/uL (4.5-11.0)
[2019-06-22 09:57] LABS: Alanine Aminotransferase 31 IU/L (21-72); Albumin 3.2 g/dL (3.5-5.0); Albumin Globulin Ratio 1.1 (1.0-2.8); Alkaline Phosphatase 114 U/L (38-126); Aspartate Aminotransferase 33 IU/L (17-59); BUN Creatinine Ratio 24.4 (6-22); Bilirubin Total 0.4 mg/dL (0.2-1.3); Blood Urea Nitrogen 22 mg/dL (9-20); Calcium 8.9 mg/dL (8.4-10.2); Carbon Dioxide 26 mmol/L (22-32); Chloride 99 mmol/L (98-107); Estimated Glomerular Filt Rate > 60.0 mL/min (>60); Globulin 2.8 g/dL (1.7-4.1); Glucose 112 mg/dL (80-110); HEMOLYSIS < 15 (0-50); Potassium 4.4 mmol/L (3.4-5.1); Sodium 134 mmol/L (137-145)
[2019-06-22] MEDS: DEXAMETHASONE 10 MG/ML VIAL 8 MG IV (10:45)
[2019-06-22] MEDS: SODIUM CHLORIDE 0.9% 100 ML 21 ML IV (10:46)
[2019-06-22] MEDS: ONDANSETRON 8 MG in SODIUM CHLORIDE 0.9% 50 ML 216 ML IV (11:15)
[2019-06-22] MEDS: CYANOCOBALAMIN 1,000 MCG/ML VIAL 1000 MCG IM (11:27)
--- NOTE | 2019-06-22 11:31 | ONC.SCHED ---
Per [place] patient's insurance does not require separate prior auth for Taxol [id number], it will be included in the referral once Dr. Rogers renews it. The patient's spouse will call Dr. Rogers before next visit as that auth will 07/11/19. Auth is approved for Thoracentesis US now so I will call to schedule that.
[2019-06-22] MEDS: PEMBROLIZUMAB 200 MG in SODIUM CHLORIDE 0.9% (CHEMO) 100 ML 216 ML IV (11:56)
[2019-06-22] MEDS: SODIUM CHLORIDE 0.9% IV (12:49)
[2019-06-22] MEDS: PEMETREXED IV (12:49)
--- NOTE | 2019-07-04 11:55 | PC.NURSE ---
Patient called requesting to know how he should handle his bandage and activity post thoracentises done 06/27. This nurse informed him to report any fluid coming from puncture site and otherwise to cover with bandaid and that he should not do any heavy physical activity but that his normal daily activities will be fine. patient voiced understanding.
[2019-07-13 09:35] VITALS: BP 130/61; PULSE 100; RESP 20; TEMP 36.9; O2SAT 99
--- NOTE | 2019-07-13 09:36 | P.PNONC_ITS ---
PN -Subjective Interval history: 84 year old with recurrent right lung NSCLC here for C10# maintenance pem/pembro. He is also taking thyroid pill 112 mcg daily. Oncology History: Segundo Lei was diagnosed with right upper lobe and right lower lobe non-small cell lung cancer, both stage IB (T2a, N0, M0). He completed a course of stereotactic ablative radiation therapy in December 2017: the right upper lobe tumor was treated to 6000 cGy over 8 fractions of 750 cGy each, while the right lower lobe tumor was treated to 5000 cGy over [address]. [address] on 03/31/2018 showed volume reduction in the anterior right upper lobe tumor (1.4 x 2.3 cm down from 2.2 x 2.8 cm) and the right lower lobe tumor (0.6 x 2.2 cm down from 1.3 x 3.5 cm). There was considerable peritumoral atelectasis and consolidation surrounding the spiculated mass in the right upper lobe and right lower lobe most likely consistent with radiation changes. No new suspicious bone or neurologic symptoms worrisome for metastatic disease. CT on 07/08/2018 showed further interval decrease in size of the radiated right upper lobe parenchymal mass and lateral right pleural-based mass lesions, consistent with post treatment response. But there was some associated increased adjacent parenchymal consolidation presumably sequelae from stereotactic lung radiation. Unfortunately, there has been interval increase in size and number of a number of pleural-based nodules and masses in the right hemithorax. These included 2 anterior mass lesions along the right middle lobe, measuring up to 2.4 x 1.0 cm and 2.5 x 0.9 cm. Along the posterior medial right lower lobe there is a pleural-based lesion measuring 1.4 x 0.4 cm. There was a pleural-based nodule in the right hemidiaphragm measuring 1.4 x 0.7 cm. There were multiple small nodules which were new, seen along the right major and minor fissures as well as medially along the right upper lobe. 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 No pleural effusion or suspiciously enlarged hilar or mediastinal lymphadenopathy. He then underwent PET scan on 08/09/2018. and the PET/CT showed post radiation changes in the right upper lobe. The previously seen lung mass in the right upper lobe was obscured mildly and increased FDG uptake in the area is nonspecific. Multiple hypermetabolic nodules in the right hemithorax was seen and compatible with pleural metastasis. Right lower lobe consolidation was noted. There were foci of more intensely increased FDG uptake within consolidated right lower lobe. Cannot rule out metastatic disease superimposed on concomitant pneumonia. Small right pleural effusion was also noted. Due to the evidence of disease recurrence and progression, patient was referred to medical oncology for discussion of systemic therapy. He was started on Carbo/Pem/Pembro on 08/29/2018. After three cycles on 11/10/2018, he underwent CT CAP with contrast. The scan showed mild worsening of pleural metastases with enlargement of multiple pleural nodules and with small unchanged right effusion, stable irregular density in the right upper lobe co mpatible with postradiation changes and decreased right lower lobe airspace disease. Interim Events He underwent CT scan of the chest abdomen pelvis on 06/10/2018. The scan showed disease progression in the right pleural space as well as development of large volume fluids. He underwent US guided thoracentess. He is having leg swelling both side, Went to ER. He was given Lasix 20 mg daily. He reports some difficulty breathing. He attributes to allergy. He does report sharp chest pain, which relieves after burping. He denies cough. No bone pain. He has good appetite. He does not report abdominal pain. He does not have headache. He has to stop due to shortness of breath when going upstairs. His reports he has some confusion and hard to reasoning. - Patient Self-Reported Symptoms SR ears, nose, mouth, throat issues: Congestion, Difficulty swallowing, Changes in taste SR respiratory issues: Mucous SR Cardiovascular issues: Extreme swelling SR Skin issues: Skin lesions or moles SR Gastrointestinal issues: Diarrhea, Blood in stool SR Genitourinary issues: Frequent urination SR Musculoskeletal issues: Joint pain or swelling, Muscle weakness SR Neuro issues: Difficulty balancing SR Hematologic issues: Bleeding/bruising - Additional ROS All systems PM: reviewed and no additional remarkable complaints except as stated Home Medications and Allergies Home Medications Medication Instructions Recorded Confirmed Type finasteride 5 mg PO DAILY #0 02/11/17 07/13/19 History tamsulosin [Flomax] 0.4 mg PO BID #0 09/01/17 07/13/19 History polysaccharide iron complex 150 mg PO BID #60 cap 12/08/17 07/13/19 Rx [Ferrex 150] docusate sodium [DOK] 100 mg PO QDAYP PRN #0 01/05/18 07/13/19 History azelastine 2 inh INH SEE INSTRUCTIONS #1 inh 01/10/18 07/13/19 Rx folic acid 1 mg PO DAILY #30 tab 08/15/18 07/13/19 Rx ondansetron HCl [Zofran] 4 mg PO Q6-8H PRN #30 tab 08/22/18 07/13/19 Rx lidocaine-prilocaine 1 applictn TOP PRN PRN #30 gram 08/24/18 07/13/19 Rx triamcinolone acetonide 0.1 % 1 applictn TOP BID #453.6 gram 09/15/18 07/13/19 Rx topical cream magnesium hydroxide [Milk of 400 mg PO DAILY PRN 09/19/18 07/13/19 History Magnesia] polyethylene glycol 3350 [Miralax] 17 g PO DAILY PRN 09/19/18 07/13/19 History sennosides [senna] 8.6 mg PO BID PRN 09/19/18 07/13/19 History levothyroxine 112 mcg tablet 112 mcg PO DAILY #90 tab 04/11/19 07/13/19 Rx hydrocortisone acetate 25 mg 25 mg WI QD-BID PRN #30 each 05/18/19 07/13/19 Rx rectal suppository atorvastatin 40 mg PO DAILY 07/05/19 07/13/19 History lisinopril 5 mg PO DAILY 07/05/19 07/13/19 History omeprazole 20 mg PO DAILY 07/05/19 07/13/19 History oxybutynin chloride 10 mg PO DAILY 07/05/19 07/13/19 History fluticasone propionate [Flonase 50 mcg INTRANASAL PRN PRN 07/07/19 07/13/19 History Allergy Relief] furosemide 20 mg tablet 20 mg PO DAILY 3 Days #30 tab 07/07/19 07/13/19 Rx Allergies Allergy/AdvReac Type Severity Reaction Status Date / Time No Known Drug Allergies Allergy Unknown Verified 07/07/19 15:21 [NO KNOWN DRUG ALLERGIES] Exam Vital signs: Vital Signs Temp Pulse Resp BP Pulse Ox 07/13/19 09:35 98.4 F 100 H 20 130/61 99 Intake and Output 10/11/2907/13/19 07/13/19 23:59 07:59 15:59 Other: Weight 81.1 kg Patient Weight 07/13/19 23:59 Weight 81.1 kg - Constitutional positive no acute distress, positive obese, positive chronically ill appearing, positive disheveled, positive agitated - Routine HEENT Exam Head: Present: normocephalic, atraumatic Eye: Present: EOMI, PERRL, normal accommodation. Absent: conjunctival icterus ENT: Present: mucous membranes moist - Routine Neck Exam Present: supple. Absent: thyromegaly - Routine Chest/Breast/Axilla Exam Axillae: Absent: lymphadenopathy - Routine Respiratory Exam Present: decreased breath sounds (on the right side) - Routine Cardiovascular Exam Present: RRR, S1, S2. Absent: murmur, gallop, rubs - Routine Abdominal Exam Present: soft. Absent: tenderness, distended, organomegaly - Routine Extremities Exam Present: edema (2+ bilateral) - Routine Neurological Exam Present: alert, oriented X3, CN II-XII intact. Absent: sensory deficit, motor deficit - Routine Psychiatric Exam Present: cooperative, agitated, paranoid. Absent: normal thought process, good insight, good judgment Results - Labs Laboratory Last Values WBC 5.9 X10^3/uL (4.5-11.0) 07/13/19 09:20 RBC 2.46 X10^6/uL (4.5-5.9) L 07/13/19 09:20 Hgb 8.5 g/dL (13.5-17.5) L 07/13/19 09:20 Hct 24.7 % (41-53) L 07/13/19 09:20 MCV 100.4 fL (80-100) H 07/13/19 09:20 MCH 34.4 PG (26-34) H 07/13/19 09:20 MCHC 34.3 % (30-36) 07/13/19 09:20 RDW 17.1 % (11.6-14.8) H 07/13/19 09:20 Plt Count 423 X10^3/uL (150-400) H 07/13/19 09:20 Neut % (Auto) 74.4 % (50-75) 07/13/19 09:20 Lymph % (Auto) 4.7 % (25-40) L 07/13/19 09:20 Gilliam % (Auto) 14.8 % (3-14) H 07/13/19 09:20 Eos % (Auto) 5.0 % (2-4) H 07/13/19 09:20 Baso % (Auto) 1.1 % (0-2) 07/13/19 09:20 Neut # (Auto) 4400 /uL (3214-2850) 07/13/19 09:20 Lymph # (Auto) 300 /uL (2321-4208) L 07/13/19 09:20 Gilliam # (Auto) 900 /uL (0-900) 07/13/19 09:20 Eos # (Auto) 300 /uL (0-450) 07/13/19 09:20 Baso # (Auto) 100 /uL (0-100) 07/13/19 09:20 Total Counted 50 11/07/18 09:51 Seg Neutrophils % 52.0 % (38-70) 11/07/18 09:51 Band Neutrophils % 6.0 % (3-7) 11/07/18 09:51 Lymphocytes % (Manual) 12.0 % (25-45) L 11/07/18 09:51 Monocytes % (Manual) 22.0 % (2-11) H 11/07/18 09:51 Eosinophils % (Manual) 4.0 % (2-4) 11/07/18 09:51 Metamyelocytes % 2.0 % (-0) H 11/07/18 09:51 Myelocytes % 2.0 % (-0) H 11/07/18 09:51 Neutrophils # (Manual) 1102 /uL (1045-4438) L 11/07/18 09:51 Platelet Estimate Decreased on smear 12/26/18 15:00 RBC Morphology See below 01/02/19 09:00 Polychromasia 1+ H 12/26/18 15:00 Hypochromasia 1+ H 12/19/18 08:39 Poikilocytosis 1+ H 12/19/18 08:39 Anisocytosis 1+ H 01/02/19 09:00 Microcytosis 1+ H 12/19/18 08:39 Macrocytosis 1+ H 01/02/19 09:00 Tear Drop Cells 1+ H 11/07/18 09:51 Ovalocytes 1+ H 11/07/18 09:51 Tierra Cells 1+ H 11/07/18 09:51 Schistocytes 2+ H 12/19/18 08:39 Sodium 137 mmol/L (137-145) 07/13/19 09:20 Potassium 4.4 mmol/L (3.4-5.1) 07/13/19 09:20 Chloride 102 mmol/L (98-107) 07/13/19 09:20 Carbon Dioxide 27 mmol/L (22-32) 07/13/19 09:20 BUN 18 mg/dL (9-20) 07/13/19 09:20 Creatinine 0.80 mg/dL (0.66-1.25) 07/13/19 09:20 Estimated GFR > 60.0 mL/min (>60) 07/13/19 09:20 BUN/Creatinine Ratio 22.5 (6-22) H 07/13/19 09:20 Glucose 114 mg/dL (80-110) H 07/13/19 09:20 Calcium 9.0 mg/dL (8.4-10.2) 07/13/19 09:20 Total Bilirubin 0.3 mg/dL (0.2-1.3) 07/13/19 09:20 AST 44 IU/L (17-59) 07/13/19 09:20 ALT 38 IU/L (21-72) 07/13/19 09:20 Alkaline Phosphatase 110 U/L (38-126) 07/13/19 09:20 Total Protein 6.0 g/dL (6.3-8.2) L 07/13/19 09:20 Albumin 3.1 g/dL (3.5-5.0) L 07/13/19 09:20 Globulin 2.9 g/dL (1.7-4.1) 07/13/19 09:20 Albumin/Globulin Ratio 1.1 (1.0-2.8) 07/13/19 09:20 TSH 14.50 uIU/mL (0.47-4.68) H 06/22/19 09:28 Blood Type O Positive 11/07/18 09:55 Antibody Screen Negative 11/07/18 09:55 Crossmatch See Detail 11/07/18 09:55 Assessment and Plan (1) Recurrent adenocarcinoma of right lung Overview: 84 year old male with right upper lobe and right lower lobe non-small cell lung cancer, both stage IB (T2a, N0, M0) s/p stereotactic ablative radiation therapy in December 2017: right upper lobe tumor was treated to 6000 cGy over 8 fractions of 750 cGy each, while the right lower lobe tumor was treated to 5000 cGy over 5 fractions. Metastatic recurrence on follow up CT (07/08/2018) and PET (08/09/2018): Multiple hypermetabolic nodules in the right hemithorax. Molecular workup: negative for ALK translocation, negative for ROS1 translocation, and negative for EGFR mutation. Low level of PD-L1 expression (<1%). He was started on Carbo/Pem/Pembro on 08/29/2018 per Keynote 189. Assessment: CT scan of 06/08/2019 showed new development of right large volume pleural effusion, and evidence of disease progression within the right intrathoracic space. He underwent US guided thoracentesis on 06/27/2019. He is here for C1# Pac/Eleazar. Clinically patient clearly has demonstrated some mental status changes. He was not reasoning as good as he used to. His easily gets irritated. He has significant memory loss. I will proceed with a MRI of the brain to further evaluate. Plan 1. Ok to proceed to C1# paclitaxel/ramicirumab 2. MRI brain wo/w contrast 3. RTC in one week, C2# chemo and to review MR brain results. (2) Hypothyroidism Assessment and plan: We will continue current levothyroxine 112 mcg daily without changes. I will monitor the thyroid function monthly. (3) Pancytopenia due to chemotherapy Assessment and Plan: I reviewed today's lab results. The neutropenia has resolves. His WBC today was 5.9. His HGB today was 8.5. His PLT was 423. Will continue monitoring. (4) Pleural effusion on right No worsening shortness of breath. Will monitor for now. Thoracentesis prn
[2019-07-13 09:37] LABS: Add Manual Diff / Slide Review NO; Basophils Absolute Auto 100 /uL (0-100); Basophils Percent Auto 1.1 % (0-2); Eosinophils Absolute Auto 300 /uL (0-450); Hematocrit 24.7 % (41-53); Hemoglobin 8.5 g/dL (13.5-17.5); Lymphocytes Absolute Auto 300 /uL (1100-4500); Lymphocytes Percent Auto 4.7 % (25-40); Mean Corpuscular HGB Conc 34.3 % (30-36); Mean Corpuscular Hemoglobin 34.4 PG (26-34); Mean Corpuscular Volume 100.4 fL (80-100); Monocytes Absolute Auto 900 /uL (0-900); Monocytes Percent Auto 14.8 % (3-14); Neutrophils Absolute Auto 4400 /uL (1500-7000); Neutrophils Percent Auto 74.4 % (50-75); Platelet Count 423 X10^3/uL (150-400); Red Blood Cell Count 2.46 X10^6/uL (4.5-5.9); Red Cell Distribution Width 17.1 % (11.6-14.8); White Blood Cell Count 5.9 X10^3/uL (4.5-11.0)
[2019-07-13 09:52] LABS: Alanine Aminotransferase 38 IU/L (21-72); Albumin 3.1 g/dL (3.5-5.0); Albumin Globulin Ratio 1.1 (1.0-2.8); Alkaline Phosphatase 110 U/L (38-126); Aspartate Aminotransferase 44 IU/L (17-59); BUN Creatinine Ratio 22.5 (6-22); Bilirubin Total 0.3 mg/dL (0.2-1.3); Blood Urea Nitrogen 18 mg/dL (9-20); Carbon Dioxide 27 mmol/L (22-32); Chloride 102 mmol/L (98-107); Estimated Glomerular Filt Rate > 60.0 mL/min (>60); Globulin 2.9 g/dL (1.7-4.1); Glucose 114 mg/dL (80-110); HEMOLYSIS < 15 (0-50); Potassium 4.4 mmol/L (3.4-5.1); Sodium 137 mmol/L (137-145)
[2019-07-13] MEDS: DEXAMETHASONE 10 MG/ML VIAL IV (11:40)
[2019-07-13] MEDS: diphenhydrAMINE 25 MG TABLET PO (11:40)
[2019-07-13] MEDS: ACETAMINOPHEN 325 MG TABLET 650 MG PO (11:40)
[2019-07-13] MEDS: SODIUM CHLORIDE 0.9% 100 ML 21 ML IV (11:41)
[2019-07-13] MEDS: ONDANSETRON 16 MG in SODIUM CHLORIDE 0.9% 50 ML 232 ML IV (12:05)
[2019-07-13] MEDS: FAMOTIDINE 20 MG/50 ML PIGGYBACK 200 MG IV (12:27)
[2019-07-13] MEDS: RAMUCIRUMAB IV (13:36)
[2019-07-13] MEDS: SODIUM CHLORIDE 0.9% IV (13:36)
[2019-07-13] MEDS: PACLITAXEL IV (15:40)
[2019-07-13] MEDS: DEXTROSE 5% IV (15:40)
[2019-07-20 09:26] LABS: Add Manual Diff / Slide Review NO; Basophils Absolute Auto 100 /uL (0-100); Basophils Percent Auto 1.5 % (0-2); Eosinophils Absolute Auto 300 /uL (0-450); Eosinophils Percent Auto 8.5 % (2-4); Hematocrit 25.9 % (41-53); Hemoglobin 8.6 g/dL (13.5-17.5); Lymphocytes Absolute Auto 300 /uL (1100-4500); Lymphocytes Percent Auto 6.9 % (25-40); Mean Corpuscular HGB Conc 33.4 % (30-36); Mean Corpuscular Hemoglobin 33.9 PG (26-34); Mean Corpuscular Volume 101.7 fL (80-100); Monocytes Absolute Auto 400 /uL (0-900); Monocytes Percent Auto 10.5 % (3-14); Neutrophils Absolute Auto 3000 /uL (1500-7000); Neutrophils Percent Auto 72.6 % (50-75); Platelet Count 299 X10^3/uL (150-400); Red Blood Cell Count 2.54 X10^6/uL (4.5-5.9); Red Cell Distribution Width 17.1 % (11.6-14.8); White Blood Cell Count 4.1 X10^3/uL (4.5-11.0)
[2019-07-20 09:33] VITALS: BP 132/63; PULSE 87; RESP 16; TEMP 36.3; O2SAT 98
[2019-07-20 09:44] LABS: Alanine Aminotransferase 24 IU/L (21-72); Alkaline Phosphatase 114 U/L (38-126); Aspartate Aminotransferase 50 IU/L (17-59); BUN Creatinine Ratio 22.2 (6-22); Bilirubin Total 0.3 mg/dL (0.2-1.3); Blood Urea Nitrogen 20 mg/dL (9-20); Carbon Dioxide 29 mmol/L (22-32); Chloride 102 mmol/L (98-107); Estimated Glomerular Filt Rate > 60.0 mL/min (>60); Globulin 3.1 g/dL (1.7-4.1); Glucose 124 mg/dL (80-110); HEMOLYSIS < 15 (0-50); Potassium 4.4 mmol/L (3.4-5.1); Sodium 136 mmol/L (137-145); Total Protein 6.1 g/dL (6.3-8.2)
--- NOTE | 2019-07-20 09:44 | PC.NURSE ---
Bilateral Leg edema: Patient states that his legs have been swollen for the last 2 weeks. Upon inspection 4+ pitting edema noted to bilateral lower legs. Upon questioning of patient's routine and medications patient revealed that patient stopped taking his Lasix PO a couple weeks ago due to dislike of medication. Patient re-educated on the lasix and the need to take it as prescribed. Dayna Cevallos RN triage notified of findings and new lasix iv ordered for this day and patient asked to restart lasix PO tomorrow am. Patient also educated on extremity elevation while sitting for extended periods of time and the use of compression stockings or socks to help with fluid movement. Patient and patient's verbalized understanding and agreed to restart last tomorrow as prescribed. Patient's states that they still have lasix PO at home to take.
[2019-07-20] MEDS: FUROSEMIDE 40 MG/4 ML VIAL IV (09:57)
[2019-07-20] MEDS: ONDANSETRON 16 MG in SODIUM CHLORIDE 0.9% 50 ML 232 ML IV (10:45)
[2019-07-20] MEDS: DEXAMETHASONE 10 MG/ML VIAL IV (10:45)
[2019-07-20] MEDS: diphenhydrAMINE 25 MG TABLET PO (10:45)
[2019-07-20] MEDS: ACETAMINOPHEN 325 MG TABLET 650 MG PO (10:45)
[2019-07-20] MEDS: SODIUM CHLORIDE 0.9% 100 ML 21 ML IV (10:48)
[2019-07-20] MEDS: FAMOTIDINE 20 MG/50 ML PIGGYBACK 200 MG IV (11:13)
[2019-07-20] MEDS: DEXTROSE 5% IV (11:49)
[2019-07-20] MEDS: PACLITAXEL IV (11:49)
[2019-07-27 08:28] VITALS: BP 124/65; PULSE 90; RESP 22; TEMP 36.9; O2SAT 99
--- NOTE | 2019-07-27 08:32 | P.PNONC_ITS ---
PN -Subjective Interval history: ID/CC 84 year old male with recurrent right lung NSCLC here for C1D15 ramicirumab/paclitaxel Oncology History: Segundo Lei was diagnosed with right upper lobe and right lower lobe non-small cell lung cancer, both stage IB (T2a, N0, M0). He completed a course of stereotactic ablative radiation therapy in December 2017: the right upper lobe tumor was treated to 6000 cGy over 8 fractions of 750 cGy each, while the right lower lobe tumor was treated to 5000 cGy over [address]. [address] on 03/31/2018 showed volume reduction in the anterior right upper lobe tumor (1.4 x 2.3 cm down from 2.2 x 2.8 cm) and the right lower lobe tumor (0.6 x 2.2 cm down from 1.3 x 3.5 cm). There was considerable peritumoral atelectasis and consolidation surrounding the spiculated mass in the right upper lobe and right lower lobe most likely consistent with radiation changes. No new suspicious bone or neurologic symptoms worrisome for metastatic disease. CT on 07/08/2018 showed further interval decrease in size of the radiated right upper lobe parenchymal mass and lateral right pleural-based mass lesions, consistent with post treatment response. But there was some associated increased adjacent parenchymal consolidation presumably sequelae from stereotactic lung radiation. Unfortunately, there has been interval increase in size and number of a number of pleural-based nodules and masses in the right hemithorax. These included 2 anterior mass lesions along the right middle lobe, measuring up to 2.4 x 1.0 cm and 2.5 x 0.9 cm. Along the posterior medial right lower lobe there is a pleural-based lesion measuring 1.4 x 0.4 cm. There was a pleural-based nodule in the right hemidiaphragm measuring 1.4 x 0.7 cm. There were multiple small nodules which were new, seen along the right major and minor fissures as well as medially along the right upper lobe. 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 No pleural effusion or suspiciously enlarged hilar or mediastinal lymphadenopathy. He then underwent PET scan on 08/09/2018. and the PET/CT showed post radiation changes in the right upper lobe. The previously seen lung mass in the right upper lobe was obscured mildly and increased FDG uptake in the area is nonspecific. Multiple hypermetabolic nodules in the right hemithorax was seen and compatible with pleural metastasis. Right lower lobe consolidation was noted. There were foci of more intensely increased FDG uptake within consolidated right lower lobe. Cannot rule out metastatic disease superimposed on concomitant pneumonia. Small right pleural effusion was also noted. Due to the evidence of disease recurrence and progression, patient was referred to medical oncology for discussion of systemic therapy. He was started on Carbo/Pem/Pembro on 08/29/2018. After three cycles on 11/10/2018, he underwent CT CAP with contrast. The scan showed mild worsening of pleural metastases with enlargement of multiple pleural nodules and with small unchanged right effusion, stable irregular density in the right upper lobe compatible with postradiation changes and decreased right lower lobe airspace disease. He underwent CT scan of the chest abdomen pelvis on 06/10/2018. The scan showed disease progression in the right pleural space as well as development of large volume fluids. He underwent US guided thoracentess. Interim Events Because of the evidence of disease progression, we stopped the treatment with carboplatin/pemetrexed/pembrolizumab. We initiated second line treatment with paclitaxel and ramicirumab. The first cycle was on 07/13/2019. He is here for cycle 1 day 15 visit and treatment. He underwent MRI of the brain because of mental status changes. The MRI of the brain did not show any intracranial abnormalities or abnormal enhancement. Clinically, patient said that his breathing has been relatively stable. He denies any worsening shortness of breath. He belches a lot. He has been a lot of phlegm but no blood. He denies any fever or chills. His right bilateral lower extremity edema persists and may be slightly worse. - Patient Self-Reported Symptoms SR Constitution: Fatigue/Malaise SR ears, nose, mouth, throat issues: Congestion, Difficulty swallowing, Changes in taste SR respiratory issues: Mucous SR Cardiovascular issues: Extreme swelling, Dizzy/lightheaded SR Skin issues: Skin lesions or moles SR Gastrointestinal issues: Diarrhea, Blood in stool SR Genitourinary issues: Frequent urination SR Musculoskeletal issues: Joint pain or swelling, Muscle weakness SR Neuro issues: Difficulty balancing SR Hematologic issues: Bleeding/bruising - Additional ROS All systems PM: reviewed and no additional remarkable complaints except as stated Home Medications and Allergies Home Medications Medication Instructions Recorded Confirmed Type finasteride 5 mg PO DAILY #0 02/11/17 07/24/19 History tamsulosin [Flomax] 0.4 mg PO BID #0 09/01/17 07/24/19 History polysaccharide iron complex 150 mg PO BID #60 cap 12/08/17 07/24/19 Rx [Ferrex 150] docusate sodium [DOK] 100 mg PO QDAYP PRN #0 01/05/18 07/24/19 History azelastine 2 inh INH SEE INSTRUCTIONS #1 inh 01/10/18 07/24/19 Rx folic acid 1 mg PO DAILY #30 tab 08/15/18 07/24/19 Rx ondansetron HCl [Zofran] 4 mg PO Q6-8H PRN #30 tab 08/22/18 07/24/19 Rx lidocaine-prilocaine 1 applictn TOP PRN PRN #30 gram 08/24/18 07/24/19 Rx triamcinolone acetonide 0.1 % 1 applictn TOP BID #453.6 gram 09/15/18 07/24/19 Rx topical cream magnesium hydroxide [Milk of 400 mg PO DAILY PRN 09/19/18 07/24/19 History Magnesia] polyethylene glycol 3350 [Miralax] 17 g PO DAILY PRN 09/19/18 07/24/19 History sennosides [senna] 8.6 mg PO BID PRN 09/19/18 07/24/19 History levothyroxine 112 mcg tablet 112 mcg PO DAILY #90 tab 04/11/19 07/24/19 Rx hydrocortisone acetate 25 mg 25 mg IL QD-BID PRN #30 each 05/18/19 07/24/19 Rx rectal suppository atorvastatin 40 mg PO DAILY 07/05/19 07/24/19 History lisinopril 5 mg PO DAILY 07/05/19 07/24/19 History omeprazole 20 mg PO DAILY 07/05/19 07/24/19 History oxybutynin chloride 10 mg PO DAILY 07/05/19 07/24/19 History fluticasone propionate [Flonase 50 mcg INTRANASAL PRN PRN 07/07/19 07/24/19 History Allergy Relief] furosemide 20 mg tablet 20 mg PO DAILY 07/24/19 07/27/19 History Allergies Allergy/AdvReac Type Severity Reaction Status Date / Time No Known Drug Allergies Allergy Unknown Verified 07/24/19 15:35 [NO KNOWN DRUG ALLERGIES] Exam Vital signs: Vital Signs Temp Pulse Resp BP Pulse Ox 07/27/19 08:28 98.4 F 90 22 124/65 99 Intake and Output 07/26/19 07/27/19 07/27/19 23:59 07:59 15:59 Other: Weight 81.1 kg Patient Weight 07/27/19 23:59 Weight 81.1 kg - Constitutional positive no acute distress, positive average body habitus, positive cooperative - Routine HEENT Exam Head: Present: normocephalic, atraumatic Eye: Present: EOMI, PERRL, normal accommodation. Absent: conjunctival icterus ENT: Present: mucous membranes moist - Routine Neck Exam Present: supple. Absent: JVD, thyromegaly - Routine Chest/Breast/Axilla Exam Chest wall exam standard: Absent: tenderness - Routine Respiratory Exam Present: decreased breath sounds (right middle and lower field. ). Absent: wheezes - Routine Cardiovascular Exam Present: RRR, S1, S2. Absent: murmur, gallop, rubs - Routine Abdominal Exam Present: soft. Absent: tenderness, distended, organomegaly - Routine Extremities Exam Present: edema (2+ bilaterally) - Routine Neurological Exam Present: alert, oriented X3, CN II-XII intact. Absent: sensory deficit, motor deficit - Routine Psychiatric Exam Present: normal affect Results - Labs Laboratory Last Values WBC 3.0 X10^3/uL (4.5-11.0) L 07/27/19 09:00 RBC 2.45 X10^6/uL (4.5-5.9) L 07/27/19 09:00 Hgb 8.3 g/dL (13.5-17.5) L 07/27/19 09:00 Hct 24.9 % (41-53) L 07/27/19 09:00 MCV 101.9 fL (80-100) H 07/27/19 09:00 MCH 34.0 PG (26-34) 07/27/19 09:00 MCHC 33.4 % (30-36) 07/27/19 09:00 RDW 17.5 % (11.6-14.8) H 07/27/19 09:00 Plt Count 300 X10^3/uL (150-400) 07/27/19 09:00 Neut % (Auto) 77.5 % (50-75) H 07/27/19 09:00 Lymph % (Auto) 9.1 % (25-40) L 07/27/19 09:00 [place] % (Auto) 9.0 % (3-14) 07/27/19 09:00 Eos % (Auto) 3.2 % (2-4) 07/27/19 09:00 Baso % (Auto) 1.2 % (0-2) 07/27/19 09:00 Neut # (Auto) 2300 /uL (9035-2517) 07/27/19 09:00 Lymph # (Auto) 300 /uL (9650-3324) L 07/27/19 09:00 [place] # (Auto) 300 /uL (0-900) 07/27/19 09:00 Eos # (Auto) 100 /uL (0-450) 07/27/19 09:00 Baso # (Auto) 0 /uL (0-100) 07/27/19 09:00 Total Counted 50 11/07/18 09:51 Seg Neutrophils % 52.0 % (38-70) 11/07/18 09:51 Band Neutrophils % 6.0 % (3-7) 11/07/18 09:51 Lymphocytes % (Manual) 12.0 % (25-45) L 11/07/18 09:51 Monocytes % (Manual) 22.0 % (2-11) H 11/07/18 09:51 Eosinophils % (Manual) 4.0 % (2-4) 11/07/18 09:51 Metamyelocytes % 2.0 % (-0) H 11/07/18 09:51 Myelocytes % 2.0 % (-0) H 11/07/18 09:51 Neutrophils # (Manual) 1102 /uL (1043-9161) L 11/07/18 09:51 Platelet Estimate Decreased on smear 12/26/18 15:00 RBC Morphology See below 01/02/19 09:00 Polychromasia 1+ H 12/26/18 15:00 Hypochromasia 1+ H 12/19/18 08:39 Poikilocytosis 1+ H 12/19/18 08:39 Anisocytosis 1+ H 01/02/19 09:00 Microcytosis 1+ H 12/19/18 08:39 Macrocytosis 1+ H 01/02/19 09:00 Tear Drop Cells 1+ H 11/07/18 09:51 Ovalocytes 1+ H 11/07/18 09:51 [place] Cells 1+ H 11/07/18 09:51 Schistocytes 2+ H 12/19/18 08:39 Sodium 137 mmol/L (137-145) 07/27/19 09:00 Potassium 4.3 mmol/L (3.4-5.1) 07/27/19 09:00 Chloride 103 mmol/L (98-107) 07/27/19 09:00 Carbon Dioxide 29 mmol/L (22-32) 07/27/19 09:00 BUN 27 mg/dL (9-20) H 07/27/19 09:00 Creatinine 0.90 mg/dL (0.66-1.25) 07/27/19 09:00 Estimated GFR > 60.0 mL/min (>60) 07/27/19 09:00 BUN/Creatinine Ratio 30.0 (6-22) H 07/27/19 09:00 Glucose 105 mg/dL (80-110) 07/27/19 09:00 Calcium 8.8 mg/dL (8.4-10.2) 07/27/19 09:00 Total Bilirubin 0.3 mg/dL (0.2-1.3) 07/27/19 09:00 AST 40 IU/L (17-59) 07/27/19 09:00 ALT 21 IU/L (21-72) 07/27/19 09:00 Alkaline Phosphatase 107 U/L (38-126) 07/27/19 09:00 Total Protein 5.8 g/dL (6.3-8.2) L 07/27/19 09:00 Albumin 3.1 g/dL (3.5-5.0) L 07/27/19 09:00 Globulin 2.7 g/dL (1.7-4.1) 07/27/19 09:00 Albumin/Globulin Ratio 1.1 (1.0-2.8) 07/27/19 09:00 TSH 14.50 uIU/mL (0.47-4.68) H 06/22/19 09:28 Blood Type O Positive 11/07/18 09:55 Antibody Screen Negative 11/07/18 09:55 Crossmatch See Detail 11/07/18 09:55 Assessment and Plan (1) Recurrent adenocarcinoma of right lung Overview: 84 year old male with right upper lobe and right lower lobe non-small cell lung cancer, both stage IB (T2a, N0, M0) s/p stereotactic ablative radiation therapy in December 2017: right upper lobe tumor was treated to 6000 cGy over 8 fractions of 750 cGy each, while the right lower lobe tumor was treated to 5000 cGy over 5 fractions. Metastatic recurrence on follow up CT (07/08/2018) and PET (08/09/2018): Multiple hypermetabolic nodules in the right hemithorax. Molecular workup: negative for ALK translocation, negative for ROS1 translocation, and negative for EGFR mutation. Low level of PD-L1 expression (<1%). He was started on Carbo/Pem/Pembro on 08/29/2018 per [facility] 189. Assessment: CT scan of 06/08/2019 showed new development of right large volume pleural effusion, and evidence of disease progression within the right intrathoracic space. He underwent US guided thoracentesis on 06/27/2019. He was started on second line chemotherapy including paclitaxel/ramicirumab on 07/13/2019. I reviewed the MRI of the brain results with the patient. No intracranial metastasis was detected. I talked with him that for second-line chemotherapy, usually we continue until either he is not able to tolerate the chemotherapy or the malignancy will not respond to the treatment. Patient and patient's both voiced understanding. Plan: 1. Ok to proceed to C1D15# paclitaxel/ramicirumab 2. RTC in C2D1 for chemotherapy, labs per treatment plan (2) Hypothyroidism We will continue current levothyroxine 112 mcg daily without changes. I will monitor the thyroid function monthly. (3) Pancytopenia due to chemotherapy Blood transfusion threshold: pRBC H/H 824, platelet: <20K w/wo bleeding. No blood transfusion needed today. (4) Pleural effusion on right Clinically, patient has relatively stable respiratory symptoms. No worsening shortness of breath. I will monitor closely and will proceed with right-sided thoracentesis on an as-needed basis. No thoracentesis is indicated today.
[2019-07-27 09:16] LABS: Add Manual Diff / Slide Review NO; Basophils Absolute Auto 0 /uL (0-100); Basophils Percent Auto 1.2 % (0-2); Eosinophils Absolute Auto 100 /uL (0-450); Eosinophils Percent Auto 3.2 % (2-4); Hematocrit 24.9 % (41-53); Hemoglobin 8.3 g/dL (13.5-17.5); Lymphocytes Absolute Auto 300 /uL (1100-4500); Lymphocytes Percent Auto 9.1 % (25-40); Mean Corpuscular HGB Conc 33.4 % (30-36); Mean Corpuscular Volume 101.9 fL (80-100); Monocytes Absolute Auto 300 /uL (0-900); Neutrophils Absolute Auto 2300 /uL (1500-7000); Neutrophils Percent Auto 77.5 % (50-75); Platelet Count 300 X10^3/uL (150-400); Red Blood Cell Count 2.45 X10^6/uL (4.5-5.9); Red Cell Distribution Width 17.5 % (11.6-14.8)
[2019-07-27 09:27] LABS: Alanine Aminotransferase 21 IU/L (21-72); Albumin 3.1 g/dL (3.5-5.0); Albumin Globulin Ratio 1.1 (1.0-2.8); Alkaline Phosphatase 107 U/L (38-126); Aspartate Aminotransferase 40 IU/L (17-59); Bilirubin Total 0.3 mg/dL (0.2-1.3); Blood Urea Nitrogen 27 mg/dL (9-20); Calcium 8.8 mg/dL (8.4-10.2); Carbon Dioxide 29 mmol/L (22-32); Chloride 103 mmol/L (98-107); Estimated Glomerular Filt Rate > 60.0 mL/min (>60); Globulin 2.7 g/dL (1.7-4.1); Glucose 105 mg/dL (80-110); HEMOLYSIS < 15 (0-50); Potassium 4.3 mmol/L (3.4-5.1); Sodium 137 mmol/L (137-145); Total Protein 5.8 g/dL (6.3-8.2)
[2019-07-27] MEDS: DEXAMETHASONE 10 MG/ML VIAL IV (10:12)
[2019-07-27] MEDS: ACETAMINOPHEN 325 MG TABLET 650 MG PO (10:12)
[2019-07-27] MEDS: diphenhydrAMINE 25 MG TABLET PO (10:12)
[2019-07-27] MEDS: ONDANSETRON 16 MG in SODIUM CHLORIDE 0.9% 50 ML 232 ML IV (10:15)
[2019-07-27] MEDS: FAMOTIDINE 20 MG/50 ML PIGGYBACK 200 MG IV (10:43)
[2019-07-27] MEDS: SODIUM CHLORIDE 0.9% 100 ML 21 ML IV (10:43)
[2019-07-27] MEDS: RAMUCIRUMAB IV (11:16)
[2019-07-27] MEDS: SODIUM CHLORIDE 0.9% IV (11:16)
[2019-07-27] MEDS: PACLITAXEL IV (12:38)
[2019-07-27] MEDS: DEXTROSE 5% IV (12:38)
== END ==
PROVIDERS: Nurse Practitioner Gerontology; PCP Internal Medicine; Visit Provider Internal Medicine Hematology & Oncology
DX: Z51.11 Encounter for antineoplastic chemotherapy (principal); C34.11 Malignant neoplasm of upper lobe, right bronchus or lung; C34.31 Malignant neoplasm of lower lobe, right bronchus or lung; J90 Pleural effusion, not elsewhere classified; D61.810 Antineoplastic chemotherapy induced pancytopenia; E03.9 Hypothyroidism, unspecified
CPT/HCPCS: 36430; 36591; 36592; 71260; 74177; 80053; 84443; 85025; 86850; 86900; 86901; 93005; 93010; 96367; 96372; 96375; 96376; 96411; 96413; 96415; 96417; 96523; 99214; 99215; P9016; J1100; J1453; J1940; J2405; J3420; J7060; J9045; J9267; J9271; J9305; J9308; Q9967

== ENCOUNTER 2019-08-09 15:51 | Inpatient (IN) | payer MEDICARE, OTHER, SELFPAY ==
[2019-08-09] VITALS (8 sets, daily range): BP systolic 129–179; BP diastolic 63–89; PULSE 97–110; RESP 18–26; TEMP 36.3–38.1; O2SAT 90–95; BMI 26.2
--- NOTE | 2019-08-09 17:11 | DI.RAD.S_ITS ---
PROCEDURE: XR CHEST 1V INDICATIONS: Short of breath TECHNIQUE: One view of the chest was acquired. COMPARISON: [facility], CT, CT CHEST ABD PEL W CON, 06/09/2019, 10:42. [facility], CR, XR CHEST 1V, 06/27/2019, 15:56. [facility], CR, XR CHEST 2V, 07/07/2019, 10:29. FINDINGS: Surgical changes and devices: There is a stable left-sided chest port. Lungs and pleura: There is a right-sided pleural effusion, which is at least moderate in size. Poorly defined opacity can be seen within the right midlung, which is slightly increased compared to 07/07/18 examination. Interstitial prominence is seen throughout, which appears worse than on the prior examination. Mediastinum: Cardiac and mediastinal silhouettes are partially obscured, yet are regarded to be moderately enlarged Bones and chest wall: No suspicious bony lesions. Age-appropriate bony degenerative changes are seen. Overlying soft tissues appear unremarkable. IMPRESSION: Continued right-sided pleural effusion with continued right midlung density. Interstitial prominence is seen throughout. The interstitial prominence is nonspecific, yet may be related to pulmonary edema. Stable left-sided chest port. Dictated by: Sherif Robles M.D. on 08/09/2019 at 16:33 Approved by: Sherif Robles M.D. on 08/09/2019 at 16:34
[2019-08-09] MEDS: ALBUTEROL 2.5 MG/3 ML NEB (ADULT) INH (17:38)
[2019-08-09 17:52] LABS: Add Manual Diff / Slide Review NO; Basophils Absolute Auto 100 /uL (0-100); Basophils Percent Auto 1.1 % (0-2); Eosinophils Absolute Auto 100 /uL (0-450); Eosinophils Percent Auto 0.8 % (2-4); Hemoglobin 9.9 g/dL (13.5-17.5); Lymphocytes Absolute Auto 400 /uL (1100-4500); Lymphocytes Percent Auto 5.6 % (25-40); Mean Corpuscular HGB Conc 33.1 % (30-36); Mean Corpuscular Hemoglobin 33.6 PG (26-34); Mean Corpuscular Volume 101.3 fL (80-100); Monocytes Absolute Auto 1300 /uL (0-900); Monocytes Percent Auto 19.6 % (3-14); Neutrophils Absolute Auto 4800 /uL (1500-7000); Neutrophils Percent Auto 72.9 % (50-75); Platelet Count 326 X10^3/uL (150-400); Red Blood Cell Count 2.94 X10^6/uL (4.5-5.9); Red Cell Distribution Width 18.1 % (11.6-14.8); White Blood Cell Count 6.6 X10^3/uL (4.5-11.0)
[2019-08-09 17:54] LABS: Hematocrit 29.8 % (41-53)
[2019-08-09 18:06] LABS: Lactate (Lactic Acid) 1.6 mmol/L (0.7-2.1)
[2019-08-09 18:07] LABS: Alanine Aminotransferase 41 IU/L (21-72); Albumin 3.2 g/dL (3.5-5.0); Albumin Globulin Ratio 1.1 (1.0-2.8); Alkaline Phosphatase 121 U/L (38-126); Aspartate Aminotransferase 61 IU/L (17-59); Bilirubin Total 0.6 mg/dL (0.2-1.3); Blood Urea Nitrogen 24 mg/dL (9-20); Calcium 9.2 mg/dL (8.4-10.2); Carbon Dioxide 29 mmol/L (22-32); Chloride 100 mmol/L (98-107); Creatine Kinase 42 U/L (55-170); Estimated Glomerular Filt Rate > 60.0 mL/min (>60); Globulin 2.9 g/dL (1.7-4.1); Glucose 117 mg/dL (80-110); HEMOLYSIS 41 (0-50); Potassium 4.4 mmol/L (3.4-5.1); Sodium 136 mmol/L (137-145); Total Protein 6.1 g/dL (6.3-8.2)
--- NOTE | 2019-08-09 18:11 | ED.EPISTAXIS ---
HPI - Epistaxis <Jessica Tomas, SECRETARY BOOK KEEPER-BC - Last Filed: 08/09/19 21:08> General Chief complaint: Nasal Problem Stated complaint: wants his nose looked at Time Seen by Provider: 08/09/19 16:16 Source: patient Mode of arrival: Ambulatory Limitations: no limitations History of Present Illness HPI Narrative: The patient is an 84-year-old male former smoker who presents with his for chief complaint of nasal congestion. He states that he has had issues with nasal congestion recently, and that he has tried Flonase, Afrin. He states that he has not tried anything else. Denies any fevers, chest pain, difficulty breathing nausea vomiting or diarrhea. His states that he has been picking at his nose, and then his nose bleeds after he picks at it. She states she in asked him to stop, but he does not stop picking his nose. She states that they recently at his PCPs office to discuss end of life issues given the patient's cancer diagnosis as well as his nasal congestion. The patient states that he has not had any trauma to the nose and is not on any blood thinners like Coumadin. They state that the the patient has stage IV lung cancer, has been recently discussing end of life with his PCP, states that the patient ?has been making since sometime and that an MRI was done earlier this month. Related Data Home Medications Medication Instructions Recorded Confirmed finasteride 5 mg PO DAILY #0 02/11/17 08/09/19 tamsulosin [Flomax] 0.4 mg PO BID #0 09/01/17 08/09/19 docusate sodium [DOK] 100 mg PO QDAYP PRN #0 01/05/18 08/09/19 magnesium hydroxide [Milk of 400 mg PO DAILY PRN 09/19/18 08/09/19 Magnesia] polyethylene glycol 3350 [Miralax] 17 g PO DAILY PRN 09/19/18 08/09/19 sennosides [senna] 8.6 mg PO BID PRN 09/19/18 08/09/19 atorvastatin 40 mg PO QPM 07/05/19 08/09/19 lisinopril 5 mg PO QPM 07/05/19 08/09/19 omeprazole 20 mg PO DAILY 07/05/19 08/09/19 oxybutynin chloride 10 mg PO QPM 07/05/19 08/09/19 fluticasone propionate [Flonase 50 mcg INTRANASAL PRN PRN 07/07/19 08/09/19 Allergy Relief] acetaminophen 325 mg PO PRN PRN 08/09/19 08/09/19 aspirin 81 mg PO QPM 08/09/19 08/09/19 famotidine 20 mg PO QPM 08/09/19 08/09/19 folic acid 1 mg PO QPM 08/09/19 08/09/19 guaifenesin [Mucinex] 1,200 mg PO QPM 08/09/19 08/09/19 simethicone 125 mg PO DIRECTED 08/09/19 08/09/19 vit C,L-Fx-yaynv-lutein-zeaxan 1 cap PO BID 08/09/19 08/09/19 [PreserVision AREDS-2] Previous Rx's Medication Instructions Recorded polysaccharide iron complex 150 mg PO BID #60 cap 12/08/17 [Ferrex 150] ondansetron HCl [Zofran] 4 mg PO Q6-8H PRN #30 tab 08/22/18 lidocaine-prilocaine 1 applictn TOP PRN PRN #30 gram 08/24/18 triamcinolone acetonide 0.1 % 1 applictn TOP BID #453.6 gram 09/15/18 topical cream levothyroxine 112 mcg tablet 112 mcg PO DAILY #90 tab 04/11/19 hydrocortisone acetate 25 mg 25 mg [place] QD-BID PRN #30 each 05/18/19 rectal suppository furosemide 20 mg tablet 20 mg PO DAILY #30 tab 08/04/19 quetiapine 50 mg tablet 50 mg PO BEDTIME #30 tab 08/04/19 azelastine 137 mcg (0.1 %) nasal See Rx Instructions .ROUTE 08/08/19 spray aerosol .COMPLEX #30 milliliter Allergies Allergy/AdvReac Type Severity Reaction Status Date / Time No Known Drug Allergies Allergy Unknown Verified 08/04/19 15:00 [NO KNOWN DRUG ALLERGIES] Review of Systems <JUSTINE Alfaro - Last Filed: 08/09/19 21:08> Review of Systems Narrative: GENERAL: Denies chills, fatigue, malaise, fever, sweats. HEENT: See HPI RESPIRATORY: See HPI CARDIOVASCULAR: Denies chest pain, palpitations, orthopnea, edema, GASTROINTESTINAL: Denies nausea, vomiting, abdominal pain, diarrhea, constipation, melena. : Denies dysuria, frequency, incontinence, hematuria, urinary retention. MUSCULOSKELETAL: denies weakness, joint pain, or bony pain SKIN: Denies rash, skin lesions, or other NEUROLOGIC: Denies weakness, headache, numbness, change in speech, confusion, seizures, incoordination. PSYCHIATRIC: No concerning psychosocial issues. 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/24/16) Bilateral carotid bruits (Inactive ~08/2017) Constipation (Chronic) Degenerative joint disease (Chronic 07/17/11) Eustachian tube dysfunction (Resolved) Gastroesophageal reflux disease without esophagitis (Chronic 07/17/11) Hard of hearing (Chronic) HTN (hypertension) (Chronic) Macular degeneration of left eye (Inactive) Mixed hyperlipidemia (Chronic 12/02/12) Recurrent adenocarcinoma of right lung (Chronic) Silent myocardial infarction (Inactive ~2010) Spinal stenosis, site unspecified (Chronic 07/17/11) Syncope (Resolved) Social History household members: spouse Smoking Status: Former smoker alcohol intake: former alcohol intake frequency: 0-2 drinks per day Substance Use Type: does not use Exam <JUSTINE Alfaro - Last Filed: 08/09/19 21:08> Narrative Exam Narrative: GENERAL: This is a well-nourished, well-developed patient, appears uncomfortable and short of breath HEAD: Atraumatic. Normocephalic. No temporal or scalp tenderness. EYES: Pupils equal round and reactive. Extraocular motions intact. No scleral icterus. No injection or drainage. ENT: Nose without bleeding, purulent drainage or septal hematoma. Throat without erythema, tonsillar hypertrophy or exudate. Uvula midline. Airway patent. NECK: Trachea midline. No JVD or lymphadenopathy. Supple, nontender, no meningeal signs. CARDIOVASCULAR: Regular rate and rhythm RESPIRATORY: Coarse lung sounds bilaterally with expiratory wheezes and fine crackles. No cough on exam. 1-2 word dyspnea noted with pursed lip breathing. GASTROINTESTINAL: Abdomen soft, non-tender, nondistended. No hepato-splenomegaly, or palpable masses. No guarding. EXTREMITIES: No clubbing, cyanosis, or edema. No joint tenderness, effusion, or edema noted. BACK: Nontender without deformity or crepitance. No flank tenderness. NEURO: Alert. Oriented location. Oriented to name. Not oriented to situation. SKIN: No rash or erythema on visible skin Initial Vital Signs Initial Vital Signs: Vital Signs Temperature 97.5 F L 08/09/19 15:54 Pulse Rate 110 H 08/09/19 15:54 Respiratory Rate 24 08/09/19 15:54 Blood Pressure 175/89 H 08/09/19 15:54 Pulse Oximetry 90 L 08/09/19 15:54 <Haydee Aj DO - Last Filed: 08/10/19 02:04> Initial Vital Signs Initial Vital Signs: Vital Signs Temperature 97.5 F L 08/09/19 15:54 Pulse Rate 110 H 08/09/19 15:54 Respiratory Rate 24 08/09/19 15:54 Blood Pressure 175/89 H 08/09/19 15:54 Pulse Oximetry 90 L 08/09/19 15:54 Scores <JUSTINE Alfaro - Last Filed: 08/09/19 21:08> PERC Score Age greater than or equal to 50 years: Yes Heart rate greater than or equal to 100 bpm: Yes Room Air O2 Sat less than 95%: Yes Unilateral leg swelling: No Recent trauma or surgery: No Hemoptysis: No Prior PE or DVT: No Hormone Use: No Total PERC Score: 3 Course <JUSTINE Alfaro - Last Filed: 08/09/19 21:08> Course Course Narrative: The patient presented for an initial complaint of nasal congestion. However on exam, the patient appears short of breath. I obtained in SpO2 room air, which came back at 78% with good waveform. He responded quickly to 2 L nasal cannula, but again desatted off of oxygen. Thus I discussed with the patient his low oxygen levels and he states he does not have oxygen home. He was noted to be hypoxic and tachycardic, so he was evaluated for respiratory causes of illness. Orders Ordered: ED Orders 08/09/19 17:11 XR chest 1V Stat 08/09/19 17:12 EKG-12 Lead Stat 08/09/19 17:16 RT Consult Eval and Treat NOW 08/09/19 17:25 B Type Natriuretic Peptide Stat Complete Blood Count AUTO DIFF Stat Comprehensive Metabolic Panel Stat Lactate (Lactic Acid) Stat Procalcitonin Stat Troponin & CK Cardiac Panel Stat 08/09/19 18:40 Blood Culture Stat 08/09/19 18:56 CT angio chest PE protocol Stat Acetaminophen (Tylenol) 325 mg PO PRN PRN PRN Reason: pain or fever Hydrocodone Bitart/Acetaminophen ([place] 5/325) 1 tab PO Q4HR PRN PRN Reason: Pain, Moderate (4-6) Last Admin: 08/09/19 22:31 Dose: 1 tab Documented by: LUNA Al Hydrox/Mg Hydrox/Simethicone (Maalox Plus) 30 ml PO Q6HR PRN PRN Reason: Dyspepsia Albuterol/Ipratropium (Duoneb) 3 ml INH RTQ6HR PRN PRN Reason: Wheezing Last Admin: 08/10/19 00:34 Dose: 3 ml Documented by: BFOX Aspirin (Aspirin) 81 mg PO QPM JUAN Atorvastatin Calcium (Lipitor) 40 mg PO QPM JUAN Bisacodyl (Dulcolax) 10 mg [place] DAILY PRN PRN Reason: Constipation Calcium Carbonate (Tums) 1,000 mg PO Q4HR PRN PRN Reason: Dyspepsia Docusate Sodium (Colace) 100 mg PO DAILY PRN PRN Reason: Constipation Finasteride (Proscar) 5 mg PO DAILY JUAN Fluticasone Propionate (Flonase) 1 spray NASAL PRN PRN PRN Reason: Allergy Symptoms Folic Acid (Folic Acid) 1 mg PO QPM JUAN Furosemide (Lasix) 20 mg PO DAILY JUAN Guaifenesin (Mucinex) 1,200 mg PO QPM JUAN Hydrocortisone (Anucort-Hc) 25 mg [place] BID PRN PRN Reason: Constipation Levothyroxine Sodium (Synthroid) 112 mcg PO DAILY JUAN Lidocaine/Prilocaine (Lidocaine-Prilocaine Cream) 1 gm TOP PRN PRN PRN Reason: pain Lisinopril (Zestril) 5 mg PO QPM [facility] Lutein (Ocuvite/Lutein) 1 cap PO BID [facility] Magnesium Hydroxide (Milk Of Magnesia) 30 ml PO DAILY PRN PRN Reason: Constipation Magnesium Hydroxide (Milk Of Magnesia) 30 ml PO DAILY PRN PRN Reason: Constipation Morphine Sulfate (Morphine) 2 mg IV Q4HR PRN PRN Reason: Pain, Moderate (4-6) Naloxone HCl (Narcan) 0.2 mg IV Q2MIN PRN PRN Reason: Opiate Reversal Ondansetron HCl (Zofran Odt) 4 mg PO Q6H PRN PRN Reason: Nausea Oxybutynin Chloride (Ditropan Xl) 10 mg PO QPM [facility] Pantoprazole Sodium (Protonix) 20 mg PO 0600 [facility] Polyethylene Glycol (Miralax) 17 gm PO DAILY PRN PRN Reason: Constipation Quetiapine Fumarate (Seroquel) 50 mg PO BEDTIME [facility] Last Admin: 08/09/19 22:05 Dose: 50 mg Documented by: CLAUDIA Ranitidine HCl (Zantac) 150 mg PO 1700 [facility] Sennosides (Senna) 17.2 mg PO BEDTIME [facility] Last Admin: 08/09/19 22:04 Dose: 17.2 mg Documented by: CLAUDIA Sennosides (Senna) 8.6 mg PO BID PRN PRN Reason: Constipation Tamsulosin HCl (Flomax) 0.4 mg PO BID [facility] Last Admin: 08/09/19 22:03 Dose: 0.4 mg Documented by: CLAUDIA Triamcinolone Acetonide (Kenalog 0.1% Cream) 1 applic TOP BID [facility] Last Admin: 08/09/19 22:06 Dose: Not Given Documented by: CLAUDIA Discontinued Medications Albuterol (Ventolin) 2.5 mg INH NOW ONE Stop: 08/09/19 17:33 Last Admin: 08/09/19 17:38 Dose: 2.5 mg Documented by: ERIC Levofloxacin (Levaquin) 750 mg in 150 mls @ 100 mls/hr IV NOW ONE Stop: 08/09/19 21:24 Last Admin: 08/09/19 20:09 Dose: 100 mls/hr Documented by: ROSALVA Vital Signs Vital signs: Vital Signs - 8 hr 08/09/19 18:17 Pulse Rate 103 H Respiratory Rate 20 Blood Pressure [Right Arm] 179/89 H Pulse Oximetry 95 <Haydee Aj DO - Last Filed: 08/10/19 02:04> Orders Ordered: ED Orders 08/09/19 17:11 XR chest 1V Stat 08/09/19 17:12 EKG-12 Lead Stat 08/09/19 17:16 RT Consult Eval and Treat NOW 08/09/19 17:25 B Type Natriuretic Peptide Stat Complete Blood Count AUTO DIFF Stat Comprehensive Metabolic Panel Stat Lactate (Lactic Acid) Stat Procalcitonin Stat Troponin & CK Cardiac Panel Stat 08/09/19 18:40 Blood Culture Stat 08/09/19 18:56 CT angio chest PE protocol Stat Acetaminophen (Tylenol) 325 mg PO PRN PRN PRN Reason: pain or fever Hydrocodone Bitart/Acetaminophen ([place] 5/325) 1 tab PO Q4HR PRN PRN Reason: Pain, Moderate (4-6) Last Admin: 08/09/19 22:31 Dose: 1 tab Documented by: LUNA Al Hydrox/Mg Hydrox/Simethicone (Maalox Plus) 30 ml PO Q6HR PRN PRN Reason: Dyspepsia Albuterol/Ipratropium (Duoneb) 3 ml INH RTQ6HR PRN PRN Reason: Wheezing Last Admin: 08/10/19 00:34 Dose: 3 ml Documented by: BFOX Aspirin (Aspirin) 81 mg PO QPM JUAN Atorvastatin Calcium (Lipitor) 40 mg PO QPM JUAN Bisacodyl (Dulcolax) 10 mg [place] DAILY PRN PRN Reason: Constipation Calcium Carbonate (Tums) 1,000 mg PO Q4HR PRN PRN Reason: Dyspepsia Docusate Sodium (Colace) 100 mg PO DAILY PRN PRN Reason: Constipation Finasteride (Proscar) 5 mg PO DAILY JUAN Fluticasone Propionate (Flonase) 1 spray NASAL PRN PRN PRN Reason: Allergy Symptoms Folic Acid (Folic Acid) 1 mg PO QPM JUAN Furosemide (Lasix) 20 mg PO DAILY JUAN Guaifenesin (Mucinex) 1,200 mg PO QPM JUAN Hydrocortisone (Anucort-Hc) 25 mg [place] BID PRN PRN Reason: Constipation Levothyroxine Sodium (Synthroid) 112 mcg PO DAILY [facility] Lidocaine/Prilocaine (Lidocaine-Prilocaine Cream) 1 gm TOP PRN PRN PRN Reason: pain Lisinopril (Zestril) 5 mg PO QPM [facility] Lutein (Ocuvite/Lutein) 1 cap PO BID [facility] Magnesium Hydroxide (Milk Of Magnesia) 30 ml PO DAILY PRN PRN Reason: Constipation Magnesium Hydroxide (Milk Of Magnesia) 30 ml PO DAILY PRN PRN Reason: Constipation Morphine Sulfate (Morphine) 2 mg IV Q4HR PRN PRN Reason: Pain, Moderate (4-6) Naloxone HCl (Narcan) 0.2 mg IV Q2MIN PRN PRN Reason: Opiate Reversal Ondansetron HCl (Zofran Odt) 4 mg PO Q6H PRN PRN Reason: Nausea Oxybutynin Chloride (Ditropan Xl) 10 mg PO QPM [facility] Pantoprazole Sodium (Protonix) 20 mg PO 0600 [facility] Polyethylene Glycol (Miralax) 17 gm PO DAILY PRN PRN Reason: Constipation Quetiapine Fumarate (Seroquel) 50 mg PO BEDTIME [facility] Last Admin: 08/09/19 22:05 Dose: 50 mg Documented by: CLAUDIA Ranitidine HCl (Zantac) 150 mg PO 1700 [facility] Sennosides (Senna) 17.2 mg PO BEDTIME [facility] Last Admin: 08/09/19 22:04 Dose: 17.2 mg Documented by: CLAUDIA Sennosides (Senna) 8.6 mg PO BID PRN PRN Reason: Constipation Tamsulosin HCl (Flomax) 0.4 mg PO BID [facility] Last Admin: 08/09/19 22:03 Dose: 0.4 mg Documented by: CLAUDIA Triamcinolone Acetonide (Kenalog 0.1% Cream) 1 applic TOP BID [facility] Last Admin: 08/09/19 22:06 Dose: Not Given Documented by: CLAUDIA Discontinued Medications Albuterol (Ventolin) 2.5 mg INH NOW ONE Stop: 08/09/19 17:33 Last Admin: 08/09/19 17:38 Dose: 2.5 mg Documented by: ERIC Levofloxacin (Levaquin) 750 mg in 150 mls @ 100 mls/hr IV NOW ONE Stop: 08/09/19 21:24 Last Admin: 08/09/19 20:09 Dose: 100 mls/hr Documented by: ROSALVA Vital Signs Vital signs: Vital Signs - 8 hr 08/09/19 18:17 Pulse Rate 103 H Respiratory Rate 20 Blood Pressure [Right Arm] 179/89 H Pulse Oximetry 95 MDM - Epistaxis <Jessica Saenzmer, SECRETARY BOOK KEEPER-BC - Last Filed: 08/09/19 21:08> Lab Data Result diagrams: 08/09/19 17:25 08/09/19 17:25 Labs: Lab Results 08/09/19 08/09/19 08/09/19 Range/Units 17:25 17:25 17:25 WBC 6.6 (4.5-11.0) X10^3/uL RBC 2.94 L (4.5-5.9) X10^6/uL Hgb 9.9 L (13.5-17.5) g/dL Hct 29.8 L (41-53) % MCV 101.3 H (80-100) fL MCH 33.6 (26-34) PG MCHC 33.1 (30-36) % RDW 18.1 H (11.6-14.8) % Plt Count 326 (150-400) X10^3/uL Neut % (Auto) 72.9 (50-75) % Lymph % (Auto) 5.6 L (25-40) % Nolan % (Auto) 19.6 H (3-14) % Eos % (Auto) 0.8 L (2-4) % Baso % (Auto) 1.1 (0-2) % Neut # (Auto) 4800 (4129-2573) /uL Lymph # (Auto) 400 L (8578-2956) /uL Nolan # (Auto) 1300 H (0-900) /uL Eos # (Auto) 100 (0-450) /uL Baso # (Auto) 100 (0-100) /uL Sodium 136 L (137-145) mmol/L Potassium 4.4 (3.4-5.1) mmol/L Chloride 100 (98-107) mmol/L Carbon Dioxide 29 (22-32) mmol/L BUN 24 H (9-20) mg/dL Creatinine 0.80 (0.66-1.25) mg/dL Estimated GFR > 60.0 (>60) mL/min BUN/Creatinine Ratio 30.0 H (6-22) Glucose 117 H (80-110) mg/dL Lactate (0.7-2.1) mmol/L Calcium 9.2 (8.4-10.2) mg/dL Total Bilirubin 0.6 (0.2-1.3) mg/dL AST 61 H (17-59) IU/L ALT 41 (21-72) IU/L Alkaline Phosphatase 121 (38-126) U/L Total Creatine Kinase 42 L (55-170) U/L CK-MB (CK-2) TNP CK-MB (CK-2) Rel Index TNP Troponin I 0.014 (0.01-0.034) ng/mL B-Natriuretic Peptide (<100) Total Protein 6.1 L (6.3-8.2) g/dL Albumin 3.2 L (3.5-5.0) g/dL Globulin 2.9 (1.7-4.1) g/dL Albumin/Globulin Ratio 1.1 (1.0-2.8) Procalcitonin 0.05 (<0.5) ng/mL 08/09/19 08/09/19 Range/Units 17:25 17:25 WBC (4.5-11.0) X10^3/uL RBC (4.5-5.9) X10^6/uL Hgb (13.5-17.5) g/dL Hct (41-53) % MCV (80-100) fL MCH (26-34) PG MCHC (30-36) % RDW (11.6-14.8) % Plt Count (150-400) X10^3/uL Neut % (Auto) (50-75) % Lymph % (Auto) (25-40) % Nolan % (Auto) (3-14) % Eos % (Auto) (2-4) % Baso % (Auto) (0-2) % Neut # (Auto) (5621-8136) /uL Lymph # (Auto) (5876-5048) /uL Nolan # (Auto) (0-900) /uL Eos # (Auto) (0-450) /uL Baso # (Auto) (0-100) /uL Sodium (137-145) mmol/L Potassium (3.4-5.1) mmol/L Chloride (98-107) mmol/L Carbon Dioxide (22-32) mmol/L BUN (9-20) mg/dL Creatinine (0.66-1.25) mg/dL Estimated GFR (>60) mL/min BUN/Creatinine Ratio (6-22) Glucose (80-110) mg/dL Lactate 1.6 (0.7-2.1) mmol/L Calcium (8.4-10.2) mg/dL Total Bilirubin (0.2-1.3) mg/dL AST (17-59) IU/L ALT (21-72) IU/L Alkaline Phosphatase (38-126) U/L Total Creatine Kinase (55-170) U/L CK-MB (CK-2) CK-MB (CK-2) Rel Index Troponin I (0.01-0.034) ng/mL B-Natriuretic Peptide < 100 (<100) Total Protein (6.3-8.2) g/dL Albumin (3.5-5.0) g/dL Globulin (1.7-4.1) g/dL Albumin/Globulin Ratio (1.0-2.8) Procalcitonin (<0.5) ng/mL Urine Dip Bedside Urine Glucose Negative Bedside Urine Bilirubin - Negative Bedside Urine Ketone - Negative Urine Specific [place] 1.015 Bedside Urine Occult Blood - Negative Bedside Urine pH 7.0 Bedside Urine Protein - Negative Bedside Urine Urobilinogen - Negative Bedside Urine Nitrite - Negative Bedside Urine Leukocytes - Negative Esterase Imaging Data Chest CTA: Radiologist's impression: [address] [address] [address] Scan Report Signed Patient: Segundo Tompkins [facility]#: [id number] : 5Acct:[id number] Age/Sex: 84 / MDate of Service: 08/09/19 Loc: ED Accession Number: [id number] Procedure: CT angio chest PE protocol Ordering Provider: Jessica Tomas PROCEDURE: CT ANGIO CHEST PE PROTOCOL INDICATIONS: sob, tachy, hypoxic, TECHNIQUE: After the administration of intravenous contrast, 2 mm thick sections acquired from the pulmonary apices to the posterior costophrenic angles. 3-dimensional maximum intensity projection (MIP) coronal and sagittal reformats were then acquired through the thorax. For radiation dose reduction, the following was used: automated exposure control, adjustment of mA and/or kV according to patient size. COMPARISON: [facility], CR, XR CHEST 1V, 08/09/2019, 17:14. [facility], CT, CT CHEST ABD PEL W CON, 06/09/2019, 10:42. FINDINGS: Image quality: Degraded by motion artifact. Pulmonary arteries: Pulmonary arteries are normal in size, and demonstrate no definite intraluminal filling defects to suggest central pulmonary embolism. Lungs and pleura: Moderate right pleural effusion , as before. right pleural masses are present, as before. New small left pleural effusion. Increased, moderate bilateral pulmonary air space opacity. Focal regions of masslike consolidation within the right mid and lower lung are unchanged. The Central and peripheral airways are patent. Mediastinum: Heart size is enlarged, without pericardial effusion. Calcification of the coronary vasculature. No mediastinal or hilar adenopathy. Thoracic aorta is normal in caliber and enhancement. Esophagus is normal in caliber. Small hiatal hernia. Bones and chest wall: No suspicious bony lesions. Ribs and thoracic spine appear intact throughout. Thyroid gland is within normal limits as visualized. No axillary or supraclavicular adenopathy. Abdomen: Visualized upper abdominal solid organs appear normal in the early arterial phase of enhancement. IMPRESSION: 1. No pulmonary embolus. 2. Bilateral pneumonia, as seen by plain film. 3. Right greater than left pleural effusions. 4. No change in right lung masses. 5. Right pleural masses, suggestive of pleural carcinomatosis. Dictated by: Alma Rosa Augustin M.D. on 08/09/2019 at 19:42 Approved by: Alma Rosa Augustin M.D. on 08/09/2019 at 19:45 Chest x-ray: Radiologist's impression: [address] [address] XRay Report Signed Patient: Segundo Tompkins [facility]#: [id number] : 5Acct:[id number] Age/Sex: 84 / MDate of Service: 08/09/19 Loc: ED Accession Number: [id number] Procedure: XR chest 1V Ordering Provider: Jessica Tomas PROCEDURE: XR CHEST 1V INDICATIONS: Short of breath TECHNIQUE: One view of the chest was acquired. COMPARISON: [facility], CT, CT CHEST ABD PEL W CON, 06/09/2019, 10:42. [facility], CR, XR CHEST 1V, 06/27/2019, 15:56. [facility], CR, XR CHEST 2V, 07/07/2019, 10:29. FINDINGS: Surgical changes and devices: There is a stable left-sided chest port. Lungs and pleura: There is a right-sided pleural effusion, which is at least moderate in size. Poorly defined opacity can be seen within the right midlung, which is slightly increased compared to 07/07/18 examination. Interstitial prominence is seen throughout, which appears worse than on the prior examination. Mediastinum: Cardiac and mediastinal silhouettes are partially obscured, yet are regarded to be moderately enlarged Bones and chest wall: No suspicious bony lesions. Age-appropriate bony degenerative changes are seen. Overlying soft tissues appear unremarkable. IMPRESSION: Continued right-sided pleural effusion with continued right midlung density. Interstitial prominence is seen throughout. The interstitial prominence is nonspecific, yet may be related to pulmonary edema. Stable left-sided chest port. Dictated by: Sherif Robles M.D. on 08/09/2019 at 16:33 Approved by: Sherif Robles M.D. on 08/09/2019 at 16:34 ECG Data Attestation: I personally reviewed and interpreted this ECG as follows: Interpretation: sinus tachycardia 101. no ectopy noted. No ST elevation or depression noted. P.r. interval 143. QRS duration 85 MDM Narrative Medical decision making narrative: The patient is an 84-year-old male with stage IV lung cancer who presents with a chief complaint of nasal congestion. During his evaluation, he appeared short of breath, with pursed lip breathing, so I obtained repeat vital signs which illustrated hypoxia. Chest x-ray illustrate the pleural effusion, which is known. Given that he was hypoxic and tachycardic, I did obtain a chest CTA to evaluate for pulmonary embolism, especially given his risk factors including chemotherapy. This came back negative for a blood clot, but illustrated bilateral pneumonia. I discussed with the patient and his and they state that he would want to be treated for this pneumonia. Given his hypoxia, he is unable to be discharged, so I spoke with Dr. Harris regarding admission. I initiated treatment for his pneumonia with Levaquin in the emergency department. Patient state understanding of admission and are in accordance with plan of care. <Haydee Aj, DO - Last Filed: 08/10/19 02:04> Lab Data Labs: Lab Results 08/09/19 08/09/19 08/09/19 Range/Units 17:25 17:25 17:25 WBC 6.6 (4.5-11.0) X10^3/uL RBC 2.94 L (4.5-5.9) X10^6/uL Hgb 9.9 L (13.5-17.5) g/dL Hct 29.8 L (41-53) % MCV 101.3 H (80-100) fL MCH 33.6 (26-34) PG MCHC 33.1 (30-36) % RDW 18.1 H (11.6-14.8) % Plt Count 326 (150-400) X10^3/uL Neut % (Auto) 72.9 (50-75) % Lymph % (Auto) 5.6 L (25-40) % Nolan % (Auto) 19.6 H (3-14) % Eos % (Auto) 0.8 L (2-4) % Baso % (Auto) 1.1 (0-2) % Neut # (Auto) 4800 (1323-9688) /uL Lymph # (Auto) 400 L (4602-9382) /uL Nolan # (Auto) 1300 H (0-900) /uL Eos # (Auto) 100 (0-450) /uL Baso # (Auto) 100 (0-100) /uL Sodium 136 L (137-145) mmol/L Potassium 4.4 (3.4-5.1) mmol/L Chloride 100 (98-107) mmol/L Carbon Dioxide 29 (22-32) mmol/L BUN 24 H (9-20) mg/dL Creatinine 0.80 (0.66-1.25) mg/dL Estimated GFR > 60.0 (>60) mL/min BUN/Creatinine Ratio 30.0 H (6-22) Glucose 117 H (80-110) mg/dL Lactate (0.7-2.1) mmol/L Calcium 9.2 (8.4-10.2) mg/dL Total Bilirubin 0.6 (0.2-1.3) mg/dL AST 61 H (17-59) IU/L ALT 41 (21-72) IU/L Alkaline Phosphatase 121 (38-126) U/L Total Creatine Kinase 42 L (55-170) U/L CK-MB (CK-2) TNP CK-MB (CK-2) Rel Index TNP Troponin I 0.014 (0.01-0.034) ng/mL B-Natriuretic Peptide (<100) Total Protein 6.1 L (6.3-8.2) g/dL Albumin 3.2 L (3.5-5.0) g/dL Globulin 2.9 (1.7-4.1) g/dL Albumin/Globulin Ratio 1.1 (1.0-2.8) Procalcitonin 0.05 (<0.5) ng/mL 08/09/19 08/09/19 Range/Units 17:25 17:25 WBC (4.5-11.0) X10^3/uL RBC (4.5-5.9) X10^6/uL Hgb (13.5-17.5) g/dL Hct (41-53) % MCV (80-100) fL MCH (26-34) PG MCHC (30-36) % RDW (11.6-14.8) % Plt Count (150-400) X10^3/uL Neut % (Auto) (50-75) % Lymph % (Auto) (25-40) % [place] % (Auto) (3-14) % Eos % (Auto) (2-4) % Baso % (Auto) (0-2) % Neut # (Auto) (7658-6813) /uL Lymph # (Auto) (8874-6344) /uL Nolan # (Auto) (0-900) /uL Eos # (Auto) (0-450) /uL Baso # (Auto) (0-100) /uL Sodium (137-145) mmol/L Potassium (3.4-5.1) mmol/L Chloride (98-107) mmol/L Carbon Dioxide (22-32) mmol/L BUN (9-20) mg/dL Creatinine (0.66-1.25) mg/dL Estimated GFR (>60) mL/min BUN/Creatinine Ratio (6-22) Glucose (80-110) mg/dL Lactate 1.6 (0.7-2.1) mmol/L Calcium (8.4-10.2) mg/dL Total Bilirubin (0.2-1.3) mg/dL AST (17-59) IU/L ALT (21-72) IU/L Alkaline Phosphatase (38-126) U/L Total Creatine Kinase (55-170) U/L CK-MB (CK-2) CK-MB (CK-2) Rel Index Troponin I (0.01-0.034) ng/mL B-Natriuretic Peptide < 100 (<100) Total Protein (6.3-8.2) g/dL Albumin (3.5-5.0) g/dL Globulin (1.7-4.1) g/dL Albumin/Globulin Ratio (1.0-2.8) Procalcitonin (<0.5) ng/mL Urine Dip Bedside Urine Glucose Negative Bedside Urine Bilirubin - Negative Bedside Urine Ketone - Negative Urine Specific [place] 1.015 Bedside Urine Occult Blood - Negative Bedside Urine pH 7.0 Bedside Urine Protein - Negative Bedside Urine Urobilinogen - Negative Bedside Urine Nitrite - Negative Bedside Urine Leukocytes - Negative Esterase Discharge Plan Departure Patient Disposition: Admitted As Inpatient Clinical Impression: Pneumonia Discharge Date/Time: 08/09/19 21:37 Admit Date/Time: 08/09/19 20:45 Admit Provider: Silvia Harris
[2019-08-09 18:19] LABS: Troponin I 0.014 ng/mL (0.01-0.034)
[2019-08-09 18:30] LABS: Procalcitonin 0.05 ng/mL (<0.5)
--- NOTE | 2019-08-09 18:56 | DI.CT.S_ITS ---
PROCEDURE: CT ANGIO CHEST PE PROTOCOL INDICATIONS: sob, tachy, hypoxic, TECHNIQUE: After the administration of intravenous contrast, 2 mm thick sections acquired from the pulmonary apices to the posterior costophrenic angles. 3-dimensional maximum intensity projection (MIP) coronal and sagittal reformats were then acquired through the thorax. For radiation dose reduction, the following was used: automated exposure control, adjustment of mA and/or kV according to patient size. COMPARISON: [facility], CR, XR CHEST 1V, 08/09/2019, 17:14. [facility], CT, CT CHEST ABD PEL W CON, 06/09/2019, 10:42. FINDINGS: Image quality: Degraded by motion artifact. Pulmonary arteries: Pulmonary arteries are normal in size, and demonstrate no definite intraluminal filling defects to suggest central pulmonary embolism. Lungs and pleura: Moderate right pleural effusion , as before. right pleural masses are present, as before. New small left pleural effusion. Increased, moderate bilateral pulmonary air space opacity. Focal regions of masslike consolidation within the right mid and lower lung are unchanged. The Central and peripheral airways are patent. Mediastinum: Heart size is enlarged, without pericardial effusion. Calcification of the coronary vasculature. No mediastinal or hilar adenopathy. Thoracic aorta is normal in caliber and enhancement. Esophagus is normal in caliber. Small hiatal hernia. Bones and chest wall: No suspicious bony lesions. Ribs and thoracic spine appear intact throughout. Thyroid gland is within normal limits as visualized. No axillary or supraclavicular adenopathy. Abdomen: Visualized upper abdominal solid organs appear normal in the early arterial phase of enhancement. IMPRESSION: 1. No pulmonary embolus. 2. Bilateral pneumonia, as seen by plain film. 3. Right greater than left pleural effusions. 4. No change in right lung masses. 5. Right pleural masses, suggestive of pleural carcinomatosis. Dictated by: Alma Rosa Augustin M.D. on 08/09/2019 at 19:42 Approved by: Alma Rosa Augustin M.D. on 08/09/2019 at 19:45
[2019-08-09] MEDS: levoFLOXacin 750 MG/150 ML PIGGYBACK 100 MG IV (20:09)
[2019-08-09 20:28] LABS: B Type Natriuretic Peptide < 100 (<100)
[2019-08-09 21:35] LABS: Influenza A and B by PCR Rapid Negative (Negative)
[2019-08-09] MEDS: TAMSULOSIN 0.4 MG CAPSULE PO (22:03)
[2019-08-09] MEDS: SENNOSIDES 8.6 MG TABLET 17.2 MG PO (22:04)
[2019-08-09] MEDS: QUETIAPINE 25 MG TABLET 50 MG PO (22:05)
[2019-08-09] MEDS: HYDROCODONE/ACET 5/325 TABLET 1 TAB PO (22:31)
--- NOTE | 2019-08-09 22:33 | PC.NURSE ---
Pt to room 214 from E.R. accompanied by spouse, Diandra. Pt admits to pain in several places, but is unable to utilize numeric pain scale. Given vicodin to manage neck/throat/foot pain as per pt statement. Ice cream as per pt request. Pt is able to feed self with set up. Spouse states pt has macular degeneration. Pt is hard of hearing without aids here in the hospital. Periods of being irrational per pt's spouse. Bed alarm set for pt safety. Continuous pulse oximeter in place with 4L per NC humidified oxygen in place. 02 sats 94%. Desats to 89% with turning onto side in bed. Returns to mid 90's when quiet.
[2019-08-10] VITALS (23 sets, daily range): BP systolic 111–144; BP diastolic 53–71; PULSE 88–115; RESP 16–26; TEMP 36.8–37.8; O2SAT 71–98
--- NOTE | 2019-08-10 | DI.RAD.S_ITS ---
PROCEDURE: XR CHEST 1V INDICATIONS: POST THORA CHEST TECHNIQUE: One view of the chest was acquired. COMPARISON: [facility], CR, XR CHEST 1V, 08/09/2019, 17:14. [facility], CR, XR CHEST 2V, 07/07/2019, 10:29. FINDINGS: Surgical changes and devices: Left-sided port with the catheter tip in the SVC. Lungs and pleura: Bilateral patchy airspace opacities appear similar to the exam performed yesterday afternoon. Moderate right and trace left pleural effusions. No pneumothorax. Mediastinum: Mediastinal contours grossly stable. Heart size is mostly obscured. Bones and chest wall: No suspicious bony lesions. Overlying soft tissues appear unremarkable. IMPRESSION: 1. No pneumothorax post thoracentesis. 2. Interval decrease in the moderate-sized right-sided pleural effusion. 3. Similar bilateral patchy diffuse opacities. Dictated by: Irineo Rivera M.D. on 08/10/2019 at 15:02 Approved by: Irinoe Rivera M.D. on 08/10/2019 at 15:16
[2019-08-10] MEDS: ALBUTEROL/IPRATROPIUM 3 ML AMPUL INH (00:34)
--- NOTE | 2019-08-10 01:54 | PC.NURSE ---
Shift note: Received pt from evening shift. Pt was in bed awake at time of assessment, pt is AxOx3, but is forgetful and rambles in his speech. Able to make needs known at times but aware of limitations of his body but needs reminders for safety. Pt c/o nose congestion, is a habitual user of nose sprays and nose blowing. Educated on rebound congestion r/t nose sprays like Afrin. Pt wants to pick at his nose, educated on why that should be avoided. Pt acknowledges teaching but asks when he can spray his nose again with normal saline, advised to wait as long as possible. Pt is tachycardic, bilateral 3+ pitting edema in ankles. Lung sounds are diminished throughout, coarse w/ expiratory wheezing in upper right lobe. Pt is on 4L O2 by NC with humidification but desats with activity and exertion, pt c/o SOB. At 0155 was called into pt room by PERSONAL FINANCIAL ADVISOR, found pt to be slumped over in bed and supported by PERSONAL FINANCIAL ADVISOR. Reported that pt was attempting to use urinal and attempted to stand, oxygen saturations dropped into 70's and pt became syncopal. PERSONAL FINANCIAL ADVISOR was able to return pt to bed and this RN assisted in boosting pt back into position. When HOB was returned to high fowlers pt's saturations returned to low 90's. Pt is high fall risk, reports multiple falls in the past but has been using his as an assistive device and states he hasn't had a fall in the last 3 months. Due to syncopal episode, pt will remain in bed and vital signs monitored closely. Will notify coordinator and nonprofit manager physician. Bed alarm is active and functioning, call light is in reach, pt reports knowing how to use it but reinforcement necessary. [ End ]
--- NOTE | 2019-08-10 01:56 | PC.NURSE ---
0155 [employer]IV[employer] note: Patient used call light to alert us he needed to void. At start of shift patient was very adamant that he needed to void at the start of shift. He was very particular on how he wanted to void. So when he called this time, I remembered how he wanted to get us at the side of the bed. Stood patient up at side of the bed with a walker, patient began to hold onto me, he grabbed at my shoulder. He grabbed for more of my body to have support. I suggested to use the walker to support. He then began to lean back into the bed. I yelled for help and Gudelia RUBIO came. Patient was laying perpendicular on the bed. His oxygen saturation was 71% on 4 liters of oxygen with an elevated heart rate. We got him back into the bed properly. We took his vitals. We told patient that based on that we cannot get him out of bed again. Patient agreed.
[2019-08-10] MEDS: PANTOPRAZOLE 20 MG TABLET PO (05:25)
--- NOTE | 2019-08-10 08:05 | PM.HP.1 ---
History of Present Illness History of Present Illness Date Patient Seen: 08/10/19 Time Patient Seen: 08:06 Chief complaint: wants his nose looked at Narrative: 84-year-old male with end-stage lung cancer who presented to the emergency department with complaints of nasal congestion. As part of his evaluation he was found to be hypoxic and had evidence of probable bilateral pneumonia based on plain film imaging of his chest, followed by CT angiography which was done to rule out pulmonary emboli given his increased risk. Patient also with bilateral pleural effusions which have been previously diagnosed. His right-sided pleural effusion is rather large and extensive but essentially unchanged from previous imaging. Patient was unable to be discharged home because his persistent hypoxia and the new diagnosis of pneumonia. He was therefore admitted for management of these conditions. Patient History Medical History (Updated 08/10/19 @ 08:09 by Ronald Rogers MD) Acquired hypothyroidism (Chronic) Adenocarcinoma of right lung (Chronic ~12/2017) Anemia (Resolved) Atopic dermatitis, mild (Chronic) Benign prostatic hyperplasia with urinary obstruction (Chronic 08/24/16) Bilateral carotid bruits (Inactive ~08/2017) Constipation (Chronic) Degenerative joint disease (Chronic 07/17/11) Eustachian tube dysfunction (Resolved) Gastroesophageal reflux disease without esophagitis (Chronic 07/17/11) Hard of hearing (Chronic) HTN (hypertension) (Chronic) Macular degeneration of left eye (Inactive) Mixed hyperlipidemia (Chronic 12/02/12) Recurrent adenocarcinoma of right lung (Chronic) Silent myocardial infarction (Inactive ~2010) Spinal stenosis, site unspecified (Chronic 07/17/11) Syncope (Resolved) Family & Social History Social History: household members spouse Prior Living Arrangements House Safety & Behavioral: Feels Safe in Current Yes Environment Been Physically Hurt or No Threatened By a Person Suicidal Ideation Description None Suicide Plan Description No Plan Tobacco & Substance use: Smoking Status Former smoker alcohol intake former alcohol intake frequency 0-2 drinks per day Substance Use Type does not use Meds Home Medications and Allergies Home Medications Medication Instructions Recorded Confirmed Type finasteride 5 mg PO DAILY #0 02/11/17 08/09/19 History tamsulosin [Flomax] 0.4 mg PO BID #0 09/01/17 08/09/19 History polysaccharide iron complex 150 mg PO BID #60 cap 12/08/17 08/09/19 Rx [Ferrex 150] docusate sodium [DOK] 100 mg PO QDAYP PRN #0 01/05/18 08/09/19 History ondansetron HCl [Zofran] 4 mg PO Q6-8H PRN #30 tab 08/22/18 08/09/19 Rx lidocaine-prilocaine 1 applictn TOP PRN PRN #30 gram 08/24/18 08/09/19 Rx triamcinolone acetonide 0.1 % 1 applictn TOP BID #453.6 gram 09/15/18 08/09/19 Rx topical cream magnesium hydroxide [Milk of 400 mg PO DAILY PRN 09/19/18 08/09/19 History Magnesia] polyethylene glycol 3350 [Miralax] 17 g PO DAILY PRN 09/19/18 08/09/19 History sennosides [senna] 8.6 mg PO BID PRN 09/19/18 08/09/19 History levothyroxine 112 mcg tablet 112 mcg PO DAILY #90 tab 04/11/19 08/09/19 Rx hydrocortisone acetate 25 mg 25 mg SD QD-BID PRN #30 each 05/18/19 08/09/19 Rx rectal suppository atorvastatin 40 mg PO QPM 07/05/19 08/09/19 History lisinopril 5 mg PO QPM 07/05/19 08/09/19 History omeprazole 20 mg PO DAILY 07/05/19 08/09/19 History oxybutynin chloride 10 mg PO QPM 07/05/19 08/09/19 History fluticasone propionate [Flonase 50 mcg INTRANASAL PRN PRN 07/07/19 08/09/19 History Allergy Relief] furosemide 20 mg tablet 20 mg PO DAILY #30 tab 08/04/19 08/09/19 Rx quetiapine 50 mg tablet 50 mg PO BEDTIME #30 tab 08/04/19 08/09/19 Rx azelastine 137 mcg (0.1 %) nasal See Rx Instructions .ROUTE 08/08/19 08/09/19 Rx spray aerosol .COMPLEX #30 milliliter acetaminophen 325 mg PO PRN PRN 08/09/19 08/09/19 History aspirin 81 mg PO QPM 08/09/19 08/09/19 History famotidine 20 mg PO QPM 08/09/19 08/09/19 History folic acid 1 mg PO QPM 08/09/19 08/09/19 History guaifenesin [Mucinex] 1,200 mg PO QPM 08/09/19 08/09/19 History simethicone 125 mg PO DIRECTED 08/09/19 08/09/19 History vit C,L-Dk-ixlat-lutein-zeaxan 1 cap PO BID 08/09/19 08/09/19 History [PreserVision AREDS-2] Allergies Allergy/AdvReac Type Severity Reaction Status Date / Time No Known Drug Allergies Allergy Unknown Verified 08/04/19 15:00 [NO KNOWN DRUG ALLERGIES] Review of Systems Constitutional Constitutional: Denies excessive sweating, Denies fever(s), Denies headache(s), Reports weakness, Denies weight gain and Denies weight loss Eyes Eyes: Denies change in vision, Denies itchy eyes, Denies loss of vision and Denies other visual disturbances ENT Ears, Nose, Mouth, and Throat: No change in voice, No difficulty swallowing, No dizziness, No ear pain, No headache(s), No hoarseness, No lip swelling, Yes nasal congestion, No neck pain, Yes sinus pressure, No sore throat, No throat swelling and No tongue swelling Cardiovascular Cardiovascular: Denies chest pain, Denies fainting, Denies fast heart rate, Denies irregular heart rhythm, Denies rapid, pounding, or irregular heartbeat, Reports shortness of breath and Denies slow heart rate Respiratory Respiratory: Reports cough, Denies hemoptysis, Reports dyspnea, Denies stridor and Denies wheezing Gastrointestinal Gastrointestinal: Denies abdominal pain, Denies bloating, Denies change in bowel habits (Chronically constipated), Denies change in stool character, Denies dysphagia, Denies nausea, Denies vomiting and Denies hematemesis Genitourinary Genitourinary: Denies hematuria, Denies difficulty urinating and Denies urinary frequency Musculoskeletal Musculoskeletal: Denies abnormal gait, Denies myalgias, Denies arthralgias, Denies limited range of motion and Denies neck pain Integumentary/Breasts Skin/Breast: Denies bleeding lesions, Denies change in pigmentation, Denies changing lesions, Denies new lesions, Denies rash, Denies skin swelling, Denies sores and Denies jaundice Neurologic Neurologic: Denies abnormal speech, Denies abnormal gait, Denies behavioral changes, Denies confusion, Denies dizziness, Denies syncope, Denies headache(s), Denies loss of vision, Denies memory loss, Denies seizure-like activity, Denies paresthesias and Reports weakness Psychiatric Psychiatric: Denies behavioral changes, Denies change in appetite, Denies confusion, Denies difficulty concentrating, Denies auditory hallucinations, Denies memory loss, Denies mood swings and Denies suicidal ideation Endocrine Endocrine: Denies excessive sweating, Denies flushing, Denies polyuria and Denies palpitations Hematologic/Lymphatic Hematologic/Lymphatic: Denies easy bleeding, Denies easy bruising and Denies lymphadenopathy Allergic/Immunologic Allergic/Immunologic: Denies urticaria, Denies itchy eyes, Denies lip swelling, Denies throat swelling, Denies tongue swelling and Denies wheezing Exam Vital Signs (past 8 hours): - 08/10/19 00:35 08/10/19 01:08 08/10/19 01:45 Temperature Pulse Rate 97 H 115 H Respiratory Rate 26 H 24 Blood Pressure Pulse Oximetry 98 92 71 L 08/10/19 01:55 08/10/19 03:16 08/10/19 05:00 Temperature 98.8 F Pulse Rate 103 H 88 Respiratory Rate 22 18 Blood Pressure 125/53 L 111/53 L Pulse Oximetry 95 96 98 Oxygen Delivery Method Venturi Mask Oxygen Flow Rate 4 Narrative Exam Narrative: Elderly male lying in a hospital bed in no obvious distress HEENT-unremarkable Lungs-absent breath sounds at the right base, diminished breath sounds throughout otherwise, no clear crackles Heart-regular rate and rhythm Abdomen-benign Neuro-alert and oriented x3 no obvious focal defects to screening exam Objective Imaging Chest x-ray: My impression: No change in size of right-sided effusion, new infiltrates bilaterally Radiologist's impression: IMPRESSION: Continued right-sided pleural effusion with continued right midlung density. Interstitial prominence is seen throughout. The interstitial prominence is nonspecific, yet may be related to pulmonary edema. Stable left-sided chest port. CT scan - chest: Radiologist's impression: IMPRESSION: 1. No pulmonary embolus. 2. Bilateral pneumonia, as seen by plain film. 3. Right greater than left pleural effusions. 4. No change in right lung masses. 5. Right pleural masses, suggestive of pleural carcinomatosis. Labs Result Diagrams: 08/09/19 17:25 08/09/19 17:25 Labs: Laboratory Results - last 24 hr 08/09/19 08/09/19 08/09/19 17:25 17:25 17:25 WBC 6.6 RBC 2.94 L Hgb 9.9 L Hct 29.8 L MCV 101.3 H MCH 33.6 MCHC 33.1 RDW 18.1 H Plt Count 326 Neut % (Auto) 72.9 Lymph % (Auto) 5.6 L [place] % (Auto) 19.6 H Eos % (Auto) 0.8 L Baso % (Auto) 1.1 Neut # (Auto) 4800 Lymph # (Auto) 400 L [place] # (Auto) 1300 H Eos # (Auto) 100 Baso # (Auto) 100 Sodium 136 L Potassium 4.4 Chloride 100 Carbon Dioxide 29 BUN 24 H Creatinine 0.80 Estimated GFR > 60.0 BUN/Creatinine Ratio 30.0 H Glucose 117 H Lactate Calcium 9.2 Total Bilirubin 0.6 AST 61 H ALT 41 Alkaline Phosphatase 121 Total Creatine Kinase 42 L CK-MB (CK-2) TNP CK-MB (CK-2) Rel Index TNP Troponin I 0.014 B-Natriuretic Peptide Total Protein 6.1 L Albumin 3.2 L Globulin 2.9 Albumin/Globulin Ratio 1.1 Procalcitonin 0.05 Influenza A & B (PCR) 08/09/19 08/09/19 08/09/19 17:25 17:25 21:07 WBC RBC Hgb Hct MCV MCH MCHC RDW Plt Count Neut % (Auto) Lymph % (Auto) [place] % (Auto) Eos % (Auto) Baso % (Auto) Neut # (Auto) Lymph # (Auto) [place] # (Auto) Eos # (Auto) Baso # (Auto) Sodium Potassium Chloride Carbon Dioxide BUN Creatinine Estimated GFR BUN/Creatinine Ratio Glucose Lactate 1.6 Calcium Total Bilirubin AST ALT Alkaline Phosphatase Total Creatine Kinase CK-MB (CK-2) CK-MB (CK-2) Rel Index Troponin I B-Natriuretic Peptide < 100 Total Protein Albumin Globulin Albumin/Globulin Ratio Procalcitonin Influenza A & B (PCR) Negative Assessment & Plan Assessment & Plan narrative: 1. Bilateral pneumonia in the setting of lung cancer-agree with oxygen supplementation and IV antibiotics. We may be limited how much we can improve his pneumonia in the setting of advancing lung cancer. 2. Hypoxia-likely impacted by pneumonia as well as his right pleural effusion. I am going to go ahead and have an ultrasound-guided thoracentesis performed to try and drain as much fluid as possible from his right hemithorax. Patient is agreeable to this. I am not convinced that is making a huge different in his clinical presentation today as this was present on chest x-ray done at the end of June as well and in my opinion essentially unchanged and his respiratory status was stable at that time. However he is clearly not stable currently and would benefit I think from repeat therapeutic thoracentesis. Fluid likely reaccumulate but for the moment anyway see if we can improve him. He likely will need home oxygen therapy as well and will get respiratory therapy involved in setting that up 3. Lung cancer-patient has been hesitant to begin any add additional treatment. He has really come to the end of his course would prefer to ?let nature take its course ?. For the moment will treat his active issues as above and I think have the care management staff speak to him regarding possible hospice evaluation. Patient has been resistant to this in the past preferring to ?just get it over with ?, but I think this is the best option for patient. 4. VTE prophylaxis-will initiate Lovenox once he has had a successful thoracentesis. Use SCDs in the meantime. 5. Code status-patient requests no code do not resuscitate which is entirely appropriate given his underlying diagnoses 6. Chronic medical issues including his hypertension hypothyroidism GERD etc-patient should continue on current baseline home medications Patient deserves inpatient hospitalization given his diagnosis of advanced lung cancer with hypoxia large right-sided pleural effusion bilateral pneumonia etc. He is not candidate to be treated in the home setting at this point. He will be in the hospital greater than 48 hours to include 2 separate midnights. Quality VTE Deep Vein Thrombosis/Pulmonary Embolism Present on Admission: No
--- NOTE | 2019-08-10 08:14 | DI.US.S_ITS ---
PROCEDURE: US THORACENTESIS INDICATIONS: LUNG CANCER PLEURAL EFFUISON ON RIGHT TECHNIQUE: The indications, alternatives, benefits, risks, and complications of the procedure were explained to the patient. Written informed consent was obtained and placed in the chart. The chest was examined sonographically, and an appropriate site was chosen for thoracentesis. The skin was prepared and draped in the usual sterile fashion, and 1% lidocaine was infiltrated from the skin down through the pleural surface. A 19-gauge catheter-covered needle was then introduced into the pleural space, the catheter was advanced and the needle was withdrawn, and thereafter pleural fluid was aspirated. The catheter was then removed and a dressing was applied. COMPARISON: [facility], CT, CT ANGIO CHEST PE PROTOCOL, 08/09/2019, 19:14. [facility], CR, XR CHEST 1V, 08/10/2019, 14:49. [facility], US, US THORACENTESIS, 06/27/2019, 15:26. FINDINGS: Access site: Right hemithorax. Needle: One-Step centesis catheter with introducer needle. Fluid volume and description: 1150 mL, bladde Fluid sent for diagnostic testing: Not ordered Medications: 1% lidocaine for local anaesthesia. Complications: None; post-procedural chest radiograph is pending to assess for pneumothorax. IMPRESSION: Successful ultrasound-guided thoracentesis. Dictated by: Nicolasa Perdomo M.D. on 08/10/2019 at 15:10 Approved by: Nicolasa Perdomo M.D. on 08/10/2019 at 15:12
[2019-08-10 08:50] LABS: INR 1.3 (0.9-1.3); Prothrombin Time 15.3 SECONDS (10.1-12.7)
[2019-08-10] MEDS: VIT C/E/ZN/COPPR/LUTEIN/ZEAXAN CAPSULE 1 CAP PO ×2 (09:38→20:20)
[2019-08-10] MEDS: FUROSEMIDE 20 MG TABLET PO (09:39)
[2019-08-10] MEDS: FINASTERIDE 5 MG TABLET PO (09:39)
[2019-08-10] MEDS: TAMSULOSIN 0.4 MG CAPSULE PO ×2 (09:39→20:20)
[2019-08-10] MEDS: LEVOTHYROXINE 112 MCG TABLET PO (09:39)
[2019-08-10] MEDS: TRIAMCINOLONE 0.1% CREAM 1 APPLIC TOP ×2 (09:46→20:21)
--- NOTE | 2019-08-10 10:43 | CM.DANOTE ---
Patient is an 84 year old male who was admitted on 08/09/19 for Hypoxia and Pneumonia. Pt has [facility] for insurance and his PCP is Dr. Rogers. EMR was reviewed. Per , pt with hx of end stage lung cancer and was seen at [facility] and pt currently DNR/DNI but expressing that he is not interested in medical intervention at this time but agreeable for tx of hypoxia and pneumonia. SW met bedside with pt, who was sleeping soundly, and his /DPOA and explained role and updated white board. Spouse confirms that they live at home in [place] and pt is Independent with ADL's at baseline and uses a walker for long distances outside of the home. Pt has no hx of HH or SNF and spouse states that this is the first time he has been this sick and due to his SOB over the past week she has noticed that he has gotten progressively weaker and is below baseline. Spouse states that the pt waxes and wanes with wanting Palliative Care vs tx depending on how he is feeling and that when he was SOB this week he began feeling frustrated with his oxygen levels and talked more about wanting nature to take its course but she feels if pt improves and can breathe better he likely will be back to wanting treatment. Pt to have a thoracentesis around 1200 today. Plan: SW to follow closely and likely PT orders once pt more medically appropriate to determine d/c planning recommendations and needs as pt is below baseline with weakness and mobility. Possible need for Goals of Care discussion. RAFIA Hager Discharge Planning/Care Management CM Discharge Assessment Start: 08/10/19 10:38 Freq: Status: Active Protocol: Document 08/10/19 10:38 BF (Rec: 08/10/19 10:43 [id number]) Discharge Planning Assessment Assigned Contract Programmer RAFIA Rangel DPOA/Assigned Designee Name spouse Contact Information [phone] Advance Directives? Yes Advance Directives on File Yes History Provided By Patient,Significant Other, Medical Record Has Patient been admitted in last 30 No days? Prior Living Arrangements House Household Members spouse Type of transporation used prior to Drives own vehicle admit Independent with ADL's Yes Is patient alert and oriented? Yes: mostly, some confusion and memory issues today Needs Assistance With Managing Medications Caregiver for Another No DME Already Rented / Owned FWW / Walker Comment waiting for PT eval when pt medically appropriate to determine d/c needs as pt below baseline with weakness Barriers to Discharge No Discharge Plan Home with Home Health [facility] Physical Therapy Transportation Arrangement Spouse bedside and likely can provide transport if pt safe for home vs SNF Additional Comment Waiting for PT eval when appropriate Whiteboard Updated in Patient Room with Yes name and ext. # of Contract Programmer Review Status In Process Please Provide Date Initial DC 08/10/19 Assessment Was Performed Next Review Type Continued Stay Review
[2019-08-10] MEDS: HYDROCODONE/ACET 5/325 TABLET 1 TAB PO ×2 (12:37→20:27)
[2019-08-10] MEDS: OXYBUTYNIN 5 MG ER TAB 10 MG PO (16:55)
[2019-08-10] MEDS: ATORVASTATIN 20 MG TABLET 40 MG PO (16:57)
[2019-08-10] MEDS: ASPIRIN EC 81 MG TABLET PO (16:58)
[2019-08-10] MEDS: FOLIC ACID 1 MG TABLET PO (16:58)
[2019-08-10] MEDS: LISINOPRIL 5 MG TABLET PO (16:59)
[2019-08-10] MEDS: levoFLOXacin 500 MG/100 ML PIGGYBACK 100 MG IV (17:00)
[2019-08-10] MEDS: guaiFENesin ER 600 MG TAB 1200 MG PO (17:29)
[2019-08-10] MEDS: ACETAMINOPHEN 325 MG TABLET PO (20:19)
[2019-08-10] MEDS: SENNOSIDES 8.6 MG TABLET 17.2 MG PO (20:20)
[2019-08-10] MEDS: QUETIAPINE 25 MG TABLET 50 MG PO (20:21)
--- NOTE | 2019-08-10 21:19 | PC.NURSE ---
Pt took all medications one at a time with thin liquids. Stands well with SBA x 2 and FWW to use urinal. Slight fever at hs 100.1, down to 99.8 with 325 mg APAP. Pt ate 50% of dinner and is drinking well. + BT and gas. Occ forgetful.
[2019-08-11] VITALS (11 sets, daily range): BP systolic 111–143; BP diastolic 56–73; PULSE 80–102; RESP 16–20; TEMP 36.5–37.4; O2SAT 90–98; BMI 26.2
--- NOTE | 2019-08-11 05:42 | PC.NURSE ---
Pt required venturi mask at 35% 9L O2 to maintain sats during sleep, pt becomes mouth breather and snores when sleeping. RT made aware.
[2019-08-11] MEDS: PANTOPRAZOLE 20 MG TABLET PO (06:22)
[2019-08-11] MEDS: LEVOTHYROXINE 112 MCG TABLET PO (06:22)
--- NOTE | 2019-08-11 08:58 | PM.PN.1 ---
Subjective Subjective Date Patient Seen: 08/11/19 Time Patient Seen: 08:58 Interval history: Patient had a rough night overnight. He said he had trouble breathing off and on and feels like he has pain everywhere. No other specific symptoms however. Overall looks to be improved says he is improved over his admission status As noted yesterday did have over L of fluid removed from his right hemithorax No evidence of complication following that Exam Vital Signs (past 8 hours): - 08/11/19 05:00 08/11/19 07:45 08/11/19 08:28 Temperature 97.7 F 97.8 F Pulse Rate 80 83 Respiratory Rate 18 17 Blood Pressure 142/68 H 143/71 H Pulse Oximetry 97 98 90 L 08/11/19 08:36 Temperature Pulse Rate 102 H Respiratory Rate 20 Blood Pressure Pulse Oximetry 90 L Fraction of Inspired Oxygen 35 Oxygen Delivery Method Nasal Cannula Oxygen Flow Rate 4 Objective Labs Result Diagrams: 08/09/19 17:25 08/09/19 17:25 Assessment & Plan Assessment & Plan narrative: 1. Pneumonia-continue with current IV antibiotics 2. Hypoxia/respiratory failure-continue with oxygen therapies. Continue with albuterol as needed. Hopefully we can wean him down maybe even to off with the oxygen eventually. I would think that the thoracentesis would be quite helpful in improving his overall oxygen status. 3. Lung cancer-patient deferring treatment at this point until he ?feels better?. 4. Seems stable. He deserves another couple of days in the hospital probably to continue with IV antibiotics and give him a chance to reduce his oxygen requirements. I will have Physical therapy see him as well. Note: Greater than 30 minutes was spent evaluating the patient on the floor, including examining the patient, discussing clinical course with clinical and nursing staff, reviewing clinical course in the computer, preparing documentation and writing orders for continued management of care, discussing status with family as appropriate, reviewing plans for the next 24 hours with both patient/family and nursing staff as appropriate. Quality VTE Deep Vein Thrombosis/Pulmonary Embolism Present on Admission: No
[2019-08-11] MEDS: VIT C/E/ZN/COPPR/LUTEIN/ZEAXAN CAPSULE 1 CAP PO ×2 (09:57→20:19)
[2019-08-11] MEDS: FINASTERIDE 5 MG TABLET PO (09:57)
[2019-08-11] MEDS: TRIAMCINOLONE 0.1% CREAM 1 APPLIC TOP ×2 (09:57→20:19)
[2019-08-11] MEDS: HYDROCODONE/ACET 5/325 TABLET 1 TAB PO ×2 (09:59→18:24)
[2019-08-11] MEDS: TAMSULOSIN 0.4 MG CAPSULE PO ×2 (09:59→20:19)
[2019-08-11] MEDS: FUROSEMIDE 20 MG TABLET PO (10:00)
--- NOTE | 2019-08-11 17:52 | PT.IIE ---
Current Diagnoses Pneumonia, unspecified organism (08/09/19) Medical History (Last Updated 08/10/19 @ 10:48 by Ronald Rogers MD) Acquired hypothyroidism (Chronic) Adenocarcinoma of right lung (Chronic ~12/2017) Anemia (Resolved) Atopic dermatitis, mild (Chronic) Benign prostatic hyperplasia with urinary obstruction (Chronic 08/24/16) Bilateral carotid bruits (Inactive ~08/2017) Constipation (Chronic) Degenerative joint disease (Chronic 07/17/11) Eustachian tube dysfunction (Resolved) Gastroesophageal reflux disease without esophagitis (Chronic 07/17/11) Hard of hearing (Chronic) HTN (hypertension) (Chronic) Macular degeneration of left eye (Inactive) Mixed hyperlipidemia (Chronic 12/02/12) Recurrent adenocarcinoma of right lung (Chronic) Silent myocardial infarction (Inactive ~2010) Spinal stenosis, site unspecified (Chronic 07/17/11) Syncope (Resolved) Physical Therapy Inpatient Evaluation/Re-Eval M1 PT/OT-IP Prior Functional Status Start: 08/11/19 15:47 Freq: NEEDED Status: Active Protocol: Document 08/11/19 16:40 (Rec: 08/11/19 17:52 [email or web address]) Medical Review Prior Functional Status Medical History Reviewed Yes Diet/Fluid Consistency Regular Communication no deficits noted except SOB. Mobility and Gait Used FWW/ 's FUR REPAIRER for long distance walk. Pt's stated that pt did not have a fall but often lost his balance due to poor oxxygen intake. Activities of Daily Living and IADL's Pt was independent with ADLs, but assisted in cooking, cleaning, grocery shopping, driving and taking pt to appointments. Social History Household Members spouse Living Arrangements House Number of Floors (Floors) Two Floors Number of Stairs To Enter/Railing? 1STE without rails to front entrance 1STE from garage entrance. Has a shelf to support Home Environment Standard Height Toilet Home Equipment Front Wheel Walker,Straight Cane,Raised Toilet Seat w/ Armrests,Shower Seat with Backrest,Hand Held Shower,Grab Bars Near Toilet,Grab Bars In Shower Employment Status Retired Additional Social History Comment Pt lives with his in [place]. Per EMR, pt with hx of end stage lung cancer and was seen at [facility] and pt currently DNR/ DNI but expressing that he is not interested in medical intervention at this time but agreeable for tx of hypoxia and pneumonia. Pt has no hx of HH or SNF and spouse states that this is the first time. Spouse states that the pt waxes and wanes with wanting Palliative Care vs tx depending on how he is feeling M2 PT-IP Current Condition Start: 08/11/19 15:47 Freq: NEEDED Status: Active Protocol: Document 08/11/19 16:40 HH (Rec: 08/11/19 17:52 HH [email or web address]) Physical Therapy Current Condition Current Condition Evaluation Date 08/11/19 Treatment Diagnosis B PNA, end stage of lung cancer, hypoxia, SOB, generalized weakness Onset Date 08/09/19 Weight Bearing Status Weight Bearing Status Full Weight Bearing M3 PT-IP Subjective Start: 08/11/19 15:47 Freq: NEEDED Status: Active Protocol: Document 08/11/19 16:40 HH (Rec: 08/11/19 17:52 HH [email or web address]) Subjective Physical Therapy Visit Type Type Initial Evaluation Visit Start Time 16:40 Visit Stop Time 17:05 Total Visit Minutes 25 Notes Pt's at bedside. Pt is on 4L O2 in room air. Number of RN ACLS Visits 0 Physical Therapy Visit Comments Patient Comments Im doing okay but i want to get to the chair. Patient Goals To return home with his Therapy Pain Assessment Pain Present Pain Present Denied Pain M4 PT-IP Mobility and Gait Start: 08/11/19 15:47 Freq: NEEDED Status: Active Protocol: Document 08/11/19 16:40 HH (Rec: 08/11/19 17:52 HH [email or web address]) PT-Bed Mobility Assessment Supine to Sit Supine to Sit Contact Guard Assistance,Head of Bed Elevated,Bedrails Scooting Scooting to Edge of Bed Contact Guard Assistance Scooting Up and Down in Bed Contact Guard Assistance PT-Transfer Assessment Sit to and From Stand Sit to and from Stand Contact Guard Assistance,Use of Upper Extremities Equipment Transfer Assistive Device Gait Belt,Front Wheeled Walker Transfers Transfer Destination Bed,Chair Transfer Technique Stand Step Pivot Transfer Ability Level of Assist Contact Guard Assistance,Use of Upper Extremities Comments Mobility Comments Pt's BP maintained at 120-130s /70s, HR 100s. Pt was in bed during assessment. Pt appears AxO x 4 but only able to answer questions in short sentence due to SOB. Pt was able to complete supine to long sit from elevated HOB. He then pivot himself towards L side EOB with CGA. He then scoot forward steadily and sat at EOB. Pt appears SOB and his SpO2 went down to 87% but able to recover >90% within 30 seconds. Pt then stood up with FWW and SpO2 went down to 85% who also c/o slight dizziness. Proceeded pt to transfer to bedside chair. Pt overall is somewhat shaky but safe. He was very SOB during transfer but able to recover > 90s within a minute. Pt sat in chair comfortably and call light placed within reach. Gait Assessment Comments Gait Comments unable to assess Stair Climbing Assessment Comments Stair Climbing Comments unable to assess PT-Balance Assessment Sitting Balance and Reactions Static Sitting Balance Ability Normal Dynamic Sitting Balance Ability Normal Standing Balance and Reactions Static Standing Balance Ability Good Dynamic Standing Balance Ability Good Device Used FWW M5 PT-IP Objective Assessments Start: 08/11/19 15:47 Freq: NEEDED Status: Active Protocol: Document 08/11/19 16:40 (Rec: 08/11/19 17:52 [email or web address]) Orientation Orientation/Cognition Level of Alertness Alert Orientation Name,Age,Birthday,Month,Date, Year,Day of Week,Place, Situation Language Function Ability Hard of Hearing Safety Awareness Decreased Safety Awareness Memory Description No Deficits Noted Gross Range of Motion Upper Extremity ROM Assessment Within Functional Limits Lower Extremity ROM Assessment Within Functional Limits Strength Upper Extremity Strength Assessment Within Functional Limits Lower Extremity Strength Assessment Within Functional Limits Coordination Assessment Gross Coordination Gross Coordination WNL Sensation Assessment Sensation Gross Sensation WNL Muscle Tone Muscle Tone WNL Yes M6 PT-IP Treatment Start: 08/11/19 15:47 Freq: NEEDED Status: Active Protocol: Document 08/11/19 16:40 HH (Rec: 08/11/19 17:52 [email or web address]) Physical Therapy Treatment Education Education Provided Safety M7 PT-IP Assessment and Plan Start: 08/11/19 15:47 Freq: NEEDED Status: Active Protocol: Document 08/11/19 16:40 (Rec: 08/11/19 17:52 [email or web address]) PT Summary Assessment and Plan Potential Rehabilitation Potential Good Status of Condition at Evaluation Evolving Summary Impairments Strength,Balance,Bed Mobility, Transfers,Gait,Activity Tolerance Assessment Summary Pt is a low complexity who admitted to due to B PNA, hypoxia, SOB , along with his end stage lung cancer. Pt did transfer only for this session due to his unstable SpO2. It went down to 85% with 4L O2 NC during transfer but he was able to recover within a minute. Pt's primariy limitation is his activity tolerance and SpO2. Pt does not have any home oxygen prior to admission. Per SW, Spouse states that the pt waxes and wanes with wanting Palliative Care vs tx depending on how he is feeling. Will cont to follow up with pt's progress. Recommend SNF at this point due to his poor activity tolerance but Stong[place] recommend pt to have home O2 therapy if they decided to go home. Goals Bed Mobility Goal Contact Guard Assistance Transfer Goal Contact Guard Assistance,Front Wheeled Walker Gait Goal Contact Guard Assistance,Front Wheel Walker Gait Distance 100 Other Goals 1 ROBI with CG FUR REPAIRER. Days to Meet Goals 10 Frequency of Treatment Frequency Of Treatment Once a Day Treatment Plan Physical Therapy Treatment Plan Bed Mobility Training,Transfer Training,Gait Training, Therapeutic Exercise,Balance Retraining,Discharge Planning Other Recommendations and Next Treatment closely monitor pt's VSS Focus mobility as shantal Recommendations To Nursing Amount of Assist Needed 1 Person Assist Discharge Recommendations PT Discharge Recommendations SNF Rehab
[2019-08-11] MEDS: guaiFENesin ER 600 MG TAB 1200 MG PO (18:23)
[2019-08-11] MEDS: ASPIRIN EC 81 MG TABLET PO (18:23)
[2019-08-11] MEDS: levoFLOXacin 500 MG/100 ML PIGGYBACK 100 MG IV (18:23)
[2019-08-11] MEDS: LISINOPRIL 5 MG TABLET PO (18:23)
[2019-08-11] MEDS: FOLIC ACID 1 MG TABLET PO (18:24)
[2019-08-11] MEDS: OXYBUTYNIN 5 MG ER TAB 10 MG PO (18:25)
[2019-08-11] MEDS: ATORVASTATIN 20 MG TABLET 40 MG PO (18:31)
[2019-08-11] MEDS: SENNOSIDES 8.6 MG TABLET 17.2 MG PO (20:19)
[2019-08-11] MEDS: QUETIAPINE 25 MG TABLET 50 MG PO (20:19)
[2019-08-12] VITALS (12 sets, daily range): BP systolic 104–126; BP diastolic 54–76; PULSE 87–106; RESP 18–24; TEMP 36.7–37.8; O2SAT 88–94
--- NOTE | 2019-08-12 03:50 | PC.NURSE ---
Pt impulsive. Out of bed w/ out use of call light, trying to get to the bathroom. Pt was hooked to O2 and SCD's. Pt AxO, just wanting to get out of bed. Needed re-education about using call light and nurse assistance. Pt has had low O2 saturation, 82%. RT notified, placed patient on venturi mask at 9 liters. Pt now at 95%. Pt lung sounds bilateral wheezing and diminished, SOB at rest. Pt VSS. Pt has bilateral LL 2+ pitting edema.
[2019-08-12] MEDS: PANTOPRAZOLE 20 MG TABLET PO (06:18)
[2019-08-12] MEDS: LEVOTHYROXINE 112 MCG TABLET PO (06:18)
[2019-08-12] MEDS: VIT C/E/ZN/COPPR/LUTEIN/ZEAXAN CAPSULE 1 CAP PO ×2 (09:12→21:50)
[2019-08-12] MEDS: FUROSEMIDE 20 MG TABLET PO (09:12)
[2019-08-12] MEDS: TRIAMCINOLONE 0.1% CREAM 1 APPLIC TOP ×2 (09:12→21:50)
[2019-08-12] MEDS: FINASTERIDE 5 MG TABLET PO (09:12)
[2019-08-12] MEDS: ACETAMINOPHEN 325 MG TABLET PO (09:12)
[2019-08-12] MEDS: TAMSULOSIN 0.4 MG CAPSULE PO ×2 (09:12→21:49)
[2019-08-12] MEDS: SENNOSIDES 8.6 MG TABLET PO (09:22)
[2019-08-12] MEDS: DOCUSATE 100 MG CAPSULE PO (09:22)
--- NOTE | 2019-08-12 09:37 | P.PN_ITS ---
Subjective Subjective Date Patient Seen: 08/12/19 Time Patient Seen: 09:00 Interval history: Patient was very concerned this morning about pain in his anus. He feels he has been mentioning this repeatedly and no one has done anything about it. He states his breathing is fine and he is not short of breath. His says he has not had a bowel movement since Wednesday. He continues to require 4 L of oxygen but was undergoing a room air trial with respiratory therapy this morning. Nursing broached the subject of hospice with his . Patient and his balbina burt not had this conversation yet. Both the patient and his plan on him discharging back to home once he is better. PT saw him yesterday and recommended fpc. Exam Vital Signs (past 8 hours): - 08/12/19 03:32 08/12/19 03:35 08/12/19 08:00 Temperature 98.6 F 98.1 F Pulse Rate 96 H 99 H Respiratory Rate 18 19 Blood Pressure 119/55 L 126/62 Pulse Oximetry 92 92 94 08/12/19 09:23 Temperature Pulse Rate 94 H Respiratory Rate 24 Blood Pressure Pulse Oximetry 88 L Fraction of Inspired Oxygen 40 Oxygen Delivery Method Room Air Oxygen Flow Rate 4 Narrative Exam Narrative: General: Frail appearing older man resting in bed. Very irritated about the pain in his anus. HEENT: NCAT, EOMI, moist oral mucosa, nasal cannula in place CV: Regular rate and rhythm Lungs: Clear breath sounds bilaterally though decreased at the bases, right greater than left. No wheezes. Abdomen: Soft and nontender Extremities: Warm, 1+ edema bilaterally Objective Labs Result Diagrams: 08/09/19 17:25 08/09/19 17:25 Assessment & Plan Assessment & Plan narrative: Pneumonia - Continue levofloxacin Hypoxia/respiratory failure - Attempting to wean oxygen, he had decent air movement bilaterally on exam today. Continue supplemental oxygen and albuterol as needed. May need to go home with home oxygen but we will see how the next day or 2 goes. Lung cancer - Will defer to Dr. Rogers regarding management. Nursing has discussed hospice with his though this has not been discussed with the patient yet. Anal pain - Did not examine during our visit but asked nursing to check for pressor sores. He has apparently not moved out of the bed much. Will follow back up on this later today. Disposition: halfway on discharge has been recommended by PT and seems very appropriate. Appreciate PT support daily while he is the hospital. He and his are of the opinion that he will discharge home once he is better. If they're set on going home, perhaps a hospice consultation would be the best course of action. We will see how he does over the next day or 2. He is certainly not ready to leave the hospital yet. Quality VTE Deep Vein Thrombosis/Pulmonary Embolism Present on Admission: No
--- NOTE | 2019-08-12 11:15 | PT.IPTN ---
Current Diagnoses Pneumonia, unspecified organism (08/09/19) Physical Therapy Treatment Note M2 PT-IP Current Condition Start: 08/11/19 15:47 Freq: NEEDED Status: Active Protocol: Document 08/11/19 16:40 HH (Rec: 08/11/19 17:52 HH [email or web address]) Physical Therapy Current Condition Current Condition Evaluation Date 08/11/19 Treatment Diagnosis B PNA, end stage of lung cancer, hypoxia, SOB, generalized weakness Onset Date 08/09/19 Weight Bearing Status Weight Bearing Status Full Weight Bearing M3 PT-IP Subjective Start: 08/11/19 15:47 Freq: NEEDED Status: Active Protocol: Document 08/12/19 11:15 GGD (Rec: 08/12/19 11:58 GGD [id number]) Subjective Physical Therapy Visit Type Type Treatment Note Visit Start Time 11:04 Visit Stop Time 11:16 Total Visit Minutes 12 Number of GUARD RAIL INSTALLER Visits 1 Physical Therapy Visit Comments Patient Comments Pt willing to work with therapy, but needs help. M4 PT-IP Mobility and Gait Start: 08/11/19 15:47 Freq: NEEDED Status: Active Protocol: Document 08/12/19 11:15 GGD (Rec: 08/12/19 11:58 GGD [id number]) PT-Bed Mobility Assessment Supine to Sit Supine to Sit Contact Guard Assistance,Head of Bed Elevated,Bedrails Scooting Scooting to Edge of Bed Contact Guard Assistance PT-Transfer Assessment Sit to and From Stand Sit to and from Stand Contact Guard Assistance,Use of Upper Extremities Equipment Transfer Assistive Device Gait Belt,Front Wheeled Walker Transfers Transfer Destination Chair Transfer Ability Level of Assist Contact Guard Assistance,Use of Upper Extremities Comments Mobility Comments O2 on 4 L at rest 89%, with activity 87-91% Gait Assessment Gait Gait Assistance Required: Contact Guard Assist Distance (Feet) 8 Able to Maintain Weight Bearing Status Yes During Gait Assistive Devices Assistive Device Gait Belt,Front Wheeled Walker Gait Deviations General Gait Pattern Antalgic,Decreased Stride Length,Decreased Feet Clearance Factors Limiting Gait Function Factors Limiting Gait Function Decreased Activity Tolerance, Decreased Strength,Respiratory Distress M5 PT-IP Objective Assessments Start: 08/11/19 15:47 Freq: NEEDED Status: Active Protocol: Document 08/11/19 16:40 HH (Rec: 08/11/19 17:52 HH [email or web address]) Orientation Orientation/Cognition Level of Alertness Alert Orientation Name,Age,Birthday,Month,Date, Year,Day of Week,Place, Situation Language Function Ability Hard of Hearing Safety Awareness Decreased Safety Awareness Memory Description No Deficits Noted Gross Range of Motion Upper Extremity ROM Assessment Within Functional Limits Lower Extremity ROM Assessment Within Functional Limits Strength Upper Extremity Strength Assessment Within Functional Limits Lower Extremity Strength Assessment Within Functional Limits Coordination Assessment Gross Coordination Gross Coordination WNL Sensation Assessment Sensation Gross Sensation WNL Muscle Tone Muscle Tone WNL Yes M6 PT-IP Treatment Start: 08/11/19 15:47 Freq: NEEDED Status: Active Protocol: Document 08/11/19 16:40 HH (Rec: 08/11/19 17:52 HH [email or web address]) Physical Therapy Treatment Education Education Provided Safety M7 PT-IP Assessment and Plan Start: 08/11/19 15:47 Freq: NEEDED Status: Active Protocol: Document 08/12/19 11:15 GGD (Rec: 08/12/19 11:58 GGD [id number]) PT Summary Assessment and Plan Summary Assessment Summary Pt is CGA with mobility. He did need cues for safety. His mobility was limited by SOB. Pt did have decrease in O2 to 84% when talking. Frequency of Treatment Frequency Of Treatment Once a Day Treatment Plan Physical Therapy Treatment Plan Bed Mobility Training,Transfer Training,Gait Training, Therapeutic Exercise,Balance Retraining,Discharge Planning Recommendations To Nursing Amount of Assist Needed 1 Person Assist Discharge Recommendations PT Discharge Recommendations SNF Rehab
[2019-08-12] MEDS: ASPIRIN EC 81 MG TABLET PO (16:48)
[2019-08-12] MEDS: ATORVASTATIN 20 MG TABLET 40 MG PO (16:48)
[2019-08-12] MEDS: guaiFENesin ER 600 MG TAB 1200 MG PO (16:49)
[2019-08-12] MEDS: OXYBUTYNIN 5 MG ER TAB 10 MG PO (16:49)
[2019-08-12] MEDS: LISINOPRIL 5 MG TABLET PO (16:49)
[2019-08-12] MEDS: FOLIC ACID 1 MG TABLET PO (16:49)
[2019-08-12] MEDS: levoFLOXacin 500 MG/100 ML PIGGYBACK 100 MG IV (17:00)
[2019-08-12] MEDS: QUETIAPINE 25 MG TABLET 50 MG PO (21:49)
[2019-08-12] MEDS: SENNOSIDES 8.6 MG TABLET 17.2 MG PO (21:50)
[2019-08-12] MEDS: FLUTICASONE 120 SPRAY/16 GM SPRAY.SUSP NASAL (21:53)
[2019-08-13] VITALS (14 sets, daily range): BP systolic 104–147; BP diastolic 49–69; PULSE 86–114; RESP 16–24; TEMP 36.3–37.8; O2SAT 90–97
--- NOTE | 2019-08-13 02:24 | PC.NURSE ---
Upon shift change pt. got very aggravated and aggressive. Stated YOU ARE AN ASSHOLE, told me he was going to yell as loud as he could at me. Was aggressive and threatening towards Aid also and other staff members. Security was called. Pt was monitored until aid could come do 1:1. Once new aid on shift, pt was willing to let her do vital signs and I was able to do assessment. Pt has been calm and cooperative since 0045 AM. Pt VSS, but pt is still on 3.5 liters O2 NC w/ 92% O2 sats, pt is tachy in the 90's. Lung sounds fine crackles and diminished bilaterally. Pt has LL Edema bilaterally. Pt has some pain generalized 4/10 but was unwilling to take Tylenol. Pt has SCD's applied. Pt is using call light appropriately and it is within reach.
[2019-08-13] MEDS: LEVOTHYROXINE 112 MCG TABLET PO (06:10)
[2019-08-13] MEDS: PANTOPRAZOLE 20 MG TABLET PO (06:10)
--- NOTE | 2019-08-13 09:11 | P.PN_ITS ---
Subjective Subjective Date Patient Seen: 08/13/19 Time Patient Seen: 08:30 Interval history: Patient feels better this morning though states he had a nightmare during the night. According to nursing notes, he became quite aggressive and security had to be called. He had a one-to-one sitter and calmed down the rest of the night. This morning he was quite pleasant and conversant. On the subject of hospice, he states, We can talk about that later. His is concerned that he still has not had a bowel movement since admission though he denies the urge to go. His severe anal pain from yesterday resolved with barrier cream and repositioning. From a respiratory standpoint, he has no complaints. Denies shortness of breath or cough. Exam Vital Signs (past 8 hours): - 08/13/19 03:44 08/13/19 07:23 08/13/19 07:25 Temperature 97.7 F 99.3 F Pulse Rate 98 H 96 H 93 H Respiratory Rate 22 16 Blood Pressure 131/66 135/69 Pulse Oximetry 93 95 94 08/13/19 08:53 Temperature Pulse Rate Respiratory Rate Blood Pressure Pulse Oximetry 95 Fraction of Inspired Oxygen 40 Oxygen Delivery Method Nasal Cannula,Humidification Oxygen Flow Rate 3.5 Narrative Exam Narrative: General: Frail appearing older man sitting up eating breakfast. Polite and pleasant this morning. HEENT: NCAT, EOMI, moist oral mucosa, nasal cannula in place CV: Regular rate and rhythm Lungs: Clear breath sounds bilaterally though decreased at the bases. No wheezes or crackles. Extremities: Warm, 1+ edema bilaterally Objective Labs Result Diagrams: 08/09/19 17:25 08/09/19 17:25 Assessment & Plan Assessment & Plan narrative: 84-year-old male with stage IV lung cancer admitted with pneumonia, hypoxic respiratory failure and right pleural effusion. He underwent thoracentesis shortly after admission. We have slowly been weaning oxygen. Today he is down to 3.5 L by nasal cannula. Will continue to treat pneumonia with levofloxacin and wean oxygen as able. The bigger question is disposition. He would like to go home with his rather than to senior care but he has no help at home besides his . custodial is recommended by PT at this point given his mobility needs. Brought up the topic of hospice this morning since he is of the opinion he has no other treatments available to him for his lung cancer. He did not want to discuss it today. I encouraged he and his to discuss. He could go home with hospice verses discharged to senior care if he wants to pursue further rehab and treatment. Will defer the conversation to Dr. Rogers, his PCP, who will be back tomorrow. In the meantime it is appropriate for him to remain in the hospital while receiving IV antibiotics, oxygen and further physical therapy to determine discharge planning. Quality VTE Deep Vein Thrombosis/Pulmonary Embolism Present on Admission: No
[2019-08-13] MEDS: DOCUSATE 100 MG CAPSULE PO (09:36)
[2019-08-13] MEDS: SENNOSIDES 8.6 MG TABLET PO (09:36)
[2019-08-13] MEDS: FINASTERIDE 5 MG TABLET PO (09:36)
[2019-08-13] MEDS: ACETAMINOPHEN 325 MG TABLET PO (09:36)
[2019-08-13] MEDS: FUROSEMIDE 20 MG TABLET PO (09:36)
[2019-08-13] MEDS: VIT C/E/ZN/COPPR/LUTEIN/ZEAXAN CAPSULE 1 CAP PO ×2 (09:36→21:18)
[2019-08-13] MEDS: POLYETHYLENE GLYCOL 3350 17 GM POWD.PACK PO (09:36)
[2019-08-13] MEDS: TAMSULOSIN 0.4 MG CAPSULE PO ×2 (09:36→21:20)
--- NOTE | 2019-08-13 13:15 | PT.IPTN ---
Current Diagnoses Pneumonia, unspecified organism (08/09/19) Physical Therapy Treatment Note M2 PT-IP Current Condition Start: 08/11/19 15:47 Freq: NEEDED Status: Active Protocol: Document 08/11/19 16:40 HH (Rec: 08/11/19 17:52 HH [email or web address]) Physical Therapy Current Condition Current Condition Evaluation Date 08/11/19 Treatment Diagnosis B PNA, end stage of lung cancer, hypoxia, SOB, generalized weakness Onset Date 08/09/19 Weight Bearing Status Weight Bearing Status Full Weight Bearing M3 PT-IP Subjective Start: 08/11/19 15:47 Freq: NEEDED Status: Active Protocol: Document 08/13/19 11:58 CLB (Rec: 08/13/19 14:20 CLB [id number]) Subjective Physical Therapy Visit Type Type Treatment Note Visit Start Time 11:58 Visit Stop Time 13:15 Total Visit Minutes 19 Notes Split treatment time. Pt transferred to chair to eat lunch then wanted to get back to bed refusing ambulation. Number of EMPLOYEE BENEFITS COORDINATOR Visits 2 Physical Therapy Visit Comments Patient Comments Pt wanted to get to chair for lunch agreed to ambulate after lunch but then pt refused ambulation wanting to just get back to bed. M4 PT-IP Mobility and Gait Start: 08/11/19 15:47 Freq: NEEDED Status: Active Protocol: Document 08/13/19 11:58 CLB (Rec: 08/13/19 14:20 CLB [id number]) PT-Bed Mobility Assessment Rolling Type of Rolling Roll to Left Level of Assist Moderate Assistance,1 Person Assistance Supine to Sit Supine to Sit Moderate Assistance Sit to Supine Sit to Supine Contact Guard Assistance Scooting Scooting to Edge of Bed Contact Guard Assistance PT-Transfer Assessment Sit to and From Stand Sit to and from Stand Minimal Assistance,1 Person Assistance,Use of Upper Extremities Equipment Transfer Assistive Device Gait Belt,Front Wheeled Walker Orthotic/Prosthetic Devices or Brace: No Transfers Transfer Destination Bed,Chair Transfer Technique Stand Step Pivot Transfer Ability Level of Assist Minimal Assistance,1 Person Assistance,Use of Upper Extremities Comments Mobility Comments Pt requires for log roll sequencing and cues to slow down during transfer. Pt needs assist with lines. O2 on 3.5 L remained WNL Gait Assessment Comments Gait Comments Pt refused gait. M5 PT-IP Objective Assessments Start: 08/11/19 15:47 Freq: NEEDED Status: Active Protocol: Document 08/11/19 16:40 HH (Rec: 08/11/19 17:52 HH [email or web address]) Orientation Orientation/Cognition Level of Alertness Alert Orientation Name,Age,Birthday,Month,Date, Year,Day of Week,Place, Situation Language Function Ability Hard of Hearing Safety Awareness Decreased Safety Awareness Memory Description No Deficits Noted Gross Range of Motion Upper Extremity ROM Assessment Within Functional Limits Lower Extremity ROM Assessment Within Functional Limits Strength Upper Extremity Strength Assessment Within Functional Limits Lower Extremity Strength Assessment Within Functional Limits Coordination Assessment Gross Coordination Gross Coordination WNL Sensation Assessment Sensation Gross Sensation WNL Muscle Tone Muscle Tone WNL Yes M6 PT-IP Treatment Start: 08/11/19 15:47 Freq: NEEDED Status: Active Protocol: Document 08/11/19 16:40 HH (Rec: 08/11/19 17:52 HH [email or web address]) Physical Therapy Treatment Education Education Provided Safety M7 PT-IP Assessment and Plan Start: 08/11/19 15:47 Freq: NEEDED Status: Active Protocol: Document 08/13/19 11:58 CLB (Rec: 08/13/19 14:20 CLB [id number]) PT Summary Assessment and Plan Summary Assessment Summary Pt needs cues to slow down for safety. Pt c/o SOB and did not want to ambulate even after encouragement. Pt O2 remained WNL during transfers. Goals Bed Mobility Goal Contact Guard Assistance Transfer Goal Contact Guard Assistance,Front Wheeled Walker Gait Goal Contact Guard Assistance,Front Wheel Walker Gait Distance 100 Other Goals 1 ROBI with CG NUCLEAR CONTROL OPERATOR. Days to Meet Goals 10 Frequency of Treatment Frequency Of Treatment Once a Day Treatment Plan Physical Therapy Treatment Plan Bed Mobility Training,Transfer Training,Gait Training, Therapeutic Exercise,Balance Retraining,Discharge Planning Other Recommendations and Next Treatment closely monitor pt's VSS Focus mobility as shantal Recommendations To Nursing Amount of Assist Needed 1 Person Assist Discharge Recommendations PT Discharge Recommendations SNF Rehab
--- NOTE | 2019-08-13 13:52 | PC.NURSE ---
Pt now resting in bed with O2 sat of 100% on 3.5L O2. Reduced O2 to 2L and monitored for approx. 5 minutes. O2 sat remained at 95% or greater. Pt has not had a bm in several days but was given Miralax, Stool Softener, and Senna and has been having a fair amount of audible flatus since then. Pt bed alarm on for safety and scd's on and running.
[2019-08-13] MEDS: levoFLOXacin 500 MG/100 ML PIGGYBACK 100 MG IV (17:44)
[2019-08-13] MEDS: ATORVASTATIN 20 MG TABLET 40 MG PO (17:44)
[2019-08-13] MEDS: ASPIRIN EC 81 MG TABLET PO (17:44)
[2019-08-13] MEDS: FOLIC ACID 1 MG TABLET PO (17:45)
[2019-08-13] MEDS: guaiFENesin ER 600 MG TAB 1200 MG PO (17:48)
[2019-08-13] MEDS: LISINOPRIL 5 MG TABLET PO (17:48)
[2019-08-13] MEDS: OXYBUTYNIN 5 MG ER TAB 10 MG PO (17:49)
[2019-08-13] MEDS: SENNOSIDES 8.6 MG TABLET 17.2 MG PO (21:18)
[2019-08-13] MEDS: QUETIAPINE 25 MG TABLET 50 MG PO (21:18)
[2019-08-14] VITALS (17 sets, daily range): BP systolic 135–159; BP diastolic 65–73; PULSE 84–116; RESP 19–24; TEMP 36.3–37.7; O2SAT 89–100
[2019-08-14] MEDS: PANTOPRAZOLE 20 MG TABLET PO (05:30)
[2019-08-14] MEDS: LEVOTHYROXINE 112 MCG TABLET PO (05:30)
--- NOTE | 2019-08-14 07:33 | PC.NURSE ---
Addendum entered by Lucinda Perez R.N. 08/14/19 13:30: Up to chair ahead of lunch. Had a large soft bowel movement after he ate. Reported he still feels like there is still more that needs to come out. Call out to Dr Rogers to ask for PRN enema. For now patient is resting quietly back in the chair. Sats on 3L O2 98%. Appears comfortable. Call light within reach, chair alarm on. Addendum entered by Lucinda Preez R.N. 08/14/19 11:11: Maintaining sats in the mid 90's on 3L per NC. Dulcolax suppository admin by student RN and her instructor (last BM was prior to entering the hospital). Patient resting quietly on L side at this time. Light in reach, bed alarm on. Addendum entered by Lucinda Perez R.N. 08/14/19 08:56: Awake and more alert by the minute. Oriented to self, place and his . Able to follow commands appropriately. Denies shortness of breath or any pain at rest. Lungs with fine bibasilar crackles. Placed on 3L O2 per NC, sats now 95% at rest. Sitting up in bed working on breakfast with his 's assistance. Saline locked. SCD's to BLE's. Brief dry, assisted with urinal. Denies needs at this time. Light within reach, bed alarm on. Original Note: Shift summary: Resting quietly in bed with eyes closed. Respirations regular, unlabored at rest. SpO2 100% on 1L per Venturi mask, cont. pulse ox in place. Will allow to sleep and fully assess when awake. Call light in reach, bed alarm active.
--- NOTE | 2019-08-14 08:49 | P.PN_ITS ---
Subjective Subjective Date Patient Seen: 08/14/19 Time Patient Seen: 08:49 Interval history: Patient is sitting up in bed eating breakfast. Really has no complaints. Not very interactive however. Spouse is with him and has a few questions that I answered Exam Vital Signs (past 8 hours): - 08/14/19 06:00 08/14/19 07:20 08/14/19 07:40 Temperature 99.7 F H Pulse Rate 100 H 84 Respiratory Rate 20 Blood Pressure 145/70 H Pulse Oximetry 96 100 100 08/14/19 08:42 Temperature Pulse Rate Respiratory Rate Blood Pressure Pulse Oximetry 96 Fraction of Inspired Oxygen 30 Oxygen Delivery Method Nasal Cannula Oxygen Flow Rate 3 Objective Labs Result Diagrams: 08/09/19 17:25 08/09/19 17:25 Assessment & Plan Assessment & Plan narrative: 1. Pneumonia-continue with oxygen plus IV antibiotics. Will switch to oral antibiotics when IV needs to be changed. From medical standpoint patient is probably ready to be discharged at any point. 2. Lung cancer-patient's overall clinical status is certainly degraded over baseline and I do not think he is a candidate for any additional therapies at this time. He needs to improve and get stronger before I think he would be appropriate for additional treatment. I would defer this to Oncology but that was part of my discussion with patient's spouse this morning. Uncertain as to whether not he has reaccumulated fluid in his right hemithorax which I am certain will occur at some point given the noted disease there. Also uncertain as to how much better his pneumonia will get with the cancer in place as well as what his overall oxygen requirements will be at baseline when maximally improved. Continue current therapies and hopefully with time will become more clear 3. Disposition-patient really is too much care and unsafe to go home. Patient not ready to consider hospice at this point. After long discussion with patient's spouse suggested that I am uncertain as to how much better he will get a month certain as to how much better his pneumonia will get a month certain as to how little oxygen he will eventually require as the uncertain part of all of this is his lung cancer. Patient clearly has declined in strength since admission to the hospital as he was more ambulatory able to do more on his own on day of admission then he is currently. Therefore I think there is some reason to expect that he will improve with appropriate time and skilled therapies. Therefore I think [facility] to continue with skilled therapies to try and improve his strength as we continue treating his pneumonia and continue with oxygen supplementation as necessary. Assuming does improve 50-80% he would then be a candidate for continued treatment aim to his lung cancer and could likely be discharged home If he fails to improve or plateaus then additional consideration for discontinuation of treatment for his cancer removing towards more of a palliative care/hospice end of life care would be most appropriate. Patient's spouse are fully in agreement with the plan for [facility] to [facility] in an effort to rehabilitate him and see what his new baseline will be after appropriate treatment of his pneumonia and as necessary a treatment of his hypoxia as well with oxygen replacement therapy. I ask care management staff to work towards placement in a local facility. Note: Greater than 30 minutes was spent evaluating the patient on the floor, including examining the patient, discussing clinical course with clinical and nursing staff, reviewing clinical course in the computer, preparing documentation and writing orders for continued management of care, discussing status with family as appropriate, reviewing plans for the next 24 hours with both patient/family and nursing staff as appropriate. Quality VTE Deep Vein Thrombosis/Pulmonary Embolism Present on Admission: No
[2019-08-14] MEDS: VIT C/E/ZN/COPPR/LUTEIN/ZEAXAN CAPSULE 1 CAP PO (09:14)
[2019-08-14] MEDS: FUROSEMIDE 20 MG TABLET PO (09:14)
[2019-08-14] MEDS: TAMSULOSIN 0.4 MG CAPSULE PO (09:14)
[2019-08-14] MEDS: FINASTERIDE 5 MG TABLET PO (09:14)
[2019-08-14] MEDS: SENNOSIDES 8.6 MG TABLET PO (09:15)
[2019-08-14] MEDS: DOCUSATE 100 MG CAPSULE PO (09:15)
[2019-08-14] MEDS: SODIUM CHLORIDE 0.9% FLUSH 10 ML IV ×2 (10:58→20:51)
[2019-08-14] MEDS: BISACODYL 10 MG SUPP PR (11:01)
--- NOTE | 2019-08-14 11:11 | PC.NURSE ---
Patient given prn suppository, tolerated well. Bed in low position, wheels locked, call light with in reach. is at patient's bedside, care continues.
--- NOTE | 2019-08-14 12:11 | PT.IPTN ---
Current Diagnoses Pneumonia, unspecified organism (08/09/19) Physical Therapy Treatment Note M2 PT-IP Current Condition Start: 08/11/19 15:47 Freq: NEEDED Status: Active Protocol: Document 08/11/19 16:40 HH (Rec: 08/11/19 17:52 HH [email or web address]) Physical Therapy Current Condition Current Condition Evaluation Date 08/11/19 Treatment Diagnosis B PNA, end stage of lung cancer, hypoxia, SOB, generalized weakness Onset Date 08/09/19 Weight Bearing Status Weight Bearing Status Full Weight Bearing M3 PT-IP Subjective Start: 08/11/19 15:47 Freq: NEEDED Status: Active Protocol: Document 08/14/19 12:11 DLM (Rec: 08/14/19 13:36 DLM [id number]) Subjective Physical Therapy Visit Type Type Treatment Note Visit Start Time 11:55 Visit Stop Time 12:11 Total Visit Minutes 16 Number of WORKCELL OPERATOR Visits 0 Physical Therapy Visit Comments Patient Comments He does not want to get out of bed, wants pt to get up for lunch Therapy Pain Assessment Pain Present Pain Present Denied Pain M4 PT-IP Mobility and Gait Start: 08/11/19 15:47 Freq: NEEDED Status: Active Protocol: Document 08/14/19 12:11 DLM (Rec: 08/14/19 13:36 DLM [id number]) PT-Bed Mobility Assessment Rolling Type of Rolling Roll to Left Level of Assist Minimal Assistance Supine to Sit Supine to Sit Minimal Assistance,Moderate Assistance Scooting Scooting to Edge of Bed Contact Guard Assistance PT-Transfer Assessment Sit to and From Stand Sit to and from Stand Minimal Assistance,Use of Upper Extremities Equipment Transfer Assistive Device Gait Belt,Front Wheeled Walker Transfers Transfer Destination Bed,Chair Transfer Technique Stand Step Pivot Transfer Ability Level of Assist Minimal Assistance,Use of Upper Extremities Comments Mobility Comments He agreed to get up for lunch with a lot of encouragement, pt left sitting up in recliner with his helping him Gait Assessment Gait Gait Assistance Required: Contact Guard Assist,Minimum Assistance Distance (Feet) 3 Assistive Devices Assistive Device Gait Belt,Front Wheeled Walker Gait Deviations General Gait Pattern Antalgic,Decreased Stride Length,Decreased Feet Clearance Factors Limiting Gait Function Factors Limiting Gait Function Decreased Activity Tolerance, Decreased Strength,Respiratory Distress Comments Gait Comments He refused further gait PT-Balance Assessment Sitting Balance and Reactions Static Sitting Balance Ability Good Dynamic Sitting Balance Ability Good Standing Balance and Reactions Static Standing Balance Ability Good Dynamic Standing Balance Ability Fair Device Used FWW M5 PT-IP Objective Assessments Start: 08/11/19 15:47 Freq: NEEDED Status: Active Protocol: Document 08/11/19 16:40 HH (Rec: 08/11/19 17:52 HH [email or web address]) Orientation Orientation/Cognition Level of Alertness Alert Orientation Name,Age,Birthday,Month,Date, Year,Day of Week,Place, Situation Language Function Ability Hard of Hearing Safety Awareness Decreased Safety Awareness Memory Description No Deficits Noted Gross Range of Motion Upper Extremity ROM Assessment Within Functional Limits Lower Extremity ROM Assessment Within Functional Limits Strength Upper Extremity Strength Assessment Within Functional Limits Lower Extremity Strength Assessment Within Functional Limits Coordination Assessment Gross Coordination Gross Coordination WNL Sensation Assessment Sensation Gross Sensation WNL Muscle Tone Muscle Tone WNL Yes M6 PT-IP Treatment Start: 08/11/19 15:47 Freq: NEEDED Status: Active Protocol: Document 08/14/19 12:11 DLM (Rec: 08/14/19 13:36 DLM [id number]) Physical Therapy Treatment Education Education Provided Safety M7 PT-IP Assessment and Plan Start: 08/11/19 15:47 Freq: NEEDED Status: Active Protocol: Document 08/14/19 12:11 DLM (Rec: 08/14/19 13:36 DLM [id number]) PT Summary Assessment and Plan Summary Impairments Strength,Balance,Cognition,Bed Mobility,Transfers,Gait, Activity Tolerance Progress Towards Goals Slow Progress due to Activity Tolerance Assessment Summary Segundo is alert but needed a lot of encouragement to get out of bed this visit. His was present and encouraged him. Pt up to recliner for lunch. Shortness of breath with light activity but good recovery once seated in chair. His activity tolerance continues to be very low in general. Goals Bed Mobility Goal Contact Guard Assistance Transfer Goal Contact Guard Assistance,Front Wheeled Walker Gait Goal Contact Guard Assistance,Front Wheel Walker Gait Distance 100 Other Goals 1 ROBI with CG STATE FEDERAL RELATIONS DEPUTY DIRECTOR. Days to Meet Goals 10 Frequency of Treatment Frequency Of Treatment Once a Day Treatment Plan Physical Therapy Treatment Plan Bed Mobility Training,Transfer Training,Gait Training, Therapeutic Exercise,Balance Retraining,Discharge Planning, Neuromuscular Re-ed Recommendations To Nursing Amount of Assist Needed 1 Person Assist Discharge Recommendations PT Discharge Recommendations SNF Rehab
--- NOTE | 2019-08-14 12:50 | OT.IP.EVAL ---
Current Diagnoses Pneumonia, unspecified organism (08/09/19) Past Medical History (Last Updated 08/10/19 @ 10:48 by Ronald Rogers MD) Acquired hypothyroidism (Chronic) Adenocarcinoma of right lung (Chronic ~12/2017) Anemia (Resolved) Atopic dermatitis, mild (Chronic) Benign prostatic hyperplasia with urinary obstruction (Chronic 08/24/16) Bilateral carotid bruits (Inactive ~08/2017) Constipation (Chronic) Degenerative joint disease (Chronic 07/17/11) Eustachian tube dysfunction (Resolved) Gastroesophageal reflux disease without esophagitis (Chronic 07/17/11) Hard of hearing (Chronic) HTN (hypertension) (Chronic) Macular degeneration of left eye (Inactive) Mixed hyperlipidemia (Chronic 12/02/12) Recurrent adenocarcinoma of right lung (Chronic) Silent myocardial infarction (Inactive ~2010) Spinal stenosis, site unspecified (Chronic 07/17/11) Syncope (Resolved) Occupational Therapy Inpatient Evaluation/Re-Eval Document 08/14/19 12:50 [facility] (Rec: 08/14/19 14:52 [facility] [id number]) Medical Review Prior Functional Status Medical History Reviewed Yes Diet/Fluid Consistency Regular Communication no deficits noted except SOB. Mobility and Gait Used FWW/ 's HORSE RACE TIMER for long distance walk. Pt's stated that pt did not have a fall but often lost his balance due to poor oxygen intake. Activities of Daily Living and IADL's Pt was independent with ADLs, but assisted in cooking, cleaning, grocery shopping, driving and taking pt to appointments. Social History Household Members spouse Living Arrangements House Number of Floors (Floors) Two Floors Number of Stairs To Enter/Railing? 1STE without rails to front entrance 1STE from garage entrance. Has a shelf to support Home Environment Standard Height Toilet Home Equipment Front Wheel Walker,Straight Cane,Raised Toilet Seat w/ Armrests,Shower Seat with Backrest,Hand Held Shower,Grab Bars Near Toilet,Grab Bars In Shower Employment Status Retired Additional Social History Comment Pt lives with his in [place]. Per EMR, pt with hx of end stage lung cancer and was seen at [facility] and pt currently DNR/ DNI but expressing that he is not interested in medical intervention at this time but agreeable for tx of hypoxia and pneumonia. Pt has no hx of HH or SNF and spouse states that this is the first time. Spouse states that the pt waxes and wanes with wanting Palliative Care vs tx depending on how he is feeling M2 OT-IP Current Condition Start: 08/14/19 14:28 Freq: Status: Active Protocol: Document 08/14/19 12:50 [facility] (Rec: 08/14/19 14:52 [facility] [id number]) Occupational Therapy Current Condition Current Condition Evaluation Date 08/14/19 Treatment Diagnosis Bilateral PNA, hypoxia, end stage lung CA Diagnosis Onset Date 08/09/19 Weight Bearing Status Weight Bearing Status Weight Bear as Tolerated M3 OT- IP Subjective and Pain Start: 08/14/19 14:28 Freq: Status: Active Protocol: Document 08/14/19 12:50 [facility] (Rec: 08/14/19 14:52 [facility] [id number]) OT- Subjective Occupational Therapy Visit Type Type Initial Evaluation Visit Start Time 12:50 Visit Stop Time 13:19 Total Visit Minutes 29 Occupational Therapy Visit Comments Patient Comments Pt wanting to have a bowel movement. OT Pain Assessment Pain When Pain Assessed At Rest Pain Present Pain Present Denied Pain M4 OT- IP ADL's Start: 08/14/19 14:28 Freq: Status: Active Protocol: Document 08/14/19 12:50 [facility] (Rec: 08/14/19 14:52 [facility] [id number]) OT ADL-Grooming General Evaluation Areas Needing Assistance Retrieving/Set-up of Grooming Items Comments OT Grooming Comments Pt able to wash his hands after set-up while sitting on the commode. OT ADL-Dressing General Eval Lower Body Dressing Ability Maximum Assistance Areas Needing Assistance Underpants/Brief,Socks Comments OT Dressing Comments Pt requiring MAX A to samantha socks and brief over his feet and up over his hips. OT ADL-Toileting General Evaluation Toileting Ability Maximum Assistance Areas Needing Assistance Manage Clothing,Perform Perineal Hygiene Devices Toileting Assistive Devices Commode Comments OT Toileting Comments Due to fatigue , pt not able to do own hygiene needs and needing therapist to help stand pt MODA X 1 to FWW while assistant professor of nursing assisted pt with hygiene and brief management needs. Pt on6L of O2 and from 78% -100% and needing reminders to breath in through his nose and try to slow down his breathing . HR from 107-119. OT ADL-Bathing Comments OT Bathing Comments Not appropriate at this time , sponge bath would be best due to decreased activity tolerance. M6 OT- IP Functional Cognition Start: 08/14/19 14:28 Freq: Status: Active Protocol: Document 08/14/19 12:50 [facility] (Rec: 08/14/19 14:52 [facility] [id number]) Cognitive Factors Limiting Selfcare Function Cognitive Ability Level of Alertness Alert,Confusional State Patient Orientation Name,Place,Situation Attention Span Ability Capable of Focused Attention, Capable of Sustained Attention Ability to Follow Commands Able to Follow One Step Commands Memory Description Short Term Impaired Safety Awareness Underestimates Need for Assistance Problem Solving Ability Unable to Identify Errors, Needs Assist to Identify Solutions Cognitive Comments Cognitive Assessment Comments Pt not remembering what the nurse just told him and needing to remind him and explain to him what was going on. Pt focused on trying to empty out his bowels and concerned that he is not able to empty them out all the way. Pt did agree with therapist and nursing to try to sit on the commode a little longer and if not having any more success that nursing would contact the physician for further medical needs. OT- Vision and Hearing OT- Hearing Assessment OT- Hearing Assessment Hearing Impaired OT- Vision Assessment Visual Acuity Glasses All The Time M7 OT- IP Mobility and Balance Start: 08/14/19 14:28 Freq: Status: Active Protocol: Document 08/14/19 12:50 [facility] (Rec: 08/14/19 14:52 [facility] [id number]) OT-Transfer Assessment Sit to and From Stand Sit to and from Stand Moderate Assistance Transfers Transfer Ability Moderate Assistance Technique Transfer Destination Bedside Commode,Chair Transfer Technique Stand Step Pivot Devices Transfer Assistive Devices Gait Belt,Front Wheeled Walker Comments Mobility Comments Pt needing MODA to come to stand , needing vc for safety to push up from the armrest of [facility] to stand. MODA with FWW for balance and to help guide to the recliner. LOLITA to help ease down for sitting. Chair alarm attached and call light given to pt. OT- Balance Assessment Sitting Balance and Reactions Static Sitting Balance Ability Normal Dynamic Sitting Balance Ability Fair Standing Balance and Reactions Static Standing Balance Ability Fair M8 OT- IP Objective Assessments Start: 08/14/19 14:28 Freq: Status: Active Protocol: Document 08/14/19 12:50 [facility] (Rec: 08/14/19 14:52 [facility] [id number]) OT Gross Range of Motion Upper Extremity Range of Motion Assessment Within Functional Limits OT Strength Comments Strength Comments Bilateral vocational education teacher 4/5 M9 OT- IP Assessment and Plan Start: 08/14/19 14:28 Freq: Status: Active Protocol: Document 08/14/19 12:50 [facility] (Rec: 08/14/19 14:52 [facility] [id number]) OT Summary Assessment and Plan Potential Rehabilitation Potential Fair Analytic Complexity at Evaluation Moderate Summary OT Impairments Balance,Functional Cognition, Functional Mobility,Grooming, Dressing,Toileting,Bathing, Toilet Transfers,Shower Transfers Progress Towards Goals Slow Progress due to Medical Issues,Slow Progress due to Activity Tolerance,Slow Progress due to Cognition Assessment Summary Pt MOD complexity with barriers of step a home, O2 now on 6L and decreases with minimal exertion, now needing extensive assist for ADL's and functional mobility need 1-2 persons. Pt current care is too great for pt 's to care for pt and would benefit from skilled rehab prior to going home. Pt far from baseline as prior was able to do ADl's on his own. Goals Grooming Goal Standby Assistance Dressing Goal Standby Assistance Toileting Goal Standby Assistance Bathing Goal Minimal Assistance Toilet Transfer Goal Standby Assistance Shower Transfer Goal Contact Guard Assistance Patient/Caregiver Education Goal Demonstrate Energy Conservation and Pacing, Caregiver Independent Assisting Patient Days to Meet Goals 15 Frequency of Treatment Frequency Of Treatment Once a Day Treatment Plan OT Treatment Plan ADL Training,Functional Cognition Training,Functional Mobility,Patient/Family Education,Discharge Planning Discharge Recommendations OT Discharge Recommendations SNF Rehab
[2019-08-14] MEDS: FOLIC ACID 1 MG TABLET PO (16:30)
[2019-08-14] MEDS: guaiFENesin ER 600 MG TAB 1200 MG PO (16:30)
[2019-08-14] MEDS: ATORVASTATIN 20 MG TABLET 40 MG PO (16:31)
[2019-08-14] MEDS: LISINOPRIL 5 MG TABLET PO (16:31)
[2019-08-14] MEDS: ASPIRIN EC 81 MG TABLET PO (16:31)
[2019-08-14] MEDS: OXYBUTYNIN 5 MG ER TAB 10 MG PO (16:32)
[2019-08-14] MEDS: levoFLOXacin 500 MG/100 ML PIGGYBACK 100 MG IV (18:09)
--- NOTE | 2019-08-14 22:08 | PC.NURSE ---
Addendum entered by Mignon Clarke R.N. 08/14/19 22:54: 2255: second call placed to A exchange, oncoming nurse to be made aware. Patient sleeping, arouses easily. Door open, alarm active, and call light within reach. Original Note: Linsey shift note: Patient up in chair for dinner, Diandra ( at side). Noted patient with confusion, oriented to self and place, however on occasions made random statements such as can you get me the tool from the garage. Occasionally calm, and cooperative, following simple commands such as transferring from chair to bed and repositioning. Sporadic bouts of agitation especially noted when was present, in one instance patient told Diandra to leave the room because she was disturbing him. confirms patients increased confusion, however states he had been similarly confused/agitation one day ago. Patient refused his HS medications. At approximately 2100, Ryan RODRIGUEZ reported to this RN that patient stated he wanted to commit suicide. This RN asked the patient regarding the suicide comment and patient disregarded question. Resting quietly in bed, door open, no agitation noted post comment, no behavior or attempting to hurt self or others. Notified Coordinator regarding patients statement and call placed to provider personnel and payroll technician (Dr. Noonan). Redness noted to buttocks (blanches), repositioning, barrier cream applied.
[2019-08-15] VITALS (10 sets, daily range): BP systolic 98–136; BP diastolic 54–76; PULSE 66–104; RESP 16–20; TEMP 36.4–37.6; O2SAT 88–99
[2019-08-15] MEDS: LEVOTHYROXINE 112 MCG TABLET PO (05:58)
[2019-08-15] MEDS: PANTOPRAZOLE 20 MG TABLET PO (05:58)
--- NOTE | 2019-08-15 06:45 | PC.NURSE ---
Pt VSS. Pt is confused but not agitated this night. Pt lung sounds diminished bilaterally. Pt has red blanchable bottom, barrier cream applied. Pt is using call light appropriately.
--- NOTE | 2019-08-15 07:51 | CM.DPC ---
DCP/continued: Reviewed chart. Current recommendation from Dr. Rogers is SNF for strengthening. PT/OT evaluations pending. Patient is Medicare part A only and [place] secondary. Met with patient and spouse/Diandra at bedside explained role. Spouse in agreement to short SNF stay. First choice is [facility]. ENGLISH COMPOSITION INSTRUCTOR placed call to Antonina at [facility] and referral provided. Spouse also inquiring about hospice. Provided spouse with general hospice philosophy and notified her that she could call hospice agency at any time for informational visit. Spouse appreciative. She states they would like to try rehabilitation first. Placed call to Kaity at [facility] office. She reports that she has spoken with [facility] provider and he recommends hospice. ENGLISH COMPOSITION INSTRUCTOR did not pass this information onto patient or spouse. P: [facility] if accepted when medically stable. RAFIA Bass
--- NOTE | 2019-08-15 08:17 | PM.DS.1 ---
History of Present Illness <Ronald Rogers MD - Last Filed: 08/17/19 16:27> History of Present Illness Chief complaint: wants his nose looked at Narrative: 84-year-old male with end-stage lung cancer who presented to the emergency department with complaints of nasal congestion. As part of his evaluation he was found to be hypoxic and had evidence of probable bilateral pneumonia based on plain film imaging of his chest, followed by CT angiography which was done to rule out pulmonary emboli given his increased risk. Patient also with bilateral pleural effusions which have been previously diagnosed. His right-sided pleural effusion is rather large and extensive but essentially unchanged from previous imaging. Patient was unable to be discharged home because his persistent hypoxia and the new diagnosis of pneumonia. He was therefore admitted for management of these conditions. Discharge Providers <Ronald Rogers MD - Last Filed: 08/17/19 16:27> Provider Date of admission: 08/09/19 20:45 Discharge Date: 08/16/19 Primary care physician: Ronald Rogers MD Consults: 08/09/19 20:53 Consult to Care Management Routine Comment: Consult to Discharge Planning Routine Comment: may need hospice consult 08/09/19 22:19 Consult to Dietitian, Adult Routine Comment: Reason For Exam: undergoing chemo. Weight loss and poor appetite. 08/11/19 09:00 Consult to Physical Therapy Evaluate & Treat Comment: Physician Instructions: Evaluate and Treat 08/14/19 08:49 Consult to Care Management Routine Comment: SNF Placement 08/14/19 10:19 Consult to Occupational Therapy Evaluate & Treat Comment: Physician Instructions: Evaluate and treat Discharge provider: Ronald Rogers MD Summary <Ronald Rogers MD - Last Filed: 08/17/19 16:27> Hospital Course Discharge Diagnosis: 1. Community-acquired pneumonia 2. 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 Large right pleural effusion due to metastatic disease of the pleura 4. Hypoxemia with acute respiratory failure 5. Hypothyroidism 6. Constipation 7. Hypertension Hospital Course: Patient was admitted after presenting with various complaints to the ED as above. Found to be quite hypoxic with pneumonia. Placed on oxygen replacement therapy and IV antibiotics. Patient's oxygen requirements diminished somewhat but still was requiring oxygen at time of discharge. His large right pleural effusion was tapped under ultrasound guidance and over 1 L of fluid was removed. Patient's respiratory status did not dramatically improve following this however. Patient continued to be weak in fact weaker and requiring more assistance with physical therapy then he had by report at home prior to admission. He was not felt to be safe to return home therefore. Plans were made for him to recover in longterm in an effort to regain some of his strength as his underlying pneumonia was treated. Patient's desire to continue treating his lung cancer waxed and waned. It seems in the end he would like to be able to return home under hospice care and be able to do some of the things he enjoys doing such as getting out in the car and being driven around town etc for as long as he is able to do these things. He does not want to continue treating his lung cancer. Overall plan was for him to be discharged to longterm to complete a course of treatment for his pneumonia with hopes that his oxygen requirement will diminish in his strength will improve to the point where he is able to enjoy his remaining time more effectively at home. If that fails to be occurring then he should likely be discharged home with hospice care and any event when he returns home should be under the care of hospice as well as he at this point anyway has elected no further treatment of his lung cancer. Patient's decision making regarding treatment of his cancer has waxed and waned over time and would not be overly surprising to me should he change his mind about this but this time his focus is on improving his strength enough that he can be safe to return home in enjoy some of the activities he normally enjoys during his remaining time under the assistance of hospice. Therefore discharged to longterm makes the most sense and he and his spouse are both in agreement Patient's other medical issues not active during this hospitalization. He waxed and waned with some confusion disorientation in the hospital expressed some suicidal ideation at times which is mostly focused at ending at all being done with his course due to the cancer which he had expressed previously but did not actually have any plans or any desire to follow through with that. He also discussed using with dignity is a way to end his life which is certainly his option but in the end he felt as though going home is pending his remaining time at home with hospice in the focus being remaining comfortable at home would be far more what he is looking for rather than ending his life by any means including with dignity. Status at Discharge Cognitive/behavioral status at discharge: at baseline, confused Functional status at discharge: uses cane/walker Overall status at discharge: patient is progressing back to baseline Time Spent with Patient Time spent: Greater than 30 minutes Exam <Ronald Rogers MD - Last Filed: 08/17/19 16:27> Vital Signs (past 8 hours): - 08/15/19 00:23 08/15/19 04:00 Temperature 99.6 F 98.8 F Pulse Rate 101 H 91 H Respiratory Rate 18 16 Blood Pressure 117/61 129/61 Pulse Oximetry 94 94 Fraction of Inspired Oxygen 30 Oxygen Delivery Method Nasal Cannula Oxygen Flow Rate 3 Objective <Ronald Rogers MD - Last Filed: 08/17/19 16:27> Labs Result Diagrams: 08/09/19 17:25 08/09/19 17:25 Discharge Plan Discharge Plan Patient Disposition: [facility] Transfer to: [facility] Under care of provider: [facility] Staff Physician Team Consult as needed: Dental, Hearing, Mental health, Podiatry and Vision Discharge Med Rec/Prescriptions Prescriptions: New ranitidine HCl 150 mg Tablet 150 mg PO QPM Qty: 30 RF: 0 levofloxacin 500 mg tablet 500 mg PO DAILY Qty: 5 RF: 0 Continued finasteride 5 MG tablet 5 mg PO DAILY Qty: 0 RF: 0 tamsulosin [Flomax] 0.4 MG capsule,extended release 24hr 0.4 mg PO BID Qty: 0 RF: 0 polysaccharide iron complex [Ferrex 150] 150 MG capsule 150 mg PO BID Qty: 60 RF: 2 docusate sodium [DOK] 100 MG tablet 100 mg PO QDAYP PRN (Reason: Constipation) Qty: 0 RF: 0 levothyroxine 112 mcg tablet 112 mcg PO DAILY Qty: 90 RF: 1 azelastine 137 mcg (0.1 %) aerosol,spray See Rx Instructions .ROUTE .COMPLEX Qty: 30 RF: 11 folic acid 1 mg tablet 1 mg PO QPM Qty: 90 RF: 1 quetiapine 50 mg tablet 50 mg PO BEDTIME Qty: 30 RF: 3 furosemide 20 mg tablet 20 mg PO DAILY Qty: 30 RF: 5 ondansetron HCl [Zofran] 4 mg Tablet 4 mg PO Q6-8H PRN (Reason: Nausea) Qty: 30 RF: 2 sennosides [senna] 8.6 mg Tablet 8.6 mg PO BID PRN (Reason: Constipation) RF: 0 polyethylene glycol 3350 [Miralax] 17 gram Powder In Packet 17 g PO DAILY PRN (Reason: Constipation) RF: 0 magnesium hydroxide [Milk of Magnesia] 400 mg/5 mL Suspension 400 mg PO DAILY PRN (Reason: Constipation) RF: 0 lisinopril 5 mg tablet 5 mg PO QPM RF: 0 oxybutynin chloride 10 mg Tablet Extended Release 24hr 10 mg PO QPM RF: 0 atorvastatin 40 mg tablet 40 mg PO QPM RF: 0 fluticasone propionate [Flonase Allergy Relief] 9.9 ML spray,suspension 50 mcg Intranasal PRN PRN (Reason: Allergy Symptoms) RF: 0 PreserVision AREDS-2 [phone] Capsule 1 cap PO BID RF: 0 Changed acetaminophen 325 mg Tablet 650 mg PO PRN PRN (Reason: pain or fever) Qty: 45 RF: 0 guaifenesin [Mucinex] 1,200 mg Tablet Extended Release 12hr 1,200 mg PO QPM PRN (Reason: Cough) Qty: 0 RF: 0 Discontinued hydrocortisone acetate [Anusol-HC] 25 mg suppository 25 mg FL QD-BID PRN (Reason: hemorrhoids) Qty: 30 RF: 1 triamcinolone acetonide 0.1 % cream 1 applictn TOP BID Qty: 453.6 RF: 2 omeprazole 20 mg capsule,delayed release(DR/EC) 20 mg PO DAILY RF: 0 lidocaine-prilocaine 2.5-2.5 % cream 1 applictn TOP PRN PRN (Reason: pain) Qty: 30 RF: 0 aspirin 325 mg Tablet 81 mg PO QPM RF: 0 famotidine 20 mg Tablet 20 mg PO QPM RF: 0 simethicone 125 mg Tablet 125 mg PO DIRECTED RF: 0 Follow up/Referrals: Ronald Rogers MD [Primary Care Provider] - Discharge Health Status Brief summary of current health status: lung cancer, admitted with pneumonia, weakness Multidrug resistant organism: No MDRO Precautions: [place] Provider Discharge Instructions Diet: Diet as Tolerated Liquid consistency: Normal/Thin Food texture: Regular [facility] Rehab type: Physical therapy and Occupational therapy Visit Report/Discharge Packet Instructions: DI for Pneumonia -- Adult, How to Prevent Falls Discharge Data Primary Care Provider: Ronald Rogers Discharges patient from system. Discharge Date/Time: 08/16/19 15:04 Quality <Ronald Rogers MD - Last Filed: 08/17/19 16:27> VTE Deep Vein Thrombosis/Pulmonary Embolism Present on Admission: No
--- NOTE | 2019-08-15 08:43 | DIET.PN ---
Dietary Progress Note Assessment: 84y M admitted for pneumonia and pleural effusion secondary to end stage lung Ca referred to nutrtition for wt loss. Pt tolerating ONS to support energy needs, consuming 100% of trays over weekend. Pt has been wt stable during his weeklong stay at . HT: 172.7cm WT: 80.3kg UBW: 86kg BMI: 26.9 Labs: last labs taken 08/09/19 MNA: 8 Nutrition Diagnosis: Severe Acute PCM r/t hypermetabolism secondary to end stage lung Ca aeb <50% EERs for >5d, 10% unintentional wt loss in 3 mo (severe), pleural effusion c pneumonia. Interventions: Educate pt and spouse on continuing ONS supps either whey protein smoothies or Ensure Enlive tid to provide adequate PRO and kcal in pts continued hypermetabolic state. Diet Order: general BM: 2 reported on 08/14/19 EER: 2200kcal, 108g PRO (1.5g/kg) Monitoring/Evaluations: pt discharging to SNF
[2019-08-15] MEDS: FINASTERIDE 5 MG TABLET PO (09:44)
[2019-08-15] MEDS: FUROSEMIDE 20 MG TABLET PO (09:44)
[2019-08-15] MEDS: VIT C/E/ZN/COPPR/LUTEIN/ZEAXAN CAPSULE 1 CAP PO ×2 (09:44→20:18)
[2019-08-15] MEDS: TAMSULOSIN 0.4 MG CAPSULE PO ×2 (09:44→20:17)
[2019-08-15] MEDS: SODIUM CHLORIDE 0.9% FLUSH 10 ML IV ×2 (09:44→20:18)
--- NOTE | 2019-08-15 09:52 | PC.NURSE ---
Day shift: Called Dr Rogers about Pt's IV not working. Sue ok with no IV access at this time.
--- NOTE | 2019-08-15 10:52 | OT.IP.TRT ---
Current Diagnoses Pneumonia, unspecified organism (08/09/19) Occupational Therapy Treatment Note M2 OT-IP Current Condition Start: 08/14/19 14:28 Freq: Status: Active Protocol: Document 08/14/19 12:50 [facility] (Rec: 08/14/19 14:52 [facility] [id number]) Occupational Therapy Current Condition Current Condition Evaluation Date 08/14/19 Treatment Diagnosis Bilateral PNA, hypoxia, end stage lung CA Diagnosis Onset Date 08/09/19 Weight Bearing Status Weight Bearing Status Weight Bear as Tolerated M3 OT- IP Subjective and Pain Start: 08/14/19 14:28 Freq: Status: Active Protocol: Document 08/15/19 10:52 [facility] (Rec: 08/15/19 12:17 [facility] [id number]) OT- Subjective Occupational Therapy Visit Type Type Treatment Note Visit Start Time 10:52 Visit Stop Time 11:22 Total Visit Minutes 30 Occupational Therapy Visit Comments Patient Comments Pt initially not wanting to get up and then after encouragement from and therapist agreed to get up. OT Pain Assessment Pain When Pain Assessed At Rest Pain Present Pain Present Denied Pain M4 OT- IP ADL's Start: 08/14/19 14:28 Freq: Status: Active Protocol: Document 08/15/19 10:52 [facility] (Rec: 08/15/19 12:17 [facility] [email or web address]) OT ADL-Grooming General Evaluation Grooming Ability Standby Assistance Areas Needing Assistance Retrieving/Set-up of Grooming Items Comments OT Grooming Comments CGA for balance while doing all grooming needs after set- up . Pt needing cues to open his eyes while brushing his teeth and vc to put one hand on the counter for balance. OT ADL-Oral Care General Eval Oral Care Ability Independent OT ADL-Dressing General Eval Lower Body Dressing Ability Maximum Assistance Areas Needing Assistance Underpants/Brief Comments OT Dressing Comments Pt able to reach down and get right foot into brief and needing assist to hold brief so able to get left foot in. Pt needing LOLITA to stand and assist to help pull up left side of the brief. OT ADL-Toileting General Evaluation Toileting Ability Maximum Assistance Areas Needing Assistance Manage Clothing,Perform Perineal Hygiene Comments OT Toileting Comments Pt able to try to wipe initially, however needing assist for completeness. M6 OT- IP Functional Cognition Start: 08/14/19 14:28 Freq: Status: Active Protocol: Document 08/15/19 10:52 [facility] (Rec: 08/15/19 12:17 [facility] [email or web address]) Cognitive Factors Limiting Selfcare Function Cognitive Ability Level of Alertness Alert Attention Span Ability Capable of Focused Attention, Capable of Sustained Attention Ability to Follow Commands Able to Follow One Step Commands Memory Description Short Term Impaired Safety Awareness Underestimates Need for Assistance Problem Solving Ability Unable to Identify Errors, Needs Assist to Identify Solutions Cognitive Comments Cognitive Assessment Comments Pt doing better to sequence through grooming and toileting needs after given cues. M7 OT- IP Mobility and Balance Start: 08/14/19 14:28 Freq: Status: Active Protocol: Document 08/15/19 10:52 [facility] (Rec: 08/15/19 12:17 [facility] [email or web address]) OT-Transfer Assessment Sit to and From Stand Sit to and from Stand Minimal Assistance Transfers Transfer Ability Minimal Assistance Technique Transfer Destination Bed,Chair,Toilet Transfer Technique Stand Step Pivot Devices Transfer Assistive Devices Gait Belt,Front Wheeled Walker Comments Mobility Comments Today improved to CGA to LOLITA to stand and able to walk with FWW to the sink , toilet and then back to recliner. O2 reading stay in mostly above 90% on 2L and at times drops to 88% and able to recover after a few seconds to above 90%. OT- Balance Assessment Sitting Balance and Reactions Static Sitting Balance Ability Normal Dynamic Sitting Balance Ability Good Standing Balance and Reactions Static Standing Balance Ability Fair M8 OT- IP Objective Assessments Start: 08/14/19 14:28 Freq: Status: Active Protocol: Document 08/14/19 12:50 [facility] (Rec: 08/14/19 14:52 [facility] [id number]) OT Gross Range of Motion Upper Extremity Range of Motion Assessment Within Functional Limits OT Strength Comments Strength Comments Bilateral radio director 4/5 M9 OT- IP Assessment and Plan Start: 08/14/19 14:28 Freq: Status: Active Protocol: Document 08/15/19 10:52 [facility] (Rec: 08/15/19 12:17 [facility] [email or web address]) OT Summary Assessment and Plan Potential Rehabilitation Potential Fair Analytic Complexity at Evaluation Moderate Summary OT Impairments Balance,Functional Cognition, Functional Mobility,Grooming, Dressing,Toileting,Bathing, Toilet Transfers,Shower Transfers Progress Towards Goals Progressing Toward Goals Assessment Summary Pt most improved with activity tolerance and now on 2L of O2 and actively participated in grooming and toileting needs today. Pt will benefit from skilled rehab prior to going home. Goals Grooming Goal Standby Assistance Dressing Goal Standby Assistance Toileting Goal Standby Assistance Bathing Goal Minimal Assistance Toilet Transfer Goal Standby Assistance Shower Transfer Goal Contact Guard Assistance Patient/Caregiver Education Goal Demonstrate Energy Conservation and Pacing, Caregiver Independent Assisting Patient Days to Meet Goals 10 Frequency of Treatment Frequency Of Treatment Once a Day Treatment Plan OT Treatment Plan ADL Training,Functional Cognition Training,Functional Mobility,Patient/Family Education,Discharge Planning Other Treatment Recommendations and Next Shower if still here. Treatment Focus Discharge Recommendations OT Discharge Recommendations SNF Rehab
--- NOTE | 2019-08-15 11:17 | PC.NURSE ---
Day shift: Pt calm and cooperative today. Tolerating sitting in chair. Ate his greakfast with no nausea. IV removed per MD. Spouse in room for support. Pt takes his PO meds 1 at a time. Chair alarm on. Pt deneis any pain or chest pain. Lung sounds dim at bases. Wheezes present at times. Encouraged to cough and deep breath.
--- NOTE | 2019-08-15 11:22 | PT.IPTN ---
Current Diagnoses Pneumonia, unspecified organism (08/09/19) Physical Therapy Treatment Note M2 PT-IP Current Condition Start: 08/11/19 15:47 Freq: NEEDED Status: Active Protocol: Document 08/11/19 16:40 [facility] (Rec: 08/11/19 17:52 [facility] [email or web address]) Physical Therapy Current Condition Current Condition Evaluation Date 08/11/19 Treatment Diagnosis B PNA, end stage of lung cancer, hypoxia, SOB, generalized weakness Onset Date 08/09/19 Weight Bearing Status Weight Bearing Status Full Weight Bearing M3 PT-IP Subjective Start: 08/11/19 15:47 Freq: NEEDED Status: Active Protocol: Document 08/15/19 10:51 [facility] (Rec: 08/15/19 12:12 [facility] [id number]) Subjective Physical Therapy Visit Type Type Treatment Note Visit Start Time 10:51 Visit Stop Time 11:22 Total Visit Minutes 31 Notes Co-treat with OT Number of SUPERVISOR LOCOMOTIVE Visits 1 Physical Therapy Visit Comments Patient Comments Pt willing to get up to sink to brush teeth. M4 PT-IP Mobility and Gait Start: 08/11/19 15:47 Freq: NEEDED Status: Active Protocol: Document 08/15/19 10:51 [facility] (Rec: 08/15/19 12:12 [facility] [id number]) PT-Transfer Assessment Sit to and From Stand Sit to and from Stand Contact Guard Assistance,Use of Upper Extremities Equipment Transfer Assistive Device Gait Belt,Front Wheeled Walker Transfers Transfer Destination Chair,Toilet Transfer Technique Stand Step Pivot Transfer Ability Level of Assist Minimal Assistance,Use of Upper Extremities Comments Mobility Comments Pt agreeable to get up and stand at sink to wash up. Pt ambulated to sink requiring Min A and assist with O2 line. Pt stood CGA needing cues for hand placement and scooting forward in chair before standing. Pt ambulated to sink requiring Min A due to unsteadiness. Pt stood at sink needing cues to keep his eyes open while brushing his teeth as pt had LOB and required CGA. Pt then ambulate and sat on EOB to rest. Pt required cues for PLB during tx. Pt then felt he needed to use the BR, pt stood with CGA and ambulate to BR with FWW/CGA. Pt required cues for hand placement for safe descent. Pt had BM and OT assisted pt with with pericare and reuben brief. Pt then ambulated back to chair. Left pt in chair with alarm on, call light within reach. Diandra present. STAFF THERAPIST informed of alarm and BM. Gait Assessment Gait Gait Assistance Required: Minimum Assistance,1 Person Assist Distance (Feet) 40 Assistive Devices Assistive Device Gait Belt,Front Wheeled Walker Gait Deviations General Gait Pattern Antalgic,Decreased Stride Length,Decreased Feet Clearance Factors Limiting Gait Function Factors Limiting Gait Function Decreased Activity Tolerance, Decreased Strength,Respiratory Distress Comments Gait Comments Pt ambulated requiring Min A with a total of ~40 ft Pt ambulated 10ft x4 as pt stood at counter then sat on bed to rest then on toilet. M5 PT-IP Objective Assessments Start: 08/11/19 15:47 Freq: NEEDED Status: Active Protocol: Document 08/11/19 16:40 [facility] (Rec: 08/11/19 17:52 [facility] [email or web address]) Orientation Orientation/Cognition Level of Alertness Alert Orientation Name,Age,Birthday,Month,Date, Year,Day of Week,Place, Situation Language Function Ability Hard of Hearing Safety Awareness Decreased Safety Awareness Memory Description No Deficits Noted Gross Range of Motion Upper Extremity ROM Assessment Within Functional Limits Lower Extremity ROM Assessment Within Functional Limits Strength Upper Extremity Strength Assessment Within Functional Limits Lower Extremity Strength Assessment Within Functional Limits Coordination Assessment Gross Coordination Gross Coordination WNL Sensation Assessment Sensation Gross Sensation WNL Muscle Tone Muscle Tone WNL Yes M6 PT-IP Treatment Start: 08/11/19 15:47 Freq: NEEDED Status: Active Protocol: Document 08/14/19 12:11 [facility] (Rec: 08/14/19 13:36 [facility] [id number]) Physical Therapy Treatment Education Education Provided Safety M7 PT-IP Assessment and Plan Start: 08/11/19 15:47 Freq: NEEDED Status: Active Protocol: Document 08/15/19 10:51 [facility] (Rec: 08/15/19 12:12 [facility] [id number]) PT Summary Assessment and Plan Summary Impairments Strength,Balance,Cognition,Bed Mobility,Transfers,Gait, Activity Tolerance Progress Towards Goals Slow Progress due to Activity Tolerance Assessment Summary Pt is alert today making needs know during therapy and able to follow directions when cued . Pt able to ambulate 10ftx4 with rest breaks and was able to stand at sink 3 minutes with CGA. Pt O2 remained between 90-94% on 2L during tx . Goals Bed Mobility Goal Contact Guard Assistance Transfer Goal Contact Guard Assistance,Front Wheeled Walker Gait Goal Contact Guard Assistance,Front Wheel Walker Gait Distance 100 Other Goals 1 ROBI with CG ROOF CEMENT AND PAINT MAKER. Days to Meet Goals 10 Frequency of Treatment Frequency Of Treatment Once a Day Treatment Plan Physical Therapy Treatment Plan Bed Mobility Training,Transfer Training,Gait Training, Therapeutic Exercise,Balance Retraining,Discharge Planning, Neuromuscular Re-ed Recommendations To Nursing Amount of Assist Needed 1 Person Assist Discharge Recommendations PT Discharge Recommendations SNF Rehab
--- NOTE | 2019-08-15 14:57 | PC.NURSE ---
Day shift: Called and talked to Antonina from [facility]. MAde her aware that Pt has been calm and cooperative with care today.
--- NOTE | 2019-08-15 15:27 | CM.DPC ---
DCP/continued: Received call back from [facility] later in afternoon today. They report due to patient's behavior i.e. agitation and mention of suicide while confused they cannot accept. Met again with spouse and she reports being very upset with decision. [facility] agreeable to do bedside assessment but would also want psychiatric evaluation prior to re-consideration. Spouse agreeable for COVERING MACHINE OPERATOR HELPER to fax clinical to both [facility] and [facility]. Notified spouse that patient has orders today but no actual discharge from MD. Spouse and patient continue to want to pursue attempt at therapy. Spouse considering home with home health but realizes that this is not a safe choice given patient's current physical needs. P: [facility] and JENNYKristopher evaluating for admit. [facility] doing bedside but are concerned about patient's agitation and previous mention of suicide while confused. COVERING MACHINE OPERATOR HELPER to re-evaluate in AM 11-19. RAFIA Bass
--- NOTE | 2019-08-15 16:51 | P.PN_ITS ---
Subjective Subjective Date Patient Seen: 08/15/19 Time Patient Seen: 08:00 Interval history: Patient is sitting up eating breakfast in a bedside chair No real complaints Exam Vital Signs (past 8 hours): - 08/15/19 10:45 08/15/19 11:41 08/15/19 16:41 Temperature 97.5 F L 98.1 F Pulse Rate 93 H 96 H Respiratory Rate 20 20 Blood Pressure 98/59 L 124/54 L Pulse Oximetry 88 L 94 93 Fraction of Inspired Oxygen 30 Oxygen Delivery Method Room Air Oxygen Flow Rate 3 Objective Labs Result Diagrams: 08/09/19 17:25 08/09/19 17:25 Assessment & Plan Assessment & Plan narrative: 1. Pneumonia-continue with antibiotics switched to oral given his IVs failing. Continue with oxygen replacement therapy which is likely going to be necessary probably even at home 2. Lung cancer-patient not a candidate for any treatment at this point unless his status improves. Not sure there is any adequate treatment anyway. Disposition-patient is rid medically ready for discharge and has been for the last 24 hours. However placement has been an issue. I do think there is some chance he will improve and get back to his more baseline status with his ability to help with transfers and be able to do the things he wants to do at home such as ride in the car etc. Therefore I think discharge to senior care makes the most sense in effort to get him stronger to return home Patient also is an excellent candidate for hospice and I would suggest that perhaps be initiated when he is ready to return home. I do not think he is going to agreed any further treatment for his cancer neuro are really think there is anything to offer him in that regard. However his quality life would be greatly improved we can get him some additional strength at least temporarily while treating his pneumonia etc and senior care discharge seems to make the most sense to me Unfortunately it arrangements could not be made for him to be transferred today and hopefully that can be accomplished in the next 24 hours Note: Greater than 30 minutes was spent evaluating the patient on the floor, including examining the patient, discussing clinical course with clinical and nursing staff, reviewing clinical course in the computer, preparing documentation and writing orders for continued management of care, discussing status with family as appropriate, reviewing plans for the next 24 hours with both patient/family and nursing staff as appropriate. Quality VTE Deep Vein Thrombosis/Pulmonary Embolism Present on Admission: No
[2019-08-15] MEDS: OXYBUTYNIN 5 MG ER TAB 10 MG PO (17:03)
[2019-08-15] MEDS: ASPIRIN EC 81 MG TABLET PO (17:04)
[2019-08-15] MEDS: guaiFENesin ER 600 MG TAB 1200 MG PO (17:04)
[2019-08-15] MEDS: FOLIC ACID 1 MG TABLET PO (17:04)
[2019-08-15] MEDS: ATORVASTATIN 20 MG TABLET 40 MG PO (17:04)
[2019-08-15] MEDS: LISINOPRIL 5 MG TABLET PO (17:04)
[2019-08-15] MEDS: levoFLOXacin 500 MG TABLET PO (17:05)
[2019-08-15] MEDS: SENNOSIDES 8.6 MG TABLET 17.2 MG PO (20:17)
[2019-08-15] MEDS: QUETIAPINE 25 MG TABLET 50 MG PO (20:17)
--- NOTE | 2019-08-15 21:47 | PC.NURSE ---
PATIENT IS VERY UPSET ABOUT NOT BEING ABLE TO KEEP HIS NASAL SPRAY WITH HIM,REFUSES TO RETURN IT TO ME,STATES HE HAS BEEN USING IT FOR YEARS AND IS GOING TO KEEP IT WITH HIM. INFORMED OF HOSPITAL POLICY ,THIS INCREASED HIS AGITATION.NOW PATIENT IS ASKING FOR PONY TRIMMER TO TALK WITH HIM. INFORMED COORDINATOR .
[2019-08-16] VITALS (7 sets, daily range): BP systolic 119–143; BP diastolic 59–74; PULSE 83–108; RESP 16–24; TEMP 36.2–36.4; O2SAT 93–98
[2019-08-16] MEDS: LEVOTHYROXINE 112 MCG TABLET PO (06:26)
--- NOTE | 2019-08-16 08:00 | P.PN_ITS ---
Subjective Subjective Date Patient Seen: 08/16/19 Time Patient Seen: 08:01 Interval history: Patient had a somewhat difficult to evening, wanted to his saline nasal spray and other preparations for his nasal congestion at his bedside to use as needed and of course they are not ordered in the computer system and certainly not ordered for him to be able to use as needed at bedside. This was discussed with him at some length any understands that but is still obviously frustrated Patient was also refuse by [facility] because of their concerns over confusion and his expressed wishes to end it all being interpreted as patient being actively suicidal. Exam Vital Signs (past 8 hours): - 08/16/19 06:00 08/16/19 07:07 Temperature 97.5 F L Pulse Rate 83 Respiratory Rate 16 Blood Pressure 143/62 H Pulse Oximetry 98 93 Fraction of Inspired Oxygen 30 Oxygen Delivery Method Nasal Cannula Oxygen Flow Rate 1.5 Narrative Exam Narrative: Unchanged from previous, dullness right hemithorax present (suggesting reaccumulation of fluid) Objective Labs Result Diagrams: 08/09/19 17:25 08/09/19 17:25 Assessment & Plan Assessment & Plan narrative: 1. Pneumonia-continue with Levaquin p.o., oxygen requirement still present and not improving. Not sure that he will get much better than this from an oxygen standpoint. Still has several days to complete a 10 day course of antibiotic therapy 2. Lung cancer-evidence of reaccumulation of fluid right hemithorax not surprising. Not candidate for any further therapies. Repeat thoracentesis really not indicated as patient is not uncomfortable with the oxygen replacement therapy and fluid will almost certainly almost immediately return 3. Mental health-patient in my opinion is NOT actively suicidal. He has come to a place with his cancer and he would prefer to end his struggle with cancer, which means ending his life, and he understands that, and he is eager to come to the end of his course with his cancer as he has suffering with his global weakness, inability to do things he wants to do, inability to be at home, etc. Is not actively suicidal at this time nor do I think has he ever been. He is not expressed any desire to end his own life at any point whether when I saw him as an outpatient in the clinic or during this hospitalization. He has expressed an interest in ending his struggle with his cancer by having his life come to an end, but not being actively seeking a method to do that on his own. Indeed when we discussed with dignity that is an option here in [facility], he decided he would not want that, but would rather opt for hospice care at home to be able to return home and remain comfortable. Patient has been intermittently confused perhaps due to his underlying medical issues his hypoxia etc. He easily redirects. He has had some agitation and some anger with some of his confusion but again is redirectable. This is not unusual in elderly population with significant medical disease such as is present in this patient and I would think should not be a reason to deny care at penitentiary facility. I would continue to seek placement in penitentiary as I think patient does have some rehab potential to enable him to return home to spend his final time at home. Patient is medically ready for discharge at any time an appropriate accepting facility can be found. Note: Greater than 30 minutes was spent evaluating the patient on the floor, including examining the patient, discussing clinical course with clinical and nursing staff, reviewing clinical course in the computer, preparing documentation and writing orders for continued management of care, discussing status with family as appropriate, reviewing plans for the next 24 hours with both patient/family and nursing staff as appropriate. Quality VTE Deep Vein Thrombosis/Pulmonary Embolism Present on Admission: No
[2019-08-16] MEDS: FUROSEMIDE 20 MG TABLET PO (10:15)
[2019-08-16] MEDS: TAMSULOSIN 0.4 MG CAPSULE PO (10:15)
[2019-08-16] MEDS: levoFLOXacin 500 MG TABLET PO (10:15)
[2019-08-16] MEDS: VIT C/E/ZN/COPPR/LUTEIN/ZEAXAN CAPSULE 1 CAP PO (10:15)
[2019-08-16] MEDS: FINASTERIDE 5 MG TABLET PO (10:16)
--- NOTE | 2019-08-16 11:20 | PT.IPTN ---
Current Diagnoses Pneumonia, unspecified organism (08/09/19) Physical Therapy Treatment Note M2 PT-IP Current Condition Start: 08/11/19 15:47 Freq: NEEDED Status: Active Protocol: Document 08/11/19 16:40 [facility] (Rec: 08/11/19 17:52 HH [email or web address]) Physical Therapy Current Condition Current Condition Evaluation Date 08/11/19 Treatment Diagnosis B PNA, end stage of lung cancer, hypoxia, SOB, generalized weakness Onset Date 08/09/19 Weight Bearing Status Weight Bearing Status Full Weight Bearing M3 PT-IP Subjective Start: 08/11/19 15:47 Freq: NEEDED Status: Active Protocol: Document 08/16/19 11:47 [facility] (Rec: 08/16/19 11:59 [facility] [email or web address]) Subjective Physical Therapy Visit Type Type Treatment Note Visit Start Time 11:06 Visit Stop Time 11:20 Total Visit Minutes 24 Notes Treatment supervised by ASHLYN Philippe. Number of INSTRUCTOR PRODUCT INSPECTION Visits 2 Physical Therapy Visit Comments Patient Comments Pt willing to get out of bed and walk to door. M4 PT-IP Mobility and Gait Start: 08/11/19 15:47 Freq: NEEDED Status: Active Protocol: Document 08/16/19 11:47 [facility] (Rec: 08/16/19 11:59 [facility] [email or web address]) PT-Bed Mobility Assessment Rolling Type of Rolling Roll to Left Level of Assist Standby Assistance Supine to Sit Supine to Sit Standby Assistance Scooting Scooting to Edge of Bed Standby Assistance PT-Transfer Assessment Sit to and From Stand Sit to and from Stand Minimal Assistance,Use of Upper Extremities Equipment Transfer Assistive Device Gait Belt,Front Wheeled Walker Transfers Transfer Destination Chair Transfer Technique Pt used FWW to ambulate. Transfer Ability Level of Assist Minimal Assistance,Use of Upper Extremities Comments Mobility Comments Pt able to sit from flat bed and scoot EOB with SBA today. Required Min A and use of UE for STS with FWW. Gait Assessment Gait Gait Assistance Required: Contact Guard Assist,1 Person Assist Distance (Feet) 30 Able to Maintain Weight Bearing Status Yes During Gait Assistive Devices Assistive Device Gait Belt,Front Wheeled Walker Gait Deviations General Gait Pattern Antalgic,Decreased Stride Length,Decreased Feet Clearance Factors Limiting Gait Function Factors Limiting Gait Function Decreased Activity Tolerance, Decreased Strength,Respiratory Distress Comments Gait Comments Pt demonstrated proper use of FWW with STS and ambulation. He walked to the door and then back to his chair. Decreased stride and SOB present. Pts O2 remains 90-94 on room air. M5 PT-IP Objective Assessments Start: 08/11/19 15:47 Freq: NEEDED Status: Active Protocol: Document 08/11/19 16:40 [facility] (Rec: 08/11/19 17:52 HH [email or web address]) Orientation Orientation/Cognition Level of Alertness Alert Orientation Name,Age,Birthday,Month,Date, Year,Day of Week,Place, Situation Language Function Ability Hard of Hearing Safety Awareness Decreased Safety Awareness Memory Description No Deficits Noted Gross Range of Motion Upper Extremity ROM Assessment Within Functional Limits Lower Extremity ROM Assessment Within Functional Limits Strength Upper Extremity Strength Assessment Within Functional Limits Lower Extremity Strength Assessment Within Functional Limits Coordination Assessment Gross Coordination Gross Coordination WNL Sensation Assessment Sensation Gross Sensation WNL Muscle Tone Muscle Tone WNL Yes M6 PT-IP Treatment Start: 08/11/19 15:47 Freq: NEEDED Status: Active Protocol: Document 08/14/19 12:11 [facility] (Rec: 08/14/19 13:36 [facility] [id number]) Physical Therapy Treatment Education Education Provided Safety M7 PT-IP Assessment and Plan Start: 08/11/19 15:47 Freq: NEEDED Status: Active Protocol: Document 08/16/19 11:47 [facility] (Rec: 08/16/19 11:59 [facility] [email or web address]) PT Summary Assessment and Plan Summary Assessment Summary Pt is more alert and willing to participate in PT today. Showed increased tolerance to bed mobility and ambulation. O2 stats stable (>90) upon exertion on room air. Frequency of Treatment Frequency Of Treatment Once a Day Recommendations To Nursing Amount of Assist Needed 1 Person Assist Discharge Recommendations PT Discharge Recommendations SNF Rehab
--- NOTE | 2019-08-16 11:55 | CM.DPC ---
Addendum entered by RAFIA Hager 08/16/19 14:14: ADD: Dr. Barnes covering for Dr. Rogers's pt for this afternoon and agreeable to write d/c orders and Dr. Rogers already had signed med rec and note from today for discharge. HELEN called Ruben at [facility] with update on official d/c orders and he will work on setting up cabulance for today. EDITH Mendez kindly faxed PASRR, signed med rec, d/c summary/note to [facility] to review for discharge today and updated RN who is helping to get pt ready for d/c today. Plan: HELEN following for return call from [facility] on time for transport today. RAFIA Hager Original Note: DCP SNF Planning: Per MD, pt remains medically stable for discharge to SNF for rehab stay prior to home with possibly Hospice. has spoken extensively with pt and spouse regarding his wish to stop cancer treatment and his statements of being ready to be done with life and MD states pt is not actively suicidal and does not feel that his statements had been suicidal but more statements of being done with treatment and ready for when it comes. Pt has remained stable on Seroquel with no behavioral issues the past few days. Waiting for SNF acceptance and placement. HELEN received a call from Antonina at [facility] stating she completed bedside assessment with pt and spouse and still feel concerned with accepting pt and properly meeting his needs and decline accepting him at this time. HELEN called [facility] and [facility] in admissions states that their administrators do not feel they can adequately manage the pt at this time and decline accepting him. HELEN called [facility] admissions Ruben and discussed pt's status and referral from yesterday and Ruben states they can accept the pt if they are in understanding that if Medicare does not skill the pt for an extended amount of time they will have the option of private paying at SNF after Medicare stops covering his stay or d/c home with HH or Hospice and CG if needed. HELEN met bedside with pt and spouse and explained role again and updated on above and pt and spouse agreeable to d/c to [facility] and aware that they could pay privately for extended stay after Medicare coverage ends or that they can work on plan for home with needed resources. HELEN called Dr. Rogers's office and left msg regarding acceptance at [facility] and need for discharge orders and d/c packet if pt medically stable to d/c still today. SW called [facility] admissions and updated on above and they will wait to hear if pt will be discharged today. Plan: SW to wait for return call from Dr. Rogers's office to determine if pt will be discharged to SNF today or tomorrow. RAFIA Hager
--- NOTE | 2019-08-16 14:17 | CM.DPC ---
DCP Cont: Faxed discharge packet: PASRR, signed meds, discharge summary and order to [facility] at fax # [phone]. Fax confirmation scanned in. Rosamaria Longo Reducing Machine Operator
--- NOTE | 2019-08-16 15:48 | PC.NURSE ---
Day Shift- Pt left unit via wheelchair at 1504 with [facility]-Connerkeith gomez. Pt's Diandra at side and states has all belongings. Pt left unit in no distress. Report called to Hanh Bahena at 1558.
== END 2019-08-16 15:04 | DRG 193 ==
LOC: ED 15:58 → AC 20:46
PROVIDERS: Admitting Provider Family Medicine; Emergency Provider Nurse Practitioner Family; PCP Internal Medicine; Visit Provider Internal Medicine
DX: J18.9 Pneumonia, unspecified organism (principal); J96.01 Acute respiratory failure with hypoxia; C34.91 Malignant neoplasm of unspecified part of right bronchus or lung; J91.0 Malignant pleural effusion; R63.0 Anorexia; I10 Essential (primary) hypertension; E03.9 Hypothyroidism, unspecified; E78.2 Mixed hyperlipidemia; K21.9 Gastro-esophageal reflux disease without esophagitis; K59.00 Constipation, unspecified; K62.89 Other specified diseases of anus and rectum; Z87.891 Personal history of nicotine dependence
CPT/HCPCS: 32555; 36415; 71045; 71275; 80053; 81003; 82550; 83605; 83880; 84145; 84484; 85025; 85610; 87040; 87502; 93005; 93010; 94640; 94760; 94762; 96374; 97116; 97161; 97165; 97530; 97535; 99223; 99232; 99233; 99238; 99283; 99285; J1956; J7613; Q9967